=== PATIENT | female | born 1970 | race Caucasian/White ===

== ENCOUNTER 2019-12-24 11:30 | Emergency (ER) | payer OTHER ==
--- OUTSIDE RECORDS SUMMARY | 2019-12-24 12:05 | XMS REPORT ---
:1970 [facility] Address [address] [place] [address] [address] Care Team Providers Name Role Phone Unavailable Unavailable Unavailable Problems This patient has no known problems. Allergies, Adverse Reactions, Alerts This patient has no known allergies or adverse reactions. Medications This patient has no known medications. Encounters Start End Encounter Admission Attending Care Care Encounter Date/Time Date/Time Type Type Clinicians Facility Department ID 2017-11-18 2017-11-18 Outpatient [facility] [id number] 00:00:00 00:00:00 2017-07-22 2017-07-22 Outpatient [facility] [id number] 00:00:00 00:00:00 2017-06-24 2017-06-24 Outpatient [facility] [id number] 12:34:43 12:34:43 2017-06-24 2017-06-24 Outpatient [facility] [id number] 10:24:55 10:24:55
--- OUTSIDE RECORDS SUMMARY | 2019-12-24 12:05 | XMS REPORT | Summary of Care ---
:1970 Author Organization [facility] Address [address] [place] [address] Care Team Providers Name Role Phone Timothy Dawson Primary Care Provider Encounter Details Date Type Department Care Team Description 11/22/2019 [facility] [address] [place] [address] [place] [address] [place], [place] [phone] Allergies Active Allergy Reactions Severity Noted Date Comments Morphine Nausea and/or Vomiting 05/15/2015 documented as of this encounter (statuses as of 11/23/2019) Medications Medication Sig Dispensed Refills Start Date End Date Status oxyCODONE C.R. Take 20 mg by 0 Active (OXYCONTIN) 20 mg 12 hr mouth 2 (two) tablet times daily. tiZANidine (ZANAFLEX) 4 Take 4 mg by 0 Active mg capsule mouth 2 (two) times daily. gabapentin (NEURONTIN) Take 800 mg by 0 Active 800 mg tablet mouth 4 (four) times daily. gemfibrozil (LOPID) 600 Take 600 mg by 0 Active mg tablet mouth daily. furosemide (LASIX) 20 Take 20 mg by 0 Active mg tablet mouth 2 (two) times daily. propranolol (INDERAL) Take 80 mg by 0 Active 80 mg tablet mouth daily. warfarin (COUMADIN) 7.5 Take 7.5 mg by 0 Active mg tablet mouth every evening. cephALEXin (KEFLEX) 500 Take 1 capsule 28 capsule 0 09/23/2017 Active mg capsule by mouth 2 (two) times daily. triamcinolone acetonide Apply to 80 g 2 08/20/2018 Active 0.1 % cream area(s) 2 (two) times daily. traMADol 50 mg Take 1 tablet by 20 tablet 0 10/30/2019 Active tabletIndications: mouth every 6 Closed fracture of (six) hours as metatarsal bone of needed for Pain right foot, physeal (scale 7-10). involvement unspecified, unspecified metatarsal, initial encounter documented as of this encounter (statuses as of 11/23/2019) Active Problems No known active problemsdocumented as of this encounter (statuses as of 2019) Resolved Problems Problem Noted Date Resolved Date Pain 05/15/2015 05/15/2015 documented as of this encounter (statuses as of 11/23/2019) Social History Tobacco Use Types Packs/Day Years Used Date Never Smoker Smokeless Tobacco: Former User Alcohol Use Drinks/Week oz/Week Comments No Sex Assigned at Date Recorded Not on file Job Start Date Occupation Industry Not on file Not on file Not on file Travel History Travel Start Travel End No recent travel history available. 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 Name Type Priority Associated Diagnoses Order Schedule XR FOOT <3 VW RIGHT IMAGING Routine Right foot pain 1 Occurrences starting 11/22/2019 until 11/22/2019 Health Maintenance Due Date Last Done Comments DTaP,Tdap,and Td Vaccines (1 - 1979 Tdap) PAP SMEAR 1989 Breast Cancer Screening 2008 (MAMMOGRAM) COLONOSCOPY 2018 Zoster Recombinant Vaccine 2018 (SHINGRIX) (1 of 2) INFLUENZA VACCINE (#1) 2019 PNEUMOCOCCAL 0-64 YEARS COMBINED Aged Out No longer eligible based on SERIES patient's age to complete this topic documented as of this encounter Implants Implanted Type Area Deputy Court Clerk Device Shelf Model / Identifier Expiration Serial / Date Lot Intrathecal Catheter Lumbar N/A: Back Medtronic 12/21/2016 8780 / Implanted: Qty: 1 on 09/04/2015 by Crow Cowan MD at [facility] Catheter [id number] / [id number] Pump Pump N/A: Medtronic 09/23/2016 8637-20 / Implanted: Qty: 1 on 09/04/2015 by Crow Cowan MD at [facility] Abdomen [id number] / [id number] documented as of this encounter Results Not on filedocumented in this encounter Visit Diagnoses Diagnosis Right foot pain Pain in limb documented in this encounter Insurance Payer Benefit Plan / Subscriber ID Effective Dates Phone Address Type Group [facility] xxxxxxxxx 2016-Present Medicaid COMM PLAN - PLUS MANAGED MEDICAID ([place]) [place] [address] documented as of this encounter
--- OUTSIDE RECORDS SUMMARY | 2019-12-24 12:05 | XMS REPORT | Summary of Care ---
:1970 Author Organization [facility] Address [address] [place] [address] Care Team Providers Name Role Phone Timothy Dawson Primary Care Provider Reason for Visit Reason Comments Follow-up Ankle Pain right ankle injury DOI 10/30/19 2 days out Encounter Details Date Type Department Care Team Description 11/01/2019 Office Visit [facility] Rafael Cortés Closed nondisplaced Orthopaedic Surgery- MD Karen fracture of fifth [place] [address] metatarsal bone of [address], [address] right foot, initial [address] [place], [place] encounter (Primary Dx) [place] [phone] Allergies Active Allergy Reactions Severity Noted Date Comments Morphine Nausea and/or Vomiting 05/15/2015 documented as of this encounter (statuses as of 11/25/2019) Medications Medication Sig Dispensed Refills Start Date End Date Status oxyCODONE C.R. Take 20 mg by 0 Active (OXYCONTIN) 20 mg 12 mouth 2 (two) hr tablet times daily. tiZANidine (ZANAFLEX) Take 4 mg by 0 Active 4 mg capsule mouth 2 (two) times daily. gabapentin Take 800 mg by 0 Active (NEURONTIN) 800 mg mouth 4 (four) tablet times daily. gemfibrozil (LOPID) Take 600 mg by 0 Active 600 mg tablet mouth daily. furosemide (LASIX) 20 Take 20 mg by 0 Active mg tablet mouth 2 (two) times daily. propranolol (INDERAL) Take 80 mg by 0 Active 80 mg tablet mouth daily. warfarin (COUMADIN) Take 7.5 mg by 0 Active 7.5 mg tablet mouth every evening. cephALEXin (KEFLEX) Take 1 capsule 28 capsule 0 09/23/2017 Active 500 mg capsule by mouth 2 (two) times daily. triamcinolone Apply to 80 g 2 08/20/2018 Active acetonide 0.1 % cream area(s) 2 (two) times daily. traMADol 50 mg Take 1 tablet 20 tablet 0 10/30/2019 Active tabletIndications: by mouth every Closed fracture of 6 (six) hours metatarsal bone of as needed for right foot, physeal Pain (scale involvement 7-10). unspecified, unspecified metatarsal, initial encounter naproxen 500 mg Take 1 tablet 14 tablet 0 10/30/2019 11/06/2019 tabletIndications: by mouth 2 Closed fracture of (two) times metatarsal bone of daily with right foot, physeal meals for 7 involvement days. unspecified, unspecified metatarsal, initial encounter documented as of this encounter (statuses as of 11/25/2019) Active Problems No known active problemsdocumented as of this encounter (statuses as of 2019) Resolved Problems Problem Noted Date Resolved Date Pain 05/15/2015 05/15/2015 documented as of this encounter (statuses as of 11/25/2019) Social History Tobacco Use Types Packs/Day Years Used Date Never Smoker Smokeless Tobacco: Former User Alcohol Use Drinks/Week oz/Week Comments No Sex Assigned at Date Recorded Not on file Job Start Date Occupation Industry Not on file Not on file Not on file Travel History Travel Start Travel End No recent travel history available. 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 Patient states she fell while at home and injured her foot. Complains of pain in the 5th metatarsal.Arrived wearing splint from ER [facility]. Foot Pain This is a new problem. Episode onset: 10/30/2019. Allergies Savanna is allergic to morphine. Medications Outpatient Medications Prior to Visit Medication Sig Dispense Refill naproxen 500 mg tablet Take 1 tablet by mouth 2 (two) times daily with meals for 7 days. 14 tablet 0 traMADol 50 mg tablet Take 1 tablet by mouth every 6 (six) hours as needed for Pain (scale 7-10). 20 tablet 0 triamcinolone acetonide 0.1 % cream Apply to area(s) 2 (two) times daily. 80 g 2 cephALEXin (KEFLEX) 500 mg capsule Take 1 capsule by mouth 2 (two) times daily. 28 capsule 0 warfarin (COUMADIN) 7.5 mg tablet Take 7.5 mg by mouth every evening. furosemide (LASIX) 20 mg tablet Take 20 mg by mouth 2 (two) times daily. gabapentin (NEURONTIN) 800 mg tablet Take 800 mg by mouth 4 (four) times daily. gemfibrozil (LOPID) 600 mg tablet Take 600 mg by mouth daily. oxyCODONE C.R. (OXYCONTIN) 20 mg 12 hr tablet Take 20 mg by mouth 2 (two) times daily. propranolol (INDERAL) 80 mg tablet Take 80 mg by mouth daily. tiZANidine (ZANAFLEX) 4 mg capsule Take 4 mg by mouth 2 (two) times daily. No facility-administered medications prior to visit. Histories Past Medical History: Diagnosis Date Chronic neck and back pain History of DVT (deep vein thrombosis) History of skin cancer Hypertension Other and unspecified hyperlipidemia TIA (transient ischemic attack) Tremors of nervous system essential tremors Past Surgical History: Procedure Laterality Date CHOLECYSTECTOMY HB EXCISION TUMOR FACE Removal of skin cancer from nose HYSTERECTOMY INTRATHECAL INFUSION PUMP MEDICATION REFILL N/A 09/04/2015 Surgeon: Crow Cowan MD; Location: [facility] OR [facility] INTRATHECAL INFUSION PUMP TRIAL N/A 05/15/2015 Surgeon: Crow Cowan MD; Location: [facility] OR LOCATION LUMBAR EPIDURAL STEROID INJECTION N/A 01/19/2018 Surgeon: Crow Cowan MD; Location: [facility] OR Location LUMBAR EPIDURAL STEROID INJECTION N/A 01/26/2018 Surgeon: Crow Cowan MD; Location: [facility] OR Location LUMBAR EPIDURAL STEROID INJECTION N/A 02/02/2018 Surgeon: Crow Cowan MD; Location: [facility] OR [facility] SPINE SURGERY Cervical Fusion Social History Socioeconomic History Marital status: Spouse name: Not on file Number of children: Not on file Years of education: Not on file Highest education level: Not on file Occupational History Not on file Social Needs Financial resource strain: Not on file Food insecurity: Worry: Not on file Inability: Not on file Transportation needs: Medical: Not on file Non-medical: Not on file Tobacco Use Smoking status: Never Smoker Smokeless tobacco: Former User Substance and Sexual Activity Alcohol use: No Drug use: No Sexual activity: Not on file Lifestyle Physical activity: Days per week: Not on file Minutes per session: Not on file Stress: Not on file Relationships Social connections: Talks on phone: Not on file Gets together: Not on file Attends bahai service: Not on file Active member of club or organization: Not on file Attends meetings of clubs or organizations: Not on file Relationship status: Not on file Intimate partner violence: Fear of current or ex partner: Not on file Emotionally abused: Not on file Physically abused: Not on file Forced sexual activity: Not on file Other Topics Concern Not on file Social History Narrative Not on file No family history on file. Review of Systems Constitutional: Negative. HENT: Negative. Eyes: Negative. Respiratory: Negative. Breasts: Negative. Cardiovascular: Negative. Gastrointestinal: Negative. Genitourinary: Negative. Musculoskeletal: Negative. Skin: Negative. Neurological: Negative. Psychiatric/Behavioral: Negative. Endocrine: Endocrine negative Vital Signs BP (!) 154/85 | Ht 70" (177.8 cm) | Wt 77.1 kg (170 lb) | BMI 24.39 kg/m Physical Exam Musculoskeletal: General: Well-developed well-nourished oriented to person place and time HEENT normocephalic atraumatic atraumatic pupils equal round reactive to light extraocular muscles intact Cervical thoracic and lumbar spine without focal deficit normal kyphosis and lordosis Chest clear to auscultation and percussion Cardiovascular regular rate and rhythm without gallop rub or murmur soft without organomegaly Normal bowel sounds Neurologic: Focal myotome or dermatomal deficits Vascular: Intact symmetrical bilateral upper and lower extremities Skin without stasis varicosities or breakdown Extremities without cyanosis clubbing or edema Lymphatics no peripheral lymphedema Psych normal mood and affect. Neurovascular function is intact. To include brisk capillary refill warm pink skin active motor function and sensory function intact. Nursing note and vitals reviewed. Assessment/Plan Diagnosis right 5th metatarsal fracture Plan cast boot for 3 weeks. May WBAT with boot. Follow up 3 weeks. documented in this encounter Plan of Treatment Health Maintenance Due Date Last Done Comments DTaP,Tdap,and Td Vaccines (1 - 1979 Tdap) PAP SMEAR 1989 Breast Cancer Screening 2008 (MAMMOGRAM) COLONOSCOPY 2018 Zoster Recombinant Vaccine 2018 (SHINGRIX) (1 of 2) INFLUENZA VACCINE (#1) 2019 PNEUMOCOCCAL 0-64 YEARS COMBINED Aged Out No longer eligible based on SERIES patient's age to complete this topic documented as of this encounter Implants Implanted Type Area Interlocking Machine Operator Device Shelf Model / Identifier Expiration Serial / Date Lot Intrathecal Catheter Lumbar N/A: Back Medtronic 12/21/2016 8780 / Implanted: Qty: 1 on 09/04/2015 by Crow Cowan MD at [facility] Catheter [id number] / [id number] Pump Pump N/A: Medtronic 09/23/2016 8637-20 / Implanted: Qty: 1 on 09/04/2015 by Crow Cowan MD at [facility] Abdomen [id number] / [id number] documented as of this encounter Results Not on filedocumented in this encounter Visit Diagnoses Diagnosis Closed nondisplaced fracture of fifth metatarsal bone of right foot, initial encounter - Primary documented in this encounter Insurance Payer Benefit Plan / Subscriber ID Effective Dates Phone Address Type Group [facility] xxxxxxxxx 2016-Present Medicaid COMM PLAN - PLUS MANAGED MEDICAID ([place]) [place] [address] documented as of this encounter
--- OUTSIDE RECORDS SUMMARY | 2019-12-24 12:05 | XMS REPORT | Summary of Care ---
:1970 Author Organization [facility] Address [address] [place] [address] Care Team Providers Name Role Phone Timothy Dawson Primary Care Provider Encounter Details Date Type Department Care Team Description 11/22[facility]2019 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 Name Type Priority Associated Diagnoses Order Schedule XR HAND <3 VW RIGHT IMAGING Routine Right hand pain 1 Occurrences starting 11/22/2019 until 11/22/2019 [...] of this encounter Implants Implanted Type Area Cartography Teacher Device Shelf Model / Identifier Expiration Serial / Date Lot Intrathecal Catheter Lumbar N/A: Back Medtronic 12/21/2016 8780 / Implanted: Qty: 1 on 09/04/2015 by Crow Cowan MD at [facility] Catheter [id number] / [id number] Pump Pump N/A: Medtronic 09/23/2016 8637-20 / Implanted: Qty: 1 on 09/04/2015 by Crow Cowan MD at [facility] Abdomen [id number] / [id number] documented as of this encounter Results Not on filedocumented in this encounter Visit Diagnoses Diagnosis Right hand pain Pain in limb documented in this encounter Insurance Payer Benefit Plan / Subscriber ID Effective Dates Phone Address Type Group [facility] xxxxxxxxx 2016-Present Medicaid COMM PLAN - PLUS MANAGED MEDICAID ([place]) [place] [address] documented as of this encounter
--- OUTSIDE RECORDS SUMMARY | 2019-12-24 12:05 | XMS REPORT | Summary of Care ---
:1970 Author Organization [facility] Address [address] [place] [address] Care Team Providers Name Role Phone Timothy Dawson Primary Care Provider Reason for Visit Reason Comments Follow-up Ankle Pain right ankle injury DOI 10/30/19 2 days out Encounter Details Date Type Department Care Team Description 11/01/2019 Office Visit [facility] Rafael Cortés Closed nondisplaced Orthopaedic Surgery- MD Karen fracture of fifth [place] [address] metatarsal bone of [address], [address] right foot, initial [address] [place], [place] encounter (Primary Dx) [place] [phone] Allergies Active Allergy Reactions Severity Noted Date [...] Comments Blood Pressure 154/85 11/01/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 Pulse - - Temperature - - Respiratory Rate - - Oxygen Saturation - - Inhaled Oxygen Concentration - - Weight 77.1 kg (170 lb) 11/01/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 OR Location LUMBAR EPIDURAL STEROID INJECTION N/A 01/26/2018 Surgeon: Crow Cowan MD; Location: [facility] OR Location LUMBAR EPIDURAL STEROID INJECTION N/A 02/02/2018 Surgeon: Crow Cowan MD; Location: [facility] OR [facility] SPINE SURGERY Cervical Fusion Social History Socioeconomic [...] file Gets together: Not on file Attends hindu service: Not on file Active member of [...] of this encounter Implants Implanted Type Area Air Conditioning Supervisor Device Shelf Model / Identifier Expiration Serial / Date Lot Intrathecal Catheter Lumbar N/A: Back Medtronic 12/21/2016 8780 / Implanted: Qty: 1 on 09/04/2015 by Crow Cowan MD at [facility] Catheter [id number] / [id number] Pump Pump N/A: Medtronic 09/23/2016 8637-20 / Implanted: Qty: 1 on 09/04/2015 by Crow Cowan MD at [facility] Abdomen [id number] / [id number] documented as of this encounter Results Not on filedocumented in this encounter Visit Diagnoses Diagnosis Closed nondisplaced fracture of fifth metatarsal bone of right foot, initial encounter - Primary documented in this encounter Insurance Payer Benefit Plan / Subscriber ID Effective Dates Phone Address Type Group [facility] xxxxxxxxx 2016-Present Medicaid COMM PLAN - PLUS MANAGED MEDICAID ([place]) [place] [address] documented as of this encounter
--- NOTE | 2019-12-24 12:26 | RAD REPORT ---
EXAM DESCRIPTION: CT - Stone Protocol - 12/24/2019 12:00 pm CLINICAL HISTORY: Abdominal pain. COMPARISON: June 2019 TECHNIQUE: Computed axial tomography of the abdomen pelvis was obtained without oral or IV contrast. Lack of IV and oral contrast limits evaluation of solid organs, bowel, and vessels. Coronal reformat alethea images were obtained and reviewed. All CT scans are performed using dose optimization technique as appropriate and may include automated exposure control or mA/KV adjustment according to patient size. FINDINGS: A renal calculus is not seen. An ureteral calculus is not noted. A bladder calculus is not present. The liver, spleen, pancreas and adrenals appear grossly normal There is no evidence of diverticulitis. The appendix appears normal Cholecystectomy. Hysterectomy IMPRESSION: Negative for a genitourinary calculus
--- NOTE | 2019-12-24 12:49 | EDPHYS ---
Physician Documentation [facility] Name: Savanna San Age: 49 yrs Sex: Female : 1970 Arrival Date: 12/24/2019 Time: 11:33 Bed 5 Private MD: MARTA Physician Francisco Medina HPI: 12/24 12:43 This 49 yrs old Female presents to ER via Ambulatory with complaints of kb Possible Kidney Stone. 12:45 The patient complains of pain in the left flank. The pain does not radiate. Onset: The kb symptoms/episode began/occurred 3 week(s) ago. Modifying factors: The symptoms are alleviated by nothing. the symptoms are aggravated by palpation/percussion. Associated signs and symptoms: The patient has no apparent associated signs or symptoms. Severity of pain: At its worst the pain was moderate in the emergency department the pain is unchanged. The patient has not experienced similar symptoms in the past. The patient has not recently seen a physician. Pt reports left flank pain that started 3 weeks ago. Denies urinary symptoms, trauma, history of kidney stones. . 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 - Hysterectomy jl7 Historical: - Allergies: 11:50 Morphine; jl7 - Home Meds: 11:50 Xanax 2 mg oral tab [Active]; warfarin 7.5 mg Oral tab 1 tab once daily [Active]; jl7 Neurontin 800 mg Oral tab [Active]; propranolol 40 mg Oral tab 1 tab every 12 hours [Active]; tizanidine 4 mg oral tab [Active]; [id number]-[id number] [Active]; Cymbalta 60 mg oral cpDR 1 cap once daily [Active]; pain pump [Active]; losartan oral oral [Active]; - PMHx: 11:50 DVT; Headaches; Nerve Damage +DDD; Seizures; tremors; jl7 - PSHx: 11:50 pancreas surgery to remove stone (2017); Hysterectomy; Cholecystectomy; jl7 - Immunization history:: Adult Immunizations up to date. - Coronavirus screen:: The patient has NOT traveled to [place] in the past 14 days. Proceed with normal triage process as indicated. - Social history:: Smoking status: Patient denies any tobacco usage or history of. - Ebola Screening: : No symptoms or risks identified at this time. ROS: 12:41 Constitutional: Negative for fever, chills, and weight loss, ENT: Negative for injury, kb pain, and discharge, Neck: Negative for injury, pain, and swelling, Cardiovascular: Negative for chest pain, palpitations, and edema, Respiratory: Negative for shortness of breath, cough, wheezing, and pleuritic chest pain, Abdomen/GI: Negative for abdominal pain, nausea, vomiting, diarrhea, and constipation, : Negative for injury, bleeding, discharge, and swelling, MS/Extremity: Negative for injury and deformity, Skin: Negative for injury, rash, and discoloration, Neuro: Negative for headache, weakness, numbness, tingling, and seizure. 12:41 Back: Positive for flank pain, on the left. Exam: 12:41 Constitutional: This is a well developed, well nourished patient who is awake, alert, kb and in no acute distress. Head/Face: Normocephalic, atraumatic. Neck: Trachea midline, no thyromegaly or masses palpated, and no cervical lymphadenopathy. Supple, full range of motion without nuchal rigidity, or vertebral point tenderness. No Meningismus. Chest/axilla: Normal chest wall appearance and motion. Nontender with no deformity. No lesions are appreciated. Cardiovascular: Regular rate and rhythm with a normal S1 and S2. No gallops, murmurs, or rubs. Normal PMI, no JVD. No pulse deficits. Respiratory: Lungs have equal breath sounds bilaterally, clear to auscultation and percussion. No rales, rhonchi or wheezes noted. No increased work of breathing, no retractions or nasal flaring. Abdomen/GI: Soft, non-tender, with normal bowel sounds. No distension or tympany. No guarding or rebound. No evidence of tenderness throughout. Skin: Warm, dry with normal turgor. Normal color with no rashes, no lesions, and no evidence of cellulitis. MS/ Extremity: Pulses equal, no cyanosis. Neurovascular intact. Full, normal range of motion. Neuro: Awake and alert, GCS 15, oriented to person, place, time, and situation. Cranial nerves II-XII grossly intact. Motor strength 5/5 in all extremities. Sensory grossly intact. Cerebellar exam normal. Normal gait. 12:41 Back: pain, that is moderate, of the left low back, ROM is normal, normal spinal alignment noted. Vital Signs: 11:50 BP 143 / 84; Pulse 96; Resp 17 S; Temp 97.9(O); Pulse Ox 100% on R/A; Weight 81.65 kg jl7 (R); Height 5 ft. 10 in. (177.80 cm) (R); Pain 5/10; 11:50 Body Mass Index 25.83 (81.65 kg, 177.80 cm) jl7 MDM: 11:37 Patient medically screened. kb 12:40 Data reviewed: vital signs, nurses notes. Data reviewed: lab test result(s), radiologic kb studies. Data interpreted: Pulse oximetry: on room air is 100 %. Interpretation: normal. Counseling: I had a detailed discussion with the patient and/or guardian regarding: the historical points, exam findings, and any diagnostic results supporting the discharge/admit diagnosis, lab results, radiology results, the need for outpatient follow up, a family practitioner, to return to the emergency department if symptoms worsen or persist or if there are any questions or concerns that arise at home. 12/24 11:58 Order name: Urine Dipstick--Ancillary (enter results) eb 12/24 11:44 Order name: CT Stone Protocol kb 12/24 11:37 Order name: Urine Dipstick-Ancillary (obtain specimen); Complete Time: 11:58 kb 12/24 12:34 Order name: CT; Complete Time: 12:38 EDMS Administered Medications: 12:55 Drug: TORadol 30 mg Route: IM; Site: left deltoid; jl7 13:12 Follow up: Response: No adverse reaction jl7 12:58 Drug: Flexeril 10 mg Route: PO; jl7 13:12 Follow up: Response: No adverse reaction jl7 Disposition: 13:40 Co-signature as Attending Physician, Francisco Medina MD I agree with the assessment and georgi plan of care. Disposition: 12/24/19 12:49 Discharged to Home. Impression: Low back pain. - Condition is Stable. - Discharge Instructions: Musculoskeletal Pain, Back Pain, Adult, [id number]. - Prescriptions for Cyclobenzaprine 10 mg Oral Tablet - take 1 tablet by ORAL route every 8 hours As needed; 21 tablet. - Medication Reconciliation Form, Thank You Letter, Antibiotic Education, Prescription Opioid Use form. - Follow up: Emergency Department; When: As needed; Reason: Worsening of condition. Follow up: Private Physician; When: 2 - 3 days; Reason: Recheck today's complaints, Continuance of care, Re-evaluation by your physician. Signatures: Dispatcher [employer] Mala Vicente, MARKET GARDEN WORKER-Mell LUTHER-Francisco Hull MD MD cha Leal, Jahala, RN RN jl7 Corrections: (The following items were deleted from the chart) 13:13 12:49 12/24/2019 12:49 Discharged to Home. Impression: Low back pain. Condition is jl7 Stable. Forms are Medication Reconciliation Form, Thank You Letter, Antibiotic Education, Prescription Opioid Use. Follow up: Emergency Department; When: As needed; Reason: Worsening of condition. Follow up: Private Physician; When: 2 - 3 days; Reason: Recheck today's complaints, Continuance of care, Re-evaluation by your physician. kb
--- NOTE | 2019-12-24 12:49 | ER ---
Nurse's Notes [facility] Name: Savanna San Age: 49 yrs Sex: Female : 1970 Arrival Date: 12/24/2019 Time: 11:33 Bed 5 Private MD: Diagnosis: Low back pain Presentation: 12/24 11:44 Presenting complaint: Patient states: Left flank pain x 3 weeks, radiates to LLQ, with jl7 frequency and nausea. Denies burning and pain with urination. Transition of care: patient was not received from another setting of care. Onset of symptoms was December 03, 2019. Risk Assessment: Do you want to hurt yourself or someone else? Patient reports no desire to harm self or others. Initial Sepsis Screen: Does the patient meet any 2 criteria? No. Patient's initial sepsis screen is negative. Does the patient have a suspected source of infection? No. Patient's initial sepsis screen is negative. Care prior to arrival: None. 11:44 Method Of Arrival: Ambulatory 7 11:44 Acuity: MARIJA 3 jl7 Triage Assessment: 11:50 General: Appears in no apparent distress. uncomfortable, Behavior is calm, cooperative, jl7 appropriate for age. Pain: Complains of pain in left flank Pain radiates to left lower quadrant Pain currently is 5 out of 10 on a pain scale. Pain began 3 weeks ago Is continuous. Neuro: Level of Consciousness is awake, alert, obeys commands, Oriented to person, place, time, situation. Cardiovascular: Patient's skin is warm and dry. Respiratory: Airway is patent Respiratory effort is even, unlabored, Respiratory pattern is regular, symmetrical. GI: Abdomen is non-distended, Abd is soft and non tender X 4 quads. : Reports pain in left flank(s). Derm: Skin is pink, warm \T\ dry. 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 - Hysterectomy jl7 Historical: - Allergies: 11:50 Morphine; jl7 - Home Meds: 11:50 Xanax 2 mg oral tab [Active]; warfarin 7.5 mg Oral tab 1 tab once daily [Active]; jl7 Neurontin 800 mg Oral tab [Active]; propranolol 40 mg Oral tab 1 tab every 12 hours [Active]; tizanidine 4 mg oral tab [Active]; [id number] [Active]; Cymbalta 60 mg oral cpDR 1 cap once daily [Active]; pain pump [Active]; losartan oral oral [Active]; - PMHx: 11:50 DVT; Headaches; Nerve Damage +DDD; Seizures; tremors; jl7 - PSHx: 11:50 pancreas surgery to remove stone (2017); Hysterectomy; Cholecystectomy; jl7 - Immunization history:: Adult Immunizations up to date. - Coronavirus screen:: The patient has NOT traveled to [place] in the past 14 days. Proceed with normal triage process as indicated. - Social history:: Smoking status: Patient denies any tobacco usage or history of. - Ebola Screening: : No symptoms or risks identified at this time. Screenin:58 Abuse screen: Denies threats or abuse. Denies injuries from another. Nutritional jl7 screening: No deficits noted. Tuberculosis screening: No symptoms or risk factors identified. Fall Risk None identified. Assessment: 11:58 General: See triage assessment. jl7 Vital Signs: 11:50 BP 143 / 84; Pulse 96; Resp 17 S; Temp 97.9(O); Pulse Ox 100% on R/A; Weight 81.65 kg jl7 (R); Height 5 ft. 10 in. (177.80 cm) (R); Pain 5/10; 11:50 Body Mass Index 25.83 (81.65 kg, 177.80 cm) jl7 ED Course: 11:33 Patient arrived in ED. fj1 11:36 Chris Marques RN is Primary Nurse. jl7 11:37 [facility]endo[facility]-C [facility] kb 11:37 Francisco Medina MD is Attending Physician. kb 11:45 Triage completed. jl7 11:50 Arm band placed on right wrist. jl7 11:58 Patient has correct armband on for positive identification. Bed in low position. Call jl7 light in reach. Side rails up X 1. Pulse ox on. NIBP on. 11:58 Urine collected: clean catch specimen, clear, Amount Voided: 100mL. jl7 12:58 No provider procedures requiring assistance completed. Patient did not have IV access jl7 during this emergency room visit. Administered Medications: 12:55 Drug: TORadol 30 mg Route: IM; Site: left deltoid; jl7 13:12 Follow up: Response: No adverse reaction jl7 12:58 Drug: Flexeril 10 mg Route: PO; jl7 13:12 Follow up: Response: No adverse reaction jl7 Outcome: 12:49 Discharge ordered by MD. raymond 12:58 Discharged to home ambulatory. jl7 12:58 Condition: stable 12:58 Discharge instructions given to patient, family, Instructed on discharge instructions, follow up and referral plans. medication usage, Demonstrated understanding of instructions, follow-up care, medications, Prescriptions given X 1. 13:13 Patient left the ED. jl7 Signatures: Mala Mendoza, FORENSIC LOCKSMITH-C FORENSIC LOCKSMITH-hCris Leon, RN RN jl7 Aung Richardson fj1
[2019-12-24] MEDS ORDERED: CYCLOBENZAPRINE 10 MG TAB ONE (12:57)
[2019-12-24] MEDS ORDERED: KETOROLAC 30 MG/ML INJ ONE (12:57)
[2019-12-24 13:37] LABS: Urine Blood NEGATIVE (NEG); Urine Glucose NEGATIVE (NEG); Urine Protein NEGATIVE (NEG)
[2019-12-24 20:39] VITALS: BP 143/84; TEMP 97.9; O2SAT 100
== END 2019-12-24 13:13 | disposition home or self-care (01) ==
LOC: ER 11:30
DX: M54.5 Low back pain (principal); Z88.6 Allergy status to analgesic agent
CPT/HCPCS: 74176; 76377; 81003; 96372; 99284

== ENCOUNTER 2020-01-17 14:30 | Emergency (ER) | payer OTHER ==
--- OUTSIDE RECORDS SUMMARY | 2020-01-17 14:34 | XMS REPORT ---
:1970 [facility] Address [address] [place] [address] [address] Care Team Providers Name Role Phone Unavailable Unavailable Unavailable Problems This patient has no known problems. Allergies, Adverse Reactions, Alerts This patient has no known allergies or adverse reactions. Medications This patient has no known medications. Encounters Start End Encounter Admission Attending Care Care Encounter Date/Time Date/Time Type Type Clinicians Facility Department ID 2017-11-18 2017-11-18 Outpatient [facility] [id number] 00:00:00 00:00:00 2017-07-22 2017-07-22 Outpatient [facility] [id number] 00:00:00 00:00:00 2017-06-24 2017-06-24 Outpatient [facility] [id number] 12:34:43 12:34:43 2017-06-24 2017-06-24 Outpatient [facility] [id number] 10:24:55 10:24:55
--- NOTE | 2020-01-17 15:17 | RAD REPORT ---
EXAM DESCRIPTION: CT - Head Brain Wo Cont - 01/17/2020 3:10 pm CLINICAL HISTORY: Alteration of awareness/confusion COMPARISON: 2018 TECHNIQUE: Computed axial tomography of the head was obtained. IV contrast was not requested. All CT scans are performed using dose optimization technique as appropriate and may include automated exposure control or mA/KV adjustment according to patient size. FINDINGS: An intracranial bleed is not seen . The ventricles are normal in caliber. No extra-axial fluid collection is noted. Mild to moderate low-density areas within periventricular, deep and subcortical white matter likely r epresent ischemic changes secondary to small vessel disease. Fluid within the sinuses/ mastoids is not seen. IMPRESSION: No acute intracranial abnormality is seen. If patient's symptoms persist MRI of the bra in would be recommended.
[2020-01-17 15:44] LABS: Protime INR 1.03
[2020-01-17 15:46] LABS: Absolute Lymphocytes (CBC) 2.1 K/uL (0.7-4.9); Basophils % 0.6 % (0-1.3); Hematocrit 37.6 % (36.0-45.0); Lymphocytes % 38.7 % (15.3-44.8); MPV 8.3 fL (7.6-11.3); RBC Red Blood Cell Count 4.15 M/uL (3.86-4.86)
[2020-01-17 15:56] LABS: ALT/SGPT 21 U/L (12-78); AST/SGOT 14 U/L (15-37); Albumin 3.7 g/dL (3.4-5.0); Alkaline Phosphatase 104 U/L (45-117); BUN Blood Urea Nitrogen 9 mg/dL (7-18); Bicarbonate 24 mmol/L (21-32); Bilirubin Direct < 0.1 mg/dL (0-0.2); Bilirubin Total 0.2 mg/dL (0.2-1.0); Glucose Level 121 mg/dL (74-106); Magnesium 2.1 mg/dL (1.8-2.4); NT PRO-BNP 124 pg/mL (<125); Potassium 3.4 mmol/L (3.5-5.1); Protein, Total 8.2 g/dL (6.4-8.2); Sodium Level 143 mmol/L (136-145); Troponin (Emerg Dept Use Only) < 0.02 ng/mL (0.0-0.045)
--- NOTE | 2020-01-17 16:06 | RAD REPORT ---
EXAM DESCRIPTION: [facility]01/17/2020 3:39 pm CLINICAL HISTORY: Chest pain COMPARISON: 2017 FINDINGS: The lungs appear clear of acute infiltrate. The heart is normal size IMPRESSION: No acute abnormalities displayed
[2020-01-17 17:17] LABS: Barbiturates POSITIVE (NEGATIVE); Benzodiazepines POSITIVE (NEGATIVE); Cocaine NEGATIVE (NEGATIVE); METHAMPHETAM NEGATIVE (NEGATIVE); Methadone NEGATIVE (NEGATIVE); Opiates NEGATIVE (NEGATIVE); Phencyclidine NEGATIVE (NEGATIVE); THC Cannibis NEGATIVE (NEGATIVE)
[2020-01-17 17:44] LABS: Urine Bacteria NONE SEEN /HPF (<20); Urine Culture Reflex Order NOT NEEDED; Urine RBC <5 /HPF (NONE SEEN)
[2020-01-17 17:44] LABS: Urine Blood NEGATIVE (NEG); Urine Glucose NEGATIVE (NEG); Urine Protein NEGATIVE (NEG); Urine Specific Gravity 1.015 (1.005-1.030)
--- NOTE | 2020-01-17 17:57 | EDPHYS ---
Physician Documentation [facility] Name: Savanna San Age: 49 yrs Sex: Female : 1970 Arrival Date: 01/17/2020 Time: 14:36 Bed 17 Private MD: MARTA Physician Francisco Medina HPI: 01/16 14:51 This 49 yrs old Female presents to ER via EMS with complaints of Altered pm1 Mental Status. 14:51 The patient presents with Increased tremor. Onset: The symptoms/episode began/occurred pm1 today. Possible causes: recent diagnosis of Parkinson's disease. Not currently taking any medications for it. Associated signs and symptoms: Pertinent positives: headache, Pertinent negatives: abdominal pain, chest pain, numbness, shortness of breath, tingling. Current symptoms: In the emergency department the patient's symptoms have worsened. The patient has experienced similar episodes in the past, chronically. The patient has been recently seen by a physician: Dr. Quan with similar presenting complaints, and apparently given a diagnosis of Parkinson's. Historical: - Allergies: 14:43 Morphine; hb - Home Meds: 14:43 Cymbalta 60 mg Oral cpDR 1 cap once daily [Active]; losartan Oral [Active]; Neurontin hb 800 mg Oral tab [Active]; propranolol 40 mg Oral tab 1 tab every 12 hours [Active]; tizanidine 4 mg Oral tab [Active]; warfarin 7.5 mg Oral tab 1 tab once daily [Active]; Xanax 2 mg Oral tab [Active]; 14:45 pain pump [Active]; hb - PMHx: 14:43 Headaches; Nerve Damage +DDD; Seizures; DVT; tremors; hb - PSHx: 14:43 pancreas surgery to remove stone (2017); Hysterectomy; Cholecystectomy; hb - Immunization history:: Adult Immunizations up to date. - Social history:: Smoking status: Patient denies any tobacco usage or history of. ROS: 14:51 Constitutional: Negative for fever, chills, and weight loss, Neck: Negative for injury, pm1 pain, and swelling, Cardiovascular: Negative for chest pain, palpitations, and edema, Respiratory: Negative for shortness of breath, cough, wheezing, and pleuritic chest pain, Abdomen/GI: Negative for abdominal pain, nausea, vomiting, diarrhea, and constipation, Back: Negative for injury and pain, MS/Extremity: Negative for injury and deformity, Skin: Negative for injury, rash, and discoloration. 14:51 Neuro: Positive for headache, tremor, of the right arm, worse, and mild to left arm, Negative for numbness, tingling. Exam: 14:51 Constitutional: This is a well developed, well nourished patient who is awake, alert, pm1 and in no acute distress. Head/Face: Normocephalic, atraumatic. Neck: Trachea midline, no thyromegaly or masses palpated, and no cervical lymphadenopathy. Supple, full range of motion without nuchal rigidity, or vertebral point tenderness. No Meningismus. Chest/axilla: Normal chest wall appearance and motion. Nontender with no deformity. No lesions are appreciated. Cardiovascular: Regular rate and rhythm with a normal S1 and S2. No gallops, murmurs, or rubs. Normal PMI, no JVD. No pulse deficits. Respiratory: Lungs have equal breath sounds bilaterally, clear to auscultation and percussion. No rales, rhonchi or wheezes noted. No increased work of breathing, no retractions or nasal flaring. Abdomen/GI: Soft, non-tender, with normal bowel sounds. No distension or tympany. No guarding or rebound. No evidence of tenderness throughout. Back: No spinal tenderness. No costovertebral tenderness. Full range of motion. Skin: Warm, dry with normal turgor. Normal color with no rashes, no lesions, and no evidence of cellulitis. MS/ Extremity: Pulses equal, no cyanosis. Neurovascular intact. Full, normal range of motion. 14:51 Neuro: Orientation: is normal, Mentation: is normal, Motor: moves all fours, Abnormal movements: intention tremor, located in the left arm, pill rolling tremor, is noted, right arm. Vital Signs: 14:39 BP 133 / 99; Pulse 117; Resp 16; Temp 97.8; Pulse Ox 100% on R/A; Weight 77.11 kg; hb Height 5 ft. 6 in. (167.64 cm); Pain 0/10; 15:30 BP 132 / 86; Pulse 86; Resp 15; Pulse Ox 99% on R/A; hb 16:30 BP 136 / 88; Pulse 84; Resp 14; Pulse Ox 98% on R/A; hb 17:36 BP 115 / 84; Pulse 80; Resp 15; Pulse Ox 98% on R/A; hb 14:39 Body Mass Index 27.44 (77.11 kg, 167.64 cm) hb MDM: 14:43 Patient medically screened. georgi 17:55 Data reviewed: vital signs. Data interpreted: Pulse oximetry: on room air is 98 %. pm1 Interpretation: normal. Counseling: I had a detailed discussion with the patient and/or guardian regarding: the historical points, exam findings, and any diagnostic results supporting the discharge/admit diagnosis, lab results, radiology results, the need for outpatient follow up, a neurologist, to return to the emergency department if symptoms worsen or persist or if there are any questions or concerns that arise at home. 18:31 ED course: Dr. Quan was pending DATscan results to confirm diagnosis of Parkinson's pm1 prior to prescribing medications. Patient has not completed the test because her insurance is out of network for the location she found the test. Recommended that she contact her insurance company to find a in network location. 18:33 ED course: Patient reports improvement in her tremors with Xanax and gabapentin. pm1 Offered patient additional benzodiazepine due to increased tremor and agitation with education on chronic and progressive nature of Parkinson's disease. 01/16 14:51 Order name: Basic Metabolic Panel pm01/16 14:51 Order name: CBC with Diff pm01/16 14:51 Order name: LFT's pm01/16 14:51 Order name: Magnesium pm01/16 14:51 Order name: NT PRO-BNP pm01/16 14:51 Order name: PT-INR; Complete Time: 16:21 pm01/16 14:51 Order name: Troponin (emerg Dept Use Only) pm01/16 14:51 Order name: XRAY Chest (1 view); Complete Time: 16:54 pm01/16 14:51 Order name: EKG; Complete Time: 14:55 pm01/16 14:51 Order name: CT Head Brain wo Cont; Complete Time: 16:21 pm01/16 14:51 Order name: UDS; Complete Time: 17:27 pm01/16 14:51 Order name: Urine Microscopic Only; Complete Time: 17:54 pm1 01/16 16:27 Order name: Urine Dipstick--Ancillary (enter results); Complete Time: 17:54 bd 01/16 14:51 Order name: Cardiac monitoring; Complete Time: 16:22 pm1 01/16 14:51 Order name: EKG - Nurse/Tech; Complete Time: 16:22 pm1 01/16 14:51 Order name: IV Saline Lock; Complete Time: 16:23 pm1 01/16 14:51 Order name: Labs collected and sent; Complete Time: 16:23 pm1 01/16 14:51 Order name: O2 Per Protocol; Complete Time: 16:23 pm1 01/16 14:51 Order name: O2 Sat Monitoring; Complete Time: 16:23 pm1 01/16 14:51 Order name: Urine Dipstick-Ancillary (obtain specimen); Complete Time: 16:22 pm1 Administered Medications: 18:40 Drug: Ativan 1 mg Route: IVP; Site: right antecubital; hb 18:45 Follow up: Response: Medication administered at discharge. Disposition: 01/17 07:55 Co-signature as Attending Physician, Francisco Medina MD I agree with the assessment and georgi plan of care. Disposition: 01/17/20 17:56 Discharged to Home. Impression: Tremor, unspecified. - Condition is Stable. - Discharge Instructions: Parkinson Disease, Tremor. - Medication Reconciliation Form, Thank You Letter, Antibiotic Education, Prescription Opioid Use form. - Follow up: Emergency Department; When: As needed; Reason: Worsening of condition. Follow up: Rolf Quan MD; When: 2 - 3 days; Reason: Recheck today's complaints, Continuance of care, Re-evaluation by your physician. - Problem is new. - Symptoms are unchanged. Signatures: Dispatcher [employer] Francisco Robles MD MD cha Marinas, Patrick, CUSTOMER ENGINEER CUSTOMER ENGINEER pm1 Alma Lange, RN RN Corrections: (The following items were deleted from the chart) 01/16 18:33 17:56 01/17/2020 17:56 Discharged to Home. Impression: Parkinson's disease. Condition pm1 is Stable. Forms are Medication Reconciliation Form, Thank You Letter, Antibiotic Education, Prescription Opioid Use. Follow up: Emergency Department; When: As needed; Reason: Worsening of condition. Follow up: Rolf Quan; When: 2 - 3 days; Reason: Recheck today's complaints, Continuance of care, Re-evaluation by your physician. Problem is new. Symptoms are unchanged. pm1 18:46 18:33 01/17/2020 17:56 Discharged to Home. Impression: Tremor, unspecified. Condition hb is Stable. Discharge Instructions: Parkinson Disease. Forms are Medication Reconciliation Form, Thank You Letter, Antibiotic Education, Prescription Opioid Use. Follow up: Emergency Department; When: As needed; Reason: Worsening of condition. Follow up: Rolf Quan; When: 2 - 3 days; Reason: Recheck today's complaints, Continuance of care, Re-evaluation by your physician. Problem is new. Symptoms are unchanged. pm1
--- NOTE | 2020-01-17 17:57 | ER ---
Nurse's Notes [facility] Name: Savanna San Age: 49 yrs Sex: Female : 1970 Arrival Date: 01/17/2020 Time: 14:36 Bed 17 Private MD: Diagnosis: Tremor, unspecified Presentation: 01/16 14:37 Chief complaint: EMS states: Family called for intermittent confusion and diffuse hb tremors today. On scene, pt answering questions appropriately but slow to answer. VS WNL. Coronavirus screen: The patient has NOT traveled to a country currently being monitored by the [facility] within the last 14 days. The patient has NOT had contact with any known and/or suspected case of coronavirus. Proceed with normal triage procedures. Ebola Screen: No symptoms or risks identified at this time. 14:37 Method Of Arrival: EMS: [facility] 14:40 Initial Sepsis Screen: Does the patient meet any 2 criteria? HR > 90 bpm. No. Patient's hb initial sepsis screen is negative. Does the patient have a suspected source of infection? No. Patient's initial sepsis screen is negative. Risk Assessment: Do you want to hurt yourself or someone else? Patient reports no desire to harm self or others. 14:40 Acuity: MARIJA 3 hb Historical: - Allergies: 14:43 Morphine; hb - Home Meds: 14:43 Cymbalta 60 mg Oral cpDR 1 cap once daily [Active]; losartan Oral [Active]; Neurontin hb 800 mg Oral tab [Active]; propranolol 40 mg Oral tab 1 tab every 12 hours [Active]; tizanidine 4 mg Oral tab [Active]; warfarin 7.5 mg Oral tab 1 tab once daily [Active]; Xanax 2 mg Oral tab [Active]; 14:45 pain pump [Active]; hb - PMHx: 14:43 Headaches; Nerve Damage +DDD; Seizures; DVT; tremors; hb - PSHx: 14:43 pancreas surgery to remove stone (2017); Hysterectomy; Cholecystectomy; hb - Immunization history:: Adult Immunizations up to date. - Social history:: Smoking status: Patient denies any tobacco usage or history of. Screenin:45 Abuse screen: Denies threats or abuse. Denies injuries from another. Nutritional hb screening: No deficits noted. Tuberculosis screening: No symptoms or risk factors identified. Fall Risk Total Cruz Fall Scale indicates Low Risk Score (25-44 pts). Fall prevention measures have been instituted. Side Rails Up X 2 Frequent Obs/Assesments occuring Family Present and informed to notify staff if they need to leave bedside As available Patient and Family Educated on Fall Prevention Program and strategies. Assessment: 14:45 General: Appears in no apparent distress. Behavior is calm, cooperative. Pain: Denies hb pain. Neuro: Level of Consciousness is awake, alert, obeys commands, Oriented to person, place, time, situation. Cardiovascular: Heart tones S1 S2 present Capillary refill < 3 seconds Patient's skin is warm and dry. Respiratory: Airway is patent Respiratory effort is even, unlabored, Respiratory pattern is regular, symmetrical, Breath sounds are clear bilaterally. GI: No signs and/or symptoms were reported involving the gastrointestinal system. : No signs and/or symptoms were reported regarding the genitourinary system. EENT: No signs and/or symptoms were reported regarding the EENT system. Derm: Skin is pink, warm \T\ dry. Musculoskeletal: No signs and/or symptoms reported regarding the musculoskeletal system. 15:45 Reassessment: Patient appears in no apparent distress at this time. Patient and/or hb family updated on plan of care and expected duration. Pain level reassessed. Patient is alert, oriented x 3, equal unlabored respirations, skin warm/dry/pink. 16:45 Reassessment: Patient appears in no apparent distress at this time. Patient and/or hb family updated on plan of care and expected duration. Pain level reassessed. Patient is alert, oriented x 3, equal unlabored respirations, skin warm/dry/pink. 17:34 Reassessment: Patient appears in no apparent distress at this time. Patient and/or hb family updated on plan of care and expected duration. Pain level reassessed. Patient is alert, oriented x 3, equal unlabored respirations, skin warm/dry/pink. Vital Signs: 14:39 BP 133 / 99; Pulse 117; Resp 16; Temp 97.8; Pulse Ox 100% on R/A; Weight 77.11 kg; hb Height 5 ft. 6 in. (167.64 cm); Pain 0/10; 15:30 BP 132 / 86; Pulse 86; Resp 15; Pulse Ox 99% on R/A; hb 16:30 BP 136 / 88; Pulse 84; Resp 14; Pulse Ox 98% on R/A; hb 17:36 BP 115 / 84; Pulse 80; Resp 15; Pulse Ox 98% on R/A; hb 14:39 Body Mass Index 27.44 (77.11 kg, 167.64 cm) hb ED Course: 14:36 Patient arrived in ED. hb 14:37 Jack Aguayo NP is PHCP. hb 14:40 Triage completed. hb 14:40 Arm band placed on. hb 14:43 Francisco Medina MD is Attending Physician. georgi 14:45 Patient has correct armband on for positive identification. Bed in low position. Call hb light in reach. Side rails up X2. 15:14 EKG done, by tractor technician. reviewed by Jack Aguayo NP. at1 15:34 CT Head Brain wo Cont In Process Unspecified. EDMS 15:59 XRAY Chest (1 view) In Process Unspecified. EDMS 16:22 Alma Lange, RN is Primary Nurse. hb 17:55 Rolf Quan MD is Referral Physician. pm1 18:45 No provider procedures requiring assistance completed. IV discontinued, intact, hb bleeding controlled, No redness/swelling at site. Pressure dressing applied. Administered Medications: 18:40 Drug: Ativan 1 mg Route: IVP; Site: right antecubital; hb 18:45 Follow up: Response: Medication administered at discharge. hb Outcome: 17:56 Discharge ordered by . pm1 18:45 Discharged to home via wheelchair, with family. hb 18:45 Condition: stable 18:45 Discharge instructions given to patient, family, Instructed on discharge instructions, follow up and referral plans. medication usage, Demonstrated understanding of instructions, follow-up care, medications. 18:46 Patient left the ED. hb Signatures: Dispatcher [employer] EDMS Francisco Medina MD MD cha Gonzales, Amanda, noodle catalyst maker EKG Tat1 Jack Aguayo NP SKIP MINER BLASTING pm1 Alma Lange, RN RN hb
[2020-01-17] MEDS ORDERED: LORazepam 2 MG/ML VIAL ONE (18:37)
[2020-01-17 19:17] VITALS: TEMP 97.8
[2020-01-17 19:22] VITALS: O2SAT 98
[2020-01-17 19:24] VITALS: BP 115/84
--- NOTE | 2020-01-18 08:53 | EKG ---
Test Date: 2020-01-17 Test Time: 15:02:39 Shaft Headman: MAREK MEASUREMENT RESULTS: Intervals: Rate: 98 CA: 160 QRSD: 78 QT: 382 QTc: 487 [place]: P: 59 CA: 160 QRS: 12 T: 49 INTERPRETIVE STATEMENTS: Normal sinus rhythm Cannot rule out Anterior infarct, age undetermined Abnormal ECG Compared to ECG 01/01/2018 20:08:02 Myocardial infarct finding now present ST (T wave) deviation no longer present Electronically Signed On 01-18-20 08:52:46 CDT by Gianluca Morrison
== END 2020-01-17 18:46 | disposition home or self-care (01) ==
LOC: ER 14:30
DX: R25.1 Tremor, unspecified (principal); Z88.6 Allergy status to analgesic agent
CPT/HCPCS: 36415; 70450; 71045; 80048; 80076; 80307; 81003; 81015; 83735; 83880; 84484; 85025; 85610; 93005; 96374; 99284

== ENCOUNTER 2020-04-23 15:48 | Emergency (ER) | payer OTHER ==
--- OUTSIDE RECORDS SUMMARY | 2020-04-23 15:58 | XMS REPORT | Clinical Summary ---
:1970 Author Organization [facility] Address [address] [place] [address] Care Team Providers Name Role Phone Danisha Suarez ResidentMD Resident Care Provider [phone] Allergies No Known Allergies Medications Medication Sig Dispensed Refills Start Date End Date Status warfarin (COUMADIN) 10 Take 10 mg by 0 Active mg tablet mouth daily. dicyclomine (BENTYL) 20 Take 20 mg by 0 Active mg tablet mouth 4 times daily. gabapentin (NEURONTIN) Take 800 mg by 0 Active 800 mg tablet mouth 3 times daily. propranolol (INDERAL) Take 80 mg by 0 Active 80 mg tablet mouth 2 times daily. topiramate (TOPAMAX) 50 Take 50 mg by 0 Active mg tablet mouth daily. ESOMEPRAZOLE MAGNESIUM Take by mouth. 0 Active (NEXIUM OR) tiZANidine (ZANAFLEX) 4 Take 4 mg by 0 Active mg tablet mouth every 6 hours as needed for Muscle Spasms. DULoxetine (CYMBALTA) Take 60 mg by 0 Active 60 mg delayed release mouth daily. capsule oxyCODONE (OXYCONTIN) Take 20 mg by 0 Active 20 mg extended release mouth as needed tablet for Pain. Active Problems Problem Noted Date Unexplained weight loss 06/24/2017 Epigastric pain 06/24/2017 Skin lesion 06/24/2017 Chronic anticoagulation 06/24/2017 Essential tremor 06/24/2017 Irritable bowel syndrome with constipation 06/24/2017 Cerebrovascular accident (CVA) 06/24/2017 Migraines 06/24/2017 Skin cancer 06/24/2017 Social History Tobacco Use Types Packs/Day Years Used Date Never Assessed Sex Assigned at Date Recorded Not on file Job Start Date Occupation Industry Not on file Not on file Not on file Travel History Travel Start Travel End No recent travel history available. Last Filed Vital Signs Not on file Plan of Treatment Health Maintenance Due Date Last Done Comments Breast Cancer Scrn (Yearly) 2008 Colorectal Cancer Scrn Annual (FIT/FOBT) 2018 Age 50 to 75 Cervical Cancer Scrn (3 Yrs) 06/24/2020 06/24/2017, 017 IMM Influenza Seasonal Aug to January (>/= 08/10/2020 19 yrs) Results Not on fileafter 04/23/2019 Insurance Payer Benefit Plan / Subscriber ID Effective Phone Address T ype Group Dates [facility] xxxxxxxxx 2017-[facility] [phone] [address] [employer] [address] [facility] [id number] [place] [address]
--- OUTSIDE RECORDS SUMMARY | 2020-04-23 15:59 | XMS REPORT | Continuity of Care Document ---
:1970 Author Organization [facility] t Address [address] [place] [address] [address] [place] [address] Care Team Providers Name Role Phone Milana SIGALA, L Attending Clinician Problems Condition Condition Condition Status Onset Resolution Last Treating Co mments Source Name Details Category Date Date Treatment Clinician Date Unexplaine Unexplaine Disease Active H arris d weight d weight 06-24 Health loss loss 00:00: 00 Epigastric Epigastric Disease Active H arris pain pain 06-24 Health 00:00: 00 Skin Skin Disease Active [facility] lesion lesion 06-24 Health 00:00: 00 Chronic Chronic Disease Active [facility] anticoagul anticoagul 06-24 He alth ation ation 00:00: 00 Essential Essential Disease Active [facility] ris tremor tremor 06-24 Health 00:00: 00 Irritable Irritable Disease Active [facility] bowel bowel 06-24 Health syndrome syndrome 00:00: with with 00 constipati constipati on on Cerebrovas Cerebrovas Disease Active H arris cular cular 06-24 Health accident accident 00:00: (CVA) (CVA) 00 Migraines Migraines Disease Active Sae ris 06-24 Health 00:00: 00 Skin Skin Disease Active [facility] cancer cancer 06-24 Health 00:00: 00 Allergies, Adverse Reactions, Alerts This patient has no known allergies or adverse reactions. Social History Social Habit Start Date Stop Date Quantity Comments Source Sex Assigned At [facility] Medications Ordered Filled Start Stop Current Ordering Indication Dosage Frequency Signature Comments Components Source Medication Medication Date Date Medication? Clinician (SIG) Name Name warfarin 2017 Yes 10mg QD Take 10 mg Sae ris (COUMADIN) 8-15 by mouth Healt h 10 mg 11:59: daily. tablet 13 dicyclomine 2017 Yes 20mg Take 20 mg [facility] (BENTYL) 20 8-15 by mouth 4 He alth mg tablet 11:59: times 13 daily. gabapentin 2017-0 Yes 800mg Take 800 T[facility] rris (NEURONTIN) 8-15 mg by Health 800 mg 11:59: mouth 3 tablet 13 times daily. propranolol 2017- Yes 80mg Q.5D Take 80 mg [facility] (INDERAL) 8-15 by mouth 2 Heal th 80 mg 11:59: times tablet 13 daily. topiramate 2017 Yes 50mg QD Take 50 mg H arris (TOPAMAX) 8-15 by mouth Health 50 mg 11:59: daily. tablet 13 ESOMEPRAZOL Yes Take by [facility] E MAGNESIUM 8-15 mouth. Health (NEXIUM OR) 11:59: 13 tiZANidine 2017 Yes 4mg Take 4 mg T[facility]z rris (ZANAFLEX) 8-15 by mouth Healt h 4 mg tablet 11:59: every 6 13 hours as needed for Muscle Spasms. DULoxetine 2017 Yes 60mg QD Take 60 mg H arris (CYMBALTA) 8-15 by mouth Healt h 60 mg 11:59: daily. delayed 13 release capsule oxyCODONE 2017 Yes 20mg Take 20 mg Tellez rris (OXYCONTIN) 8-15 by mouth Heal th 20 mg 11:59: as needed extended 13 for Pain. release tablet Procedures This patient has no known procedures. Plan of Care Planned Activity Planned Date Details Comments Source Future Scheduled Test 2020-08-10 00:00:00 IMM Influenza Seasonal [facility] Aug to January (>/= 19 yrs) [code = IMM Influenza Seasonal Aug to January (>/= 19 yrs)] Future Scheduled Test 2020-06-24 00:00:00 [facility] (3 Yrs) [code = Cervical Cancer [facility] (3 Yrs)] Future Scheduled Test 2018 00:00:00 Colorectal Cancer Scrn [facility] Annual (FIT/FOBT) Age 50 to 75 [code = Colorectal Cancer [facility] Annual (FIT/FOBT) Age 50 to 75] Future Scheduled Test 2008 00:00:00 Breast Cancer [facility] (Yearly) [code = Breast Cancer Scrn (Yearly)] Encounters Start End Encounter Admission Attending Care Care Encounter Source Date/Time Date/Time Type Type Clinicians Facility Department ID 2019-11-01 2019-11-01 Office Milana NCFRACISCO [id number] 11:25:11 11:51:37 Visit [facility] [id number] Surgical [id number] Specialti [id number] es [address] [place] 2017-11-18 2017-11-18 Outpatient [facility] [id number] [place] 00:00:00 00:00:00 Health 2017-07-22 2017-07-22 Outpatient [facility] [id number] [place] 00:00:00 00:00:00 Health 2017-06-24 2017-06-24 Outpatient [facility] [id number] [place] 12:34:43 12:34:43 Health 2017-06-24 2017-06-24 Outpatient [facility] [id number] [place] 10:24:55 10:24:55 Health Results This patient has no known results.
[2020-04-23] MEDS ORDERED: AZITHROMYCIN 250 MG TAB ONE (18:50)
--- NOTE | 2020-04-23 18:54 | EDPHYS ---
Physician Documentation [facility] Name: Savanna San Age: 49 yrs Sex: Female : 1970 Arrival Date: 04/23/2020 Time: 15:50 Bed 8 Private MD: Timothy Dawson H ED Physician Francisco Medina HPI: 04/23 17:34 This 49 yrs old Female presents to ER via Ambulatory with complaints of Cough.georgi 17:34 The patient or guardian reports cough, flu symptoms, low-grade fever. Onset: The georgi symptoms/episode began/occurred 3 day(s) ago. Severity of symptoms: At their worst the symptoms were mild, in the emergency department the symptoms are unchanged. Associated signs and symptoms: Pertinent positives: fever, rhinorrhea. The patient has experienced similar episodes in the past, a few times. Historical: - Allergies: 16:38 Morphine; iw - Home Meds: 16:38 Cymbalta 60 mg Oral cpDR 1 cap once daily [Active]; losartan Oral [Active]; Xanax 2 mg iw Oral tab [Active]; tizanidine 4 mg Oral tab [Active]; warfarin 7.5 mg Oral tab 1 tab once daily [Active]; propranolol 40 mg Oral tab 1 tab every 12 hours [Active]; Neurontin 800 mg Oral tab [Active]; pain pump [Active]; 16:39 carbidopa-levodopa 25-100 mg Oral TbER 1 tab 2 times per day [Active]; iw - PMHx: 16:38 DVT; Headaches; Nerve Damage +DDD; Seizures; tremors; iw - PSHx: 16:38 pancreas surgery to remove stone (2017); Hysterectomy; Cholecystectomy; spinal fusion; iw - Immunization history:: Adult Immunizations up to date. - Social history:: Smoking status: Patient/guardian denies using tobacco, but has a distant history of tobacco abuse. ROS: 17:38 Constitutional: Negative for fever, chills, and weight loss, Eyes: Negative for injury, georgi pain, redness, and discharge, ENT: Negative for injury, pain, and discharge, Neck: Negative for injury, pain, and swelling, Cardiovascular: Negative for chest pain, palpitations, and edema, Abdomen/GI: Negative for abdominal pain, nausea, vomiting, diarrhea, and constipation, Back: Negative for injury and pain, : Negative for injury, bleeding, discharge, and swelling, MS/Extremity: Negative for injury and deformity, Skin: Negative for injury, rash, and discoloration, Neuro: Negative for headache, weakness, numbness, tingling, and seizure, Psych: Negative for depression, anxiety, suicide ideation, homicidal ideation, and hallucinations, Allergy/Immunology: Negative for hives, rash, and allergies, Endocrine: Negative for neck swelling, polydipsia, polyuria, polyphagia, and marked weight changes, Hematologic/Lymphatic: Negative for swollen nodes, abnormal bleeding, and unusual bruising. 17:38 Respiratory: Positive for cough, shortness of breath, at rest. Exam: 17:38 Constitutional: This is a well developed, well nourished patient who is awake, alert, georgi and in no acute distress. Head/Face: Normocephalic, atraumatic. Eyes: Pupils equal round and reactive to light, extra-ocular motions intact. Lids and lashes normal. Conjunctiva and sclera are non-icteric and not injected. Cornea within normal limits. Periorbital areas with no swelling, redness, or edema. ENT: Nares patent. No nasal discharge, no septal abnormalities noted. Tympanic membranes are normal and external auditory canals are clear. Oropharynx with no redness, swelling, or masses, exudates, or evidence of obstruction, uvula midline. Mucous membranes moist. Neck: Trachea midline, no thyromegaly or masses palpated, and no cervical lymphadenopathy. Supple, full range of motion without nuchal rigidity, or vertebral point tenderness. No Meningismus. Chest/axilla: Normal chest wall appearance and motion. Nontender with no deformity. No lesions are appreciated. Cardiovascular: Regular rate and rhythm with a normal S1 and S2. No gallops, murmurs, or rubs. Normal PMI, no JVD. No pulse deficits. Respiratory: Lungs have equal breath sounds bilaterally, clear to auscultation and percussion. No rales, rhonchi or wheezes noted. No increased work of breathing, no retractions or nasal flaring. Abdomen/GI: Soft, non-tender, with normal bowel sounds. No distension or tympany. No guarding or rebound. No evidence of tenderness throughout. Back: No spinal tenderness. No costovertebral tenderness. Full range of motion. Female : Normal external genitalia. Skin: Warm, dry with normal turgor. Normal color with no rashes, no lesions, and no evidence of cellulitis. MS/ Extremity: Pulses equal, no cyanosis. Neurovascular intact. Full, normal range of motion. Neuro: Awake and alert, GCS 15, oriented to person, place, time, and situation. Cranial nerves II-XII grossly intact. Motor strength 5/5 in all extremities. Sensory grossly intact. Cerebellar exam normal. Normal gait. Psych: Awake, alert, with orientation to person, place and time. Behavior, mood, and affect are within normal limits. 18:51 Musculoskeletal/extremity: DVT Exam: No signs of deep vein thrombosis. no pain, no georgi swelling, no tenderness, negative Homans' sign noted on exam, no appreciated bluish discoloration, no erythema, no increased warmth. Vital Signs: 16:35 BP 130 / 85; Pulse 97; Resp 18 S; Temp 97.9; Pulse Ox 99% on R/A; Weight 77.11 kg; iw Height 5 ft. 10 in. (177.80 cm); Pain 4/10; 18:44 BP 129 / 78; Pulse 76; Resp 15; Pulse Ox 98% ; jl7 16:35 Body Mass Index 24.39 (77.11 kg, 177.80 cm) iw MDM: 17:19 Patient medically screened. georgi 17:40 Data reviewed: vital signs, nurses notes, radiologic studies, plain films. Data georgi interpreted: desk monitor: rate is 97 beats/min, rhythm is normal sinus rhythm, Pulse oximetry: on room air is 99 %. Test interpretation: by ED physician or midlevel provider: plain radiologic studies. Counseling: I had a detailed discussion with the patient and/or guardian regarding: the historical points, exam findings, and any diagnostic results supporting the discharge/admit diagnosis, lab results, radiology results, the need for outpatient follow up, for definitive care, a family practitioner. ED course: non toxic , fever and cough, non productive, will cover with z pack and cough meds. 18:51 Differential Diagnosis: Bronchitis Influenza Upper Respiratory Infection Sinusitis georgi Pharyngitis Viral Syndrome Pneumonia. ED course: strep, influenza all negative. discussed with the patient, will follow up.. 04/23 17:34 Order name: Strep; Complete Time: 18:51 [facility] 04/23 17:34 Order name: COVID-19 [facility] 04/23 17:34 Order name: Chest Pa And Lat (2 Views) XRAY [facility] 04/23 17:34 Order name: Influenza Screen (a \T\ B); Complete Time: 18:51 [facility] 04/23 18:49 Order name: Throat Culture EDDE Administered Medications: 18:44 Drug: Zithromax 500 mg Route: PO; jl7 18:56 Follow up: Response: No adverse reaction bp Disposition: 04/23/20 18:53 Discharged to Home. Impression: Cough, Fever, unspecified, Bronchitis, not specified as acute or chronic. - Condition is Stable. - Discharge Instructions: Acute Bronchitis, Adult, Fever, Adult, Upper Respiratory Infection, Adult, Cool Mist Vaporizer, Cough, Adult, [id number], Cough, Adult. - Prescriptions for Bromfed DM 2- 30-10 mg/5 mL Oral syrup - take 10 milliliter by ORAL route every 6 hours; 160 milliliter. Zithromax 500 mg Oral Tablet - take 1 tablet by ORAL route once daily for 4 days; 4 tablet. - Medication Reconciliation Form, Thank You Letter, Antibiotic Education, Prescription Opioid Use form. - Follow up: Timothy Dawson; When: 2 - 3 days; Reason: Recheck today's complaints, Continuance of care, Re-evaluation by your physician. - Problem is new. - Symptoms have improved. Signatures: Dispatcher [employer] EDMS Francisco Medina MD MD cha Williams, Irene, RN RN iw Leal, Jahala, RN RN jl7 Peltier, Brian RN bp Corrections: (The following items were deleted from the chart) 19:00 18:53 04/23/2020 18:53 Discharged to Home. Impression: Cough; Fever, unspecified; jl7 Bronchitis, not specified as acute or chronic. Condition is Stable. Discharge Instructions: Acute Bronchitis, Adult, Fever, Adult, Upper Respiratory Infection, Adult, Cool Mist Vaporizer, Cough, Adult, [id number], Cough, Adult. Prescriptions for Bromfed DM 2-30-10 mg/5 mL Oral syrup - take 10 milliliter by ORAL route every 6 hours; 160 milliliter, Zithromax 500 mg Oral Tablet - take 1 tablet by ORAL route once daily for 4 days; 4 tablet. and Forms are Medication Reconciliation Form, Thank You Letter, Antibiotic Education, Prescription Opioid Use. Follow up: Timothy Dawson; When: 2 - 3 days; Reason: Recheck today's complaints, Continuance of care, Re-evaluation by your physician. Problem is new. Symptoms have improved. georgi
--- NOTE | 2020-04-23 18:54 | ER ---
Nurse's Notes [facility] Name: Savanna San Age: 49 yrs Sex: Female : 1970 Arrival Date: 04/23/2020 Time: 15:50 Bed 8 Private MD: Timothy Dawson H Diagnosis: Cough;Fever, unspecified;Bronchitis, not specified as acute or chronic Presentation: 04/23 16:35 Chief complaint: Patient states: cough X 2 days, headache, and pain in chest with iw cough, highest temp was 100.0. Coronavirus screen: Surgical mask placed on patient. Patient moved to private room, placed in contact and droplet isolation with eye protection until further assessment. Patient reports a cough. Patient reports shortness of breath or difficulty breathing. Patient denies measured and/or subjective temperature greater than 100.4F prior to today's visit. Patient denies travel on a cruise ship or to a country the [facility] currently lists as an affected area. Patient denies contact with known and/or suspected case of COVID-19. Ebola Screen: Patient negative for fever greater than or equal to 101.5 degrees Fahrenheit, and additional compatible Ebola Virus Disease symptoms Patient denies exposure to infectious person. Patient denies travel to an Ebola-affected area in the 21 days before illness onset. No symptoms or risks identified at this time. Initial Sepsis Screen: Does the patient meet any 2 criteria? No. Patient's initial sepsis screen is negative. Does the patient have a suspected source of infection? No. Patient's initial sepsis screen is negative. Risk Assessment: Do you want to hurt yourself or someone else? Patient reports no desire to harm self or others. Onset of symptoms was April 21, 2020. 16:35 Method Of Arrival: Ambulatory iw 16:35 Acuity: MARIJA 3 iw Historical: - Allergies: 16:38 Morphine; iw - Home Meds: 16:38 Cymbalta 60 mg Oral cpDR 1 cap once daily [Active]; losartan Oral [Active]; Xanax 2 mg iw Oral tab [Active]; tizanidine 4 mg Oral tab [Active]; warfarin 7.5 mg Oral tab 1 tab once daily [Active]; propranolol 40 mg Oral tab 1 tab every 12 hours [Active]; Neurontin 800 mg Oral tab [Active]; pain pump [Active]; 16:39 carbidopa-levodopa 25-100 mg Oral TbER 1 tab 2 times per day [Active]; iw - PMHx: 16:38 DVT; Headaches; Nerve Damage +DDD; Seizures; tremors; iw - PSHx: 16:38 pancreas surgery to remove stone (2017); Hysterectomy; Cholecystectomy; spinal fusion; iw - Immunization history:: Adult Immunizations up to date. - Social history:: Smoking status: Patient/guardian denies using tobacco, but has a distant history of tobacco abuse. Screenin:30 Abuse screen: Denies threats or abuse. Denies injuries from another. Nutritional jl7 screening: No deficits noted. Tuberculosis screening: No symptoms or risk factors identified. Fall Risk None identified. Assessment: 17:30 General: Appears in no apparent distress. uncomfortable, Behavior is calm, cooperative, jl7 appropriate for age. Pain: Denies pain. Neuro: Level of Consciousness is awake, alert, obeys commands, Oriented to person, place, time, situation. Cardiovascular: Patient's skin is warm and dry. Respiratory: Airway is patent Respiratory effort is even, unlabored, Respiratory pattern is regular, symmetrical. Derm: Skin is pink, warm \T\ dry. 18:44 Reassessment: Patient appears in no apparent distress at this time. No changes from jl7 previously documented assessment. Patient and/or family updated on plan of care and expected duration. Pain level reassessed. Patient is alert, oriented x 3, equal unlabored respirations, skin warm/dry/pink. Vital Signs: 16:35 BP 130 / 85; Pulse 97; Resp 18 S; Temp 97.9; Pulse Ox 99% on R/A; Weight 77.11 kg; iw Height 5 ft. 10 in. (177.80 cm); Pain 4/10; 18:44 BP 129 / 78; Pulse 76; Resp 15; Pulse Ox 98% ; jl7 16:35 Body Mass Index 24.39 (77.11 kg, 177.80 cm) ED Course: 15:50 Patient arrived in ED. ag5 15:50 Timothy Dawson DO is Private Physician. ag5 16:37 Triage completed. iw 16:39 Arm band placed on. iw 17:19 Francisco Medina MD is Attending Physician. georgi 17:30 Patient has correct armband on for positive identification. Bed in low position. Call jl7 light in reach. Side rails up X2. Pulse ox on. NIBP on. 17:35 Chris Marques, RN is Primary Nurse. jl7 17:58 Chest Pa And Lat (2 Views) XRAY In Process Unspecified. EDMN 17:58 Flu and/or RSV swab sent to lab. Strep swab sent to lab. COVID-19 swab sent to lab. jl7 18:53 Timothy Dawson DO is Referral Physician. [facility] 18:58 No provider procedures requiring assistance completed. Patient did not have IV access jl7 during this emergency room visit. 04/24 13:11 Health Dept notified. PUI # [id number]/ Vinod from lab notified. eb Administered Medications: 04/23 18:44 Drug: Zithromax 500 mg Route: PO; jl7 18:56 Follow up: Response: No adverse reaction bp Outcome: 18:53 Discharge ordered by . [facility] 18:59 Discharged to home ambulatory. jl7 18:59 Condition: stable 18:59 Discharge instructions given to patient, Instructed on discharge instructions, follow up and referral plans. medication usage, Demonstrated understanding of instructions, follow-up care, medications, Prescriptions given X 2. 19:00 Patient left the ED. jl7 Addendum: 04/25/2020 17:46 Addendum: Other attempted to contact pt with negative COVID-19 swab results. Left voice d m5 mail. 04/26/2020 08:15 Addendum: Other pt notified of negative COVID-19 swab results. Pt advised to remain in d m5 isolation until fever free for 72 hours or at least 10 days from symptom onset. Signatures: Dispatcher [employer] EDMN Omayra Jeffers RN RN Francisco Lama MD MD cha Williams, Irene, Chris Friedman RN, RN Mike Paredes RN RN bp Botello, Elizabeth eb Gaskin, Ajare ag5
--- NOTE | 2020-04-23 19:01 | RAD REPORT ---
EXAM DESCRIPTION: RAD - Chest Pa And Lat (2 Views) - 04/23/2020 5:58 pm CLINICAL HISTORY: Cough;Congestion COMPARISON: Portable January 17, 2020 TECHNIQUE: Frontal and lateral views of the chest were obtained. FINDINGS: The lungs are clear of focal abnormality. Interstitial pattern matches comparison. No fail ure or volume overload. Heart size is normal and central vasculature is within normal limits. No p leural effusion or pneumothorax seen. No acute bony finding noted. No aortic abnormality. IMPRESSION: No acute cardiopulmonary process.
[2020-04-23 19:16] VITALS: TEMP 97.9
[2020-04-23 19:17] VITALS: BP 129/78; O2SAT 98
== END 2020-04-23 19:00 | disposition home or self-care (01) ==
LOC: ER 15:48
DX: J40 Bronchitis, not specified as acute or chronic (principal); Z20.828 Contact with and (suspected) exposure to other viral communicable diseases; R05 Cough; G40.909 Epilepsy, unspecified, not intractable, without status epilepticus; Z79.01 Long term (current) use of anticoagulants; Z88.5 Allergy status to narcotic agent; Z86.718 Personal history of other venous thrombosis and embolism
CPT/HCPCS: 87070; 87081; 87804 ×2; 71046; 99284; U0001

== ENCOUNTER 2020-09-18 09:39 | Observation (INO) | payer OTHER ==
--- OUTSIDE RECORDS SUMMARY | 2020-09-18 10:03 | XMS REPORT | Clinical Summary ---
:1970 Author Organization [facility][1] Distr ict Address [address] [place] [id number] Care Team Providers Name Role Phone Daniela Danisha K ResidentMD Unavailable [phone] Allergies No Known Allergies Medications Medication Sig [...] Health Maintenance Due Date Last Done Comments HPV Cervical Cancer Scrn 1998 Pap Cervical Cancer Scrn 1998 Breast Cancer Scrn (Yearly) 2008 Colorectal Cancer Scrn Annual (FIT/FOBT) Age 50 to 75 2018 IMM Influenza Seasonal Aug to January (>/= 19 yrs) 08/10/2020 Results Not on fileafter 09/18/2019 Insurance Payer Benefit Plan / Subscriber ID Effective Phone Address T ype Group Dates [facility] xxxxxxxxx 2017-[facility] [phone] [id number] [place] [address]
--- OUTSIDE RECORDS SUMMARY | 2020-09-18 10:04 | XMS REPORT | Continuity of Care Document ---
:1970 Author Organization [facility] t Address [address] [place] [address] Dr. Hoffman. [address] [place] [address] Care Team Providers Name Role Phone Milana [...] Date Quantity Comments Source Sex Assigned At [facility] [employer] Medications Ordered Filled Start Stop Current Ordering [...] mg tablet 11:59: times 13 daily. gabapentin 2017- Yes 800mg Take 800 Tellez rris (NEURONTIN) [...] daily. tablet 13 ESOMEPRAZOL Yes Take by [facility] E MAGNESIUM 8-15 mouth. Health (NEXIUM [...] Future Scheduled Test 2020-08-10 00:00:00 IMM Influenza [facility] Seasonal Aug to January (>/= 19 yrs) [code = IMM Influenza Seasonal Aug to January (>/= 19 yrs)] Future Scheduled Test 2018 00:00:00 Screening for [facility] malignant neoplasm of colon (procedure) [code = 104527905] Future Scheduled Test 2008 00:00:00 Breast Cancer Scrn [facility] (Yearly) [code = Breast Cancer Scrn (Yearly)] Future Scheduled Test 1998 00:00:00 Screening for [facility] malignant neoplasm of cervix (procedure) [code = 562123997] Future Scheduled Test 1998 00:00:00 Screening for [facility] malignant neoplasm of cervix (procedure) [code = 316358573] Encounters Start End Encounter Admission Attending Care Care Encounter Source Date/Time Date/Time Type Type Clinicians Facility Department ID 2019-11-01 2019-11-01 Office RO Cortés [id number] 11:25:11 11:51:37 Visit [facility] [id number] Surgical [id number] Specialti [id number] [place] 2017-11-18 2017-11-18 Outpatient [facility] [id number] [place] 00:00:00 00:00:00 [facility] 2017-07-22 2017-07-22 Outpatient [facility] [id number] [place] 00:00:00 00:00:00 Health 2017-06-24 2017-06-24 Outpatient [facility] [id number] [place] 12:34:43 12:34:43 Health 2017-06-24 2017-06-24 Outpatient [facility] [id number] [address] [place] 10:24:55 10:24:55 Health Results This patient has no known results.
[2020-09-18] MEDS ORDERED: LORazepam 2 MG/ML VIAL ONE (10:26)
[2020-09-18] MEDS ORDERED: FENTANYL CITR 100 MCG/2 ML ONE (10:27)
[2020-09-18] MEDS ORDERED: METOPROLOL TARTRATE 5 MG/5 ML INJ IV ONE (10:27)
[2020-09-18 10:31] LABS: Absolute Lymphocytes (CBC) 3.1 K/uL (0.7-4.9); Basophils % 0.7 % (0-1.3); Hematocrit 39.8 % (36.0-45.0); Lymphocytes % 41.4 % (15.3-44.8); MPV 8.8 fL (7.6-11.3); RBC Red Blood Cell Count 4.41 M/uL (3.86-4.86)
[2020-09-18 10:35] LABS: Protime INR 0.97
[2020-09-18 10:56] LABS: ALT/SGPT 7 U/L (12-78); AST/SGOT 18 U/L (15-37); Albumin 3.9 g/dL (3.4-5.0); Alkaline Phosphatase 98 U/L (45-117); BUN Blood Urea Nitrogen 11 mg/dL (7-18); Bicarbonate 23 mmol/L (21-32); Bilirubin Direct < 0.1 mg/dL (0-0.2); Bilirubin Total 0.4 mg/dL (0.2-1.0); Glucose Level 115 mg/dL (74-106); Magnesium 2.2 mg/dL (1.8-2.4); NT PRO-BNP 14 pg/mL (<125); Potassium 3.6 mmol/L (3.5-5.1); Protein, Total 8.1 g/dL (6.4-8.2); Sodium Level 142 mmol/L (136-145); Troponin (Emerg Dept Use Only) < 0.02 ng/mL (0.0-0.045)
--- NOTE | 2020-09-18 12:03 | RAD REPORT ---
EXAM DESCRIPTION: CT - Head Brain Wo Cont - 09/18/2020 11:41 am CLINICAL HISTORY: Headache COMPARISON: 2018 TECHNIQUE: Computed axial tomography of the head was obtained. IV contrast was not requested. All CT scans are performed using dose optimization technique as appropriate and may include automated exposure control or mA/KV adjustment according to patient size. FINDINGS: An intracranial bleed is not seen . The ventricles are normal in caliber. No extra-axial fluid collection is noted. Fluid within the sinuses/ mastoids is not seen. IMPRESSION: No acute intracranial abnormality is seen. If patient's symptoms persist MRI of the bra in would be recommended.
--- NOTE | 2020-09-18 12:07 | RAD REPORT ---
EXAM DESCRIPTION: CT - Abdomen Pelvis W Contrast - 09/18/2020 11:44 am CLINICAL HISTORY: Abdominal pain COMPARISON: 2018 TECHNIQUE: Computed axial tomography of the abdomen pelvis was obtained. 100 cc Isovue-300 was admin istered intravenously. Oral contrast was not requested which limits evaluation of bowel. All CT scans are performed using dose optimization technique as appropriate and may include automated exposure control or mA/KV adjustment according to patient size. FINDINGS: The liver, spleen, pancreas, adrenal and kidneys appear unremarkable. There is no evidence of diverticulitis. Normal appendix. Pain pump in place. Cholecystectomy. Hysterectomy IMPRESSION: No acute abnormality is displayed.
--- NOTE | 2020-09-18 12:11 | RAD REPORT ---
EXAM DESCRIPTION: [facility] View09/18/2020 11:10 am CLINICAL HISTORY: Chest pain COMPARISON: April 2020 FINDINGS: The lungs appear clear of acute infiltrate. The heart is normal size IMPRESSION: No acute abnormalities displayed
[2020-09-18 12:25] LABS: Urine Blood NEGATIVE (NEG); Urine Glucose NEGATIVE (NEG); Urine Protein NEGATIVE (NEG); Urine pH 6.5 (5.0-7.0)
[2020-09-18] MEDS ORDERED: NA CHLORIDE 0.9% 1,000 ML ONE (13:51)
--- NOTE | 2020-09-18 14:24 | ER ---
Nurse's Notes [facility] Name: Savanna San Age: 49 yrs Sex: Female : 1970 Arrival Date: 09/18/2020 Time: 09:48 Bed 8 Private MD: Diagnosis: Weakness;Tachycardia, unspecified;Hypotension;Headache;Abdominal and pelvic pain Presentation: 09/18 09:48 Chief complaint: Patient states: WHITAKER to back of head, left arm pain moving to right arm aa5 and then to center of chest. 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 Pt reports she took antihypertensive and Tylenol this morning. 09:48 Coronavirus screen: Client denies travel out of the [place] in the last 14 days. At this aa5 time, the client does not indicate any symptoms associated with coronavirus-19. Ebola Screen: Patient negative for fever greater than or equal to 101.5 degrees Fahrenheit, and additional compatible Ebola Virus Disease symptoms. Initial Sepsis Screen: Does the patient meet any 2 criteria? No. Patient's initial sepsis screen is negative. Does the patient have a suspected source of infection? No. Patient's initial sepsis screen is negative. Risk Assessment: Do you want to hurt yourself or someone else? Patient reports no desire to harm self or others. Onset of symptoms was September 18, 2020. 09:48 Acuity: MARIJA 3 aa5 09:48 Method Of Arrival: EMS: [facility] aa5 Triage Assessment: 09:49 Headache History: The patient has had previous headaches and this one is similar to bp previous episodes. General: Appears distressed, uncomfortable, Behavior is cooperative, appropriate for age, anxious. Pain: Complains of pain in head Pain currently is 7 out of 10 on a pain scale. Pain began 1 hour ago. Also complains of no other associated symptoms. EENT: No deficits noted. Neuro: Level of Consciousness is awake, alert, obeys commands, Oriented to person, place, time, situation, Appropriate for age Weakness in bilateral leg(s) Reports headache. Cardiovascular: Reports chest pain, Rhythm is sinus tachycardia. Respiratory: No deficits noted. GI: No signs and/or symptoms were reported involving the gastrointestinal system. : No signs and/or symptoms were reported regarding the genitourinary system. Derm: No deficits noted. Musculoskeletal: No deficits noted. Historical: - Allergies: :54 Morphine; aa5 - Home Meds: :54 carbidopa-levodopa 25-100 mg Oral TbER 1 tab 2 times per day [Active]; Cymbalta 60 mg aa5 Oral cpDR 1 cap once daily [Active]; losartan Oral [Active]; Neurontin 800 mg Oral tab [Active]; pain pump [Active]; propranolol 40 mg Oral tab 1 tab every 12 hours [Active]; tizanidine 4 mg Oral tab [Active]; warfarin 7.5 mg Oral tab 1 tab once daily [Active]; Xanax 2 mg Oral tab [Active]; - PMHx: :54 DVT; Headaches; Nerve Damage +DDD; Seizures; tremors; CVA- Left sided weakness; aa5 - PSHx: :54 pancreas surgery to remove stone (2017); Hysterectomy; Cholecystectomy; spinal fusion; aa5 - Immunization history:: Adult Immunizations up to date. - Social history:: Smoking status: unknown. Screenin:50 Abuse screen: Denies threats or abuse. Denies injuries from another. Nutritional bp screening: No deficits noted. Tuberculosis screening: No symptoms or risk factors identified. Fall Risk None identified. Assessment: 09:50 General: SEE TRIAGE NOTE. bp 10:07 Reassessment: Pt noted to bed anxious, hyperventilating, HR up to 180bpm. EKG being aa5 completed by RN. Paty Mckeon, VACUUM SYSTEM TESTER at bedside. . 10:13 Reassessment: Pt now calm, respirations even and unlabored, HR now 110 bpm. . aa5 10:15 Reassessment: PT ANIMATED AND TEARFUL, STATING SHE "SHE CAN'T GET HER MIND RIGHT". bp INFORMED. 10:50 Reassessment: Patient is alert, oriented x 3, equal unlabored respirations, skin aa5 warm/dry/pink. Reassessment: Patient states feeling better. Patient states symptoms have improved. General: Appears comfortable, Behavior is calm. Pain: Pain currently is 4 out of 10 on a pain scale. 12:22 Reassessment: Patient appears in no apparent distress at this time. PT RESTING QUIETLY bp Patient states feeling better. Patient states symptoms have improved. 12:40 Reassessment: Patient is alert, oriented x 3, equal unlabored respirations, skin aa5 warm/dry/pink. Patient states feeling better. Awaiting disposition. . 14:00 Reassessment: Patient appears in no apparent distress at this time. Patient and/or bp family updated on plan of care and expected duration. Pain level reassessed. Patient is alert, oriented x 3, equal unlabored respirations, skin warm/dry/pink. 14:48 Reassessment: Patient appears in no apparent distress at this time. Patient is alert, bp oriented x 3, equal unlabored respirations, skin warm/dry/pink. 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 16:11 Reassessment: ADMIT COMPLETE. PT DONNY WITH PCT. bp Vital Signs: 09:48 BP 122 / 70; Pulse 89; Resp 14 S; Temp 98.3(O); Pulse Ox 98% on R/A; aa5 10:15 BP 124 / 99; Pulse 112; Resp 17; Pulse Ox 100% ; bp 10:50 BP 127 / 67; Pulse 81; Resp 14; Pulse Ox 98% on R/A; Pain 4/10; aa5 11:30 BP 107 / 96; Pulse 92; Resp 17; Pulse Ox 100% ; bp 12:23 BP 95 / 48; Pulse 84; Resp 12; Pulse Ox 100% ; bp 12:40 BP 85 / 72; Pulse 90; Resp 14 S; Pulse Ox 100% on R/A; Pain 4/10; aa5 12:50 aa5 13:00 BP 93 / 65; Pulse 89; Resp 16 S; Pulse Ox 99% on R/A; aa5 13:30 BP 93 / 67; Pulse 94; Resp 14 S; Pulse Ox 98% on R/A; aa5 13:45 BP 94 / 61; Pulse 90; Resp 16 S; Pulse Ox 100% on R/A; aa5 14:00 BP 110 / 89; Pulse 90; Resp 14 S; Pulse Ox 100% on R/A; aa5 14:15 BP 110 / 59; Pulse 71; Resp 18 S; Pulse Ox 100% on R/A; aa5 14:45 BP 118 / 90; Pulse 82; Resp 15; Pulse Ox 100% ; bp 15:00 BP 112 / 70; Pulse 86; Resp 19; Pulse Ox 100% ; bp 16:00 BP 123 / 98; Pulse 118; Resp 15; Temp 98.5; Pulse Ox 100% ; bp 12:50 MD notified of decreased BP aa5 ED Course: 09:48 Patient arrived in ED. aa5 09:48 Mike Sams, RN is Primary Nurse. bp 09:48 Arm band placed on Patient placed in an exam room, on a stretcher. aa5 09:50 Triage completed. aa5 09:50 Patient has correct armband on for positive identification. Bed in low position. Call bp light in reach. Side rails up X2. Adult w/ patient. 09:53 Meet Hancock MD is Attending Physician. kdr 10:00 Inserted saline lock: 20 gauge in right antecubital area, using aseptic technique. bp Blood collected. 11:10 XRAY Chest (1 view) In Process Unspecified. EDMS 11:41 CT Head Brain wo Cont In Process Unspecified. EDMS 11:44 CT Abd/Pelvis - IV Contrast Only In Process Unspecified. EDMS 11:46 Patient moved back from [address]. sj 14:22 Aries Wu is Hospitalizing Provider. kdr 16:13 No provider procedures requiring assistance completed. Patient admitted, IV remains in bp place. Administered Medications: 10:15 Drug: Metoprolol 5 mg Route: IVP; Site: right antecubital; bp 16:14 Follow up: Response: No adverse reaction bp 10:15 Drug: fentaNYL (PF) 25 mcg Route: IVP; Site: right antecubital; bp 16:14 Follow up: Response: Pain is decreased bp 10:15 Drug: Ativan 0.5 mg Route: IVP; Site: right antecubital; bp 16:14 Follow up: Response: Anxiety decreased bp 10:15 Drug: Ativan 0.5 mg Route: IVP; Site: right antecubital; bp 16:14 Follow up: Response: Anxiety decreased bp 13:40 Drug: NS 0.9% 1000 ml Route: IV; Rate: 1000 ml; Site: right antecubital; aa5 16:14 Follow up: IV Status: Completed infusion; IV Intake: 1000ml bp Intake: 16:14 IV: 1000ml; Total: 1000ml. bp Outcome: 14:24 Decision to Hospitalize by Provider. kdr 16:13 Admitted to Med/surg accompanied by tech, via stretcher, room 223, with chart, Report bp called to BETINA AYALA 16:13 Condition: stable 16:13 Instructed on the need for admit. 16:15 Patient left the ED. bp Signatures: Dispatcher [employer] EDMS Meet Hancock MD MD kdr Jones, Susan sj Calderon, Audri RN RN aa5 Mike Sams RN RN bp
--- NOTE | 2020-09-18 14:25 | EDPHYS ---
Physician Documentation [facility] Name: Savanna San Age: 49 yrs Sex: Female : 1970 Arrival Date: 09/18/2020 Time: 09:48 Bed 8 Private MD: ED Physician Meet Hancock HPI: 09/18 18:45 This 49 yrs old Female presents to ER via EMS with complaints of Headache, kdr Chest Pain. 18:45 The patient has multiple c/o in the ED including WHITAKER na pain to right and left arms. She kdr was noted by EMS to have a rate of 170 and hypotensive. The HR was variable. She has been feeling poorly for the last few days. Historical: - Allergies: 09:54 Morphine; aa5 - Home Meds: 09:54 carbidopa-levodopa 25-100 mg Oral TbER 1 tab 2 times per day [Active]; Cymbalta 60 mg aa5 Oral cpDR 1 cap once daily [Active]; losartan Oral [Active]; Neurontin 800 mg Oral tab [Active]; pain pump [Active]; propranolol 40 mg Oral tab 1 tab every 12 hours [Active]; tizanidine 4 mg Oral tab [Active]; warfarin 7.5 mg Oral tab 1 tab once daily [Active]; Xanax 2 mg Oral tab [Active]; - PMHx: 09:54 DVT; Headaches; Nerve Damage +DDD; Seizures; tremors; CVA- Left sided weakness; aa5 - PSHx: 09:54 pancreas surgery to remove stone (2017); Hysterectomy; Cholecystectomy; spinal fusion; aa5 - Immunization history:: Adult Immunizations up to date. - Social history:: Smoking status: unknown. ROS: 18:49 Constitutional: Negative for fever, chills, and weight loss, Eyes: Negative for injury, kdr pain, redness, and discharge, ENT: Negative for injury, pain, and discharge, Neck: Negative for injury, pain, and swelling, Back: Negative for injury and pain, : Negative for injury, bleeding, discharge, and swelling, MS/Extremity: Negative for injury and deformity, Skin: Negative for injury, rash, and discoloration, Allergy/Immunology: Negative for hives, rash, and allergies, Endocrine: Negative for neck swelling, polydipsia, polyuria, polyphagia, and marked weight changes, Hematologic/Lymphatic: Negative for swollen nodes, abnormal bleeding, and unusual bruising. 18:49 Cardiovascular: Positive for chest pain, palpitations, Negative for edema, orthopnea, paroxysmal nocturnal dyspnea. 18:49 Respiratory: Positive for dyspnea on exertion, shortness of breath, Negative for hemoptysis, orthopnea, pleurisy. 18:49 Neuro: Positive for headache, Negative for altered mental status, dizziness, gait disturbance. Exam: 18:49 Constitutional: This is a well developed, well nourished patient who is awake, alert, kdr and in mild distress. She looks generally ill and uncomfortable but stark not localize her pain or problems beyond very mild WHITAKER with is not worst of her life Head/Face: Normocephalic, atraumatic. Eyes: Pupils equal round and reactive to light, extra-ocular motions intact. Lids and lashes normal. Conjunctiva and sclera are non-icteric and not injected. Cornea within normal limits. Periorbital areas with no swelling, redness, or edema. Neck: Trachea midline, no thyromegaly or masses palpated, and no cervical lymphadenopathy. Supple, full range of motion without nuchal rigidity, or vertebral point tenderness. No Meningismus. Chest/axilla: Normal chest wall appearance and motion. Nontender with no deformity. No lesions are appreciated. Cardiovascular: Regular rate and rhythm with a normal S1 and S2. No gallops, murmurs, or rubs. Normal PMI, no JVD. No pulse deficits. Respiratory: Lungs have equal breath sounds bilaterally, clear to auscultation and percussion. No rales, rhonchi or wheezes noted. No increased work of breathing, no retractions or nasal flaring. Abdomen/GI: Soft, non-tender, with normal bowel sounds. No distension or tympany. No guarding or rebound. No evidence of tenderness throughout. Back: No spinal tenderness. No costovertebral tenderness. Full range of motion. Skin: Warm, dry with normal turgor. Normal color with no rashes, no lesions, and no evidence of cellulitis. MS/ Extremity: Pulses equal, no cyanosis. Neurovascular intact. Full, normal range of motion. Neuro: Awake and alert, GCS 15, oriented to person, place, time, and situation. Cranial nerves II-XII grossly intact. Motor strength 5/5 in all extremities. Sensory grossly intact. Cerebellar exam normal. Normal gait. Psych: Awake, alert, with orientation to person, place and time. Behavior, mood, and affect are within normal limits. Vital Signs: 09:48 BP 122 / 70; Pulse 89; Resp 14 S; Temp 98.3(O); Pulse Ox 98% on R/A; aa5 10:15 BP 124 / 99; Pulse 112; Resp 17; Pulse Ox 100% ; bp 10:50 BP 127 / 67; Pulse 81; Resp 14; Pulse Ox 98% on R/A; Pain 4/10; aa5 11:30 BP 107 / 96; Pulse 92; Resp 17; Pulse Ox 100% ; bp 12:23 BP 95 / 48; Pulse 84; Resp 12; Pulse Ox 100% ; bp 12:40 BP 85 / 72; Pulse 90; Resp 14 S; Pulse Ox 100% on R/A; Pain 4/10; aa5 12:50 aa5 13:00 BP 93 / 65; Pulse 89; Resp 16 S; Pulse Ox 99% on R/A; aa5 13:30 BP 93 / 67; Pulse 94; Resp 14 S; Pulse Ox 98% on R/A; aa5 13:45 BP 94 / 61; Pulse 90; Resp 16 S; Pulse Ox 100% on R/A; aa5 14:00 BP 110 / 89; Pulse 90; Resp 14 S; Pulse Ox 100% on R/A; aa5 14:15 BP 110 / 59; Pulse 71; Resp 18 S; Pulse Ox 100% on R/A; aa5 14:45 BP 118 / 90; Pulse 82; Resp 15; Pulse Ox 100% ; bp 15:00 BP 112 / 70; Pulse 86; Resp 19; Pulse Ox 100% ; bp 16:00 BP 123 / 98; Pulse 118; Resp 15; Temp 98.5; Pulse Ox 100% ; bp 12:50 MD notified of decreased BP aa5 MDM: 14:24 Patient medically screened. kdr 18:49 Data reviewed: vital signs, nurses notes, lab test result(s), EKG, radiologic studies. kdr Counseling: I had a detailed discussion with the patient and/or guardian regarding: the historical points, exam findings, and any diagnostic results supporting the discharge/admit diagnosis, lab results, radiology results, the need for further work-up and treatment in the hospital. 09/18 10:09 Order name: Basic Metabolic Panel; Complete Time: 12:01 snw 09/18 10:09 Order name: CBC with Diff; Complete Time: 12: snw 09/18 10:09 Order name: LFT's; Complete Time: 12:01 snw 09/18 10:09 Order name: Magnesium; Complete Time: 12:01 snw 09/18 10:09 Order name: NT PRO-BNP; Complete Time: 12:01 snw 09/18 10:09 Order name: PT-INR; Complete Time: 12:01 snw 09/18 10:09 Order name: CT Head Brain wo Cont; Complete Time: 13:23 snw 09/18 10:09 Order name: Troponin (emerg Dept Use Only); Complete Time: 12: snw 09/18 10:09 Order name: XRAY Chest (1 view); Complete Time: 13:23 snw 09/18 10:42 Order name: CT Abd/Pelvis - IV Contrast Only; Complete Time: 13:23 kdr 09/18 10:49 Order name: Urine Dipstick--Ancillary (enter results); Complete Time: 13:23 bd 09/18 10:09 Order name: EKG; Complete Time: 10: snw 09/18 10:09 Order name: Cardiac monitoring; Complete Time: 10: snw 09/18 10:09 Order name: EKG - Nurse/Tech; Complete Time: 10: snw 09/18 10:09 Order name: IV Saline Lock; Complete Time: 10: snw 09/18 10:09 Order name: Labs collected and sent; Complete Time: 10: snw 09/18 10:09 Order name: O2 Per Protocol; Complete Time: 10:19 snw 09/18 10:09 Order name: O2 Sat Monitoring; Complete Time: 10: snw 09/18 14:31 Order name: Diet Regular; Complete Time: 14:32 aa5 Administered Medications: 10:15 Drug: Metoprolol 5 mg Route: IVP; Site: right antecubital; bp 16:14 Follow up: Response: No adverse reaction bp 10:15 Drug: fentaNYL (PF) 25 mcg Route: IVP; Site: right antecubital; bp 16:14 Follow up: Response: Pain is decreased bp 10:15 Drug: Ativan 0.5 mg Route: IVP; Site: right antecubital; bp 16:14 Follow up: Response: Anxiety decreased bp 10:15 Drug: Ativan 0.5 mg Route: IVP; Site: right antecubital; bp 16:14 Follow up: Response: Anxiety decreased bp 13:40 Drug: NS 0.9% 1000 ml Route: IV; Rate: 1000 ml; Site: right antecubital; aa5 16:14 Follow up: IV Status: Completed infusion; IV Intake: 1000ml bp Disposition: 09/18/20 14:24 Hospitalization ordered by Aries Wu for Observation. Preliminary diagnosis are Weakness, Tachycardia, unspecified, Hypotension, Headache, Abdominal and pelvic pain. - Bed requested for Telemetry/MedSurg (observation). - Status is Observation. bp - Condition is Stable. - Problem is an acute exacerbation. - Symptoms are unchanged. Signatures: Dispatcher [employer] EDKay Whitney RN RN dw Meet Hancock MD MD kdr Waters, Shelly, FITTING ROOM SUPERVISOR-C FITTING ROOM SUPERVISOR-Breaw Priyanka Vaca RN RN aa5 Mike Sams RN RN bp Corrections: (The following items were deleted from the chart) 15:21 14:24 Hospitalization Ordered by Aries Wu for Observation. Preliminary diagnosis dw is Weakness; Tachycardia, unspecified; Hypotension; Headache; Abdominal and pelvic pain. Bed requested for Telemetry/MedSurg (observation). Status is Observation. Condition is Stable. Problem is an acute exacerbation. Symptoms are unchanged. kdr 16:15 15:21 09/18/2020 14:24 Hospitalization Ordered by Aries Wu for Observation. bp Preliminary diagnosis is Weakness; Tachycardia, unspecified; Hypotension; Headache; Abdominal and pelvic pain. Bed requested for Telemetry/MedSurg (observation). Status is Observation. Condition is Stable. Problem is an acute exacerbation. Symptoms are unchanged. dw
--- NOTE | 2020-09-18 14:51 | P.HP ---
Certification for Inpatient Patient admitted to: Observation With expected LOS: <2 Midnights Practitioner: I am a practitioner with admitting privileges, knowledge of patient current condition, hospital course, and medical plan of care. Services: Services provided to patient in accordance with Admission requirements found in Title 42 Section 412.3 of the Code of Federal Regulations Patient History Date of Service: 09/18/20 Reason for admission: Tachycardia History of Present Illness: 49-year-old woman with a history of multiple medical problems including history of CVA with left-sided weakness, chronic pain presented emergency department multiple complaints including increased left-sided weakness, and generalize weakness. Patient was noted to be tachycardic in the ED. She stated her heart rate was as high as 180. Heart rate of 130 was recorded in the ED. Her blood pressure was also briefly low with systolic as low as 74. Her blood pressure responded to IV hydration in the ED. Systolic blood pressure is currently in the 110s. Initial troponin negative. Head CT is negative for acute disease. EKG no ischemic changes. CT abdomen and pelvis reported no acute changes. Patient also complains of weight loss and chronic constipation. Given patient's tachycardia and hypotension, she is placed under observation for further evaluation. Allergies morphine Allergy (Verified 05/02/17 04:34) Unknown Home Medications: ALPRAZolam [Xanax*] 2 mg PO DAILY PRN 09/16/13 Butalb/Acetaminophen/Caffeine [Fioricet 50-325-40 mg Tablet] 1 each PO Q6HP PRN 09/16/13 Duloxetine HCl [Cymbalta] 60 mg PO BEDTIME 09/16/13 Gabapentin [Neurontin*] 800 mg PO QID 09/16/13 Topiramate [Topamax*] 50 mg PO BID #60 tab 09/16/13 Warfarin Sodium [Coumadin*] 7.5 mg PO BEDTIME 09/16/13 gemfibroziL [Lopid*] 600 mg PO BID 09/16/13 Esomeprazole Mag Trihydrate [Nexium] 1 cap PO DAILY 05/02/17 Oxycodone HCl [Oxycontin] 1 tab PO BID PRN 05/02/17 Dicyclomine HCl 20 mg PO Q8HP 01/02/18 Lubiprostone [Amitiza*] 1 cap PO BID 01/02/18 Propranolol [Inderal*] 20 mg PO BID #30 tab 01/02/18 Tizanidine HCl 1 tab PO BIDP PRN 01/02/18 - Past Medical/Surgical History Diabetic: No -: seizure -: nerve damage -: DVT left arm -: essential tremors -: skin cancer -: 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 She reports diarrhea yesterday. She denied chronic diarrhea. She denied fever. Except as documented, all other systems reviewed and negative. Physical Examination - Physical Exam General: Alert, In no apparent distress HEENT: Atraumatic, Mucous membr. moist/pink, Sclerae nonicteric Neck: Supple, JVD not distended Respiratory: Clear to auscultation bilaterally, Normal air movement Cardiovascular: No edema, Regular rate/rhythm, Normal S1 S2 Capillary refill: <2 Seconds Gastrointestinal: Normal bowel sounds, Soft and benign, Non-distended, No tenderness Musculoskeletal: No swelling, No erythema Integumentary: No rashes, No tenderness/swelling Neurological: Normal speech, Normal strength at 5/5 x4 extr, Cranial nerves 3-12 intact - Studies Laboratory Data (last 24 hrs) 09/18/20 10:15: PT 11.5, INR 0.97 09/18/20 10:15: WBC 7.5, Hgb 13.5, Hct 39.8, Plt Count 238 09/18/20 10:15: Sodium 142, Potassium 3.6, BUN 11, Creatinine 1.08, Glucose 115 H, Magnesium 2.2, Total Bilirubin 0.4, AST 18, ALT 7 L, Alkaline Phosphatase 98 Assessment and Plan - Problems (Diagnosis) (1) Tachycardia Current Visit: Yes Status: Acute (2) Chronic anticoagulation Current Visit: No Status: Chronic (3) Chronic back pain Onset Date: 01/02/18 Current Visit: No Status: Chronic Qualifiers: Back pain location: back pain in unspecified location Back pain laterality: unspecified Qualified Code(s): M54.9 - Dorsalgia, unspecified; G89.29 - Other chronic pain (4) History of DVT (deep vein thrombosis) Current Visit: No Status: Chronic - Plan Placed under observation. Hydrate with IV normal saline. Obtain echocardiogram Check TSH, cortisol level. Monitor and optimize electrolytes Prescribe senna for chronic constipation. Continue Coumadin for DVT. Patient has a functioning pain pump. Continue Neurontin and Tizanidine for pain. - Advance Directives Does patient have a Living Will: No Does patient have a Durable POA for Healthcare: No
[2020-09-18 16:28] VITALS: BMI 24.3
[2020-09-18] MEDS ORDERED: ENOXAPARIN 40 MG/0.4 ML SQ SCH (17:00)
[2020-09-18] MEDS ORDERED: INFLUENZA VACCINE (for 3y+) 0.5 ML DOSE IMVAC ONE (17:00)
[2020-09-18] MEDS: NA CHLORIDE 0.9% 1,000 ML IV SCH (17:38)
[2020-09-18] MEDS ORDERED: HYDROCODONE/APAP 7.5/325 MG TAB PO PRN ×2 (18:03→23:27)
[2020-09-18 18:58] VITALS: O2SAT 100
[2020-09-18] MEDS ORDERED: HYDROCODONE/APAP 7.5/325 MG TAB PO SCH (21:00)
[2020-09-18] MEDS ORDERED: TIZANIDINE 4 MG TABLET PO PRN (23:27)
[2020-09-18] MEDS ORDERED: ALPRAZOLAM 1 MG TABLET PO PRN (23:27)
[2020-09-18] MEDS ORDERED: DICYCLOMINE HCL 10 MG CAP PO SCH (23:30)
[2020-09-18] MEDS: GABAPENTIN 400 MG CAP PO SCH (23:59)
[2020-09-19 02:58] LABS: Urine Appearance CLEAR; Urine Bilirubin NEGATIVE (NEG); Urine Blood NEGATIVE (NEG); Urine Color YELLOW; Urine Glucose NEGATIVE (NEG); Urine Protein NEGATIVE (NEG); Urine Specific Gravity >=1.030 (1.005-1.030); Urine pH 6.5 (5.0-7.0)
[2020-09-19 02:59] LABS: Urine Microscopic Reflex NO UMIC
[2020-09-19] MEDS: NA CHLORIDE 0.9% 1,000 ML IV SCH ×2 (03:51→03:52)
[2020-09-19 04:26] LABS: Absolute Lymphocytes (CBC) 2.3 K/uL (0.7-4.9); Basophils % 0.8 % (0-1.3); Hematocrit 32.4 % (36.0-45.0); Lymphocytes % 47.8 % (15.3-44.8); MPV 8.9 fL (7.6-11.3); RBC Red Blood Cell Count 3.58 M/uL (3.86-4.86)
[2020-09-19 04:55] LABS: Bilirubin Total 0.2 mg/dL (0.2-1.0); Magnesium 2.2 mg/dL (1.8-2.4); Phosphorus 3.9 mg/dL (2.5-4.9); Potassium 3.8 mmol/L (3.5-5.1); Protein, Total 6.3 g/dL (6.4-8.2); Thyroid Stimulating Hormone 3.4 uIU/mL (0.360-3.740)
[2020-09-19] MEDS ORDERED: CARBIDOPA/LEVODOPA 25/100 TAB PO SCH (09:00)
[2020-09-19] MEDS ORDERED: POTASSIUM CL SA 10 MEQ TAB PO ONE (09:00)
[2020-09-19] MEDS: TOPIRAMATE 25 MG TAB PO SCH ×2 (10:05)
[2020-09-19] MEDS: GABAPENTIN 400 MG CAP PO SCH ×2 (10:06→12:51)
--- NOTE | 2020-09-19 12:07 | EKG ---
Test Date: 2020-09-18 Test Time: 10:13:11 Blasting Worker: BP MEASUREMENT RESULTS: Intervals: Rate: 125 MD: 148 QRSD: 74 QT: 312 QTc: 450 [place]: P: 67 MD: 148 QRS: 61 T: 74 INTERPRETIVE STATEMENTS: Sinus tachycardia Cannot rule out Inferior infarct, age undetermined Abnormal ECG Compared to ECG 09/18/2020 10:11:36 Myocardial infarct finding now present ST (T wave) deviation no longer present Possible ischemia no longer present Electronically Signed On 09-19-20 12:03:29 DIRECTOR OF ALUMNI RELATIONS by Gianluca Morrison
--- NOTE | 2020-09-19 13:22 | ECHO ---
HEIGHT: 5 ft 10 in WEIGHT: 170 lb 0 oz DATE OF STUDY: 09/19/[address]: subhash trejo 2-DIMENSIONAL: YES M.MODE: YES DOPPLER: YES COLOR FLOW: YES TDS: PORTABLE: DEFINITY: BUBBLE STUDY: DIAGNOSIS: HYPOTENSION CARDIAC HISTORY: CATHERIZATION: NO SURGERY: NO PROSTHETIC VALVE: NO PACEMAKER: NO MEASUREMENTS (cm) DIASTOLIC (NORMALS) SYSTOLIC (NORMALS) IVSd 0.9 (0.6-1.2) LA Diam 2.8 (1.9-4.0) LVEF 60% LVIDd 4.7 (3.5-5.7) LVIDs 3.2 (2.0-3.5) %FS 32% LVPWd 1.0 (0.6-1.2) Ao Diam 2.4 (2.0-3.7) 2 DIMENSIONAL ASSESSMENT: RIGHT ATRIUM: LEFT ATRIUM: RIGHT VENTRICLE: LEFT VENTRICLE: TRICUSPID VALVE: MITRAL VALVE: PULMONIC VALVE: AORTIC VALVE: PERICARDIAL EFFUSION: AORTIC ROOT: LEFT VENTRICULAR WALL MOTION: DOPPLER/COLOR FLOW: COMMENTS: NORMAL 2-DIMENSIONAL ECHOCARDIOGRAM WITH DOPPLER. NO WALL MOTION ABNORMALITY. NO EFFUSION. TECHNOLOGIST: DMITRIY WONG
--- NOTE | 2020-09-19 14:54 | P.DS ---
Admission Date: 09/18/20 Discharge Date: 09/19/20 Primary Care Provider: Dr. Dawson Disposition: ROUTINE DISCHARGE Discharge Condition: GOOD Reason for Admission: Tachycardia Procedures: CXR (09/18): lungs appear clear of acute infiltrate. The heart is normal size CT Head (09/18): No acute intracranial abnormality is seen. If patient's symptoms persist MRI of the brain would be recommended. CT Abd/Pelvis (09/18): The liver, spleen, pancreas, adrenal and kidneys appear unremarkable. There is no evidence of diverticulitis. Normal appendix. Pain pump in place. Cholecystectomy. Hysterectomy TTE (09/19): normal 2D echo, no wall motion abnormality, no effusion. LVEF: 60% TSH (09/19): 3.4 Cortisol (09/19 @4am): 0.99 Problem List Hypotension, possible adrenal insufficiency Migraine headache Spinal fusion chronic back pain (now s/p pain pump) h/o Left arm DVT on chronic anticoagulation Essential Tremors Anxiety Hypertension Brief History of Present Illness: 49yo PMH: DVT on anticoagulation, chronic pain, essential tremors, and migraines who presented to ED due to multiple complaints of posterior headache, generalized weakness, tachycardia, and elevated blood pressure. She reported her heart rate at home as high as 180 and BP 180/100. In the ED she initially received IV metoprolol 5mg, fentanyl, and ativan. She was noted to have sinus tachycardia to 130s with BP as low as 74 systolic. Hospital Course: Patient's HR and BP responded to IV hydration in the ED and she was continued on IVF overnight. The following morning, her HR remained mostly in the 80-90s, and BP improved, but still labile ranging from 89-123/50s-90. She had no evidence of infectious process, afebrile, and was feeling significantly better. On day of discharge, she was ambulating around her room without dizziness/lightheadedness, she had return of her appetite, and felt well enough to be discharged home. She was discharged home to resume her medications except for losartan and propranolol until she follows up with her PCP. She was advised to check her BP at home. After discharge, her cortisol level resulted, and was noted to be 0.99 (drawn at 4am). I called the patient, who reported still feeling well and explained the low cortisol, my concern for adrenal insufficiency, and recommended that she call her PCP's office first thing tomorrow morning. I recommended she discuss this finding with her PCP, would likely benefit from ACTH stimulation testing, and subsequent treatment with steroids. I advised if her blood pressure gets low or if she has any fainting spells to go to ED. Patient expressed understanding and agreement with the plan. Patient also then reported a several month history of labile blood pressure readings at home and fainting spells as well. Vital Signs/Physical Exam: Temp Pulse Resp BP Pulse Ox 98.3 F 85 18 99/69 99 09/19/20 12:00 09/19/20 12:00 09/19/20 13:53 09/19/20 12:00 09/19/20 13:53 General: Alert, In no apparent distress, Oriented x3 HEENT: PERRLA, Mucous membr. moist/pink, EOMI, Sclerae nonicteric Neck: Supple, No LAD Respiratory: Clear to auscultation bilaterally, Normal air movement Cardiovascular: No edema, Regular rate/rhythm, Normal S1 S2 Gastrointestinal: Soft and benign, Non-distended, No tenderness Musculoskeletal: No tenderness Integumentary: No rashes Neurological: Normal speech, Normal affect Laboratory Data at Discharge: WBC 4.8 K/uL (4.3-10.9) D 09/19/20 04:02 Hgb 11.1 g/dL (12.0-15.0) L 09/19/20 04:02 Hct 32.4 % (36.0-45.0) L D 09/19/20 04:02 Plt Count 168 K/uL (152-406) D 09/19/20 04:02 PT 11.5 SECONDS (9.5-12.5) 09/18/20 10:15 INR 0.97 09/18/20 10:15 Sodium 146 mmol/L (136-145) H 09/19/20 04:02 Potassium 3.8 mmol/L (3.5-5.1) 09/19/20 04:02 BUN 13 mg/dL (7-18) 09/19/20 04:02 Creatinine 1.07 mg/dL (0.55-1.3) 09/19/20 04:02 Glucose 104 mg/dL (74-106) 09/19/20 04:02 Phosphorus 3.9 mg/dL (2.5-4.9) 09/19/20 04:02 Magnesium 2.2 mg/dL (1.8-2.4) 09/19/20 04:02 Total Bilirubin 0.2 mg/dL (0.2-1.0) 09/19/20 04:02 AST 14 U/L (15-37) L 09/19/20 04:02 ALT 8 U/L (12-78) L 09/19/20 04:02 Alkaline Phosphatase 75 U/L (45-117) 09/19/20 04:02 Home Medications: ALPRAZolam [Xanax*] 2 mg PO DAILY PRN 09/16/13 Duloxetine HCl [Cymbalta] 60 mg PO BEDTIME 09/16/13 Topiramate [Topamax*] 50 mg PO BID #60 tab 09/16/13 Warfarin Sodium [Coumadin*] 7.5 mg PO BEDTIME 09/16/13 Dicyclomine HCl 20 mg PO Q8HP 01/02/18 Tizanidine HCl 1 tab PO BIDP PRN 01/02/18 Carbidopa/Levodopa [Carbidopa-Levo 25-100 mg Odt] 1 each PO BID 09/18/20 Gabapentin [Neurontin] 800 mg PO QID 09/18/20 Hydrocodone/Acetaminophen [Sultana 7.5-325 Tablet] 1 tab PO BID PRN 09/18/20 Patient Discharge Instructions: Follow up with PCP within 3-5 days. Medication changes: Stop taking losartan (was 50mg daily) and propranolol (20mg twice a day) until you follow up with your PCP and have your blood pressure and heart rate re-checked. Diet: AHA Activity: Ad acosta Followup: Gianluca Morrison MD [ACTIVE - CAN ADMIT] - Samir KHOURY,Timothy Duarte DO [Primary Care Provider] - Time spent managing pt's care (in minutes): 35
[2020-09-19] MEDS ORDERED: INFLUENZA VACCINE (for 3y+) 0.5 ML DOSE IMVAC ONE (16:00)
[2020-09-19 17:58] VITALS: BP 89/57; TEMP 98.7
[2020-09-19] MEDS ORDERED: WARFARIN SODIUM 7.5 MG TAB PO SCH (21:00)
[2020-09-19] MEDS ORDERED: DULOXETINE 30 MG CAP PO SCH (21:00)
== END 2020-09-19 14:15 | disposition home or self-care (01) ==
LOC: ER 09:39 → ERHOLD 15:03 → 2ND 16:06
PROVIDERS: ADMIT Internal Medicine; ATTEND Hospitalist
DX: R00.0 Tachycardia, unspecified (principal); I95.9 Hypotension, unspecified; G43.909 Migraine, unspecified, not intractable, without status migrainosus; M54.9 Dorsalgia, unspecified; G89.29 Other chronic pain; Z20.828 Contact with and (suspected) exposure to other viral communicable diseases; Z86.718 Personal history of other venous thrombosis and embolism; F41.9 Anxiety disorder, unspecified; I10 Essential (primary) hypertension; G25.0 Essential tremor; Z98.1 Arthrodesis status; Z79.01 Long term (current) use of anticoagulants; I69.354 Hemiplegia and hemiparesis following cerebral infarction affecting left non-dominant side; K59.09 Other constipation; R63.4 Abnormal weight loss; Z85.828 Personal history of other malignant neoplasm of skin; R94.31 Abnormal electrocardiogram [ECG] [EKG]
CPT/HCPCS: 36415; 70450; 71045; 74177; 80048; 80053; 80076; 81003; 82533; 83735; 83880; 84100; 84443; 84484; 85025; 85610; 93005; 93306; 96361; 96374; 96375; 99285; G0378; J1650; J3010; J7030; Q2035; Q9967; U0002

== ENCOUNTER 2020-09-20 11:15 | Observation (INO) | payer OTHER ==
--- OUTSIDE RECORDS SUMMARY | 2020-09-20 11:18 | XMS REPORT | Continuity of Care Document ---
:1970 Author Organization [facility] t Address [address] [place] [address] Dr. Hoffman. [address] [place] [address] Care Team Providers Name Role Phone Milana [...] Source Sex Assigned At [facility] PhatNoise Medications Ordered Filled Start Stop Current Ordering [...] ESOMEPRAZOL Yes Take by [facility] E MAGNESIUM 8-15 mouth. Health (NEXIUM [...] Future Scheduled Test 2020-08-10 00:00:00 IMM Influenza [facility] Seasonal Aug to January (>/= 19 yrs) [code = IMM Influenza Seasonal Aug to January (>/= 19 yrs)] Future Scheduled Test 2018 00:00:00 Screening for [facility] malignant neoplasm of colon (procedure) [code = 878401003] Future Scheduled Test 2008 00:00:00 Breast Cancer Scrn [facility] (Yearly) [code = Breast Cancer Scrn (Yearly)] Future Scheduled Test 1998 00:00:00 Screening for [facility] malignant neoplasm of cervix (procedure) [code = 671112245] Future Scheduled Test 1998 00:00:00 Screening for [facility] malignant neoplasm of cervix (procedure) [code = 608085985] Encounters Start End Encounter Admission Attending Care Care Encounter Source Date/Time Date/Time Type Type Clinicians Facility Department ID 2019-11-01 2019-11-01 Office RO Cortés [id number] 11:25:11 11:51:37 Visit [facility] [id number] Surgical [id number] Specialti [id number] [place] 2017-11-18 2017-11-18 Outpatient [facility] [id number] [place] 00:00:00 00:00:00 [facility] 2017-07-22 2017-07-22 Outpatient [facility] [id number] [place] 00:00:00 00:00:00 Health 2017-06-24 2017-06-24 Outpatient [facility] [id number] [place] 12:34:43 12:34:43 Health 2017-06-24 2017-06-24 Outpatient [facility] [id number] [place] 10:24:55 10:24:55 Health Results This patient has no known results.
--- OUTSIDE RECORDS SUMMARY | 2020-09-20 11:18 | XMS REPORT | Clinical Summary ---
:[address] [facility] Address [address] [place] [id number] Care Team Providers Name Role Phone Daniela Danisha K ResidentMD Unavailable Allergies No Known Allergies Medications Medication Sig [...] 17 yrs) 08/10/2020 Results Not on fileafter 09/20/2019 Insurance Payer Benefit Plan / Subscriber ID Effective Phone Address T ype Group Dates [facility] xxxxxxxxx 2017-[facility] [id number] [place] [address]
--- NOTE | 2020-09-20 13:35 | ER ---
Nurse's Notes [facility] Name: Savanna San Age: 49 yrs Sex: Female : 1970 Arrival Date: 09/20/2020 Time: 11:19 Bed Waiting Private MD: Timothy Dawson H Diagnosis: Disorder of adrenal gland, unspecified Presentation: 09/20 11:24 Chief complaint: Patient states: "I was discharged yesterday and Dr. Diane called me hb last night and said my labs were low and I should come back to the hospital." Pt c/o generalized weakness and pain all over. Coronavirus screen: At this time, the client does not indicate any symptoms associated with coronavirus-19. Ebola Screen: No symptoms or risks identified at this time. Initial Sepsis Screen: Does the patient meet any 2 criteria? No. Patient's initial sepsis screen is negative. Does the patient have a suspected source of infection? No. Patient's initial sepsis screen is negative. Risk Assessment: Do you want to hurt yourself or someone else? Patient reports no desire to harm self or others. Onset of symptoms was September 20, 2020. 11:24 Method Of Arrival: Wheelchair hb 11:24 Acuity: MARIJA 3 hb Historical: - Allergies: 11:26 Morphine; hb - PMHx: 11:26 Headaches; tremors; Nerve Damage +DDD; Seizures; CVA- Left sided weakness; DVT; hb - PSHx: 11:26 pancreas surgery to remove stone (2017); Hysterectomy; Cholecystectomy; spinal fusion; hb - Immunization history:: Adult Immunizations up to date. - Social history:: Smoking status: Patient denies any tobacco usage or history of. Vital Signs: 11:24 BP 168 / 88; Pulse 86; Resp 16; Temp 98.3; Pulse Ox 100% on R/A; Pain 6/10; hb ED Course: 11:19 Patient arrived in ED. mr 11:20 Timothy Dawson DO is Private Physician. mr 11:25 Triage completed. hb 11:26 Arm band placed on. hb 16:15 Meek Diane MD is Hospitalizing Provider. aa5 16:20 Meek Diane MD is Attending Physician. aa5 Administered Medications: No medications were administered Outcome: 13:30 Decision to Hospitalize by Provider. aa5 13:30 Patient left the ED. Signatures: Quynh Meehan mr MoPriyanka stroud RN RN aa5 Alma Lange RN RN Corrections: (The following items were deleted from the chart) 16:21 13:34 Patient left the ED. hb aa5 16: 16:20 Decision to Hospitalize by Provider. aa5 aa5 16:21 16:20 Patient left the ED. aa5 aa5
[2020-09-20 14:11] VITALS: BMI 25.2
[2020-09-20 14:52] LABS: Absolute Lymphocytes (CBC) 1.7 K/uL (0.7-4.9); Basophils % 0.8 % (0-1.3); Hematocrit 34.3 % (36.0-45.0); Lymphocytes % 33.3 % (15.3-44.8); MPV 8.8 fL (7.6-11.3); Protime INR 0.89; RBC Red Blood Cell Count 3.79 M/uL (3.86-4.86)
[2020-09-20 15:04] LABS: Albumin 3.6 g/dL (3.4-5.0); Bilirubin Total 0.2 mg/dL (0.2-1.0); Magnesium 2.2 mg/dL (1.8-2.4); Phosphorus 4.1 mg/dL (2.5-4.9); Potassium 4.2 mmol/L (3.5-5.1); Protein, Total 7.5 g/dL (6.4-8.2)
[2020-09-20] MEDS ORDERED: TIZANIDINE 4 MG TABLET PO PRN (15:18)
[2020-09-20] MEDS ORDERED: HOME MED 1 EA UNK (Dicyclomine Hcl [Dicyclomine Hcl] 20 MG) PO SCH (15:30)
[2020-09-20 15:31] LABS: Urine Appearance CLEAR; Urine Bilirubin NEGATIVE (NEG); Urine Blood NEGATIVE (NEG); Urine Color YELLOW; Urine Glucose NEGATIVE (NEG); Urine Protein NEGATIVE (NEG); Urine Specific Gravity 1.015 (1.005-1.030)
[2020-09-20 15:32] LABS: Urine Microscopic Reflex NO UMIC
[2020-09-20] MEDS ORDERED: DICYCLOMINE HCL 10 MG CAP PO PRN (16:20)
[2020-09-20] MEDS: HYDROCODONE/APAP 7.5/325 MG TAB PO PRN (16:21)
[2020-09-20] MEDS: GABAPENTIN 400 MG CAP PO SCH ×2 (16:22→21:57)
--- NOTE | 2020-09-20 16:31 | P.HP ---
Certification for Inpatient Patient admitted to: Observation With expected LOS: <2 Midnights Practitioner: I am a practitioner with admitting privileges, knowledge of patient current condition, hospital course, and medical plan of care. Services: Services provided to patient in accordance with Admission requirements found in Title 42 Section 412.3 of the Code of Federal Regulations Patient History Date of Service: 09/20/20 Reason for admission: hypotension, body aches, concern for adrenal insufficiency History of Present Illness: 49yo female, presents to ED from PCP's office due to concern for adrenal insufficiency. Patient was discharged from the hospital yesterday where she was treated for hypotension and tachycardia and overall not feeling well. She had improvement of her symptoms and was discharged home. After discharge, her cortisol level resulted in was low (0.99). The patient was contacted last night to discuss with PCP this morning and consider undergoing ACTH stimulation test for further evaluation. Patient was briefly seen at PCPs office today, PCP felt patient did not look well and recommended presentation to the ED. In the triage area, patient's BP was noted to be 160/80s, HR: 80s. Patient reports intermittent lower back pain, mostly in the left side. Also now reporting some new dysuria that began today. She is also having a muscle/body aches, worse in lower extremities. She endorses a history of randomly thinking and dizzy spells over the past few months. She has a recent history of labile blood pressures bouncing back and forth from high and low. She is also having some generalized weakness. Allergies morphine Allergy (Verified 05/02/17 04:34) Unknown Home Medications: ALPRAZolam [Xanax*] 2 mg PO DAILY PRN 09/16/13 Duloxetine HCl [Cymbalta] 60 mg PO BEDTIME 09/16/13 Topiramate [Topamax*] 50 mg PO BID #60 tab 09/16/13 Warfarin Sodium [Coumadin*] 7.5 mg PO BEDTIME 09/16/13 Dicyclomine HCl 20 mg PO Q8HP 01/02/18 Tizanidine HCl 1 tab PO BIDP PRN 01/02/18 Carbidopa/Levodopa [Carbidopa-Levo 25-100 mg Odt] 1 each PO BID 09/18/20 Gabapentin [Neurontin] 800 mg PO QID 09/18/20 Hydrocodone/Acetaminophen [[place] 7.5-325 Tablet] 1 tab PO BID PRN 09/18/20 Acetam/Caff/Butal [Fioricet*] 1 tab PO TID PRN 09/20/20 - Past Medical/Surgical History Has patient received pneumonia vaccine in the past: No Diabetic: No -: seizure -: nerve damage -: DVT left arm -: essential tremors -: skin cancer -: 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) -: spinal fusion -: cholecystectomy -: total hysterectomy -: pain pump - Family History Mother -: Hypertension, Cancer, Other (see notes) Notes: Thyroid problem Father -: Heart disease, Hypertension, Cancer - Social History Smoking Status: Former smoker Alcohol use: No CD- Drugs: No Caffeine use: Yes Place of Residence: Home Review of Systems General: Weakness Eyes: Unremarkable ENT: Unremarkable Respiratory: Unremarkable Cardiovascular: Light Headedness Gastrointestinal: Unremarkable Genitourinary: Dysuria Musculoskeletal: Back Pain, Leg Pain Integumentary: Unremarkable Neurological: Weakness (generalized) Physical Examination - Vital Signs Temperature: 97.3 F Blood Pressure: 109/55 Pulse: 80 Respirations: 16 Pulse Ox (%): 100 - Physical Exam General: Alert, In no apparent distress (but appears ill, fatigued), Oriented x3 HEENT: PERRLA, Mucous membr. moist/pink, EOMI, Sclerae nonicteric Neck: Supple Respiratory: Clear to auscultation bilaterally, Normal air movement Cardiovascular: No edema, Regular rate/rhythm Gastrointestinal: Soft and benign, Non-distended, No tenderness Musculoskeletal: Tenderness (left lower back) Integumentary: No rashes Neurological: Normal speech, Normal affect Assessment and Plan - Advance Directives Does patient have a Living Will: No Does patient have a Durable POA for Healthcare: No Physician Review Additional Text: Hypotension, low cortisol, possible adrenal insufficiency dysuria Migraine headache Spinal fusion chronic back pain (now s/p pain pump) h/o Left arm DVT on chronic anticoagulation Essential Tremors Anxiety -will bring patient in for obs, will obtain ACTH stimulation test tomorrow AM, and check renin / aldosterone as well -concern for adrenal insufficiency, unclear primary vs secondary, will likely need steroids after results; denies recent steroid usage -BP initially hypertensive, now low-normal, will monitor closely -may need fur evaluation dependent on ACTH stim testing results tomorrow -continue home medications -check UA given dysuria - was normal 2 days ago VTE: coumadin Code: full Dispo: pending ACTH stim testing results, anticipate dc home in 24-48hrs Time Spent Managing Pts Care (In Minutes): 55
[2020-09-20] MEDS ORDERED: HOME MED 1 EA UNK (Gabapentin [Neurontin] 800 MG) PO SCH (17:00)
--- NOTE | 2020-09-20 18:05 | EKG ---
Test Date: 2020-09-20 Test Time: 00:07:15 Mechanical Engineering Teacher: RT-O MEASUREMENT RESULTS: Intervals: Rate: 65 NV: 128 QRSD: 90 QT: 424 QTc: 440 Holiday: P: 19 NV: 128 QRS: -18 T: 9 INTERPRETIVE STATEMENTS: Normal sinus rhythm Normal ECG Compared to ECG 09/18/2020 10:13:11 Sinus tachycardia no longer present Myocardial infarct finding no longer present Electronically Signed On 09-20-20 18:02:41 ENGRAVER LETTER by Gianluca Morrison
[2020-09-20] MEDS ORDERED: WARFARIN SODIUM 2.5 MG TAB ONE (19:32)
[2020-09-20] MEDS ORDERED: HOME MED 1 EA UNK (Duloxetine Hcl [Cymbalta] 60 MG) PO SCH (21:00)
[2020-09-20] MEDS: dexAMETHasone 4 MG/ML VIAL IV SCH (21:00)
[2020-09-20] MEDS ORDERED: LEVODOPA PO SCH (21:00)
[2020-09-20] MEDS ORDERED: CARBIDOPA PO SCH (21:00)
[2020-09-20] MEDS: TOPIRAMATE 25 MG TAB PO SCH (21:30)
[2020-09-20] MEDS: DULOXETINE 30 MG CAP PO SCH (21:30)
[2020-09-20] MEDS: ACETAMIN/CAFFEINE/BUTALB TAB PO PRN (21:30)
[2020-09-20] MEDS: CARBIDOPA/LEVODOPA 25/100 TAB PO SCH (21:31)
[2020-09-20] MEDS: WARFARIN SODIUM 7.5 MG TAB PO SCH (21:32)
[2020-09-21 05:05] LABS: Protime INR 1.12
[2020-09-21] MEDS ORDERED: COSYNTROPIN 0.25 MG VIAL IV ONE (08:00)
[2020-09-21] MEDS ORDERED: SODIUM CHLORIDE 0.9% 10ML INJ IV ONE (08:00)
[2020-09-21] MEDS ORDERED: ENOXAPARIN 40 MG/0.4 ML SQ SCH (09:00)
[2020-09-21] MEDS: ACETAMIN/CAFFEINE/BUTALB TAB PO PRN (10:19)
[2020-09-21] MEDS: CARBIDOPA/LEVODOPA 25/100 TAB PO SCH ×2 (10:19→21:05)
[2020-09-21] MEDS: TOPIRAMATE 25 MG TAB PO SCH ×2 (10:19→21:05)
[2020-09-21] MEDS: GABAPENTIN 400 MG CAP PO SCH ×4 (10:19→21:00)
[2020-09-21] MEDS: dexAMETHasone 4 MG/ML VIAL IV SCH (10:35)
[2020-09-21] MEDS: HYDROCODONE/APAP 7.5/325 MG TAB PO PRN (14:00)
[2020-09-21] MEDS ORDERED: LORazepam 2 MG/ML VIAL ONE (15:44)
[2020-09-21 16:28] LABS: Absolute Lymphocytes (CBC) 1.1 K/uL (0.7-4.9); Basophils % 0.4 % (0-1.3); Hematocrit 36.9 % (36.0-45.0); Lymphocytes % 21.4 % (15.3-44.8); RBC Red Blood Cell Count 4.07 M/uL (3.86-4.86)
[2020-09-21 16:43] LABS: Albumin 3.8 g/dL (3.4-5.0); Bilirubin Total 0.2 mg/dL (0.2-1.0); Magnesium 2.2 mg/dL (1.8-2.4); Phosphorus 2.6 mg/dL (2.5-4.9); Protein, Total 8.1 g/dL (6.4-8.2)
--- NOTE | 2020-09-21 18:41 | P.PN ---
Subjective Date of Service: 09/21/20 Chief Complaint: hypotension, body aches, concern for adrenal insufficiency Subjective: Other (Patient reported no significant improvement overnight, started on hydrocortisone last night For ACTH stimulation test this morning. still with headache and body aches, not feeling well --This afternoon, TECHNICAL DOCUMENT WRITER was called, patient with seizure-like activity for a few min Patient noted to be tachycardic to 150s at this time, blood pressure 160/80, SpO2 > 94% on room air. Resolved of 2 mg IV Ativan Pt reports h/o seizures in her 20s, and daughter reports occasional similar episodes that they call "parkinson attacks" but not this severe.) Physical Examination - Vital Signs Temperature: 98.0 F Blood Pressure: 168/80 Pulse: 156 Respirations: 18 Pulse Ox (%): 98 - Physical Exam General: Alert, In no apparent distress, Oriented x3, Other (appears ill/tired) HEENT: Sclerae nonicteric Neck: Supple Respiratory: Clear to auscultation bilaterally Cardiovascular: No edema, Regular rate/rhythm Gastrointestinal: Soft and benign, Non-distended, No tenderness Musculoskeletal: No tenderness Integumentary: No rashes Neurological: Normal speech, Normal affect Assessment & Plan Physician Review Additional Text: Hypotension, low cortisol dysuria, resolved Seizure activity Migraine headache Spinal fusion chronic back pain (now s/p pain pump) h/o Left arm DVT on chronic anticoagulation Essential Tremors h/o Parkinson's Anxiety -ACTH stimulation test appears normal, still pending ACTH, cortisol baseline at 8am was 16 and responded to stimulation, ruling out adrenal insufficiency -will dc hydrocortisone -BP remained low until TECHNICAL DOCUMENT WRITER, very labile BP and HR, possible autonomic instability/dysfunction - will add low dose fludrocortisone -UA was negative, no longer having dysuria -after TECHNICAL DOCUMENT WRITER - pt was back to baseline, had some confusion of events leading to seizure activity -labs obtained - fairly unremarkable, negative troponin, EKG: sinus tachycardia to 140s, improved -consulted neurology, recommended initiation Keppra 250 mg b.i.d., obtain MRI, EEG ordered -continue home medications VTE: coumadin Code: full Dispo: Needs further evaluation for this new seizure, pending further workup, anticipate Dc home in 24-48 hr Time Spent Managing Pts Care (In Minutes): 35
[2020-09-21] MEDS: NA CHLORIDE 0.9% 1,000 ML IV SCH (18:53)
[2020-09-21] MEDS: WARFARIN SODIUM 7.5 MG TAB PO SCH (21:00)
[2020-09-21] MEDS: ENOXAPARIN 40 MG/0.4 ML SQ SCH (21:00)
[2020-09-21] MEDS: levETIRAcetam 500 MG TAB PO SCH (21:06)
[2020-09-21] MEDS: ALPRAZOLAM 1 MG TABLET PO PRN (21:07)
[2020-09-21] MEDS: DULOXETINE 30 MG CAP PO SCH (21:08)
[2020-09-21] MEDS: FLUDROCORTISONE 0.1 MG TAB PO SCH (22:28)
[2020-09-21] MEDS ORDERED: WARFARIN SODIUM 2.5 MG TAB ONE (22:39)
[2020-09-22] MEDS ORDERED: LORazepam 2 MG/ML VIAL IV ONE ×2 (05:44→09:15)
[2020-09-22] MEDS ORDERED: LORazepam 2 MG/ML VIAL ONE (05:59)
[2020-09-22] MEDS: ACETAMIN/CAFFEINE/BUTALB TAB PO PRN ×2 (06:01→15:42)
[2020-09-22 06:27] LABS: Absolute Lymphocytes (CBC) 2.5 K/uL (0.7-4.9); Basophils % 0.4 % (0-1.3); Hematocrit 32.8 % (36.0-45.0); Lymphocytes % 28.9 % (15.3-44.8); MPV 8.6 fL (7.6-11.3); RBC Red Blood Cell Count 3.62 M/uL (3.86-4.86)
[2020-09-22 06:38] LABS: Albumin 3.4 g/dL (3.4-5.0); Bilirubin Total 0.2 mg/dL (0.2-1.0); Magnesium 2.2 mg/dL (1.8-2.4); Phosphorus 2.8 mg/dL (2.5-4.9); Potassium 3.6 mmol/L (3.5-5.1)
--- NOTE | 2020-09-22 08:07 | RAD REPORT ---
EXAM DESCRIPTION: MRI - Brain W/Wo Cont - 09/21/2020 9:08 pm CLINICAL HISTORY: new seizure, prior stroke COMPARISON: Brain W/Wo Cont dated 09/20/2016 TECHNIQUE: Sagittal and axial T1-weighted images were obtained. Axial PD/heavily T2-weighted and T2- FLAIR images were obtained along with axial DWI/ADC mapping sequences. Coronal heavily T2 weighted a nd T1 weighted sequences were obtained. Axial and coronal post-contrast T1-weighted images were also obtained. A 17 ml Multihance contrast following utilized. FINDINGS: Examination has some limitation due to motion. Several sequences had to be repeated. No intracranial hemorrhage, mass or acute infarction. There is no edema or shift of midline structur es. No extra-axial fluid collections. Nicolas-matter/white matter junction is preserved. Signal voids a re seen as a normal finding in the major intracranial vessels. Two punctate foci of T2 hyperintensity noted in the subcortical white matter left frontal lobe and a small subcortical focus in the superio r anterior right frontal lobe. Focal T2 signal abnormalities are present in the periventricular white matter of the right frontal lobe adjacent to the frontal horn lateral ventricle. . None of these abril w enhancement on postcontrast imaging. These are nonspecific. Punctate chronic ischemic changes possi ble. Vasculitis, migraine headache and demyelinating etiologies are in the differential consideration but would need associated clinical findings. Neoplastic etiology not suspected. Post-contrast images show normal enhancement. No dural thickening. Mastoid air cells and paranasal sinuses are clear. IMPRESSION: No mass, hemorrhage or acute intracranial finding identifiable. A few small nonenhancing foci of T2 signal abnormality noted in the frontal lobes. These are nonspeci fic. Malignancy is not suspected and these are probably not etiologies for seizure. Vasculitis, migraine headache and demyelinating etiologies are in the differential diagnosis but woul d need supporting clinical presentation.
[2020-09-22] MEDS: NA CHLORIDE 0.9% 1,000 ML IV SCH ×2 (08:20→12:50)
[2020-09-22] MEDS: GABAPENTIN 400 MG CAP PO SCH ×4 (09:00→20:54)
[2020-09-22] MEDS ORDERED: POTASSIUM CL SA 10 MEQ TAB PO ONE (09:00)
[2020-09-22] MEDS: CARBIDOPA/LEVODOPA 25/100 TAB PO SCH ×2 (09:05→20:56)
[2020-09-22] MEDS: levETIRAcetam 500 MG TAB PO SCH ×2 (09:06→20:55)
[2020-09-22] MEDS: TOPIRAMATE 25 MG TAB PO SCH ×2 (09:07→20:56)
[2020-09-22] MEDS: FLUDROCORTISONE 0.1 MG TAB PO SCH (09:07)
--- NOTE | 2020-09-22 17:02 | P.PN ---
Subjective Date of Service: 09/22/20 Chief Complaint: hypotension, body aches, concern for adrenal insufficiency Subjective: No new changes (continues with generalized weakness / fatigue, had another episode of shaking but was alert during this, what she refers to "parkinson's attack".) Review of Systems 10-point ROS is otherwise unremarkable Physical Examination - Vital Signs Temperature: 97.2 F Blood Pressure: 92/46 Pulse: 79 Respirations: 17 Pulse Ox (%): 96 - Physical Exam General: Alert, Other (appears tired) HEENT: Mucous membr. moist/pink, Sclerae nonicteric Neck: Supple Respiratory: Clear to auscultation bilaterally, Normal air movement Cardiovascular: No edema, Regular rate/rhythm Gastrointestinal: Soft and benign, Non-distended, No tenderness Musculoskeletal: No tenderness Integumentary: No rashes Neurological: Normal speech, Normal affect Assessment & Plan Physician Review Additional Text: Hypotension, low cortisol dysuria, resolved Seizure activity Migraine headache Spinal fusion chronic back pain (now s/p pain pump) h/o Left arm DVT on chronic anticoagulation Essential Tremors h/o Parkinson's Anxiety -ACTH stimulation test appears normal, ruling out adrenal insufficiency -BP remained low until 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 BP remains on low end -consulted neurology, continue Keppra 250 mg b.i.d. -EEG ordered, MRI was unremarkable -continue home medications VTE: coumadin Code: full Dispo: anticipate dc home tomorrow Time Spent Managing Pts Care (In Minutes): 35
--- NOTE | 2020-09-22 18:52 | CON ---
History Of Present Illness: Ms. San is a 49-year-old patient, whom I see in clinic for migraine with aura and tremors with the differential diagnosis of possible Parkinson disease versus less likel y essential tremor. She has had episodes of hypotension, body aches, and was admitted to the [facility] with concerns of adrenal insufficiency on September 20, 2020. She did have episodes of marked hypot ension and tachycardia as well as some episodes of hypertension. She did have a cortisol evaluation and the test revealed a low cortisol level. She was contacted to undergo ACTH stimulation test and t he serology test was done by the hospitalist. After it, the patient was contacted [facility]. The test did not reveal significant abnormalities or adrenal insufficiency of any signif icant nature and adrenal insufficiency was ruled out. However, the possibility of autonomic dysfunct ion possibly with Parkinson disease was considered a likely reason for changes in blood pressure, whi ch is may be associated with tremors. She did have an EEG, which needs to be interpreted. Brain MRI was unremarkable for any acute ischemic or hemorrhagic change. Small vessel disease identified. Past Medical History: Chronic hypotension, migraine, and intubated with tremors. Past Surgical History: Spinal fusion. Family History: Noncontributory. Medications: Carbidopa-levodopa 25/100 twice daily, [place] 7.5/325 twice daily, Fioricet as needed tw ice daily, Cymbalta 60 mg at night, Bentyl 20 mg every 8 hours, Lovenox 40 mg subcutaneously daily, F lorinef 0.1 mg daily, Neurontin 800 mg 4 times daily, Keppra 250 mg twice daily, tizanidine 4 mg at b edtime, Coumadin 7.5 mg daily. Review of Systems: She does admit to intermittent diffuse weakness and fatigue with lightheadedness, back pain, however, no psychiatric issues. No gastrointestinal or genitourinary issues. No dermatological issues. No shortness of breath. Physical Examination: Vital Signs: Blood pressure ranged from 92 to 110/46 to 60, pulse 63 to 79, respiratory rate 16 to 2 0, temperature 97.2. General: Ms. San is resting comfortably. She is in no acute distress. HEENT: She is normocephalic, atraumatic. Sclerae anicteric. Oropharynx is moist and pink. Neck: Supple. Chest: Clear. Heart: Regular. Extremities: No edema, cyanosis, or clubbing. Neurological: She is alert and oriented to situation, place, and person. She has no focal cranial n erves, motor, coordination, sensory, or gait deficits. Laboratory Studies: Complete blood count with differential is remarkable for slightly low hemoglobin 11.3. Otherwise, coagulation panel shows INR 1.12. Chemistries show slightly elevated chloride of 113, glucose range 126 to 171. Procalcitonin is less than 0.05. Urinalysis is normal. Assessment: Ms. San is a 49-year-old patient with migraine aura, possible Parkinson disease. Th ere was a DaTscan scheduled, but the patient did not have the test done. She is on Sinemet, which ma y be continued. She is to be on Topamax for headache prophylaxis and then continued. At this point, she has been ruled out for stroke and may be discharged home and will follow up in Dr. Quan's cl in within 1 month. Her EEG will be evaluated next week. KERRY/INDY Voice ID: [id number] Report ID: [id number]
[2020-09-22] MEDS: ALPRAZOLAM 1 MG TABLET PO PRN (20:54)
[2020-09-22] MEDS: DULOXETINE 30 MG CAP PO SCH (20:54)
[2020-09-22] MEDS: ENOXAPARIN 40 MG/0.4 ML SQ SCH (20:57)
[2020-09-22] MEDS: WARFARIN SODIUM 7.5 MG TAB PO SCH (21:00)
[2020-09-23] MEDS: NA CHLORIDE 0.9% 1,000 ML IV SCH (02:30)
[2020-09-23 06:28] LABS: Hematocrit 31.9 % (36.0-45.0); MPV 8.8 fL (7.6-11.3); RBC Red Blood Cell Count 3.51 M/uL (3.86-4.86)
[2020-09-23 06:37] LABS: Protime INR 2.41
[2020-09-23] MEDS ORDERED: BISACODYL 10 MG RECTAL SUPP PR ONE (06:42)
[2020-09-23 06:55] LABS: Bilirubin Total 0.1 mg/dL (0.2-1.0); Magnesium 2.4 mg/dL (1.8-2.4); Potassium 3.9 mmol/L (3.5-5.1); Protein, Total 6.4 g/dL (6.4-8.2)
[2020-09-23] MEDS: HYDROCODONE/APAP 7.5/325 MG TAB PO PRN (08:22)
[2020-09-23] MEDS: levETIRAcetam 500 MG TAB PO SCH (08:23)
[2020-09-23] MEDS: TOPIRAMATE 25 MG TAB PO SCH (08:23)
[2020-09-23] MEDS: FLUDROCORTISONE 0.1 MG TAB PO SCH (08:23)
[2020-09-23] MEDS: GABAPENTIN 400 MG CAP PO SCH (08:23)
[2020-09-23 08:32] VITALS: BP 139/61; TEMP 97
--- NOTE | 2020-09-23 09:30 | P.DS ---
Admission Date: 09/20/20 Discharge Date: 09/23/20 Disposition: ROUTINE DISCHARGE Discharge Condition: GOOD Reason for Admission: hypotension, body aches, concern for adrenal insufficiency Consultations: Neurology - Dr. Quan Procedures: ACTH Stimulation Test (09/20 8am): ACTH still pending; Cortisol baseline -> 30min -> 60min -> 90min (16.6 -> 24.9 -> 26.5 -> 30.4) MRI Brain (09/21): Examination has some limitation due to motion. Several sequences had to be repeated. No mass, hemorrhage or acute intracranial finding identifiable. A few small nonenhancing foci of T2 signal abnormality noted in the frontal lobes. These are nonspecific. Malignancy is not suspected and these are probably not etiologies for seizure. Vasculitis, migraine headache and demyelinating etiologies are in the differential diagnosis but would need supporting clinical presentation Problem List Hypotension, dizzy spells. possible autonomic dysfunction from Parkinson disease Seizure activity Migraine headache Spinal fusion chronic back pain (now s/p pain pump) h/o Left arm DVT on chronic anticoagulation Essential Tremors h/o Parkinson disease Anxiety Brief History of Present Illness: 49yo female, presents to ED from PCP's office due to concern for adrenal insufficiency. Patient was discharged from the hospital yesterday where she was treated for hypotension and tachycardia and overall not feeling well. She had improvement of her symptoms and was discharged home. After discharge, her cortisol level resulted in was low (0.99). The patient was contacted last night to discuss with PCP this morning and consider undergoing ACTH stimulation test for further evaluation. Patient was briefly seen at PCPs office today, PCP felt patient did not look well and recommended presentation to the ED. In the triage area, patient's BP was noted to be 160/80s, HR: 80s. Patient reports intermittent lower back pain, mostly in the left side. Also now reporting some new dysuria that began today. She is also having a muscle/body aches, worse in lower extremities. She endorses a history of randomly thinking and dizzy spells over the past few months. She has a recent history of labile blood pressures bouncing back and forth from high and low along with her heart rate randomly going up to 150-160s at times.. She is also having some generalized weakness. Hospital Course: Patient was admitted for further evaluation of her continued symptoms, labile blood pressure/heart rate, and recent random AM cortisol of 0.99. She underwent ACTH stimulation test which was normal and adrenal insufficiency was ruled out. However, the possibility of auotnomic dysfunction possibly with Parkinson disease was considered as a likely reason for her changes in blood pressure. She was started on fludrocortisone and was going to be discharged home when she had a brief, self-resolving witnessed episode of seizure-like activity by her nurse. Neurology was consulted, MRI brain was negative for acute ischemia or hemorrhagic change, an EEG was performed (which will be interpreted next week) and she was started on Keppra 250mg BID. Patient's blood pressure improved slightly, was feeling much better, and did not have any repeat seizures. She did have 2 episodes of what the family call "parkinson attacks" where she has brief episodes of acute worsening / uncontrollable tremors, but able to talk / respond, etc. She was discharged home with new prescriptions for fludrocortisone and keppra. She is to follow up with PCP within 1 week and neurology in ~1 month. Vital Signs/Physical Exam: Temp Pulse Resp BP Pulse Ox 97 F 90 18 139/61 98 09/23/20 08:00 09/23/20 08:00 09/23/20 08:22 09/23/20 08:00 09/23/20 08:22 General: Alert, In no apparent distress, Oriented x3 HEENT: Mucous membr. moist/pink, Sclerae nonicteric Respiratory: Clear to auscultation bilaterally, Normal air movement Cardiovascular: No edema, Regular rate/rhythm Gastrointestinal: Soft and benign, Non-distended, No tenderness Musculoskeletal: No tenderness Integumentary: No rashes Neurological: Normal speech, Normal affect Laboratory Data at Discharge: WBC 5.6 K/uL (4.3-10.9) D 09/23/20 05:16 Hgb 11.0 g/dL (12.0-15.0) L 09/23/20 05:16 Hct 31.9 % (36.0-45.0) L 09/23/20 05:16 Plt Count 175 K/uL (152-406) 09/23/20 05:16 PT 28.0 SECONDS (9.5-12.5) H 09/23/20 05:16 INR 2.41 09/23/20 05:16 Sodium 147 mmol/L (136-145) H 09/23/20 05:16 Potassium 3.9 mmol/L (3.5-5.1) 09/23/20 05:16 BUN 12 mg/dL (7-18) 09/23/20 05:16 Creatinine 0.96 mg/dL (0.55-1.3) 09/23/20 05:16 Glucose 96 mg/dL (74-106) 09/23/20 05:16 Phosphorus 2.8 mg/dL (2.5-4.9) 09/22/20 06:07 Magnesium 2.4 mg/dL (1.8-2.4) 09/23/20 05:16 Total Bilirubin 0.1 mg/dL (0.2-1.0) L 09/23/20 05:16 AST 13 U/L (15-37) L 09/23/20 05:16 ALT 11 U/L (12-78) L 09/23/20 05:16 Alkaline Phosphatase 68 U/L (45-117) 09/23/20 05:16 Troponin I < 0.02 ng/mL (0.0-0.045) 09/21/20 16:07 Home Medications: ALPRAZolam [Xanax*] 2 mg PO DAILY PRN 09/16/13 Duloxetine HCl [Cymbalta] 60 mg PO BEDTIME 09/16/13 Topiramate [Topamax*] 50 mg PO BID #60 tab 09/16/13 Warfarin Sodium [Coumadin*] 7.5 mg PO BEDTIME 09/16/13 Dicyclomine HCl 20 mg PO Q8HP 01/02/18 Tizanidine HCl 1 tab PO BIDP PRN 01/02/18 Carbidopa/Levodopa [Carbidopa-Levo 25-100 mg Odt] 1 each PO BID 09/18/20 Gabapentin [Neurontin] 800 mg PO QID 09/18/20 Hydrocodone/Acetaminophen [[place] 7.5-325 Tablet] 1 tab PO BID PRN 09/18/20 Acetam/Caff/Butal [Fioricet*] 1 tab PO TID PRN 09/20/20 Fludrocortisone [Florinef *] 0.1 mg PO DAILY 30 Days #30 tab 09/23/20 Levetiracetam [Keppra] 250 mg PO BID 30 Days #60 tablet 09/23/20 New Medications: Fludrocortisone [Florinef *] 0.1 mg PO DAILY 30 Days #30 tab Levetiracetam [Keppra] 250 mg PO BID 30 Days #60 tablet Patient Discharge Instructions: follow up with PCP within 3-5 days. follow up with Dr. Quan within 1 month - he will review your EEG results at this time with you Diet: Regular Activity: Ad acosta Followup: Rolf Quan MD [ASSOCIATE-ACTIVE - CAN ADMIT] - Timothy Dawson DO, DO [Primary Care Provider] - Time spent managing pt's care (in minutes): 35
[2020-09-23] MEDS: CARBIDOPA/LEVODOPA 25/100 TAB PO SCH (09:31)
[2020-09-23 10:12] VITALS: O2SAT 96
--- NOTE | 2020-09-24 07:49 | EKG ---
Test Date: 2020-09-21 Test Time: 16:01:48 Ceo Ziff Davis: ZANDRA MEASUREMENT RESULTS: Intervals: Rate: 147 [place]: QRSD: 70 QT: 328 QTc: 513 [place]: P: CA: QRS: 75 T: 81 INTERPRETIVE STATEMENTS: Supraventricular tachycardia ST & T wave abnormality, consider lateral ischemia Abnormal ECG Compared to ECG 09/20/2020 00:07:15 ST (T wave) deviation now present Possible ischemia now present Sinus rhythm no longer present Electronically Signed On 09-24-20 07:41:52 HIDE SELECTOR by Gianluca Morrison
--- NOTE | 2020-09-26 07:41 | EEG ---
CHART: [id number] TEST ID#: [id number] DATE OF STUDY: 09/22/2020 THE EEG WAS RECORDED PORTABLE IN THE PATIENT'S ROOM ON A 17 CHANNEL MACHINE. ELECTRODES WERE APPLIED IN THE USUAL MANNER USING THE INTERNATIONAL 10-20 SYSTEM. THE WAKING BACKGROUND RHYTHM IN THIS RECORD CONSISTS OF WELL DEVELOPED AND WELL ORGANIZED WAVES OF 8.5 HZ., MAXIMAL IN THE POSTERIOR HEAD REGIONS WHICH ATTENUATE NORMALLY WITH EYE OPENING. LOW-VOLTAGE 18-22 HZ ACTIVITY IS EXPRESSED IN THE FRONTAL REGIONS. THERE ARE NO FOCAL OR LATERALIZING FEATURES. NO EPILEPTIFORM ACTIVITY APPEARS. SLEEP DID NOT OCCUR. HYPERVENTILATION WAS NOT PERFORMED. PHOTIC STIMULATION PRODUCED FAIR DRIVING BILATERALLY. IMPRESSION: NORMAL EEG FOR THE AGE OF THE PATIENT IN [place].
== END 2020-09-23 10:43 | disposition home or self-care (01) ==
LOC: ER 11:15 → ERHOLD 12:57 → 2ND 13:38
PROVIDERS: ADMIT Hospitalist; ATTEND Hospitalist
DX: I95.9 Hypotension, unspecified (principal); R42 Dizziness and giddiness; G20 Parkinson's disease; M54.9 Dorsalgia, unspecified; G89.29 Other chronic pain; Z86.718 Personal history of other venous thrombosis and embolism; F41.9 Anxiety disorder, unspecified; G25.0 Essential tremor; R56.9 Unspecified convulsions; Z79.01 Long term (current) use of anticoagulants; G43.109 Migraine with aura, not intractable, without status migrainosus; Z98.1 Arthrodesis status; Z85.828 Personal history of other malignant neoplasm of skin; Z87.891 Personal history of nicotine dependence; R94.31 Abnormal electrocardiogram [ECG] [EKG]; Z20.828 Contact with and (suspected) exposure to other viral communicable diseases
CPT/HCPCS: 95816; 93005 ×2; 85025 ×3; 36415 ×3; 83735 ×4; 84100 ×3; 85610 ×3; 81003; 85027; 84484; 80053 ×4; 82533 ×4; 84145; 82024; 82088; 84146; 84244; 70553; 94760 ×7; 99281; A9577; J1100; J0834; J1650 ×3; J7030 ×4

== ENCOUNTER 2021-05-05 18:46 | Inpatient (IN) | payer OTHER ==
--- OUTSIDE RECORDS SUMMARY | 2021-05-05 18:50 | XMS REPORT | Continuity of Care Document ---
:1970 Author Organization [facility] t Address [address] [place] [address] Care Team Providers Name Role Phone Jose R Trinidad DO Attending Clinician Karen Cortés MD Attending Clinician Problems Condition Condition Condition Status Onset Resolution Last Treating Co mments Source Name Details Category Date Date Treatment Clinician Date Migraines Migraines Disease Active Sae ris 06-24 Health 00:00: 00 Skin Skin Disease Active [facility] cancer cancer 06-24 Health 00:00: 00 Unexplaine Unexplaine Disease Active H arris d weight d weight 06-24 Health loss loss 00:00: 00 Epigastric Epigastric Disease Active H parvizis pain pain 06-24 Health 00:00: 00 Skin [...] Health accident accident 00:00: (CVA) (CVA) 00 Allergies, Adverse Reactions, Alerts This patient has no known allergies or adverse reactions. Social History Social Habit Start Date Stop Date Quantity Comments Source Sex Assigned At [facility] Medications Ordered Filled Start Stop Current Ordering [...] mg tablet 11:59: times 13 daily. gabapentin 2017 Yes 800mg Take 800 Tellez rris (NEURONTIN) 8-15 mg by Health 800 mg 11:59: mouth 3 tablet 13 times daily. propranolol 2017 Yes 80mg Q.5D Take 80 mg [facility] (INDERAL) 8-15 by mouth 2 Heal th 80 mg 11:59: times tablet 13 daily. topiramate Yes 50mg QD Take 50 mg H arris (TOPAMAX) 8-15 by mouth Health 50 mg 11:59: daily. tablet 13 ESOMEPRAZOL Yes Take by Sae ris E MAGNESIUM 8-15 mouth. Health (NEXIUM OR) 11:59: 13 tiZANidine 2017 Yes 4mg Take 4 mg Tellez rris (ZANAFLEX) 8-15 by mouth Healt h 4 mg tablet 11:59: every 6 13 hours as needed for Muscle Spasms. DULoxetine Yes 60mg QD Take 60 mg H [...] Date Details Comments Source Future Scheduled Test 2021-08-10 00:00:00 IMM Influenza [facility] Seasonal Aug to January (>/= 19 yrs) [code = IMM Influenza Seasonal Aug to January (>/= 19 yrs)] Future Scheduled Test 2018 00:00:00 Screening for [facility] malignant neoplasm of colon (procedure) [code = 179334634] Future Scheduled Test 2008 00:00:00 Breast Cancer Scrn [facility] (Yearly) [code = Breast Cancer Scrn (Yearly)] Future Scheduled Test 1998 00:00:00 Screening for [facility] malignant neoplasm of cervix (procedure) [code = 318673161] Future Scheduled Test 1998 00:00:00 Screening for [facility] malignant neoplasm of cervix (procedure) [code = 641725101] Future Scheduled Test 1980 00:00:00 COVID-19 Vaccine (1) [facility] [code = COVID-19 Vaccine (1)] Encounters Start End Encounter Admission Attending Care Care Encounter Source Date/Time Date/Time Type Type Clinicians Facility Department ID 2021-01-30 2021-01-30 Patient Amos [facility] [id number] 00:00:00 00:00:00 Outreach [facility] [id number] [facility] [id number] PAV[facility]ION [id number] [facility] 2019-11-01 2019-11-01 Office Milana [facility] [id number] 11:25:11 11:51:37 Visit [facility] [id number] Surgical [id number] Specialti [id number] [place] 2017-11-18 2017-11-18 Outpatient [facility] [id number] [place] 00:00:00 00:00:00 Health 2017-07-22 2017-07-22 Outpatient [facility] [id number] [place] 00:00:00 00:00:00 Health 2017-06-24 2017-06-24 Outpatient [facility] [id number] [place] 12:34:43 12:34:43 Health 2017-06-24 2017-06-24 Outpatient [facility] [id number] [place] 10:24:55 10:24:55 Health Results This patient has no known results.
[2021-05-05] MEDS ORDERED: PANTOPRAZOLE 40 MG INJ ONE (19:35)
[2021-05-05] MEDS ORDERED: ONDANSETRON 4 MG/2 ML VIAL ONE (19:35)
[2021-05-05] MEDS ORDERED: MORPHINE 4 MG/ML SYR ONE (19:35)
[2021-05-05] MEDS ORDERED: NA CHLORIDE 0.9% 1,000 ML ONE ×2 (19:35→21:35)
[2021-05-05 19:42] LABS: Absolute Lymphocytes (CBC) 0.9 K/uL (0.7-4.9); Basophils % 0.1 % (0-1.3); Hematocrit 40.2 % (36.0-45.0); MPV 8.9 fL (7.6-11.3)
[2021-05-05] MEDS ORDERED: MEPERIDINE HCL 25 MG/ML SYR ONE (19:54)
[2021-05-05 19:57] LABS: Protime INR 1.06
[2021-05-05 20:04] LABS: Albumin 4.2 g/dL (3.4-5.0); Bilirubin Direct 0.1 mg/dL (0-0.2); Bilirubin Total 0.5 mg/dL (0.2-1.0); Magnesium 3.2 mg/dL (1.8-2.4); Potassium 4.9 mmol/L (3.5-5.1); Protein, Total 8.1 g/dL (6.4-8.2)
[2021-05-05 21:07] LABS: Blood Morphology Comment NOT SEEN (NOT SEEN); Platelet Estimate ADEQ; White Blood Cell Scan OK (OK)
--- NOTE | 2021-05-06 00:41 | ER ---
Nurse's Notes [facility] Name: Savanna San Age: 50 yrs Sex: Female : 1970 Arrival Date: 05/05/2021 Time: 19:02 Bed 30 Private MD: Diagnosis: Colitis; Nausea and vomiting;Diarrhea, unspecified Presentation: 05/05 19:04 Chief complaint: EMS states: diffuse abdominal pain x1 month. had EGD yesterday with MD delroy Bose, biopsies taken. pt states results from EGD showed "blood in stomach and a lot of inflammation." since then pt c/o yellow liquid diarrhea. +n/v. Coronavirus screen: At this time, unable to obtain information related to travel outside the [place] Ebola Screen: No symptoms or risks identified at this time. Initial Sepsis Screen: Does the patient meet any 2 criteria? No. Patient's initial sepsis screen is negative. Does the patient have a suspected source of infection? No. Patient's initial sepsis screen is negative. Risk Assessment: Do you want to hurt yourself or someone else? Patient reports no desire to harm self or others. Onset of symptoms is unknown. 19:04 Method Of Arrival: EMS: [facility] tr6 19:04 Acuity: MARIJA 3 tr6 Triage Assessment: 19:08 General: Appears distressed, uncomfortable, Behavior is cooperative, appropriate for tr6 age. Pain: Complains of pain in diffuse abdominal pain. EENT: No deficits noted. Neuro: No deficits noted. Cardiovascular: No deficits noted. Respiratory: No deficits noted. GI: Abdomen is distended, Reports lower abdominal pain, upper abdominal pain, bloating, diarrhea, vomiting. : No deficits noted. Derm: No deficits noted. Musculoskeletal: No deficits noted. 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 - Social history:: Smoking status: unknown. Screenin/26 19:13 Abuse screen: Denies threats or abuse. Denies injuries from another. Nutritional tr6 screening: No deficits noted. Tuberculosis screening: No symptoms or risk factors identified. Fall Risk None identified. Assessment: 19:36 General: Appears in no apparent distress. Behavior is cooperative, restless. Pain: ea Complains of pain in abdomen. Neuro: Level of Consciousness is awake, alert, obeys commands, Oriented to person, place, time. Cardiovascular: Patient's skin is warm and dry. GI: Reports diarrhea, nausea. Derm: Skin is dry, Skin is pale, Skin temperature is warm. 22:36 Reassessment: Patient and/or family updated on plan of care and expected duration. Pain ea level reassessed. Pt resting with eyes closed, respirations even and unlabored, chest expansions even and symmetrical. 05/06 00:00 Reassessment: Patient and/or family updated on plan of care and expected duration. Pain ea level reassessed. Patient is alert, oriented x 3, equal unlabored respirations, skin warm/dry/pink. 01:59 Reassessment: Patient and/or family updated on plan of care and expected duration. Pain ea level reassessed. Patient is alert, oriented x 3, equal unlabored respirations, skin warm/dry/pink. 06:55 Reassessment: dr. diane seen and examined the patient with verbal order to do brambila rr5 catheter temporarily until you get stool and urine sample. once specimen obtain, remove the brambila catheter. Vital Signs: 05/05 19:04 BP 147 / 81; Pulse 78; Resp 18; Temp 97.9; Pulse Ox 100% on R/A; tr6 19:42 BP 142 / 67; Pulse 79; Resp 16; Pulse Ox 100% ; ea 20:30 BP 141 / 87; Pulse 104; Resp 15; Pulse Ox 100% ; rr5 21:30 BP 145 / 67; Pulse 93; Resp 16; Pulse Ox 99% ; rr5 22:37 BP 159 / 87; Pulse 93; Resp 18; Pulse Ox 99% ; ea 23:00 BP 132 / 71; Pulse 90; Resp 15; Pulse Ox 98% ; rr5 05/06 00:00 BP 141 / 77; Pulse 85; Resp 19; Pulse Ox 98% ; rr5 01:59 BP 130 / 60; Pulse 80; Resp 18; Pulse Ox 99% ; ea ED Course: 05/05 19:02 Patient arrived in ED. tr6 19:05 Kike Minor MD is Attending Physician. mh7 19:05 Francisco Pepe PA is PHCP. cp 19:07 Attending Physician role handed off by Kike Minor MD georgi 19:07 Francisco Medina MD is Attending Physician. georgi 19:07 Triage completed. tr6 19:08 Arm band placed on right wrist. tr6 19:13 Patient has correct armband on for positive identification. Bed in low position. Side tr6 rails up X2. Pulse ox on. NIBP on. Door closed. Noise minimized. Visitors limited. Lights dimmed. Moved to private room. Diet: Patient is NPO. 19:13 No provider procedures requiring assistance completed. tr6 19:28 Loraine Weir RN is Primary Nurse. ea 19:31 Inserted saline lock: 20 gauge in right antecubital area, using aseptic technique. ea Blood collected. 20:42 Cleaned of incontinence. Linen changed. mt 21:13 PHCP role handed off by Francisco Pepe PA pm1 21:13 Jack Aguayo NP is PHCP. pm1 21:57 CT Abd/Pelvis - PO and IV Contrast In Process Unspecified. EDMS 05/06 00:40 Meek Diane MD is Hospitalizing Provider. pm1 00:57 Patient admitted, IV remains in place. ea 13:15 Primary Nurse role handed off by Loraine Weir RN eb Administered Medications: 05/05 19:29 Not Given (Other Intervention Used): morphine 4 mg IVP once; RASS on ADMIN: Combtv4, ea Very Agttd3, Agttd2, Rstlss1, AlertClm0, Drwsy-1, Lt Sdtn-2, Mod Sdtn-3, Dp Sdtn-4, UnArsble-5 19:29 Drug: ProTONIX (pantoprazole) 40 mg Route: IVP; Site: right antecubital; ea 21:10 Follow up: Response: No adverse reaction ea 19:30 Drug: Zofran (Ondansetron) 4 mg Route: IVP; Site: right antecubital; ea 21:10 Follow up: Response: No adverse reaction ea 19:31 Drug: NS 0.9% 1000 ml Route: IV; Rate: 1 bolus; Site: right antecubital; ea 21:10 Follow up: Response: No adverse reaction; IV Status: Completed infusion; IV Intake: ea 1000ml 19:36 Drug: Demerol (meperidine) 25 mg Route: IVP; Site: right antecubital; ea 21:23 Follow up: Response: No adverse reaction ea 21:16 Drug: NS 0.9% 1000 ml Route: IV; Rate: 1 bolus; Site: right antecubital; ea 22:30 Follow up: Response: No adverse reaction; IV Status: Completed infusion; IV Intake: ea 1000ml 05/06 00:45 Drug: Cipro (ciprofloxacin) 400 mg Volume: 200 ml; Route: IVPB; Infused Over: 60 mins; ea Site: right antecubital; 01:49 Follow up: IV Status: Completed infusion; IV Intake: 200ml ea 00:46 Drug: Demerol (meperidine) 25 mg Route: IVP; Site: right antecubital; ea 00:56 Follow up: Response: No adverse reaction ea 00:46 Drug: Flagyl (metroNIDAZOLE) 500 mg Volume: 100 ml; Route: IVPB; Rate: 200 ml/hr; ea Infused Over: 30 mins; Site: right antecubital; 01:48 Follow up: Response: No adverse reaction; IV Status: Completed infusion; IV Intake: ea 100ml 00:54 Drug: Zofran (Ondansetron) 4 mg Route: IVP; Site: right antecubital; ea 01:48 Follow up: Response: No adverse reaction ea 01:09 Drug: Solu-CORTEF (hyrdoCORTISONE) 100 mg Route: IVP; Site: right antecubital; rr5 01:48 Follow up: Response: No adverse reaction ea Intake: 05/05 21:10 IV: 1000ml; Total: 1000ml. ea 22:30 IV: 1000ml; Total: 2000ml. ea 05/06 01:48 IV: 100ml; Total: 2100ml. ea 01:49 IV: 200ml; Total: 2300ml. ea Outcome: 00:41 Decision to Hospitalize by Provider. pm1 00:57 Instructed on the need for admit, Demonstrated understanding of instructions. ea 01:48 Admitted to ER Hold. Please see [facility] for further documentation. ea 01:48 Condition: stable 13:47 Patient left the ED. amy Signatures: Dispatcher [employer] EDFrancisco Yoo MD MD cha Page, Corey, Jack Mauricio cp, CRESTER CRESTER pm1 Kathrine Hartman mt, Elena RN RN Yaneth Martinez Raymond RN RN rr5 Kike Minor MD MD 7 Niharika Avila RN RN Ilene Cui RN RN tr6 Corrections: (The following items were deleted from the chart) 01:49 01:48 IV Status: Completed infusion maris pollock
--- NOTE | 2021-05-06 00:41 | EDPHYS ---
Physician Documentation [facility] Name: Savanna San Age: 50 yrs Sex: Female : 1970 Arrival Date: 05/05/2021 Time: 19:02 Bed 30 Private MD: MARTA Physician rFancisco Medina HPI: 05/05 19:10 This 50 yrs old Female presents to ER via EMS with complaints of Abdominal cp Pain. 19:10 The patient presents with abdominal pain that is diffuse. Onset: The symptoms/episode cp began/occurred 1 month(s) ago. The symptoms do not radiate. Associated signs and symptoms: Pertinent positives: nausea and vomiting, anorexia, diarrhea, Pertinent negatives: blood in stools, dysuria, fever, vomiting blood. The symptoms are described as waxing/waning. 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 - Social history:: Smoking status: unknown. ROS: 05/05 19:15 Constitutional: Positive for poor PO intake, Negative for body aches, chills, fever. cp 19:15 Eyes: Negative for injury, pain, redness, and discharge. cp 19:15 ENT: Negative for ear pain, sore throat, difficulty swallowing, difficulty handling secretions. 19:15 Cardiovascular: Negative for chest pain, palpitations. 19:15 Respiratory: Negative for cough, shortness of breath, wheezing. 19:15 Abdomen/GI: Positive for abdominal pain, nausea, vomiting, and diarrhea, Negative for constipation, hematemesis, black/tarry stool, rectal bleeding. 19:15 : Negative for urinary symptoms. 19:15 Skin: Negative for rash. 19:15 Neuro: Negative for altered mental status, headache, weakness. 19:15 All other systems are negative. Exam: 19:20 Head/Face: Normocephalic, atraumatic. cp 19:20 Constitutional: The patient appears in no acute distress, alert, awake, non-toxic, well developed, well nourished, uncomfortable. 19:20 Eyes: Periorbital structures: appear normal, Conjunctiva: normal, no exudate, no injection, Sclera: no appreciated abnormality, Lids and lashes: appear normal, bilaterally. 19:20 ENT: External ear(s): are unremarkable, Nose: is normal, Mouth: Lips: moist, Oral mucosa: moist, Posterior pharynx: Airway: no evidence of obstruction, patent. 19:20 Chest/axilla: Inspection: normal, Palpation: is normal, no crepitus, no tenderness. 19:20 Cardiovascular: Rate: normal, Rhythm: regular, Edema: is not appreciated, JVD: is not appreciated. 19:20 Respiratory: the patient does not display signs of respiratory distress, Respirations: normal, no use of accessory muscles, no retractions, labored breathing, is not present, Breath sounds: are clear throughout, no decreased breath sounds, no stridor, no wheezing. 19:20 Abdomen/GI: Inspection: distension, that is mild, Bowel sounds: active, all quadrants, Palpation: soft, in all quadrants, moderate abdominal tenderness, rebound tenderness, is not appreciated, voluntary guarding, is elicited in all quadrants. Vital Signs: 19:04 BP 147 / 81; Pulse 78; Resp 18; Temp 97.9; Pulse Ox 100% on R/A; tr6 19:42 BP 142 / 67; Pulse 79; Resp 16; Pulse Ox 100% ; ea 20:30 BP 141 / 87; Pulse 104; Resp 15; Pulse Ox 100% ; rr5 21:30 BP 145 / 67; Pulse 93; Resp 16; Pulse Ox 99% ; rr5 22:37 BP 159 / 87; Pulse 93; Resp 18; Pulse Ox 99% ; ea 23:00 BP 132 / 71; Pulse 90; Resp 15; Pulse Ox 98% ; rr5 05/06 00:00 BP 141 / 77; Pulse 85; Resp 19; Pulse Ox 98% ; rr5 01:59 BP 130 / 60; Pulse 80; Resp 18; Pulse Ox 99% ; ea MDM: 05/05 19:07 Patient medically screened. cp 19:07 Patient medically screened. [facility] 05/06 00:29 Data reviewed: vital signs. Data interpreted: Pulse oximetry: on room air is 98 %. pm1 Interpretation: normal. Counseling: I had a detailed discussion with the patient and/or guardian regarding: the historical points, exam findings, and any diagnostic results supporting the discharge/admit diagnosis, lab results, radiology results, the need for further work-up and treatment in the hospital. 05/05 19:07 Order name: Basic Metabolic Panel; Complete Time: 20:36 05/05 20:36 Interpretation: Normal except: GLUC 177; GFR 68. 05/05 19:07 Order name: CBC with Diff; Complete Time: 21:07 05/05 20:36 Interpretation: Normal except: WBC 15.10; CEDRIC% 89.1; LYM% 6.0; NEUT A 13.5. 05/05 19:07 Order name: Hepatic Function; Complete Time: 20:36 05/05 20:36 Interpretation: AST 13; ALT 11; GLOB 3.9. 05/05 19:07 Order name: Lipase; Complete Time: 20:36 05/05 19:07 Order name: Magnesium; Complete Time: 20:36 05/05 21:08 Interpretation: Abnormal: MG 3.2. 05/05 19:07 Order name: PT-INR; Complete Time: 20:36 05/05 19:07 Order name: Urine Microscopic Only 05/05 21:07 Order name: CBC Smear Scan; Complete Time: 21:07 [facility] 05/06 00:48 Order name: COVID-19 : Document "Date of Symptom Onset" if Symptomatic. 05/06 00:48 Order name: CORONAVIRUS [facility] 05/06 04:13 Order name: SARS-COV-2 RT PCR; Complete Time: 13:34 [facility] 05/06 05:21 Order name: CBC with Automated Diff; Complete Time: 13:34 [facility] 05/06 06:08 Order name: Comprehensive Metabolic Panel; Complete Time: 13:34 [facility] 05/06 06:08 Order name: T4 Free; Complete Time: 13:34 [facility] 05/05 19:28 Order name: CT Abd/Pelvis - PO and IV Contrast 05/06 06:08 Order name: Magnesium; Complete Time: 13:34 [facility] 05/06 06:08 Order name: Thyroid Stimulating Hormone; Complete Time: 13:34 [facility] 05/06 08:13 Order name: Urine Dipstick-Ancillary; Complete Time: 13:34 [facility] 05/06 13:13 Order name: Fecal Leukocyte Stain; Complete Time: 13:34 [facility] 05/05 19:07 Order name: IV Saline Lock; Complete Time: 19:32 cp 05/05 19:07 Order name: Labs collected and sent; Complete Time: 19:32 cp Administered Medications: 05/05 19:29 Not Given (Other Intervention Used): morphine 4 mg IVP once; RASS on ADMIN: Combtv4, ea Very Agttd3, Agttd2, Rstlss1, AlertClm0, Drwsy-1, Lt Sdtn-2, Mod Sdtn-3, Dp Sdtn-4, UnArsble-5 19:29 Drug: ProTONIX (pantoprazole) 40 mg Route: IVP; Site: right antecubital; ea 21:10 Follow up: Response: No adverse reaction ea 19:30 Drug: Zofran (Ondansetron) 4 mg Route: IVP; Site: right antecubital; ea 21:10 Follow up: Response: No adverse reaction ea 19:31 Drug: NS 0.9% 1000 ml Route: IV; Rate: 1 bolus; Site: right antecubital; ea 21:10 Follow up: Response: No adverse reaction; IV Status: Completed infusion; IV Intake: ea 1000ml 19:36 Drug: Demerol (meperidine) 25 mg Route: IVP; Site: right antecubital; ea 21:23 Follow up: Response: No adverse reaction ea 21:16 Drug: NS 0.9% 1000 ml Route: IV; Rate: 1 bolus; Site: right antecubital; ea 22:30 Follow up: Response: No adverse reaction; IV Status: Completed infusion; IV Intake: ea 1000ml 05/06 00:45 Drug: Cipro (ciprofloxacin) 400 mg Volume: 200 ml; Route: IVPB; Infused Over: 60 mins; ea Site: right antecubital; 01:49 Follow up: IV Status: Completed infusion; IV Intake: 200ml ea 00:46 Drug: Demerol (meperidine) 25 mg Route: IVP; Site: right antecubital; ea 00:56 Follow up: Response: No adverse reaction ea 00:46 Drug: Flagyl (metroNIDAZOLE) 500 mg Volume: 100 ml; Route: IVPB; Rate: 200 ml/hr; ea Infused Over: 30 mins; Site: right antecubital; 01:48 Follow up: Response: No adverse reaction; IV Status: Completed infusion; IV Intake: ea 100ml 00:54 Drug: Zofran (Ondansetron) 4 mg Route: IVP; Site: right antecubital; ea 01:48 Follow up: Response: No adverse reaction ea 01:09 Drug: Solu-CORTEF (hyrdoCORTISONE) 100 mg Route: IVP; Site: right antecubital; rr5 01:48 Follow up: Response: No adverse reaction ea Disposition: 05/06/21 00:41 Hospitalization ordered by Meek Diane for Inpatient Admission. Diagnosis are Colitis, Nausea and vomiting, Diarrhea, unspecified. - Bed requested for Telemetry/MedSurg (Inpatient). - Status is Inpatient Admission. zb - Condition is Stable. - Problem is new. - Symptoms have improved. Addendum: 05/09/2021 07:49 Co-signature as Attending Physician, Francisco Medina MD I agree with the assessment and c billings plan of care. Signatures: Dispatcher [employer] Kay Enriquez RN RN dw Anderson, Corey, MD MD cha Page, Corey, PA PA cp Jack Aguayo, [employer]AND[employer]LL [employer] COLLECTION OPERATOR LANDFILL GAS COLLECTION OPERATOR pm1 Loraine Weir RN RN ea [place], MyKena mw2 Meek Kerns RN RN rr5 Niharika Avila RN RN zb Ramnanan, Tiffany RN RN tr6 Corrections: (The following items were deleted from the chart) 05/05 20:05/04 19:20 Constitutional: The patient appears in no acute distress, alert, awake, cp non-toxic, well developed, well nourished, uncomfortable, cp 05/05 20:15 05/04 19:20 Head/Face: Normocephalic, atraumatic. cp cp 05/05 20:15 05/04 19:20 Eyes: Periorbital structures: appear normal, Conjunctiva: normal, no cp exudate, no injection, Sclera: no appreciated abnormality, Lids and lashes: appear normal, bilaterally, cp 05/05 20:05/04 19:20 ENT: External ear(s): are unremarkable, Nose: is normal, Mouth: Lips: cp moist, Oral mucosa: moist, Posterior pharynx: Airway: no evidence of obstruction, patent, cp 05/05 20:05/04 19:20 Chest/axilla: Inspection: normal, Palpation: is normal, no crepitus, no cp tenderness, cp 05/05 20:05/04 19:20 Cardiovascular: Rate: normal, Rhythm: regular, Edema: is not appreciated, cp JVD: is not appreciated, cp 05/05 20:05/04 19:20 Respiratory: the patient does not display signs of respiratory distress, cp Respirations: normal, no use of accessory muscles, no retractions, labored breathing, is not present, Breath sounds: are clear throughout, no decreased breath sounds, no stridor, no wheezing, cp 05/05 20:05/04 19:20 Abdomen/GI: Inspection: distension, that is mild, Bowel sounds: active, all cp quadrants, Palpation: soft, in all quadrants, moderate abdominal tenderness, rebound tenderness, is not appreciated, voluntary guarding, is elicited in all quadrants, cp 05/06 01:11 00:41 Hospitalization Ordered by Meek Diane MD for Inpatient Admission. Preliminary mw2 diagnosis is Colitis; Nausea and vomiting; Diarrhea, unspecified. Bed requested for Telemetry/MedSurg (Inpatient). Status is Inpatient Admission. Condition is Stable. Problem is new. Symptoms have improved. pm1 12:44 01:11 05/06/2021 00:41 Hospitalization Ordered by Meek Diane MD for Inpatient dw Admission. Preliminary diagnosis is Colitis; Nausea and vomiting; Diarrhea, unspecified. Bed requested for [facility] ER HOLD. Status is Inpatient Admission. Condition is Stable. Problem is new. Symptoms have improved. mw2 13:47 12:44 05/06/2021 00:41 Hospitalization Ordered by Meek Diane MD for Inpatient zb Admission. Preliminary diagnosis is Colitis; Nausea and vomiting; Diarrhea, unspecified. Bed requested for Telemetry/MedSurg (Inpatient). Status is Inpatient Admission. Condition is Stable. Problem is new. Symptoms have improved. dw
[2021-05-06] MEDS ORDERED: MEPERIDINE HCL 25 MG/ML SYR ONE (00:59)
[2021-05-06] MEDS ORDERED: METRONIDAZOLE 500mg IVPB 500 MG/100 ML BAG IV ONE ×2 (00:59→08:49)
[2021-05-06] MEDS ORDERED: Ciprofloxacin 200mg IV 200 MG/100 ML IV.SOLN. IV ONE (00:59)
[2021-05-06] MEDS ORDERED: ONDANSETRON 4 MG/2 ML VIAL ONE ×2 (01:12→08:49)
[2021-05-06] MEDS ORDERED: HYDROCORTISONE SUC 100 MG INJ ONE ×2 (01:27→08:49)
--- NOTE | 2021-05-06 01:51 | P.HP ---
Certification for Inpatient Patient admitted to: Inpatient With expected LOS: >2 Midnights Patient will require the following post-hospital care: None Practitioner: I am a practitioner with admitting privileges, knowledge of patient current condition, hospital course, and medical plan of care. Services: Services provided to patient in accordance with Admission requirements found in Title 42 Section 412.3 of the Code of Federal Regulations Patient History Date of Service: 05/06/21 Reason for admission: Colitis History of Present Illness: 50-year-old female with history of Parkinson's, [place]'s, hypertension presents emergency department for abdominal pain, nausea, vomiting, diarrhea. Patient reports that she had a EGD with on Friday and yesterday morning began having severe abdominal pain, vomiting, diarrhea. Patient reports greater than 20 bowel movements throughout the course the day all yellow in appearance no blood mucus or pus noted. Patient evaluated in the emergency department, labs significant for white blood cell count 15.1 with left shift GFR 68 glucose [address] abdomen pelvis with contrast demonstrates colitis infectious versus inflammatory. Patient still uncomfortable having nausea and diarrhea. ED provider wishes to admit for further evaluation and management. Allergies morphine Allergy (Verified 05/02/17 04:34) Unknown Home Medications: ALPRAZolam [Xanax*] 2 mg PO DAILY PRN 09/16/13 Duloxetine HCl [Cymbalta] 60 mg PO BEDTIME 09/16/13 Topiramate [Topamax*] 50 mg PO BID #60 tab 09/16/13 Warfarin Sodium [Coumadin*] 7.5 mg PO BEDTIME 09/16/13 Dicyclomine HCl 20 mg PO Q8HP 01/02/18 Tizanidine HCl 1 tab PO BIDP PRN 01/02/18 Carbidopa/Levodopa [Carbidopa-Levo 25-100 mg Odt] 1 each PO BID 09/18/20 Gabapentin [Neurontin] 800 mg PO QID 09/18/20 Hydrocodone/Acetaminophen [[place] 7.5-325 Tablet] 1 tab PO BID PRN 09/18/20 Acetam/Caff/Butal [Fioricet*] 1 tab PO TID PRN 09/20/20 Fludrocortisone [Florinef *] 0.1 mg PO DAILY 30 Days #30 tab 09/23/20 Levetiracetam [Keppra] 250 mg PO BID 30 Days #60 tablet 09/23/20 - Past Medical/Surgical History Diabetic: No -: seizure -: DVT left arm -: 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) -: Parkinson's -: Montague's -: spinal fusion -: cholecystectomy -: total hysterectomy -: pain pump Psychosocial/ Personal History: Disabled, lives with fiance - Family History Mother -: Hypertension, Cancer, Other (see notes) Notes: Thyroid problem Father -: Heart disease, Hypertension, Cancer - Social History Smoking Status: Never smoker Alcohol use: No CD- Drugs: No Caffeine use: Yes Place of Residence: Home Review of Systems 10-point ROS is otherwise unremarkable Gastrointestinal: Nausea, Vomiting, Abdominal Pain, Diarrhea Physical Examination - Physical Exam General: Alert, In no apparent distress, Oriented x3 HEENT: Atraumatic, PERRLA, Mucous membr. moist/pink Neck: Supple, 2+ carotid pulse no bruit, No LAD Respiratory: Clear to auscultation bilaterally, Normal air movement Cardiovascular: Regular rate/rhythm, Normal S1 S2 Gastrointestinal: No rebound, No guarding, Hyperactive, Tenderness (Suprapubic and left lower quadrant abdominal tenderness mild) Musculoskeletal: No tenderness Integumentary: No rashes Neurological: Normal speech, Normal strength at 5/5 x4 extr, Normal tone, Normal affect - Studies Laboratory Data (last 24 hrs) 05/05/21 19:27: PT 12.2, INR 1.06 05/05/21 19:27: WBC 15.10 H, Hgb 13.7, Hct 40.2, Plt Count 200 05/05/21 19:27: Sodium 139, Potassium 4.9, BUN 9, Creatinine 0.87, Glucose 177 H, Magnesium 3.2 H D, Total Bilirubin 0.5, AST 13 L, ALT 11 L, Alkaline Phosphatase 105, Lipase 65 L Assessment and Plan - Plan Assessment Intractable nausea/vomiting, diarrhea secondary to colitis History of [place]'s Parkinson's Hypertension Chronic pain a pain pump in place Plan Intractable nausea/vomiting, diarrhea secondary to colitis: Patient with recent EGD demonstrating gastritis, patient reports greater than 20 bowel movements yesterday, lose any yellow in color. Will continue with Cipro, Flagyl, Protonix b.i.d., NPO, will obtain C. diff, stool studies. DVT prophylaxis Lovenox 40 mg subcutaneous once daily. Continue with IV fluids, advance diet as tolerated. History of Jones's: Will provide patient with stress dose steroids, given dose of Solu-Cortef in the emergency department. Parkinson's: Continue medications. Hypertension: Stable, continue home medications when appropriate. Chronic pain a pain pump in place: Patient reports pain pump in place and functional for chronic pain related to cervical surgery. Discharge Plan: Home Plan to discharge in: 48 Hours - Advance Directives Does patient have a Living Will: No Does patient have a Durable POA for Healthcare: No - Code Status/Comfort Care Code Status Assessed: Yes (Full code) Critical Care: No Time Spent Managing Pts Care (In Minutes): 55
[2021-05-06] MEDS ORDERED: SODIUM CHLORIDE 0.9% 10ML INJ IV PRN (04:05)
[2021-05-06] MEDS: D5 0.45 NS 1,000 ML IV SCH ×2 (04:05→13:41)
[2021-05-06 04:28] VITALS: BMI 23.6
[2021-05-06] MEDS: HYDROMORPHONE HCL 1 MG/ML INJ IV PRN ×4 (05:13→23:35)
[2021-05-06 05:14] LABS: Absolute Lymphocytes (CBC) 0.9 K/uL (0.7-4.9); Basophils % 0.5 % (0-1.3); Hematocrit 36.5 % (36.0-45.0); Lymphocytes % 7.7 % (15.3-44.8); MPV 8.7 fL (7.6-11.3); RBC Red Blood Cell Count 4.09 M/uL (3.86-4.86)
[2021-05-06] MEDS ORDERED: D5 0.45 NS 1,000 ML IV ONE (05:19)
[2021-05-06] MEDS ORDERED: HYDROMORPHONE HCL 1 MG/ML INJ ONE ×2 (05:33→12:34)
[2021-05-06 06:08] LABS: Albumin 3.4 g/dL (3.4-5.0); Bilirubin Total 0.3 mg/dL (0.2-1.0); Magnesium 2.6 mg/dL (1.8-2.4); Potassium 4.2 mmol/L (3.5-5.1); Protein, Total 6.9 g/dL (6.4-8.2); Thyroid Stimulating Hormone 0.345 uIU/mL (0.360-3.740)
[2021-05-06 08:13] LABS: Urine Blood Trace-lysed (Negative); Urine Glucose Negative (Negative); Urine Protein Negative (Negative); Urine Specific Gravity >=1.030 (1.005-1.030); Urine pH 5.5 (5.0-7.0)
[2021-05-06] MEDS ORDERED: ACETAMINOPHEN 325 MG TABLET ONE (08:49)
[2021-05-06] MEDS ORDERED: PANTOPRAZOLE 40 MG INJ ONE (08:49)
[2021-05-06] MEDS ORDERED: ENOXAPARIN 40 MG/0.4 ML SQ ONE (08:49)
[2021-05-06] MEDS ORDERED: ENOXAPARIN 40 MG/0.4 ML SQ SCH (09:00)
[2021-05-06] MEDS: METRONIDAZOLE 500mg IVPB 500 MG/100 ML BAG IV SCH ×2 (09:00→16:20)
[2021-05-06] MEDS: PANTOPRAZOLE 40 MG INJ IVP SCH ×2 (09:00→20:43)
[2021-05-06] MEDS ORDERED: HYDROCORTISONE SUC 100 MG INJ IV SCH (09:00)
[2021-05-06] MEDS: ACETAMINOPHEN 325 MG TABLET PO PRN (09:14)
[2021-05-06] MEDS: ONDANSETRON 4 MG/2 ML VIAL IV PRN ×2 (09:14→20:47)
[2021-05-06] MEDS: CIPROFLOXACIN 400mg IV 400 MG/200 ML BAG IV SCH ×3 (12:00→23:40)
[2021-05-06] MEDS ORDERED: CIPROFLOXACIN 400mg IV 400 MG/200 ML BAG IV ONE (12:34)
--- NOTE | 2021-05-06 12:46 | P.PN ---
Date of Service: 05/06/21 slight improvement since admission. still with discomfort unable to obtain accurate stool and urine sample. will insert temporary brambila and remove after BM NPO, IVF, fever curve seems to be improving, hypertensive, resume home fludrocortisone serial abd exams anticipate dc home in ~48hrs
[2021-05-07] MEDS: METRONIDAZOLE 500mg IVPB 500 MG/100 ML BAG IV SCH ×3 (01:00→16:37)
[2021-05-07] MEDS: ONDANSETRON 4 MG/2 ML VIAL IV PRN ×2 (03:24→15:48)
[2021-05-07] MEDS: HYDROMORPHONE HCL 1 MG/ML INJ IV PRN ×4 (03:25→20:11)
[2021-05-07] MEDS: D5 0.45 NS 1,000 ML IV SCH ×3 (03:26→20:04)
[2021-05-07] MEDS: ACETAMINOPHEN 325 MG TABLET PO PRN (03:32)
[2021-05-07 04:22] LABS: Absolute Lymphocytes (CBC) 1.2 K/uL (0.7-4.9); Basophils % 0.2 % (0-1.3); Hematocrit 34.9 % (36.0-45.0); Lymphocytes % 14.9 % (15.3-44.8); MPV 8.4 fL (7.6-11.3)
[2021-05-07 04:50] LABS: Albumin 3.5 g/dL (3.4-5.0); Bilirubin Total 0.3 mg/dL (0.2-1.0); Magnesium 2.2 mg/dL (1.8-2.4); Potassium 3.4 mmol/L (3.5-5.1); Protein, Total 6.9 g/dL (6.4-8.2)
[2021-05-07] MEDS: KCL 20 MEQ/100 mL IVPB 20 MEQ/100 ML BAG IV SCH ×2 (06:02→09:16)
[2021-05-07] MEDS: FLUDROCORTISONE 0.1 MG TAB PO SCH ×2 (09:00→16:16)
--- NOTE | 2021-05-07 09:11 | P.PN ---
Subjective Date of Service: 05/07/21 Chief Complaint: Colitis Subjective: Worsening (nausea/vomiting last night, abd pain worse, pain medication takes edge off. new onset of bloody BM overnight. reports minimal stool, just some bright blood) Review of Systems 10-point ROS is otherwise unremarkable Physical Examination - Vital Signs Temperature: 99.2 F Blood Pressure: 130/68 Pulse: 76 Respirations: 16 Pulse Ox (%): 99 Assessment & Plan Physician Review Additional Text: Physical Exam Gen: in discomfort, AAOx3 HEENT: normal conjunctiva, sclera anicteric CV: RRR, no murmur Pulm: CTAB, no wheeze/rales Abd: TTP most in LLQ but diffuse tenderness, +guarding, no rebound Integumentary: no rash/lesions Neuro: normal speech/affect Problem List Intractable nausea/vomiting, diarrhea secondary to colitis History of [place]'s Parkinson's Hypertension Chronic pain a pain pump in place -recent EGD with gastritis, had 20BMs on day prior to admission - stool studies sent -cipro & flagyl, protonix -bowel rest -transitioned to home florinef -pt with worse abd exam this morning, nausea/vomitint last night, and bloody stool -bloody stool - likely from infectious colitis, concern for ischmemia -CTA abd/pelvis r/o ischemic colitis -general surgery consulted VTE: escobar fields, SCDs, given bleed Code: full Dispo: anticipate dc home in ~48hrs Time Spent Managing Pts Care (In Minutes): 45
[2021-05-07] MEDS: PANTOPRAZOLE 40 MG INJ IVP SCH ×2 (09:17→20:05)
--- NOTE | 2021-05-07 11:17 | RAD REPORT ---
EXAM DESCRIPTION: CT - Abdomen Angio - 05/07/2021 10:02 am CLINICAL HISTORY: Chest pain and abdomen pain radiating to the back. ISCHEMIA COMPARISON: Abdomen Pelvis W Contrast dated 05/05/2021; Pelvis Angio dated 05/07/2021 TECHNIQUE: CT angiography of the abdomen and pelvis was performed with MIPs. All CT scans are performed using dose optimization technique as appropriate and may include automated exposure control or mA/KV adjustment according to patient size. FINDINGS: CT angiography of the abdominal aorta demonstrates no aneurysm or dissection. Minimal athe romatous plaquing of the distal abdominal aorta and iliac vessels seen. The celiac axis, SMA, MARCELO and renal arteries are widely patent. There is no visceral artery occlusion or high-grade stenosis. Small amount of free fluid is seen in the pelvis. Inflammatory changes of the descending and proximal sigmoid colon are again seen without pneumatosis coli.No new or acute solid organ finding. Cholecyst ectomy clips. No bowel obstruction, free air or intra-abdominal or intrapelvic abscess. IMPRESSION: No findings suspicious for bowel ischemia.No arterial flow abnormality detected.
--- NOTE | 2021-05-07 12:32 | RAD REPORT ---
EXAM DESCRIPTION: CT - Abdomen Pelvis W Contrast - 05/06/2021 6:13 am CLINICAL HISTORY: The patient is 50 years old and is Female; ABD PAIN TECHNIQUE: Axial computed tomography images of the abdomen and pelvis with intravenous contrast. S agittal and coronal reformatted images were created and reviewed. This CT exam was performed using one or more of the following dose reduction techniques: automated exposure control, adjustment of t he mA and/or kV according to patient size, and/or use of iterative reconstruction technique. DLP: 1258 mGy*cm COMPARISON: CT abdomen and pelvis dated September 18, 2020. FINDINGS: LUNG BASES: Lung bases are clear. HEART: Visualized heart is normal. MEDIASTINUM: Small hiatal hernia. ABDOMEN: LIVER: Unremarkable. No mass. GALLBLADDER AND BILE DUCTS: Prior cholecystectomy. No ductal dilation. PANCREAS: Unremarkable. No mass. No ductal dilation. SPLEEN: Unremarkable. No splenomegaly. ADRENALS: Unremarkable. No mass. KIDNEYS AND URETERS: Unremarkable. No solid mass. No hydronephrosis. STOMACH AND BOWEL: Circumferential wall thickening involving the descending and sigmoid colon with mucosal enhancement as well as surrounding fat stranding. Enteric contrast in the stomach and small bowel. No obstruction. PELVIS: APPENDIX: The appendix is seen and is within normal limits . BLADDER: Bladder is decompressed. REPRODUCTIVE: Prior hysterectomy. ABDOMEN and PELVIS: INTRAPERITONEAL SPACE: Unremarkable. No free air. No significant fluid collection. BONES/JOINTS: No acute fracture. No dislocation. SOFT TISSUES: Unremarkable. VASCULATURE: Atherosclerotic vascular calcifications. No abdominal aortic aneurysm. LYMPH NODES: Unremarkable. No enlarged lymph nodes. TUBES, LINES AND DEVICES: Neurostimulator lead partially evaluated in the spinal canal. IMPRESSION: Circumferential wall thickening involving the descending and sigmoid colon with mucosal enhancement as well as surrounding fat stranding. Findings highly suggestive of infectious or infla mmatory colitis. Inflammatory bowel disease could have similar imaging characteristics. Electronically signed by: Rodolfo Valencia DO 05/05/2021 10:23 PM CDT Due to temporary technical issues with the PACS/Fluency reporting system, reports are being signed by the in house radiologist without review as a courtesy to ensure prompt reporting. The interpreting r adiologist is fully responsible for the content of the report.
--- NOTE | 2021-05-07 13:08 | RAD REPORT ---
EXAM DESCRIPTION: CT - Pelvis Angio - 05/07/2021 10:02 am CLINICAL HISTORY: Chest pain and abdomen pain radiating to the back. ISCHEMIA COMPARISON: Abdomen Pelvis W Contrast dated 05/05/2021; Pelvis Angio dated 05/07/2021 TECHNIQUE: CT angiography of the abdomen and pelvis was performed with MIPs. All CT scans are performed using dose optimization technique as appropriate and may include automated exposure control or mA/KV adjustment according to patient size. FINDINGS: CT angiography of the abdominal aorta demonstrates no aneurysm or dissection. Minimal athe romatous plaquing of the distal abdominal aorta and iliac vessels seen. The celiac axis, SMA, MARCELO and renal arteries are widely patent. There is no visceral artery occlusion or high-grade stenosis. Small amount of free fluid is seen in the pelvis. Inflammatory changes of the descending and proximal sigmoid colon are again seen without pneumatosis coli. No new or acute solid organ finding. Cholecys tectomy clips. No bowel obstruction, free air or intra-abdominal or intrapelvic abscess. IMPRESSION: No findings suspicious for bowel ischemia. No arterial flow abnormality detected.
--- NOTE | 2021-05-07 15:58 | P.CNS ---
Date of Consult: 05/07/21 PC: I was asked to see this 50-year-old female regards to her abdominal pain HPC: Patient states she has had abdominal pain for over a month. Has intensified. Now located in the lower portion of her abdomen. Has noticed that the pain is increased, as well as she has been having change in her bowel habit. PMH: Chronic pain PSHx: Stated she had a colonoscopy about a week ago SOC: States she is allergic to morphine SYS REVIEW: No cough, wheeze, shortness of breath. No chest pain or palpitations. As mentioned she has had this pain for about the last month, pain is becoming more constant. Starts come in waves right after she eats O/E awake alert uncomfortable at the moment HEENT: Nonicteric Chest: Chest movement equal bilateral ABD: Abdomen is soft, mild tenderness in the lower portion of the abdomen, no true peritoneal signs LOCO: Intact DATA: White cell count appears to be improving, CT scan done today does not show any evidence of ischemic bowel IMPRESSION: Colitis PLAN: Continue current therapy, with IV fluids pain medicine and antibiotics.
[2021-05-07] MEDS: CARBIDOPA/LEVODOPA 25/100 TAB PO SCH (16:15)
[2021-05-07] MEDS ORDERED: ALPRAZOLAM 1 MG TABLET PO PRN (16:28)
[2021-05-07] MEDS: GABAPENTIN 400 MG CAP PO SCH (20:04)
[2021-05-07] MEDS: DULOXETINE 30 MG CAP PO SCH (20:04)
[2021-05-07] MEDS: CIPROFLOXACIN 400mg IV 400 MG/200 ML BAG IV SCH (23:59)
[2021-05-08] MEDS: METRONIDAZOLE 500mg IVPB 500 MG/100 ML BAG IV SCH ×3 (01:31→17:25)
[2021-05-08] MEDS: HYDROMORPHONE HCL 1 MG/ML INJ IV PRN ×5 (02:25→22:22)
[2021-05-08] MEDS: ONDANSETRON 4 MG/2 ML VIAL IV PRN ×3 (02:30→17:24)
[2021-05-08 04:42] LABS: Absolute Lymphocytes (CBC) 2.2 K/uL (0.7-4.9); Basophils % 0.6 % (0-1.3); Hematocrit 34.1 % (36.0-45.0); Lymphocytes % 38.5 % (15.3-44.8); MPV 8.3 fL (7.6-11.3); RBC Red Blood Cell Count 3.82 M/uL (3.86-4.86)
[2021-05-08] MEDS: CARBIDOPA/LEVODOPA 25/100 TAB PO SCH ×2 (04:58→17:24)
[2021-05-08 05:01] LABS: Albumin 3.2 g/dL (3.4-5.0); Bilirubin Total 0.7 mg/dL (0.2-1.0); Magnesium 2.1 mg/dL (1.8-2.4); Potassium 3.9 mmol/L (3.5-5.1); Protein, Total 6.5 g/dL (6.4-8.2)
[2021-05-08] MEDS: D5 0.45 NS 1,000 ML IV SCH ×2 (05:18→14:40)
[2021-05-08] MEDS ORDERED: POTASSIUM CL SA 10 MEQ TAB PO ONE ×2 (09:00)
[2021-05-08] MEDS: ACETAMINOPHEN 325 MG TABLET PO PRN ×2 (09:13→14:42)
[2021-05-08] MEDS: FLUDROCORTISONE 0.1 MG TAB PO SCH (09:15)
[2021-05-08] MEDS: GABAPENTIN 400 MG CAP PO SCH ×2 (09:16→22:19)
[2021-05-08] MEDS: PANTOPRAZOLE 40 MG INJ IVP SCH ×2 (09:17→22:19)
[2021-05-08] MEDS: CIPROFLOXACIN 400mg IV 400 MG/200 ML BAG IV SCH (11:30)
--- NOTE | 2021-05-08 16:16 | P.PN ---
Subjective Date of Service: 05/08/21 Chief Complaint: Colitis Patient reports 2 diarrheal movement this morning. Stool contained mucus and blood stained. Physical Examination - Vital Signs Temperature: 97.4 F Blood Pressure: 132/61 Pulse: 62 Respirations: 18 Pulse Ox (%): 97 - Physical Exam General: Alert, In no apparent distress, Oriented x3 HEENT: Mucous membr. moist/pink Respiratory: Clear to auscultation bilaterally, Normal air movement Cardiovascular: No edema, Regular rate/rhythm, Normal S1 S2 Gastrointestinal: Normal bowel sounds, Soft and benign, Non-distended, Tenderness (Right lower quadrant) Musculoskeletal: No swelling Integumentary: No rashes Neurological: Normal strength at 5/5 x4 extr Assessment And Plan Physician Review Additional Text: Physical Exam Gen: in discomfort, AAOx3 HEENT: normal conjunctiva, sclera anicteric CV: RRR, no murmur Pulm: CTAB, no wheeze/rales Abd: TTP most in LLQ but diffuse tenderness, +guarding, no rebound Integumentary: no rash/lesions Neuro: normal speech/affect Problem List Intractable nausea/vomiting, diarrhea secondary to colitis History of [place]'s Parkinson's Hypertension Chronic pain a pain pump in place -recent EGD with gastritis, had 20BMs on day prior to admission - stool studies sent -continue cipro & flagyl, protonix -start clear liquid diet -bloody stool - likely from infectious colitis. CTA abdomen/pelvis shows no ischemic bowel. -general surgery input appreciated. -medical management. -GI evaluation as an outpatient once her symptoms improve. -C. diff is pending. VTE: hold lovenox, SCDs, given bleed Code: full
[2021-05-08] MEDS: DULOXETINE 30 MG CAP PO SCH (22:18)
[2021-05-09] MEDS: CIPROFLOXACIN 400mg IV 400 MG/200 ML BAG IV SCH ×2 (00:42→12:35)
[2021-05-09] MEDS: METRONIDAZOLE 500mg IVPB 500 MG/100 ML BAG IV SCH ×3 (00:43→17:14)
[2021-05-09] MEDS: ONDANSETRON 4 MG/2 ML VIAL IV PRN ×4 (00:49→21:16)
[2021-05-09] MEDS: D5 0.45 NS 1,000 ML IV SCH ×2 (02:05→12:05)
[2021-05-09] MEDS: HYDROMORPHONE HCL 1 MG/ML INJ IV PRN ×4 (04:13→21:17)
[2021-05-09] MEDS: CARBIDOPA/LEVODOPA 25/100 TAB PO SCH ×2 (04:23→17:14)
[2021-05-09 04:26] LABS: Basophils % 0.9 % (0-1.3); Hematocrit 32.9 % (36.0-45.0); Lymphocytes % 43.3 % (15.3-44.8); MPV 8.4 fL (7.6-11.3); RBC Red Blood Cell Count 3.72 M/uL (3.86-4.86)
[2021-05-09 04:48] LABS: Albumin 3.3 g/dL (3.4-5.0); Bilirubin Total 0.3 mg/dL (0.2-1.0); Potassium 3.5 mmol/L (3.5-5.1); Protein, Total 6.3 g/dL (6.4-8.2)
[2021-05-09] MEDS ORDERED: POTASSIUM 25 MEQ EFFERV TAB PO ONE (09:00)
[2021-05-09] MEDS: GABAPENTIN 400 MG CAP PO SCH ×2 (09:10→21:16)
[2021-05-09] MEDS: FLUDROCORTISONE 0.1 MG TAB PO SCH (09:10)
[2021-05-09] MEDS: PANTOPRAZOLE 40 MG INJ IVP SCH ×2 (09:11→21:16)
--- NOTE | 2021-05-09 12:11 | RAD REPORT ---
EXAM DESCRIPTION: RAD - Abdomen 1 View (KUB) - 05/09/2021 11:05 am CLINICAL HISTORY: Abdomen pain. Check for air in bowel FINDINGS: Contrast is present within portions of the colon. Previous CAT scan demonstrated a left-si ded colitis. Pneumatosis intestinalis is not visualized on this exam. If this is a clinical concern then CT would recommended.
[2021-05-09] MEDS: D5 0.45 NS 500 ML IV SCH ×2 (13:00→18:00)
--- NOTE | 2021-05-09 14:41 | P.PN ---
Subjective Date of Service: 05/09/21 Chief Complaint: Colitis Patient reports the diarrhea has improved but continued to have abdominal pain and now reports bloating. No blood-stained stools today. She has not been tolerating the liquid diet. Physical Examination - Vital Signs Temperature: 98.5 F Blood Pressure: 149/70 Pulse: 82 Respirations: 17 Pulse Ox (%): 96 - Physical Exam General: Alert, In no apparent distress, Oriented x3 HEENT: Mucous membr. moist/pink Neck: JVD not distended Respiratory: Clear to auscultation bilaterally, Normal air movement Cardiovascular: No edema Gastrointestinal: Normal bowel sounds, Soft and benign, Non-distended, Tenderness (Moderate lower abdominal tenderness.) Musculoskeletal: No swelling, No tenderness Integumentary: No rashes Neurological: Normal strength at 5/5 x4 extr Assessment And Plan Physician Review Additional Text: Problem List Intractable nausea/vomiting, diarrhea secondary to colitis History of [place]'s Parkinson's Hypertension Chronic pain a pain pump in place -recent EGD with gastritis. -continue cipro & flagyl, protonix -continue clear liquid diet. -bloody stool - likely from infectious colitis. CTA abdomen/pelvis shows no ischemic bowel. -general surgery input appreciated. -medical management. -GI evaluation as an outpatient once her symptoms improve. -C. diff is pending. -trial of steroid. VTE: hold lovenox, SCDs, given bleed Code: full
[2021-05-09] MEDS: METHYLPREDNISOLONE 40 MG INJ IV SCH (17:13)
[2021-05-09] MEDS: DULOXETINE 30 MG CAP PO SCH (21:16)
[2021-05-10] MEDS: CIPROFLOXACIN 400mg IV 400 MG/200 ML BAG IV SCH ×3 (00:42→23:09)
[2021-05-10] MEDS: METHYLPREDNISOLONE 40 MG INJ IV SCH ×3 (00:42→17:02)
[2021-05-10] MEDS: METRONIDAZOLE 500mg IVPB 500 MG/100 ML BAG IV SCH ×3 (00:46→17:00)
[2021-05-10] MEDS: D5 0.45 NS 500 ML IV SCH ×5 (02:09→20:41)
[2021-05-10] MEDS: ONDANSETRON 4 MG/2 ML VIAL IV PRN ×4 (03:47→23:08)
[2021-05-10] MEDS: HYDROMORPHONE HCL 1 MG/ML INJ IV PRN ×3 (03:47→14:48)
[2021-05-10] MEDS: CARBIDOPA/LEVODOPA 25/100 TAB PO SCH ×2 (04:10→17:02)
[2021-05-10 04:41] LABS: Absolute Lymphocytes (CBC) 0.8 K/uL (0.7-4.9); Basophils % 0.2 % (0-1.3); Hematocrit 35.4 % (36.0-45.0); Lymphocytes % 18.6 % (15.3-44.8); MPV 8.1 fL (7.6-11.3); RBC Red Blood Cell Count 3.97 M/uL (3.86-4.86)
[2021-05-10] MEDS: PANTOPRAZOLE 40 MG INJ IVP SCH ×2 (09:14→20:40)
[2021-05-10] MEDS: FLUDROCORTISONE 0.1 MG TAB PO SCH (09:15)
[2021-05-10] MEDS: GABAPENTIN 400 MG CAP PO SCH ×2 (09:15→20:40)
[2021-05-10] MEDS ORDERED: HYDROCODONE/APAP 5/325 MG TAB PO PRN (15:15)
--- NOTE | 2021-05-10 15:23 | P.PN ---
Subjective Date of Service: 05/10/21 Chief Complaint: Colitis Patient reports the diarrhea has improved but continued to have abdominal pain. No blood-stained stools today. She is now tolerating liquid diet. Physical Examination - Vital Signs Temperature: 98.1 F Blood Pressure: 153/94 Pulse: 100 Respirations: 18 Pulse Ox (%): 98 - Physical Exam General: Alert, In no apparent distress, Oriented x3 HEENT: Mucous membr. moist/pink Neck: JVD not distended Respiratory: Clear to auscultation bilaterally, Normal air movement Cardiovascular: No edema, Regular rate/rhythm, Normal S1 S2 Gastrointestinal: Normal bowel sounds, Soft and benign, Non-distended, Tenderness Musculoskeletal: No swelling Integumentary: No rashes Neurological: Normal strength at 5/5 x4 extr Assessment And Plan Physician Review Additional Text: Problem List Intractable nausea/vomiting, diarrhea secondary to colitis History of [place]'s Parkinson's Hypertension Chronic pain a pain pump in place -recent EGD with gastritis. -continue cipro & flagyl, protonix -continue clear liquid diet. -bloody stool - likely from infectious colitis. CTA abdomen/pelvis shows no ischemic bowel. -general surgery input appreciated. -medical management. -GI evaluation as an outpatient once her symptoms improve. -patient has not provided her stool sample for C. diff. -continue steroid. -limit narcotics to avoid ileus. VTE: hold lovenox, SCDs. Code: full
[2021-05-10] MEDS: Oxycodone HCl/Acetaminophen 1 TAB TAB PO PRN (19:19)
[2021-05-10] MEDS: DULOXETINE 30 MG CAP PO SCH (20:40)
[2021-05-11] MEDS: METRONIDAZOLE 500mg IVPB 500 MG/100 ML BAG IV SCH ×3 (01:00→17:00)
[2021-05-11] MEDS: METHYLPREDNISOLONE 40 MG INJ IV SCH ×3 (01:00→18:20)
[2021-05-11] MEDS: Oxycodone HCl/Acetaminophen 1 TAB TAB PO PRN ×3 (03:59→18:19)
[2021-05-11] MEDS: CARBIDOPA/LEVODOPA 25/100 TAB PO SCH ×2 (05:43→18:19)
[2021-05-11] MEDS: D5 0.45 NS 500 ML IV SCH ×5 (05:44→21:27)
[2021-05-11] MEDS: ONDANSETRON 4 MG/2 ML VIAL IV PRN ×2 (05:48→15:30)
[2021-05-11 06:21] LABS: Magnesium 2.1 mg/dL (1.8-2.4); Potassium 3.7 mmol/L (3.5-5.1)
[2021-05-11] MEDS: GABAPENTIN 400 MG CAP PO SCH ×2 (08:12→21:27)
[2021-05-11] MEDS: FLUDROCORTISONE 0.1 MG TAB PO SCH (08:12)
[2021-05-11] MEDS: PANTOPRAZOLE 40 MG INJ IVP SCH ×2 (08:27→21:27)
[2021-05-11] MEDS: CIPROFLOXACIN 400mg IV 400 MG/200 ML BAG IV SCH (11:23)
[2021-05-11 11:53] LABS: C.diff Antigen/Toxin Ag neg : Tox neg (NEG : NEG)
[2021-05-11 12:27] LABS: Protime INR 1.18
[2021-05-11] MEDS ORDERED: HYDRALAZINE HCL 20 MG/ML VIAL IV PRN (16:45)
--- NOTE | 2021-05-11 16:50 | P.PN ---
Subjective Date of Service: 05/11/21 Chief Complaint: Colitis Patient patient states she is feeling much better today. The diarrhea has stopped. Stool is more formed. No bloody stools. She is now tolerating full liquid diet. Physical Examination - Vital Signs Temperature: 97.0 F Blood Pressure: 181/81 Pulse: 71 Respirations: 16 Pulse Ox (%): 97 - Physical Exam General: In no apparent distress, Oriented x3 HEENT: Mucous membr. moist/pink Neck: JVD not distended Respiratory: Clear to auscultation bilaterally, Normal air movement Cardiovascular: No edema, Regular rate/rhythm, Normal S1 S2 Gastrointestinal: Normal bowel sounds, Soft and benign, Non-distended, No tenderness Musculoskeletal: No swelling Integumentary: No rashes Neurological: Normal strength at 5/5 x4 extr, Cranial nerves 3-12 intact Assessment And Plan Physician Review Additional Text: Problem List Intractable nausea/vomiting, diarrhea secondary to colitis History of Jones's Parkinson's Hypertension Chronic pain a pain pump in place -recent EGD with gastritis. -continue cipro & flagyl, continue protonix -advanced diet as tolerated. -bloody stool - likely from infectious colitis. CTA abdomen/pelvis shows no ischemic bowel. -general surgery input appreciated. -medical management. -GI evaluation as an outpatient once her symptoms improve. -stool for C. diff is negative. -continue steroid. -limit narcotics to avoid ileus. -possible discharge in a.m. VTE: hold Bernadine fields. Code: full
[2021-05-11] MEDS ORDERED: WARFARIN SODIUM 5 MG TAB PO SCH (17:00)
[2021-05-11] MEDS: DULOXETINE 30 MG CAP PO SCH (21:27)
[2021-05-11 22:24] VITALS: O2SAT 99
[2021-05-12] MEDS: CIPROFLOXACIN 400mg IV 400 MG/200 ML BAG IV SCH ×2 (00:47→13:00)
[2021-05-12] MEDS: METHYLPREDNISOLONE 40 MG INJ IV SCH ×2 (00:47→09:00)
[2021-05-12] MEDS: Oxycodone HCl/Acetaminophen 1 TAB TAB PO PRN ×2 (00:56→09:48)
[2021-05-12] MEDS: METRONIDAZOLE 500mg IVPB 500 MG/100 ML BAG IV SCH ×2 (02:03→09:50)
[2021-05-12] MEDS: D5 0.45 NS 500 ML IV SCH ×3 (04:56→13:48)
[2021-05-12] MEDS: CARBIDOPA/LEVODOPA 25/100 TAB PO SCH (04:56)
[2021-05-12 05:43] LABS: Protime INR 1.15
[2021-05-12 05:55] LABS: Potassium 4.4 mmol/L (3.5-5.1)
[2021-05-12 07:58] LABS: Absolute Lymphocytes (CBC) 2.9 K/uL (0.7-4.9); Basophils % 0.2 % (0-1.3); Hematocrit 35.6 % (36.0-45.0); Lymphocytes % 26.8 % (15.3-44.8); MPV 8.3 fL (7.6-11.3); RBC Red Blood Cell Count 3.98 M/uL (3.86-4.86)
[2021-05-12] MEDS: GABAPENTIN 400 MG CAP PO SCH (09:48)
[2021-05-12] MEDS: PANTOPRAZOLE 40 MG INJ IVP SCH (09:50)
[2021-05-12 10:12] LABS: Blood Morphology Comment NOT SEEN (NOT SEEN); Platelet Estimate ADEQ
[2021-05-12] MEDS: FLUDROCORTISONE 0.1 MG TAB PO SCH (13:47)
[2021-05-12 14:55] VITALS: BP 119/60; TEMP 97.7
--- NOTE | 2021-05-12 16:06 | P.DS ---
Admission Date: 05/06/21 Discharge Date: 05/12/21 Disposition: ROUTINE DISCHARGE Discharge Condition: FAIR Reason for Admission: Colitis Consultations: General surgery-Dr. Bennett. - Problems (1) Colitis Status: Acute (2) Gastritis Status: Acute Brief History of Present Illness: 50-year-old woman with history of Parkinson's, Jones's, hypertension presented to the emergency department with a complaint of abdominal pain, nausea, vomiting, diarrhea. Patient had a EGD with on Friday and yesterday morning began having severe abdominal pain, vomiting, diarrhea. Patient reported multiple loose bowel movements throughout the course the day. Her white blood cell count in the ED was 15.1. CT abdomen pelvis with contrast demonstrates colitis infectious versus inflammatory. Patient admitted for further management. Hospital Course: Diagnosis: Intractable nausea/vomiting, diarrhea secondary to colitis History of [place]'s Parkinson's Hypertension Chronic pain pump in place History of upper extremity DVT. Patient treated with IV ciprofloxacin and Flagyl. Stool fecal stain showed many WBCs suggesting infectious versus inflammatory colitis. -recent EGD with gastritis. -also treated with protonix -she developed bloody stools. -there was a concern for ischemic bowel but CTA abdomen/pelvis showed no ischemic bowel. -she improved rapidly with addition of steroid. --stool for C. diff is negative. -advanced diet as tolerated. -seen by general surgery who recommended medical management. -GI evaluation as an outpatient once her symptoms improve. -patient clinically improved and tolerated diet advancement. -patient prescribed oral Cipro and Flagyl as well as oral prednisone to continue treatment. -she will follow with Dr. Frost for evaluation for colonoscopy. Vital Signs/Physical Exam: Temp Pulse Resp BP Pulse Ox 97.7 F 67 16 119/60 98 05/12/21 12:00 05/12/21 12:00 05/12/21 12:00 05/12/21 12:00 05/12/21 12:00 General: Alert, In no apparent distress, Oriented x3 HEENT: Mucous membr. moist/pink, Sclerae nonicteric Neck: JVD not distended Respiratory: Other (Nonlabored breathing.) Cardiovascular: No edema, Regular rate/rhythm Gastrointestinal: Non-distended Musculoskeletal: No swelling Integumentary: No rashes Neurological: Normal strength at 5/5 x4 extr Laboratory Data at Discharge: WBC 10.70 K/uL (4.3-10.9) D 05/12/21 07:33 Hgb 12.5 g/dL (12.0-15.0) 05/12/21 07:33 Hct 35.6 % (36.0-45.0) L 05/12/21 07:33 Plt Count 212 K/uL (152-406) 05/12/21 07:33 PT 13.2 SECONDS (9.5-12.5) H 05/12/21 05:16 INR 1.15 05/12/21 05:16 Sodium 143 mmol/L (136-145) 05/12/21 05:16 Potassium 4.4 mmol/L (3.5-5.1) 05/12/21 05:16 BUN 4 mg/dL (7-18) L 05/12/21 05:16 Creatinine 0.72 mg/dL (0.55-1.3) 05/12/21 05:16 Glucose 121 mg/dL (74-106) H 05/12/21 05:16 Magnesium 2.1 mg/dL (1.8-2.4) 05/11/21 05:37 Total Bilirubin 0.3 mg/dL (0.2-1.0) 05/09/21 03:34 AST 14 U/L (15-37) L 05/09/21 03:34 ALT 15 U/L (12-78) 05/09/21 03:34 Alkaline Phosphatase 65 U/L (45-117) 05/09/21 03:34 Lipase 65 U/L (73-393) L 05/05/21 19:27 Home Medications: ALPRAZolam [Alprazolam] 1 mg PO Q8H PRN 05/06/21 Butalb/Acetaminophen/Caffeine [Gsrsin-Npsupviz-Kmmf 50-300-40] 1 cap PO PRN 05/06/21 Carbidopa/Levodopa 25-100 [Sinemet 25-100*] 1 tab PO BID 05/06/21 Dicyclomine [Bentyl*] 10 mg PO BIDP PRN 05/06/21 Duloxetine HCl [Cymbalta] 60 mg PO BEDTIME 05/06/21 Fludrocortisone [Florinef *] 0.1 mg PO DAILY 05/06/21 Gabapentin [Neurontin*] 800 mg PO BID 05/06/21 Omeprazole [Prilosec] 40 mg PO BID 05/06/21 Ondansetron [Zofran (Odt)*] 4 mg PO Q8HP 05/06/21 Tizanidine [Zanaflex*] 4 mg PO DAILYPRN PRN 05/06/21 Topiramate 50 mg PO BEDTIME 05/06/21 Ciprofloxacin HCl [Cipro 500 MG Tablet] 500 mg PO BID #4 tab 05/12/21 Warfarin Sodium 7.5 mg PO DAILY #30 tablet 05/12/21 metroNIDAZOLE [Flagyl] 500 mg PO Q8H #6 tablet 05/12/21 predniSONE [Deltasone] 20 mg PO DAILY #3 tab 05/12/21 New Medications: Ciprofloxacin HCl [Cipro 500 MG Tablet] 500 mg PO BID #4 tab metroNIDAZOLE [Flagyl] 500 mg PO Q8H #6 tablet predniSONE [Deltasone] 20 mg PO DAILY #3 tab Warfarin Sodium 7.5 mg PO DAILY #30 tablet Physician Discharge Instructions: PROBLEM: Colitis GOAL: Clear understanding of disease process INSTRUCTIONS: Diet: heart healthy Activity: As tolerated If you have any questions regarding your stay call [phone] If your symptoms worsen call 911 or go to the ED. Progress from soft diet to solid diet as tolerated. Diet: AHA Activity: Ad acosta Followup: Unknown,U [Primary Care Provider] - 1-2 Weeks Edith Frost MD [ACTIVE - CAN ADMIT] - (within 1 month.) Time spent managing pt's care (in minutes): 36
== END 2021-05-12 17:31 | disposition home or self-care (01) | DRG 392 ==
LOC: ER 18:46 → ERHOLD 05-06 01:32 → 2ND 05-06 13:03
PROVIDERS: ADMIT Hospitalist; ATTEND Internal Medicine
DX: K52.9 Noninfective gastroenteritis and colitis, unspecified (principal); E27.1 Primary adrenocortical insufficiency; K29.00 Acute gastritis without bleeding; G20 Parkinson's disease; I10 Essential (primary) hypertension; G89.29 Other chronic pain
CPT/HCPCS: 36415; 72191; 74018; 74175; 74177; 80048; 80053; 80076; 81003; 82533; 82947; 83690; 83735; 84132; 84439; 84443; 85025; 85610; 85652; 86140; 87045; 87046; 87324; 87449; 89055; 96361; 96365; 96375; 99285; C9113; J0744; J1170; J1650; J1720; J2175; J2405; J2920; J3480; J7030; J7799; Q9967; U0003

== ENCOUNTER 2021-06-21 03:13 | Emergency (ER) | payer OTHER ==
--- OUTSIDE RECORDS SUMMARY | 2021-06-21 03:16 | XMS REPORT | Continuity of Care Document ---
:1970 Author Organization [facility] t Address [address] [place] [address] Care Team Providers Name Role Phone Jose [...] Date Quantity Comments Source Sex Assigned At [facility] [employer] Medications Ordered Filled Start Stop Current Ordering [...] 50 mg 11:59: daily. tablet 13 ESOMEPRAZOL 2017 Yes Take by [facility] E MAGNESIUM 8-15 mouth. Health (NEXIUM OR) [...] Future Scheduled Test 2021-08-10 00:00:00 IMM Influenza [facility] Seasonal Aug to January (>/= 19 yrs) [code = IMM Influenza Seasonal Aug to January (>/= 19 yrs)] Future Scheduled Test 2018 00:00:00 Screening for [facility] malignant neoplasm of colon (procedure) [code = 833183793] Future Scheduled Test 2008 00:00:00 Breast Cancer Scrn [facility] (Yearly) [code = Breast Cancer Scrn (Yearly)] Future Scheduled Test 1998 00:00:00 Screening for [facility] malignant neoplasm of cervix (procedure) [code = 391807066] Future Scheduled Test 1998 00:00:00 Screening for [facility] malignant neoplasm of cervix (procedure) [code = 420608313] Future Scheduled Test 1980 00:00:00 COVID-19 Vaccine (1) [facility] [code = COVID-19 Vaccine (1)] Encounters Start End Encounter Admission Attending Care Care Encounter Source Date/Time Date/Time Type Type Clinicians Facility Department ID 2021-01-30 2021-01-30 Patient Amos [facility] [id number] 00:00:00 00:00:00 Outreach [facility] [id number] [facility] [id number] PAVILLION [id number] [facility] 2019-11-01 2019-11-01 Office Milana [facility] [id number] 11:25:11 11:51:37 Visit [facility] [id number] Surgical [id number] Specialti [id number] [place] 2017-11-18 2017-11-18 Outpatient [facility] [id number] [place] 00:00:00 00:00:00 Health 2017-07-22 2017-07-22 Outpatient [facility] [id number] [place] 00:00:00 00:00:00 Health 2017-06-24 2017-06-24 Outpatient [facility] [id number] [place] 12:34:43 12:34:43 Health 2017-06-24 2017-06-24 Outpatient [facility] [id number] [place] 10:24:55 10:24:55 Health Results This patient has no known results.
[2021-06-21 04:27] LABS: Absolute Lymphocytes (CBC) 1.1 K/uL (0.7-4.9); Basophils % 0.2 % (0-1.3); Hematocrit 38.1 % (36.0-45.0); Lymphocytes % 12.4 % (15.3-44.8); MPV 8.2 fL (7.6-11.3); RBC Red Blood Cell Count 4.22 M/uL (3.86-4.86)
[2021-06-21] MEDS ORDERED: METHYLPREDNISOLONE 125 MG INJ ONE (04:39)
[2021-06-21 04:40] LABS: ALT/SGPT 30 U/L (12-78); AST/SGOT 14 U/L (15-37); Albumin 4.2 g/dL (3.4-5.0); Alkaline Phosphatase 93 U/L (45-117); BUN Blood Urea Nitrogen 4 mg/dL (7-18); Bicarbonate 23 mmol/L (21-32); Bilirubin Direct < 0.1 mg/dL (0-0.2); Bilirubin Total 0.4 mg/dL (0.2-1.0); Glucose Level 155 mg/dL (74-106); Lipase 77 U/L (73-393); Potassium 3.6 mmol/L (3.5-5.1); Protein, Total 8.1 g/dL (6.4-8.2); Sodium Level 134 mmol/L (136-145)
[2021-06-21] MEDS ORDERED: ONDANSETRON 4 MG/2 ML VIAL ONE (04:40)
[2021-06-21] MEDS ORDERED: MEPERIDINE HCL 25 MG/ML SYR ONE (04:40)
[2021-06-21] MEDS ORDERED: NA CHLORIDE 0.9% 1,000 ML ONE (04:40)
[2021-06-21 05:02] LABS: Urine Blood 2+ (Negative); Urine Glucose Negative (Negative); Urine Protein Negative (Negative); Urine Specific Gravity 1.015 (1.005-1.030); Urine pH 6.5 (5.0-7.0)
--- NOTE | 2021-06-21 05:29 | ER ---
Nurse's Notes [facility] Name: Savanna San Age: 50 yrs Sex: Female : 1970 Arrival Date: 06/21/2021 Time: 03:17 Bed 13 Private MD: Diagnosis: Crohn's disease, unspecified, without complications;Vomiting;Diarrhea, unspecified Presentation: 06/21 04:00 Chief complaint: Patient states: she has Crohn's disease and thinks she is having a bb flare-up with abdominal pain, diarrhea and vomiting since yesterday. Coronavirus screen: At this time, the client does not indicate any symptoms associated with coronavirus-19. Ebola Screen: No symptoms or risks identified at this time. Initial Sepsis Screen: Does the patient meet any 2 criteria? No. Patient's initial sepsis screen is negative. Does the patient have a suspected source of infection? Yes: Acute abdominal pain. Risk Assessment: Do you want to hurt yourself or someone else? Patient reports no desire to harm self or others. Onset of symptoms was June 20, 2021. 04:00 Method Of Arrival: Ambulatory bb 04:00 Acuity: MARIJA 3 bb 04:28 Chief complaint:. Coronavirus screen:. Coronavirus screen:. Ebola Screen:. 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: 04:00 LMP N/A - Hysterectomy bb Historical: - Allergies: 04:29 Morphine; bb - Home Meds: 04:29 carbidopa-levodopa 25-100 mg Oral TbER 1 tab 2 times per day [Active]; Cymbalta 60 mg bb Oral cpDR 1 cap once daily [Active]; losartan Oral [Active]; Neurontin 800 mg Oral tab [Active]; pain pump [Active]; propranolol 40 mg Oral tab 1 tab every 12 hours [Active]; tizanidine 4 mg Oral tab [Active]; levetiracetam (bulk) miscellaneous [Active]; fludrocortisone oral [Active]; Omeprazole Oral [Active]; Dicyclomine Oral [Active]; Hydrocodone-Acetaminophen Oral [Active]; topiramate oral [Active]; jantoven [Active]; Amitiza 24 mcg oral cap 1 cap 2 times per day [Active]; delzicol [Active]; - PMHx: 04:29 apryl disease; CVA- Left sided weakness; DVT; Headaches; Irritable bowel syndrome; bb Nerve Damage +DDD; Parkinsons; Seizures; tremors; - Immunization history:: Adult Immunizations up to date, Client reports having NOT received the Covid vaccine. - Social history:: Smoking status: Patient denies any tobacco usage or history of. - Family history:: not pertinent. - Hospitalizations: : No recent hospitalization is reported. Screenin:35 Abuse screen: Denies threats or abuse. Denies injuries from another. Nutritional ms4 screening: No deficits noted. Tuberculosis screening: No symptoms or risk factors identified. Fall Risk None identified. Assessment: 04:34 Reassessment: Patient appears in no apparent distress at this time. No changes from ms4 previously documented assessment. Patient and/or family updated on plan of care and expected duration. Pain level reassessed. General: Appears in no apparent distress. Behavior is calm, cooperative. Pain: Complains of pain in abdomen. Neuro: No deficits noted. Neuro: No deficits noted. Cardiovascular: No deficits noted. Respiratory: No deficits noted. GI: Abdomen is flat, Bowel sounds present X 4 quads. Reports lower abdominal pain, nausea, vomiting. : No deficits noted. Vital Signs: 04:00 BP 156 / 82; Pulse 86; Resp 18 S; Temp 98.3(O); Pulse Ox 100% on R/A; Weight 65.77 kg bb (R); Height 5 ft. 10 in. (177.80 cm) (R); Pain 10/10; 06:09 BP 146 / 74; Pulse 94; Resp 18; Pulse Ox 96% ; Pain 8/10; ms4 04:00 Body Mass Index 20.81 (65.77 kg, 177.80 cm) bb ED Course: 03:17 Patient arrived in ED. bp1 03:52 Ken Diane MD is Attending Physician. rn 04:00 Arm band placed on Patient placed in an exam room. bb 04:10 Inserted saline lock: 20 gauge in right antecubital area, using aseptic technique. ds4 Blood collected. 04:29 Triage completed. bb 04:36 Kae Bowie, LUCY is Primary Nurse. ms4 04:36 Patient has correct armband on for positive identification. Side rails up X2. ms4 04:45 CT Abd/Pelvis - IV Contrast Only In Process Unspecified. EDMS 05:28 Edith Frost MD is Referral Physician. rn 06:10 No provider procedures requiring assistance completed. IV discontinued, intact, ms4 bleeding controlled. Administered Medications: 04:27 Drug: NS 0.9% 1000 ml Route: IV; Rate: 1000 ml; Site: right antecubital; ms4 04:28 Follow up: Response: No adverse reaction ms4 06:12 Follow up: IV Status: Completed infusion; IV Intake: 1000ml ms4 04:27 Drug: Zofran (Ondansetron) 4 mg Route: IVP; Site: right antecubital; ms4 04:28 Follow up: Response: No adverse reaction ms4 04:27 Drug: Demerol (meperidine) 25 mg Route: IVP; Site: right antecubital; ms4 04:28 Follow up: Response: No adverse reaction ms4 04:27 Drug: SOLU-Medrol (methylPrednisoLONE) 125 mg Route: IVP; Site: right antecubital; ms4 04:27 Follow up: Response: No adverse reaction ms4 06:09 Drug: Demerol (meperidine) 50 mg Route: IVP; Site: right forearm; ms4 06:09 Follow up: Response: No adverse reaction ms4 Intake: 06:12 IV: 1000ml; Total: 1000ml. ms4 Outcome: 05:29 Discharge ordered by . rn 06:11 Discharged to home ambulatory. ms4 06:11 Condition: stable 06:11 Discharge instructions given to patient, Instructed on discharge instructions, follow up and referral plans. Demonstrated understanding of instructions, follow-up care, medications. 06:25 Patient left the ED. ms4 Signatures: Dispatcher [employer] EDMS Samantha Lilly RN RN bb Nieto, Roman, MD MD rn Swanson, Donovan ds4 Trisha Ferrer Mikaela, RN RN ms4 Corrections: (The following items were deleted from the chart) 04:38 04:29 Home Meds: Coumadin Oral; bb bb 04:38 04:29 Home Meds: warfarin 7.5 mg Oral tab 1 tab once daily; gerri talley
--- NOTE | 2021-06-21 05:30 | EDPHYS ---
Physician Documentation [facility] Name: Savanna San Age: 50 yrs Sex: Female : 1970 Arrival Date: 06/21/2021 Time: 03:17 Bed 13 Private MD: ED Physician Ken Diane HPI: 06/21 04:02 This 50 yrs old Female presents to ER via Unassigned with complaints of rn Vomiting, Diarrhea. 04:02 The patient presents to the emergency department with nausea, vomiting. rn 04:03 The patient presents with abdominal pain in the left lower quadrant. Onset: The rn symptoms/episode began/occurred yesterday. The symptoms do not radiate. Associated signs and symptoms: Pertinent positives: nausea and vomiting, diarrhea, Pertinent negatives: fever, hematuria, shortness of breath, vomiting blood. The symptoms are described as burning. Modifying factors: The symptoms are alleviated by nothing, the symptoms are aggravated by movement, touching the area. Severity of pain: At its worst the pain was moderate in the emergency department the pain is unchanged. The patient has experienced similar episodes in the past. The patient has not recently seen a physician. And reports recent diagnosis of Crohn's disease. Comes in today for worsening abdominal pain, left lower quadrant, associated with nausea vomiting and diarrhea. No blood in stool or vomit. Just started taking mesalamine. Sees Dr. Frost. [employer]NER: 04:00 LMP N/A - Hysterectomy bb Historical: - Allergies: 04:29 Morphine; bb - Home Meds: 04:29 carbidopa-levodopa 25-100 mg Oral TbER 1 tab 2 times per day [Active]; Cymbalta 60 mg bb Oral cpDR 1 cap once daily [Active]; losartan Oral [Active]; Neurontin 800 mg Oral tab [Active]; pain pump [Active]; propranolol 40 mg Oral tab 1 tab every 12 hours [Active]; tizanidine 4 mg Oral tab [Active]; levetiracetam (bulk) miscellaneous [Active]; fludrocortisone oral [Active]; Omeprazole Oral [Active]; Dicyclomine Oral [Active]; Hydrocodone-Acetaminophen Oral [Active]; topiramate oral [Active]; jantoven [Active]; Amitiza 24 mcg oral cap 1 cap 2 times per day [Active]; delzicol [Active]; - PMHx: 04:29 apryl disease; CVA- Left sided weakness; DVT; Headaches; Irritable bowel syndrome; bb Nerve Damage +DDD; Parkinsons; Seizures; tremors; - Immunization history:: Adult Immunizations up to date, Client reports having NOT received the Covid vaccine. - Social history:: Smoking status: Patient denies any tobacco usage or history of. - Family history:: not pertinent. - Hospitalizations: : No recent hospitalization is reported. ROS: 04:03 Constitutional: Negative for fever, chills, and weight loss, Eyes: Negative for injury, rn pain, redness, and discharge, Neck: Negative for injury, pain, and swelling, Cardiovascular: Negative for chest pain, palpitations, and edema, Respiratory: Negative for shortness of breath, cough, wheezing, and pleuritic chest pain, Abdomen/GI: Positive for nausea/vomiting/diarrhea and abdominal pain Back: Negative for injury and pain, : Negative for injury, bleeding, discharge, and swelling, MS/Extremity: Negative for injury and deformity, Skin: Negative for injury, rash, and discoloration, Neuro: Negative for headache, weakness, numbness, tingling, and seizure. 04:03 All other systems are negative. Exam: 04:03 Constitutional: This is a well developed, well nourished patient who is awake, alert, rn appears uncomfortable. Head/Face: Normocephalic, atraumatic. ENT: Dry mucous membranes Cardiovascular: Tachycardic, regular Respiratory: Mild tachypnea Abdomen/GI: Soft, mild suprapubic and left lower quadrant tenderness. Skin: Warm, dry MS/ Extremity: Pulses equal, no cyanosis. Neuro: Awake and alert, GCS 15 Vital Signs: 04:00 BP 156 / 82; Pulse 86; Resp 18 S; Temp 98.3(O); Pulse Ox 100% on R/A; Weight 65.77 kg bb (R); Height 5 ft. 10 in. (177.80 cm) (R); Pain 10/10; 06:09 BP 146 / 74; Pulse 94; Resp 18; Pulse Ox 96% ; Pain 8/10; ms4 04:00 Body Mass Index 20.81 (65.77 kg, 177.80 cm) bb MDM: 03:53 Patient medically screened. rn 05:26 Differential diagnosis: appendicitis, bowel obstruction, diverticulitis, gastritis, rn gastroesophageal reflux disease, non-specific abd pain, pancreatitis, Ureterolithiasis, Crohn's disease flare, colitis, enteritis. Data reviewed: vital signs, nurses notes, old medical records, lab test result(s), radiologic studies, CT scan, and as a result, I will discharge patient. Counseling: I had a detailed discussion with the patient and/or guardian regarding: the historical points, exam findings, and any diagnostic results supporting the discharge/admit diagnosis, lab results, radiology results, the need for outpatient follow up, to return to the emergency department if symptoms worsen or persist or if there are any questions or concerns that arise at home. Response to treatment: the patient's symptoms have mildly improved after treatment, and as a result, I will discharge patient. Special discussion: Based on the patient's Hx, exam, and Dx evaluation, there is no indication for emergent surgery or inpatient Tx. It is understood by the patient/guardian that if the Sx's persist or worsen they need to return immediately for re-evaluation. I discussed with the patient/guardian in detail that at this point there is no indication for admission to the hospital. It is understood, however, that if the symptoms persist or worsen the patient needs to return immediately for re-evaluation. Based on the history and exam findings, there is no indication for further emergent testing or inpatient evaluation. 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 ED course: No acute findings on CT abdomen and pelvis. Blood work without acute findings. Stable vital signs. Improvement of pain and nausea. Will DC home with GI follow-up and continuation of her Crohn's treatment.. 06/21 04:02 Order name: Basic Metabolic Panel; Complete Time: 05:20 rn 06/21 04:02 Order name: CBC with Diff; Complete Time: 05:20 rn 06/21 04:02 Order name: Hepatic Function; Complete Time: 05:20 rn 06/21 04:02 Order name: Lipase; Complete Time: 05:20 rn 06/21 04:29 Order name: CREATININE WHOLE BLOOD; Complete Time: 05:20 EDMS 06/21 05:02 Order name: Urine Dipstick-Ancillary EDMS 06/21 04:02 Order name: IV Saline Lock; Complete Time: 04:13 rn 06/21 04:02 Order name: Labs collected and sent; Complete Time: 04:13 rn 06/21 04:02 Order name: CT Abd/Pelvis - IV Contrast Only rn 06/21 04:02 Order name: Urine Dipstick-Ancillary (obtain specimen); Complete Time: 05:09 rn Administered Medications: 04:27 Drug: NS 0.9% 1000 ml Route: IV; Rate: 1000 ml; Site: right antecubital; ms4 04:28 Follow up: Response: No adverse reaction ms4 06:12 Follow up: IV Status: Completed infusion; IV Intake: 1000ml ms4 04:27 Drug: Zofran (Ondansetron) 4 mg Route: IVP; Site: right antecubital; ms4 04:28 Follow up: Response: No adverse reaction ms4 04:27 Drug: Demerol (meperidine) 25 mg Route: IVP; Site: right antecubital; ms4 04:28 Follow up: Response: No adverse reaction ms4 04:27 Drug: SOLU-Medrol (methylPrednisoLONE) 125 mg Route: IVP; Site: right antecubital; ms4 04:27 Follow up: Response: No adverse reaction ms4 06:09 Drug: Demerol (meperidine) 50 mg Route: IVP; Site: right forearm; ms4 06:09 Follow up: Response: No adverse reaction ms4 Disposition Summary: 06/21/21 05:29 Discharge Ordered Location: Home rn Problem: an acute exacerbation rn Symptoms: have improved rn Condition: Stable rn Diagnosis - Crohn's disease, unspecified, without complications rn - Vomiting rn - Diarrhea, unspecified rn Followup: rn - With: Edith Frost MD - When: As needed - Reason: Recheck today's complaints, Re-evaluation by your physician Discharge Instructions: - Discharge Summary Sheet rn - Crohn's Disease rn - Diarrhea, Adult rn - Vomiting, Adult rn Forms: - Medication Reconciliation Form rn - Thank You Letter rn - Antibiotic finance attorney - Prescription Opioid Use rn Prescriptions: - ondansetron 4 mg Oral tablet,disintegrating - place 1 tablet by TRANSLINGUAL route every 8 hours As needed; 20 tablet; rn Refills: 0, Product Selection Permitted - Medrol (Will) 4 mg Oral Tablets, Dose Pack - take 1 tablet by ORAL route as directed - follow package instructions; 1 rn packet; Refills: 0, Product Selection Permitted Signatures: Dispatcher [employer] Samantha Jaramillo RN RN Ken Earl MD MD rn Stroud, Mikaela, RN RN ms4 Corrections: (The following items were deleted from the chart) 04:38 04:29 Home Meds: Coumadin Oral; gerri talley 04:38 04:29 Home Meds: warfarin 7.5 mg Oral tab 1 tab once daily; gerri talley
[2021-06-21] MEDS ORDERED: MEPERIDINE HCL 50 MG/ML ONE (06:29)
[2021-06-21 06:36] VITALS: TEMP 98.3
[2021-06-21 06:41] VITALS: BP 146/74; O2SAT 96
--- NOTE | 2021-06-21 09:48 | RAD REPORT ---
EXAM DESCRIPTION: CT - Abdomen Pelvis W Contrast - 06/21/2021 6:31 am CLINICAL HISTORY: The patient is 50 years old and is Female; hx of crohn's;Abd pain TECHNIQUE: Axial computed tomography images of the abdomen and pelvis with intravenous contrast. S agittal and coronal reformatted images were created and reviewed. This CT exam was performed using one or more of the following dose reduction techniques: automated exposure control, adjustment of t he mA and/or kV according to patient size, and/or use of iterative reconstruction technique. COMPARISON: CT abdomen and pelvis May 05, 2021. FINDINGS: Lung bases: Unremarkable. No mass. No consolidation. ABDOMEN: Liver: Unremarkable. No mass. Gallbladder and bile ducts: Gallbladder is surgically absent. No ductal dilation. Pancreas: Unremarkable. No mass. No ductal dilation. Spleen: Unremarkable. No splenomegaly. Adrenals: Unremarkable. No mass. Kidneys and ureters: Unremarkable. No solid mass. No hydronephrosis. Stomach and bowel: There is been interval resolution of the bowel wall thickening involving the distal colon seen on the prior exam. No obstruction. PELVIS: Appendix: No findings to suggest acute appendicitis. Bladder: Unremarkable. No mass. Reproductive: Uterus is not seen. ABDOMEN and PELVIS: Intraperitoneal space: Unremarkable. No free air. No significant fluid collection. Bones/joints: No acute fracture. No dislocation. Soft tissues: Unremarkable. Vasculature: Scattered atherosclerotic vascular calcifications. No abdominal aortic aneurysm. Lymph nodes: Unremarkable. No enlarged lymph nodes. Tubes, lines and devices: Neurostimulator lead in the spinal canal. IMPRESSION: No acute findings in the abdomen or pelvis. Electronically signed by: Mario Waters MD 06/21/2021 5:08 AM CDT Due to temporary technical issues with the PACS/Fluency reporting system, reports are being signed by the in house radiologist without review as a courtesy to ensure prompt reporting. The interpreting r adiologist is fully responsible for the content of the report.
== END 2021-06-21 06:25 | disposition home or self-care (01) ==
LOC: ER 03:13
DX: K50.90 Crohn's disease, unspecified, without complications (principal); R19.7 Diarrhea, unspecified; G20 Parkinson's disease; Z88.5 Allergy status to narcotic agent
CPT/HCPCS: 85025; 80048; 36415; 82565; 80076; 81003; 83690; 74177; 99284; Q9967; J2175 ×2; J7030; J2930; J2405

== ENCOUNTER 2022-01-04 22:14 | Emergency (ER) | payer OTHER ==
--- OUTSIDE RECORDS SUMMARY | 2022-01-04 22:18 | XMS REPORT | Continuity of Care Document ---
:1970 Author Organization [facility] t Address [address] [place] [address] Dr. [address]. [address] [place] [address] Care Team Providers Name Role Phone ANNE Primary Care Physician Unavailable Jose R Trinidad DO Attending Clinician Milana SIGALA L Attending Clinician Nissa SCHUSTER Attending Clinician Unavailable Nissa SCHUSTER Admitting Clinician Unavailable Payers Payer Name Policy Type Policy Number Effective Date Expiration Date S ource Problems Condition Condition Condition Status Onset Resolution Last Treating Co mments Source Name Details Category Date Date Treatment Clinician Date Skin Skin Disease Active [facility] cancer cancer 06-24 Health 00:00: 00 Unexplaine Unexplaine Disease Active H [facility]is d weight d weight 15 Health loss loss 00:00: 00 Epigastric Epigastric Disease Active H arris pain pain 06-24 Health 00:00: 00 Skin Skin Disease Active [facility] lesion lesion 15 Health 00:00: 00 Chronic Chronic Disease Active [facility] anticoagul anticoagul 815 He alth ation ation 00:00: 00 Essential Essential Disease Active [facility] tremor tremor 15 Health 00:00: 00 Irritable Irritable Disease Active [facility] bowel bowel 15 Health syndrome syndrome 00:00: with with 00 constipati constipati on on Cerebrovas Cerebrovas Disease Active H arris cular cular 06-24 Health accident accident 00:00: (CVA) (CVA) 00 Migraines Migraines Disease Active [facility] 15 Health 00:00: 00 No known No known Disease Unive rs active active ity of problems problems [facility] Allergies, Adverse Reactions, Alerts Allergy Allergy Status Severity Reaction(s) Onset Inactive Treating Comm ents Source Name Type Date Date Clinician Morphine Propensi Active Nausea Univer s ty to and/or 05-15 ity of adverse Vomiting 00:00: [place] reaction 00 Medical s Branch MORPHINE DRUG Active N/V [facility] INGREDI 05-15 ity of 00:00: [place] 00 Medical Branch Social History Social Habit Start Date Stop Date Quantity Comments Source Alcohol intake 2019-11-22 2019-11-22 Current University of 00:00:00 00:00:00 non-drinker of [facility] alcohol [place] (finding) Tobacco use and 2019-11-22 2019-11-22 Former user Universi ty of exposure 00:00:00 00:00:[address] [facility] Sex Ass[birth year] At [birth year] Universit y of 00:00:00 00:00:[address] [facility] Smoking Status Start Date Stop Date Source Never smoker [facility] Medications Ordered Filled Start Stop Current Ordering Indication Dosage Frequency Signature Comments Components Source Medication Medication Date Date Medication? Clinician (SIG) Name Name traMADol 50 2018-11 Yes [id number] 50mg Take 1 [facility] mg tablet 2-21 [id number] tablet by ity of 00:00: mouth [place] 00 every 6 Medical (six) Branch hours as needed for Pain (scale 7-10). traMADol 50 2018-11 Yes [id number] 50mg Take 1 [facility] mg tablet 2-21 [id number] tablet by ity of 00:00: mouth [place] 00 every 6 Medical (six) Branch hours as needed for Pain (scale 7-10). traMADol 50 2018-11 Yes [id number] 50mg Take 1 Univers mg tablet 2-21 [id number] tablet by ity of 00:00: mouth [place] 00 every 6 Medical (six) Branch hours as needed for Pain (scale 7-10). traMADol 50 2018-11 Yes [id number] 50mg Take 1 Univers mg tablet 2-21 [id number] tablet by ity of 00:00: mouth [place] 00 every 6 Medical (six) Branch hours as needed for Pain (scale 7-10). traMADol 50 2018-11 Yes [id number] 50mg Take 1 Univers mg tablet 12-31 [id number] tablet by ity of 00:00: mouth [place] 00 every 6 Medical (six) Branch hours as needed for Pain (scale 7-10). naproxen 2018-11 2019- No [id number] 500mg Take 1 [facility] 500 mg 12-31 [id number] tablet by ity o f tablet 00:00: 05:59 mouth 2 [place] 00 :00 (two) Medical times Branch daily with meals for 7 days. naproxen 2018-11- No [id number] 500mg Take 1 [facility] 500 mg 12-31 [id number] tablet by ity o f tablet 00:00: 05:59 mouth 2 [place] 00 :00 (two) Medical times [place] daily with meals for 7 days. triamcinolo 2017-11 Yes Apply to U nivers ne 0-11 area(s) 2 ity of acetonide 00:00: (two) [place] 0.1 % cream 00 times Medical daily. Branch triamcinolo 2017-11 Yes Apply to U nivers ne 0-11 area(s) 2 ity of acetonide 00:00: (two) [place] 0.1 % cream 00 times Medical daily. Branch triamcinolo 2017-11 Yes Apply to U nivers ne 0-11 area(s) 2 ity of acetonide 00:00: (two) [place] 0.1 % cream 00 times Medical daily. Branch triamcinolo 2017-11 Yes Apply to U nivers ne 0-11 area(s) 2 ity of acetonide 00:00: (two) [place] 0.1 % cream 00 times Medical daily. Branch triamcinolo 2017-11 Yes Apply to U nivers ne 0-11 area(s) 2 ity of acetonide 00:00: (two) [place] 0.1 % cream 00 times Medical daily. Branch gemfibrozil Yes 600mg Take 600 U nivers (LOPID) 600 3-26 mg by ity of mg tablet 14:38: mouth [place] 17 daily. Medical Branch furosemide Yes 20mg Take 20 mg U nivers (LASIX) 20 3-26 by mouth 2 ity of mg tablet 14:38: (two) [place] 17 times Medical daily. Branch propranolol 2018-0 Yes 80mg Take 80 mg Univers (INDERAL) 3-26 by mouth ity of 80 mg 14:38: daily. [place] tablet 17 Medical Branch warfarin 2018-0 Yes 7.5mg Take 7.5 Univ ers (COUMADIN) 3-26 mg by ity of 7.5 mg 14:38: mouth [place] tablet 17 every Medical evening. Branch oxyCODONE 2018-0 Yes 20mg Take 20 mg Un ra C.R. 3-26 by mouth 2 ity of (OXYCONTIN) 14:38: (two) [place] 20 mg 12 hr 17 times Medical tablet daily. Branch tiZANidine 2018-0 Yes 4mg Take 4 mg Un ra (ZANAFLEX) 3-26 by mouth 2 ity of 4 mg 14:38: (two) [place] capsule 17 times Medical daily. Branch gabapentin 2018-0 Yes 800mg Take 800 Un ra (NEURONTIN) 3-26 mg by ity of 800 mg 14:38: mouth 4 [place] tablet 17 (four) Medical times Branch daily. gemfibrozil 2018-0 Yes 600mg Take 600 U nivers (LOPID) 600 3-26 mg by ity of mg tablet 14:38: mouth [place] 17 daily. Medical Branch furosemide 2018-0 Yes 20mg Take 20 mg U nivers (LASIX) 20 3-26 by mouth 2 ity of mg tablet 14:38: (two) [place] 17 times Medical daily. Branch propranolol 2018-0 Yes 80mg Take 80 mg Univers (INDERAL) 3-26 by mouth ity of 80 mg 14:38: daily. [place] tablet 17 Medical Branch warfarin 2018-0 Yes 7.5mg Take 7.5 Univ ers (COUMADIN) 3-26 mg by ity of 7.5 mg 14:38: mouth [place] tablet 17 every Medical evening. Branch oxyCODONE 2018-0 Yes 20mg Take 20 mg Un ra C.R. 3-26 by mouth 2 ity of (OXYCONTIN) 14:38: (two) [place] 20 mg 12 hr 17 times Medical tablet daily. Branch tiZANidine 2018-0 Yes 4mg Take 4 mg Un ra (ZANAFLEX) 3-26 by mouth 2 ity of 4 mg 14:38: (two) [place] capsule 17 times Medical daily. Branch gabapentin 2018-0 Yes 800mg Take 800 Un ra (NEURONTIN) 3-26 mg by ity of 800 mg 14:38: mouth 4 [place] tablet 17 (four) Medical times [place] daily. gemfibrozil 2018-0 Yes 600mg Take 600 U nivers (LOPID) 600 3-26 mg by ity of mg tablet 14:38: mouth [place] 17 daily. Medical Branch furosemide 2018-0 Yes 20mg Take 20 mg U nivers (LASIX) 20 3-26 by mouth 2 ity of mg tablet 14:38: (two) [place] 17 times Medical daily. Branch propranolol 2018-0 Yes 80mg Take 80 mg Univers (INDERAL) 3-26 by mouth ity of 80 mg 14:38: daily. [place] tablet 17 Medical Branch warfarin 2018-0 Yes 7.5mg Take 7.5 Univ ers (COUMADIN) 3-26 mg by ity of 7.5 mg 14:38: mouth [place] tablet 17 every Medical evening. Branch oxyCODONE 2018-0 Yes 20mg Take 20 mg Un ra C.R. 3-26 by mouth 2 ity of (OXYCONTIN) 14:38: (two) [place] 20 mg 12 hr 17 times Medical tablet daily. Branch tiZANidine 2018-0 Yes 4mg Take 4 mg Un ra (ZANAFLEX) 3-26 by mouth 2 ity of 4 mg 14:38: (two) [place] capsule 17 times Medical daily. Branch gabapentin 2018-0 Yes 800mg Take 800 Un ra (NEURONTIN) 3-26 mg by ity of 800 mg 14:38: mouth 4 [place] tablet 17 (four) Medical times [place] daily. gemfibrozil 2018-0 Yes 600mg Take 600 U nivers (LOPID) 600 3-26 mg by ity of mg tablet 14:38: mouth [place] 17 daily. Medical Branch furosemide 2018-0 Yes 20mg Take 20 mg U nivers (LASIX) 20 3-26 by mouth 2 ity of mg tablet 14:38: (two) [place] 17 times Medical daily. Branch propranolol 2018-0 Yes 80mg Take 80 mg Univers (INDERAL) 3-26 by mouth ity of 80 mg 14:38: daily. [place] tablet 17 Medical Branch warfarin 2018-0 Yes 7.5mg Take 7.5 Univ ers (COUMADIN) 3-26 mg by ity of 7.5 mg 14:38: mouth [place] tablet 17 every Medical evening. Branch oxyCODONE 2018-0 Yes 20mg Take 20 mg Un ra C.R. 3-26 by mouth 2 ity of (OXYCONTIN) 14:38: (two) [place] 20 mg 12 hr 17 times Medical tablet daily. Branch tiZANidine 2018-0 Yes 4mg Take 4 mg Un ra (ZANAFLEX) 3-26 by mouth 2 ity of 4 mg 14:38: (two) [place] capsule 17 times Medical daily. Branch gabapentin 2018-0 Yes 800mg Take 800 Un ra (NEURONTIN) 3-26 mg by ity of 800 mg 14:38: mouth 4 [place] tablet 17 (four) Medical times Branch daily. gemfibrozil 2018-0 Yes 600mg Take 600 U nivers (LOPID) 600 3-26 mg by ity of mg tablet 14:38: mouth [place] 17 daily. Medical Branch furosemide 2018-0 Yes 20mg Take 20 mg U nivers (LASIX) 20 3-26 by mouth 2 ity of mg tablet 14:38: (two) [place] 17 times Medical daily. Branch propranolol 2018-0 Yes 80mg Take 80 mg Univers (INDERAL) 3-26 by mouth ity of 80 mg 14:38: daily. [place] tablet 17 Medical Branch warfarin 2017-0 Yes 7.5mg Take 7.5 Univ ers (COUMADIN) 3-26 mg by ity of 7.5 mg 14:38: mouth [place] tablet 17 every Medical evening. Branch oxyCODONE 2018-0 Yes 20mg Take 20 mg Un ra C.R. 3-26 by mouth 2 ity of (OXYCONTIN) 14:38: (two) [place] 20 mg 12 hr 17 times Medical tablet daily. Branch tiZANidine 2018-0 Yes 4mg Take 4 mg Un ra (ZANAFLEX) 3-26 by mouth 2 ity of 4 mg 14:38: (two) [place] capsule 17 times Medical daily. Branch gabapentin 2018-0 Yes 800mg Take 800 Un ra (NEURONTIN) 3-26 mg by ity of 800 mg 14:38: mouth 4 [place] tablet 17 (four) Medical times Branch daily. cephALEXin 2017- Yes 500mg Take 1 Univ ers (KEFLEX) 1-14 capsule by ity o f 500 mg 00:00: mouth 2 [place] capsule 00 (two) Medical times Branch daily. cephALEXin 2017- Yes 500mg Take 1 Univ ers (KEFLEX) 1-14 capsule by ity o f 500 mg 00:00: mouth 2 [place] capsule 00 (two) Medical times Branch daily. cephALEXin 2016-11 Yes 500mg Take 1 Univ ers (KEFLEX) 1-14 capsule by ity o f 500 mg 00:00: mouth 2 [place] capsule 00 (two) Medical times Branch daily. cephALEXin 2016-11 Yes 500mg Take 1 Univ ers (KEFLEX) 1-14 capsule by ity o f 500 mg 00:00: mouth 2 [place] capsule 00 (two) Medical times Branch daily. cephALEXin 2016-11 Yes 500mg Take 1 Univ ers (KEFLEX) 1-14 capsule by ity o f 500 mg 00:00: mouth 2 [place] capsule 00 (two) Medical times Branch daily. propranolol 2017 Yes 80mg Q.5D Take [...] 11:59: daily. delayed 13 release capsule oxyCODONE 2017-0 Yes 20mg Take 20 mg [facility] (OXYCONTIN) 8-15 by mouth Heal th 20 mg 11:59: as needed extended 13 for Pain. release tablet warfarin 2017-0 Yes 10mg QD Take 10 mg [facility] (COUMADIN) 8-15 by mouth Healt h 10 mg 11:59: daily. tablet 13 dicyclomine [id number] Yes 20mg Take 20 mg [facility] (BENTYL) 20 8-15 by mouth 4 He alth mg tablet 11:59: times 13 daily. gabapentin 2017-0 Yes 800mg Take 800 [facility] (NEURONTIN) 8-15 mg by Health 800 mg 11:59: mouth 3 tablet 13 times daily. Vital Signs Vital Name Observation Time Observation Value Comments Source Systolic blood 2019-11-01 17:40:00 154 mm[Hg] [facility] Diastolic blood 2019-11-01 17:40:00 85 mm[Hg] [facility] Body height 2019-11-01 17:40:00 177.8 cm [facility] Body weight 2019-11-01 17:40:[address] [facility] BMI 2019-11-01 17:40:00 24.39 kg/m2 [facility] Systolic blood 2019-11-01 17:40:00 154 mm[Hg] [facility] Diastolic blood 2019-11-01 17:40:00 85 mm[Hg] [facility] Body height 2019-11-01 17:40:[address] [facility] Body weight 2019-11-01 17:40:[address] [facility] BMI 2019-11-01 17:40:00 24.39 kg/m2 [facility] Procedures This patient has no known procedures. Plan of Care Planned Activity Planned Date Details Comments Source Future Scheduled Test 2021-08-10 00:00:00 IMM Influenza Located Within [facility] Seasonal Aug to January (>/= 19 yrs) [code = IMM Influenza Seasonal Aug to January (>/= 19 yrs)] Future Scheduled Test 2018 00:00:00 Screening for Located Within [facility] malignant neoplasm of colon (procedure) [code = 606915946] Future Scheduled Test 2008 00:00:00 Breast Cancer Scrn Located Within [facility] (Yearly) [code = Breast Cancer Scrn (Yearly)] Future Scheduled Test 1998 00:00:00 Screening for Located [facility] malignant neoplasm of cervix (procedure) [code = 031625588] Future Scheduled Test 1998 00:00:00 Screening for Located [facility] malignant neoplasm of cervix (procedure) [code = 410122305] Future Scheduled Test 1980 00:00:00 COVID-19 Vaccine (1) Located Within [facility] [code = COVID-19 Vaccine (1)] Encounters Start End Encounter Admission Attending Care Care Encounter Source Date/Time Date/Time Type Type Clinicians Facility Department ID 2021-01-30 2021-01-30 Patient Amos MIFRACISCO [id number] 00:00:00 00:00:00 Outreach Christopher PRIMARY [id number] Jose R CARE [id number] PAVILLION [id number] 2021-01-30 2021-01-30 Patient Amos MIFRACISCO [id number] Univers 00:00:00 00:00:00 Outreach Christopher PRIMARY [id number] i ty of [place] R CARE [id number] [place] [id number] In dical 388 [place] 2019-11-22 2019-11-22 [facility] [id number] [facility] 13:55:00 23:59:00 Encounter Rafael Soto [id number] ity of Surgical [id number] Bill as Specialti [id number] In dical es 809 [facility] 2019-11-22 2019-11-22 [facility] [id number] [facility] 13:53:00 13:54:00 Encounter Rafael Soto [id number] ity of Surgical [id number] Bill as Specialti [id number] In dical es 809 [facility] 2019-11-01 2019-11-01 [facility] [id number] 11:25:11 11:51:37 Visit Rafael Soto [id number] Surgical [id number] Specialti [id number] [address] 2019-11-01 2019-11-01 Office [facility] [id number] [facility] 11:25:11 11:51:37 Visit Rafael Soto [id number] it y of Surgical [id number] Bill as Specialti [phone] In dical 198 Branch [place] 2019-10-30 2019-10-30 Emergency X [facility] ERT [id number] [facility] 16:49:36 19:53:00 JODY tapia [facility] 2017-11-18 2017-11-18 Outpatient [facility] [id number] [place] 00:00:00 00:00:00 Health 2017-07-22 2017-07-22 Outpatient [facility] [id number] [place] 00:00:00 00:00:00 Health 2017-06-24 2017-06-24 Outpatient [facility] [id number] [place] 12:34:43 12:34:43 Health 2017-06-24 2017-06-24 Outpatient [facility] [id number] [place] 10:24:55 10:24:55 Health Results This patient has no known results.
[2022-01-04] MEDS ORDERED: HYDROMORPHONE HCL 0.5 MG/0.5 ML INJ ONE (22:40)
[2022-01-04] MEDS ORDERED: NA CHLORIDE 0.9% 50 ML ONE (22:41)
[2022-01-04] MEDS ORDERED: ONDANSETRON 4 MG/2 ML VIAL ONE (22:41)
[2022-01-04] MEDS ORDERED: NA CHLORIDE 0.9% 2,000 ML ONE (22:41)
[2022-01-04 23:18] LABS: Absolute Lymphocytes (CBC) 1.3 K/uL (0.7-4.9); Hematocrit 38.5 % (36.0-45.0); Lymphocytes % 17.2 % (15.3-44.8); MPV 8.6 fL (7.6-11.3); RBC Red Blood Cell Count 4.17 M/uL (3.86-4.86)
[2022-01-04 23:54] LABS: Bilirubin Direct 0.1 mg/dL (0-0.2); Bilirubin Total 0.3 mg/dL (0.2-1.0); Protein, Total 7.8 g/dL (6.4-8.2)
[2022-01-05] MEDS ORDERED: NA CHLORIDE 0.9% 50 ML ONE (00:52)
[2022-01-05] MEDS ORDERED: HYDROMORPHONE HCL 1 MG/ML INJ ONE (00:52)
[2022-01-05] MEDS ORDERED: ONDANSETRON 4 MG/2 ML VIAL ONE (01:01)
--- NOTE | 2022-01-05 02:58 | EDPHYS ---
Physician Documentation [facility] Name: Savanna San Age: 51 yrs Sex: Female : 1970 Arrival Date: 01/04/2022 Time: 22:16 Bed 5 Private MD: ED Physician Kike Minor HPI: 01/04 22:44 This 51 yrs old Female presents to ER via Wheelchair with complaints of Abdominal Pain, kb Back Pain. 22:44 The patient presents with abdominal pain in the left upper quadrant. Onset: The kb symptoms/episode began/occurred 1 month(s) ago. The symptoms radiate to left back. Associated signs and symptoms: Pertinent positives: nausea and vomiting, Pertinent negatives: diarrhea, fever. The symptoms are described as constant. Modifying factors: The symptoms are alleviated by nothing, the symptoms are aggravated by nothing. Severity of pain: At its worst the pain was moderate in the emergency department the pain is unchanged. The patient has experienced similar episodes in the past. The patient has not recently seen a physician. 23:24 Pt reports abd pain with nausea for a month. States she was diagnosed with pancreatitis kb by Dr Frost and hasn't been able to eat any solid food due to pain. Pain was worse today . MEDICAL PATHOLOGIST: 22:24 LMP N/A - Hysterectomy tw5 Historical: - Allergies: 22:24 Morphine; tw5 - Home Meds: 22:24 carbidopa-levodopa 25-100 mg Oral TbER 1 tab 2 times per day [Active]; Cymbalta 60 mg tw5 Oral cpDR 1 cap once daily [Active]; - PMHx: 22:24 apryl disease; CVA- Left sided weakness; DVT; Headaches; Irritable bowel syndrome; tw5 Nerve Damage +DDD; Parkinsons; tremors; Seizures; - Immunization history:: Flu vaccine is not up to date. - Social history:: Smoking status: Patient denies any tobacco usage or history of. ROS: 22:43 Constitutional: Negative for fever, chills, and weight loss. kb 22:43 Abdomen/GI: Positive for abdominal pain, nausea and vomiting, Negative for diarrhea, constipation. 22:43 All other systems are negative. Exam: 22:43 Constitutional: This is a well developed, well nourished patient who is awake, alert, kb and in no acute distress. Head/Face: Normocephalic, atraumatic. ENT: Moist Mucous membranes Cardiovascular: Regular rate and rhythm with a normal S1 and S2. No gallops, murmurs, or rubs. No pulse deficits. Respiratory: Respirations even and unlabored. No increased work of breathing. Talking in full sentences Skin: Warm, dry with normal turgor. Normal color. MS/ Extremity: Pulses equal, no cyanosis. Neurovascular intact. Full, normal range of motion. Neuro: Awake and alert, GCS 15, oriented to person, place, time, and situation. Moves all extremities. Normal gait. Psych: Awake, alert, with orientation to person, place and time. Behavior, mood, and affect are within normal limits. 22:43 Abdomen/GI: Inspection: abdomen appears normal, Bowel sounds: normal, Palpation: soft, in all quadrants, moderate abdominal tenderness, in the left upper quadrant. Vital Signs: 22:21 BP 150 / 75; Pulse 108; Resp 22; Temp 98.6; Pulse Ox 100% on R/A; Weight 62.6 kg; tw5 Height 5 ft. 10 in. (177.80 cm); Pain 10/10; 22:56 BP 158 / 106; Pulse 80; Resp 28 S; Pulse Ox 100% on R/A; lg3 23:30 BP 143 / 77; Pulse 92; Resp 22; Pulse Ox 100% on R/A; lg3 01/05 00:14 BP 142 / 80; Pulse 88; Resp 22; Pulse Ox 99% on R/A; lg3 02:13 BP 146 / 80; Pulse 101; Resp 16 S; Pain 4/10; lg3 03:00 BP 124 / 78; Pulse 98; Resp 17; Temp 98; Pulse Ox 100% on R/A; vc1 01/04 22:21 Body Mass Index 19.80 (62.60 kg, 177.80 cm) tw5 MDM: 01/04 22:29 Patient medically screened. kb 22:43 Data reviewed: vital signs, nurses notes. Data interpreted: Pulse oximetry: on room air kb is 100 %. Interpretation: normal. 01/05 02:49 Counseling: I had a detailed discussion with the patient and/or guardian regarding: the kb historical points, exam findings, and any diagnostic results supporting the discharge/admit diagnosis, lab results, radiology results, the need for outpatient follow up, a family practitioner, a funeral home attendant, to return to the emergency department if symptoms worsen or persist or if there are any questions or concerns that arise at home. 03:00 ED course: Pt will follow up with Dr Frost for abdominal pain. kb 01/04 22:30 Order name: Basic Metabolic Panel; Complete Time: 23:54 kb 01/04 22:30 Order name: CBC with Diff; Complete Time: 23:24 kb 01/04 22:30 Order name: Hepatic Function; Complete Time: 23:54 kb 01/04 22:30 Order name: Lipase; Complete Time: 23:54 kb 01/04 22:33 Order name: Lactate; Complete Time: 23:33 kb 01/04 22:33 Order name: Procalcitonin; Complete Time: 23:50 kb 01/04 22:30 Order name: CT Abd/Pelvis - IV Contrast Only kb 01/04 22:33 Order name: Blood Culture Adult (2) kb 01/05 01:07 Order name: Lactate; Complete Time: 02:49 kb 01/04 22:30 Order name: IV Saline Lock; Complete Time: 22:45 kb 01/04 22:30 Order name: Labs collected and sent; Complete Time: 22:45 kb Administered Medications: 01/04 22:51 Drug: NS 0.9% (30 ml/kg) 30 ml/kg Route: IV; Rate: bolus; Site: right antecubital; 3 01/05 01:45 Follow up: IV Status: Completed infusion; IV Intake: 2000ml vc1 01/04 22:52 Drug: Dilaudid (HYDROmorphone) 1 mg Route: IVP; Site: right antecubital; lg3 22:53 Follow up: Response: No adverse reaction; RASS: Alert and Calm (0) lg3 22:52 Drug: Zofran (Ondansetron) 4 mg Route: IVP; Site: right antecubital; lg3 22:52 Follow up: Response: No adverse reaction 3 01/05 01:04 Drug: Dilaudid (HYDROmorphone) 1 mg Route: IVP; Site: right antecubital; lg3 01:05 Follow up: Response: No adverse reaction 3 01:05 Drug: Zofran (Ondansetron) 4 mg Route: IVP; Site: right antecubital; lg3 01:05 Follow up: Response: No adverse reaction lg3 Disposition: 04:14 Co-signature as Attending Physician, Kike Minor MD. [email or web address] Disposition Summary: 01/05/22 02:58 Discharge Ordered Location: Home kb Condition: Stable kb Diagnosis - Abdominal pain, Generalized kb - Nausea with vomiting, unspecified kb Followup: kb - With: Emergency Department - When: As needed - Reason: Worsening of condition Followup: kb - With: Private Physician - When: 2 - 3 days - Reason: Recheck today's complaints, Continuance of care, Re-evaluation by your physician Discharge Instructions: - Discharge Summary Sheet kb - Nausea and Vomiting, Adult, Bzpg-[id number] kb - Abdominal Pain, Adult, Vjug-yy-Dcup kb Forms: - Medication Reconciliation Form kb - Thank You Letter kb - Antibiotic Education kb - Prescription Opioid Use kb Prescriptions: - Zofran 4 mg Oral Tablet - take 1 tablet by ORAL route every 6 hours As needed; 20 tablet; Refills: 0, kb Product Selection Permitted - dicyclomine 20 mg Oral Tablet - take 1 tablet by ORAL route 4 times per day As needed; 20 tablet; Refills: 0, kb Product Selection Permitted Signatures: Dispatcher [employer] EDMS Mala Mendoza, CLASSROOM TEACHER-C CLASSROOM TEACHER-Laura Hu, RN RN 3 Kike Minor MD MD 7 Ilene Montelongo tw5 Rosanna Wright RN vc1 Corrections: (The following items were deleted from the chart) 03:01 01/04 23:24 Pt reports abd pain with nausea for a month. States she was diagnosed with kb pancreatitis and hasn't been able to eat any solid food due to pain. Pain was worse today . kb
--- NOTE | 2022-01-05 02:58 | ER ---
Nurse's Notes [facility] Name: Savanna San Age: 51 yrs Sex: Female : 1970 Arrival Date: 01/04/2022 Time: 22:16 Bed 5 Private MD: Diagnosis: Abdominal pain, Generalized;Nausea with vomiting, unspecified Presentation: 01/04 22:21 Chief complaint: Patient states: "I have pancreatitis, the pain is getting really bad tw5 and is radiating to my back.". Coronavirus screen: Vaccine status: Patient reports being unvaccinated. Ebola Screen: Patient negative for fever greater than or equal to 101.5 degrees Fahrenheit, and additional compatible Ebola Virus Disease symptoms Patient denies exposure to infectious person. Patient denies travel to an Ebola-affected area in the 21 days before illness onset. Initial Sepsis Screen: Does the patient meet any 2 criteria? RR > 20 per min. HR > 90 bpm. Does the patient have a suspected source of infection? Yes: Acute abdominal pain. Initial Sepsis Screen: Does the patient have a suspected source of infection? If YES to both, name of provider notified: Kike Minor MD Risk Assessment: Do you want to hurt yourself or someone else? Patient reports no desire to harm self or others. Onset of symptoms was January 04, 2022. 22:21 Method Of Arrival: Wheelchair tw5 22:21 Acuity: MARIJA 3 tw5 Triage Assessment: 22:24 General: Appears uncomfortable, Behavior is appropriate for age, agitated, anxious. tw5 Pain: Complains of pain in abdomen Pain radiates to low back area Pain currently is 10 out of 10 on a pain scale. GI: Reports nausea. [employer] PROCESSING: 22:24 LMP N/A - Hysterectomy tw5 Historical: - Allergies: 22:24 Morphine; tw5 - Home Meds: 22:24 carbidopa-levodopa 25-100 mg Oral TbER 1 tab 2 times per day [Active]; Cymbalta 60 mg tw5 Oral cpDR 1 cap once daily [Active]; - PMHx: 22:24 apryl disease; CVA- Left sided weakness; DVT; Headaches; Irritable bowel syndrome; tw5 Nerve Damage +DDD; Parkinsons; tremors; Seizures; - Immunization history:: Flu vaccine is not up to date. - Social history:: Smoking status: Patient denies any tobacco usage or history of. Screenin:25 Abuse screen: Denies threats or abuse. Denies injuries from another. Nutritional tw5 screening: Had unintentional weight loss of 10 pounds or more. Tuberculosis screening:. Fall Risk Secondary diagnosis (15 points). Assessment: 22:54 General: Appears in no apparent distress. uncomfortable. Pain: Complains of pain in lg3 abdomen Pain radiates to back Pain currently is 10 out of 10 on a pain scale. Neuro: No deficits noted. Level of Consciousness is awake, alert, obeys commands, Oriented to person, place, time, situation. Cardiovascular: No deficits noted. Denies chest pain, Capillary refill < 3 seconds JVD is absent Patient's skin is warm and dry. Respiratory: No deficits noted. Airway is patent Trachea midline Respiratory effort is even, unlabored, Respiratory pattern is regular, tachypnea. GI: Abdomen is round Bowel sounds present X 4 quads. Abd is soft X 4 quads Abdomen is tender to palpation X 4 quads. Reports lower abdominal pain, upper abdominal pain. : No deficits noted. No signs and/or symptoms were reported regarding the genitourinary system. EENT: No deficits noted. No signs and/or symptoms were reported regarding the EENT system. Derm: No deficits noted. No signs and/or symptoms reported regarding the dermatologic system. Skin is intact, is healthy with good turgor, Skin is dry. Musculoskeletal: No deficits noted. No signs and/or symptoms reported regarding the musculoskeletal system. Circulation, motion, and sensation intact. Capillary refill < 3 seconds, Range of motion: intact in all extremities. 01/05 00:13 Reassessment: Patient appears in no apparent distress at this time. No changes from lg3 previously documented assessment. Patient and/or family updated on plan of care and expected duration. Pain level reassessed. Patient is alert, oriented x 3, equal unlabored respirations, skin warm/dry/pink. 02:13 Reassessment: Patient appears in no apparent distress at this time. No changes from lg3 previously documented assessment. Patient and/or family updated on plan of care and expected duration. Pain level reassessed. Patient is alert, oriented x 3, equal unlabored respirations, skin warm/dry/pink. Patient states feeling better. Patient states symptoms have improved. Vital Signs: 01/04 22:21 BP 150 / 75; Pulse 108; Resp 22; Temp 98.6; Pulse Ox 100% on R/A; Weight 62.6 kg; tw5 Height 5 ft. 10 in. (177.80 cm); Pain 10/10; 22:56 BP 158 / 106; Pulse 80; Resp 28 S; Pulse Ox 100% on R/A; lg3 23:30 BP 143 / 77; Pulse 92; Resp 22; Pulse Ox 100% on R/A; lg3 01/05 00:14 BP 142 / 80; Pulse 88; Resp 22; Pulse Ox 99% on R/A; lg3 02:13 BP 146 / 80; Pulse 101; Resp 16 S; Pain 4/10; lg3 03:00 BP 124 / 78; Pulse 98; Resp 17; Temp 98; Pulse Ox 100% on R/A; vc1 01/04 22:21 Body Mass Index 19.80 (62.60 kg, 177.80 cm) tw5 ED Course: 01/04 22:16 Patient arrived in ED. ja2 22:24 Triage completed. tw5 22:24 Arm band placed on left wrist. tw5 22:25 Patient has correct armband on for positive identification. tw5 22:29 Mala Mendoza FNP-C [facility]. kb 22:29 Kike Minor MD is Attending Physician. kb 22:45 Rosanna Wright, LUCY is Primary Nurse. vc1 22:54 phototypesetting equipment monitor on. Pulse ox on. NIBP on. Door closed. Noise minimized. Warm blanket lg3 given. 22:54 Inserted saline lock: 20 gauge in right antecubital area, using aseptic technique. lg3 Blood collected. 23:11 Blood Culture Adult (2) Sent. lg3 23:11 Procalcitonin Sent. lg3 23:11 Lactate Sent. lg3 23:11 Basic Metabolic Panel Sent. lg3 23:11 CBC with Diff Sent. lg3 23:11 Hepatic Function Sent. lg3 23:12 Lipase Sent. lg3 01/05 00:25 CT Abd/Pelvis - IV Contrast Only In Process Unspecified. EDMS 02:12 Lactate Sent. lg3 03:23 No provider procedures requiring assistance completed. IV discontinued, intact, lg3 bleeding controlled, No redness/swelling at site. Pressure dressing applied. Administered Medications: 01/04 22:51 Drug: NS 0.9% (30 ml/kg) 30 ml/kg Route: IV; Rate: bolus; Site: right antecubital; lg3 01/05 01:45 Follow up: IV Status: Completed infusion; IV Intake: 2000ml vc1 01/04 22:52 Drug: Dilaudid (HYDROmorphone) 1 mg Route: IVP; Site: right antecubital; lg3 22:53 Follow up: Response: No adverse reaction; RASS: Alert and Calm (0) lg3 22:52 Drug: Zofran (Ondansetron) 4 mg Route: IVP; Site: right antecubital; lg3 22:52 Follow up: Response: No adverse reaction 3 01/05 01:04 Drug: Dilaudid (HYDROmorphone) 1 mg Route: IVP; Site: right antecubital; lg3 01:05 Follow up: Response: No adverse reaction 3 01:05 Drug: Zofran (Ondansetron) 4 mg Route: IVP; Site: right antecubital; lg3 01:05 Follow up: Response: No adverse reaction 3 Intake: 01:45 IV: 2000ml; Total: 2000ml. vc1 Outcome: 02:58 Discharge ordered by . kb 03:17 Condition: good vc1 03:17 Discharged to home ambulatory. vc1 03:17 Discharge instructions given to patient, significant other, Instructed on discharge instructions, follow up and referral plans. medication usage, Demonstrated understanding of instructions, follow-up care, medications, Prescriptions given X 2. 03:18 Patient left the ED. vc1 03:23 Discharged to home ambulatory. lg3 03:23 Condition: stable Signatures: Dispatcher [employer] EDMS Mala Mendoza, AUTOMOTIVE GENERAL MANAGER-C ASHKAN-Laura Hu RN RN lg3 Alysia Arreguin Tiffany 5 Rosanna Wright RN RN vc1 Corrections: (The following items were deleted from the chart) 03:32 03:31 Condition: good vc1 vc1 03:33 03:32 Patient left the ED. vc1 vc1
[2022-01-05 03:59] VITALS: BP 124/78; TEMP 98; O2SAT 100
--- NOTE | 2022-01-05 21:32 | RAD REPORT ---
EXAM DESCRIPTION: Abdomen Pelvis W Contrast RadLex: CT ABDOMEN PELVIS WITH IV CONTRAST CLINICAL HISTORY: ABD PAIN. COMPARISON: CT of the abdomen and pelvis from December 12, 2021. TECHNIQUE: CT of the abdomen and pelvis was performed following intravenous administration of iodina alethea contrast. Arterial phase images through the abdomen, and portal venous phase images through the a bdomen and pelvis were obtained. Oral contrast was not administered. Axial, coronal, and sagittal sof t tissue window reconstructions were created and sent to PACS. This exam was performed according to our departmental dose-optimization program, which includes autom ated exposure control, adjustment of the mA and/or kV according to patient size and/or use of iterati ve reconstruction technique. FINDINGS: Thoracic: No significant abnormality. Hepatobiliary: No concerning hepatic lesion identified. The portal veins are patent. The gallbladder is surgically absent. No pathologic biliary ductal dilatation. Unchanged prominence of the common michelle e duct, measuring up to 1 cm in diameter, similar to prior, with smooth tapering towards the ampulla. Unchanged trace central intrahepatic biliary duct prominence. Findings are likely related to prior c holecystectomy. Pancreas: Unremarkable. Spleen: Unremarkable. Gastrointestinal: No evidence of bowel obstruction or perienteric inflammation. The appendix is julianne l. Small to moderate amount of fecal material throughout the colon. Adrenals: No abnormality identified in either adrenal gland. Renal: No concerning parenchymal abnormality in either kidney. No hydronephrosis or urolithiasis. Bladder/Reproductive: Unremarkable appearance of the urinary bladder by CT technique. Hysterectomy. Vascular/Lymphatics: No lymphadenopathy identified by CT size criteria. Abdominal aorta is normal in caliber. Moderate mixed atherosclerosis. Musculoskeletal: No concerning osseous lesion identified. Fluid / peritoneum: No significant free fluid. No free intraperitoneal air identified. IMPRESSION 1. No acute abnormality identified in the abdomen or pelvis by CT. 2. Unchanged mild biliary prominence, likely related to prior cholecystectomy. Consider correlation with LFTs. Electronically signed by: Tiffanie Leigh MD 01/05/2022 12:51 AM REGIONAL SALES DIRECTOR Due to temporary technical issues with the PACS/Fluency reporting system, reports are being signed by the in house radiologists without review as a courtesy to insure prompt reporting. The interpreting radiologist is fully responsible for the content of the report.
== END 2022-01-05 03:32 | disposition home or self-care (01) ==
LOC: ER 22:14
DX: R10.84 Generalized abdominal pain (principal); R11.2 Nausea with vomiting, unspecified; G20 Parkinson's disease; Z88.5 Allergy status to narcotic agent; Z86.718 Personal history of other venous thrombosis and embolism
CPT/HCPCS: 96365; 87040 ×2; 85025; 80048; 36415; 80076; 83605 ×2; 83690; 84145; 74177; 96375; 99284; 96366; Q9967; J1170 ×2; J7030; J2405 ×2

== ENCOUNTER 2022-04-12 16:29 | Emergency (ER) | payer OTHER ==
--- OUTSIDE RECORDS SUMMARY | 2022-04-12 16:32 | XMS REPORT | Continuity of Care Document ---
:1970 Author Organization [facility] t Address [address] [place] [address] Dr. [address]. [address] [place] [address] Care Team Providers Name Role Phone Dawson Primary Care Physician Jorje TODD Attending Clinician Unavailable Camryn SIGALA, S Attending Clinician Only, Test Attending Clinician Unavailable Sindhu SIGALA Attending Clinician Jose R Trinidad DO Attending Clinician Milana SIGALA, L Attending Clinician Jorje TODD Admitting Clinician Unavailable Camryn SIGALA, S Admitting Clinician Payers Payer Name Policy Type Policy Number Effective Date Expiration Date Jorje murphy [facility] [id number] 2016 00:00:00 PLUS Problems Condition Condition Condition Status Onset Resolution Last Treating Co mments Source Name Details Category Date Date Treatment Clinician Date Cerebrovas Cerebrovas Disease Active U nivers cular cular 8-15 ity of accident accident 00:00: [place] (CVA) (CVA) 00 Medical Branch Chronic Chronic Disease Active 2016- Univers anticoagul anticoagul 8-15 it y of ation ation 00:00: [place] 00 Medical Branch Epigastric Epigastric Disease Active 2016- U nivers pain pain 8-15 ity of 00:00: [place] 00 Medical Branch Essential Essential Disease Active Uni vers tremor tremor 8-15 ity of 00:00: [place] 00 Medical Branch Irritable Irritable Disease Active Uni vers bowel bowel 8-15 ity of syndrome syndrome 00:00: [place] with with 00 Medical constipati constipati Br anch on on Migraines Migraines Disease Active Uni vers 8-15 ity of 00:00: [place] [facility] Skin Skin Disease Active Univers lesion lesion 8-15 ity of 00:00: [place] 00 Medical Branch Unexplaine Unexplaine Disease Active U nivers d weight d weight 8-15 ity of loss loss 00:00: [place] 00 Medical Branch Skin Skin Disease Active [facility] cancer cancer 8-15 Health 00:00: 00 Hemangioma Hemangioma Disease Active 2011-11 U nivers 0-09 ity of 00:00: [place] 00 Medical Branch Other Other Disease Active 2011-11 Univers seborrheic seborrheic 0-09 it y of keratosis keratosis [place] No known No known Disease Unive rs active active ity of problems problems [facility] Allergies, Adverse Reactions, Alerts Allergy Allergy Status Severity Reaction(s) Onset Inactive Treating Comm ents Source Name Type Date Date Clinician MORPHINE DRUG Active N/V Univers INGREDI 7-06 ity of 00:00: [place] [facility] Morphine Propensi Active Nausea Univer s ty to and/or 06 ity of adverse Vomiting 00:00: [place] reaction 00 Medical s Branch Social History Social Habit Start Date Stop Date Quantity Comments Source Alcohol intake 2022-03-18 2022-03-18 Current University of 00:00:00 00:00:00 non-drinker of [facility] alcohol Branch (finding) Exposure to 2022-03-02 2022-03-12 Not sure [facility] SARS-CoV-2 00:00:00 16:40:00 [place] Medical (event) Branch Sex Ass[birth year] At [birth year] Universit y of 00:00:00 00:00:00 [facility] Smoking Status Start Date Stop Date Source Never smoker [facility] Branch Medications Ordered Filled Start Stop Current Ordering Indication Dosage Frequency Signature Comments Components Source Medication Medication Date Date Medication? Clinician (SIG) Name Name FENTanyl PF Yes 25ug 25 mcg, Uni vers (SUBLIMAZE 03-18 Slow IV ity of (PF)) 13:07: Push, [place] injection 57 Q5MIN PRN, Medi sea 25 mcg 4 doses, Branch Starting on Fri03/18/22 at 0807, Until Discontinu ed, Routine, Pain (scale 4-6), PACU ondansetron Yes 4mg 4 mg, Slow Univers (ZOFRAN 03-18 IV Push, ity of (PF)) 13:07: PRN, 1 [place] injection 4 57 dose, Medical mg Starting Branch on Fri03/18/22 at 0807, Until Discontinu ed, Routine, Nausea and Vomiting (N/V), PACU FENTanyl PF 2021- No 25ug 25 mcg, Un ra (SUBLIMAZE 03-18 Slow IV ity o f (PF)) 13:07: 16:00 Push, [place] injection 57 :24 Q5MIN PRN, Medi sea 25 mcg 4 doses, Branch Starting on Fri03/18/22 at 0807, Until Fri03/18/22 at 1100, Routine, Pain (scale 4-6), PACU ondansetron 2021- No 4mg 4 mg, Slow Univers (ZOFRAN 03-18 IV Push, ity of (PF)) 13:07: 16:00 PRN, 1 [place] injection 4 57 :24 dose, Medical mg Starting Branch on Fri03/18/22 at 0807, Until Fri03/18/22 at 1100, Routine, Nausea and Vomiting (N/V), PACU sodium 2021- No PRN, Univers chloride 03-18 Starting ity of 0.9 % 12:45: 13:59 on Fri [place] irrigation 00 :40 03/18/22 at Medi sea solution 0745, Branch Until Fri03/18/22 at 0859, Intra-op bupivacaine 2021-2021- No PRN, Unive rs -epinephrin 03-18 Starting ity of e-pf 12:45: 13:59 on Fri [place] (SENSORCAIN 00 :40 03/18/22 at Med ical E 0745, Branch W/EPINEPHRI Until Mon NE) 0.25 03/18/22 at %-1:200,000 0859, injection Routine, Intra-op lactated 2021-0 202- No 1000[facility] 5-09 05-09 mL/hr, ity of infusion 11:30: 12:04 1,000 mL, Bill as 1,000 mL 00 :00 IV Medical Infusion, Branch ONCE, 1 dose, On Fri03/18/22 at 0630, Routine, DSU Pre-op lactated 2021-0 2021- No 1000mL at 42 [facility] 5-09 05-09 mL/hr, ity of infusion 11:30: 12:04 1,000 mL, Bill as 1,000 mL 00 :00 IV Medical Infusion, Branch ONCE, 1 dose, On Fri03/18/22 at 0630, Routine, DSU Pre-op oxyCODONE 2021-0 Yes 20mg Take 20 mg Un ra C.R. 5-09 by mouth 2 ity of (OXYCONTIN) 09:00: (two) [place] 20 mg 12 hr 18 times Medical tablet daily. Branch tiZANidine 2021-0 Yes 4mg Take 4 mg Un ra (ZANAFLEX) 5-09 by mouth 2 ity of 4 mg 09:00: (two) [place] capsule 18 times Medical daily. As Branch needed gabapentin 2021-0 Yes 800mg Take 800 Un ra (NEURONTIN) 5-09 mg by ity of 800 mg 09:00: mouth 4 [place] tablet 18 (four) Medical times Branch daily. gemfibrozil 2021-0 Yes 600mg Take 600 U nivers (LOPID) 600 5-09 mg by ity of mg tablet 09:00: mouth [place] 18 daily. Medical Branch furosemide 2021-0 Yes 20mg Take 20 mg U nivers (LASIX) 20 5-09 by mouth 2 ity of mg tablet 09:00: (two) [place] 18 times Medical daily. As Branch needed propranolol 2-0 Yes 80mg Take 80 mg Univers (INDERAL) 5-09 by mouth ity of 80 mg 09:00: daily. [place] tablet 18 Medical Branch warfarin 2021-0 Yes 7.5mg Take 7.5 Univ ers (COUMADIN) 5-09 mg by ity of 7.5 mg 09:00: mouth [place] tablet 18 every Medical evening. Branch butalbital- 2021-0 Yes Take by Un ra acetaminoph 5-09 mouth. ity of en-caffeine 09:00: [place] 50-325-40-3 18 Medical 0 mg per Branch capsule dicyclomine 2021-0 Yes 20mg Take 20 mg Univers 20 mg -09 by mouth. ity of tablet 09:00: [place] 18 Medical Branch oxyCODONE 2021-0 Yes 20mg Take 20 mg Un ra C.R. 5-09 by mouth 2 ity of (OXYCONTIN) 09:00: (two) [place] 20 mg 12 hr 18 times Medical tablet daily. Branch tiZANidine 2021-0 Yes 4mg Take 4 mg Un ra (ZANAFLEX) 03-18 by mouth 2 ity of 4 mg 09:00: (two) [place] capsule 18 times Medical daily. As Branch needed gabapentin 2021-0 Yes 800mg Take 800 Un ra (NEURONTIN) 5-09 mg by ity of 800 mg 09:00: mouth 4 [place] tablet 18 (four) Medical times Branch daily. gemfibrozil 2021-0 Yes 600mg Take 600 U nivers (LOPID) 600 5-09 mg by ity of mg tablet 09:00: mouth [place] 18 daily. Medical Branch furosemide 2021-0 Yes 20mg Take 20 mg U nivers (LASIX) 20 09 by mouth 2 ity of mg tablet 09:00: (two) [place] 18 times Medical daily. As Branch needed propranolol 2021-0 Yes 80mg Take 80 mg Univers (INDERAL) 03-18 by mouth ity of 80 mg 09:00: daily. [place] tablet 18 Medical Branch warfarin 2021-0 Yes 7.5mg Take 7.5 Univ ers (COUMADIN) 5-09 mg by ity of 7.5 mg 09:00: mouth [place] tablet 18 every Medical evening. Branch butalbital- 2021-0 Yes Take by Un ra acetaminoph -09 mouth. ity of en-caffeine 09:00: [place] 50-325-40-3 18 Medical 0 mg per Branch capsule dicyclomine 2021-0 Yes 20mg Take 20 mg Univers 20 mg -09 by mouth. ity of tablet 09:00: [place] 18 Medical Branch oxyCODONE 2021-0 Yes 20mg Take 20 mg Un ra C.R. 5-03 by mouth 2 ity of (OXYCONTIN) 16:37: (two) [place] 20 mg 12 hr 18 times Medical tablet daily. Branch propranolol 2021-0 Yes 80mg Take 80 mg Univers (INDERAL) 5-03 by mouth ity of 80 mg 16:37: daily. [place] tablet 18 Medical Branch warfarin 2021-0 Yes 7.5mg Take 7.5 Univ ers (COUMADIN) 5-03 mg by ity of 7.5 mg 16:37: mouth [place] tablet 18 every Medical evening. Branch tiZANidine 2021-0 Yes 4mg Take 4 mg Un ra (ZANAFLEX) 5-03 by mouth 2 ity of 4 mg 16:37: (two) [place] capsule 17 times Medical daily. As Branch needed gabapentin 2021-0 Yes 800mg Take 800 Un ra (NEURONTIN) 5-03 mg by ity of 800 mg 16:37: mouth 4 [place] tablet 17 (four) Medical times Branch daily. gemfibrozil 2021-0 Yes 600mg Take 600 U nivers (LOPID) 600 5-03 mg by ity of mg tablet 16:37: mouth [place] 17 daily. Medical Branch furosemide 2021-0 Yes 20mg Take 20 mg U nivers (LASIX) 20 5-03 by mouth 2 ity of mg tablet 16:37: (two) [place] 17 times Medical daily. As Branch needed DULoxetine 2021-0 Yes 60mg Take 60 mg U nivers 60 mg 4-26 by mouth ity of capsule 00:00: daily. [place] Medical Branch topiramate 2021-0 Yes 100mg Take 100 Un ra 100 mg 4-26 mg by ity of tablet 00:00: mouth 2 [place] 00 (two) Medical times Branch daily. DULoxetine 2-0 Yes 60mg Take 60 mg U nivers 60 mg 4-26 by mouth ity of capsule 00:00: daily. Medical Branch topiramate 2021-0 Yes 100mg Take 100 Un ra 100 mg 4-26 mg by ity of tablet 00:00: mouth 2 [place] 00 (two) Medical times Branch daily. fludrocorti 2021-0 Yes .1mg Take 0.1 Un ra sone 0.1 mg 4-19 mg by ity of tablet 00:00: mouth [place] 00 daily. Medical Branch fludrocorti 0 Yes .1mg Take 0.1 Un ra sone 0.1 mg 4-19 mg by ity of tablet 00:00: mouth [place] 00 daily. Medical Branch Hydrocodone 0 Yes TAKE 1 Univ ers -Acetaminop 4-15 TABLET ity of hen 7.5-300 00:00: TWICE A [place] mg tablet 00 DAY Medical NEEDED FOR Branch 28 DAY(S) Hydrocodone 0 Yes TAKE 1 Univ ers -Acetaminop 4-15 TABLET ity of hen 7.5-300 00:00: TWICE A [place] mg tablet 00 DAY Medical NEEDED FOR Branch 28 DAY(S) mesalamine Yes TAKE 2 Unive rs 400 mg cdti 4-09 CAPSULES ity of 00:00: BY MOUTH [place] 00 TWICE Medical DAILY Branch mesalamine 2021-0 Yes TAKE 2 Unive rs 400 mg cdti 4-09 CAPSULES ity of 00:00: BY MOUTH [place] 00 TWICE Medical DAILY Branch carbidopa-l 2021-0 Yes TAKE 1 Univ ers evodopa 4-08 TABLET BY ity of 25-100 mg 00:00: MOUTH [place] tablet 00 TWICE Medical DAILY Branch ALPRAZolam 2021-0 Yes TAKE 1 Unive rs 2 mg tablet 4-08 TABLET BY ity of 00:00: MOUTH [place] 00 EVERY DAY Medical NEEDED Branch FOR ANXIETY carbidopa-l 2021-0 Yes TAKE 1 Univ ers evodopa 4-08 TABLET BY ity of 25-100 mg 00:00: MOUTH [place] tablet 00 TWICE Medical DAILY Branch ALPRAZolam 2021-0 Yes TAKE 1 Unive rs 2 mg tablet 4-08 TABLET BY ity of 00:00: MOUTH [place] 00 EVERY DAY Medical NEEDED Branch FOR ANXIETY ondansetron 2021-0 Yes TAKE 1 Univ ers 4 mg 2-28 TABLET BY ity of disintegrat 00:00: MOUTH [place] ing tablet 00 EVERY 8 Medica l HOURS Branch NEEDED ondansetron 2021-0 Yes TAKE 1 Univ ers 4 mg 2-28 TABLET BY ity of disintegrat 00:00: MOUTH [place] ing tablet 00 EVERY 8 Medica l HOURS Branch NEEDED levETIRAcet 2021-0 Yes 250mg Take 250 U nivers am 250 mg 2-24 mg by ity of tablet 00:00: mouth 2 [place] 00 (two) Medical times Branch daily. levETIRAcet 0 Yes 250mg Take 250 U nivers am 250 mg 2-24 mg by ity of tablet 00:00: mouth 2 [place] 00 (two) Medical times Branch daily. traMADol 50 2018-11 Yes [id number] 50mg Take 1 Univers mg tablet 12-31 [id number] tablet by ity of 00:00: mouth [place] 00 every 6 Medical (six) Branch hours as needed for Pain (scale 7-10). traMADol 50 2018-11 Yes [id number] 50mg Take 1 Univers mg tablet - [id number] tablet by ity of 00:00: mouth [place] 00 every 6 Medical (six) Branch hours as needed for Pain (scale 7-10). traMADol 50 2018-11 Yes [id number] 50mg Take 1 Univers mg tablet 12-31 000413 tablet by ity of 00:00: mouth [place] 00 every 6 Medical (six) Branch hours as needed for Pain (scale 7-10). triamcinolo 2017-11 Yes Apply to U nivers [...] % cream 00 times Medical daily. Branch cephALEXin 2016-11 Yes 500mg Take 1 Univ [...] 00 (two) Medical times Branch daily. propranolol 2017-0 Yes 80mg Q.5D Take 80 mg [place] (INDERAL) 8-15 by mouth 2 Heal th 80 mg 11:59: times tablet 13 daily. topiramate 2017-0 Yes 50mg QD Take 50 mg H arris (TOPAMAX) 8-15 by mouth Health 50 mg 11:59: daily. tablet 13 ESOMEPRAZOL 20170 Yes Take by Sae ris E MAGNESIUM 8-15 mouth. Health (NEXIUM OR) 11:59: 13 tiZANidine 2017-0 Yes 4mg Take 4 mg Tellez rris (ZANAFLEX) 8-15 by mouth Healt h 4 mg tablet 11:59: every 6 13 hours as needed for Muscle Spasms. DULoxetine 2017-0 Yes 60mg QD Take 60 mg H arris (CYMBALTA) 8-15 by mouth Healt h 60 mg 11:59: daily. delayed 13 release capsule oxyCODONE 20170 Yes 20mg Take 20 mg [facility] r[facility] (OXYCONTIN) 8-15 by mouth Heal th 20 mg 11:59: as needed extended 13 for Pain. release tablet warfarin 0 Yes 10mg QD Take 10 mg Sae [...] Time Observation Value Comments Source Systolic blood 2022-03-18 13:35:00 132 mm[Hg] [facility]iver [facility] Diastolic blood 2022-03-18 13:35:00 65 mm[Hg] [facility] Heart rate 2022-03-18 13:35:00 95 /min [facility] Respiratory rate 2022-03-18 13:35:00 16 /min [facility] O[facility] saturation in 2022-03-18 13:35:00 100 /min [facility] Arterial blood by [facility] Pulse oximetry Branch Body temperature 2022-03-18 13:10:00 36.11 Jerilyn [facility] ers[facility] [place] [facility] [place] Body height 2022-03-04 13:44:00 177.8 cm Universi ty of [place] [facility] Body weight 2022-03-04 13:44:00 77.1 kg Universi ty of [place] [facility] BMI 2022-03-04 13:44:00 24.39 kg/m2 Universi ty of [facility] Branch Systolic blood 2022-03-18 13:25:00 111 mm[Hg] Univer sity of pressure [facility] Diastolic blood 2022-03-18 13:25:00 68 mm[Hg] Unive rsity of pressure [facility] Heart rate 2022-03-18 13:25:00 83 /min Universi ty of [facility] Respiratory rate 2022-03-18 13:25:00 10 /min [facility] Oxygen saturation in 2022-03-18 13:25:00 100 /min [facility] Arterial blood by [facility] Pulse oximetry Branch Body temperature 2022-03-18 13:10:00 36.11 [facility] ersity of [facility] Body height 2022-03-04 13:44:00 177.8 cm Universi ty of [place] [facility] [place] Body weight 2022-03-04 13:44:00 77.1 kg Universi ty of [facility] Branch BMI 2022-03-04 13:44:00 24.39 kg/m2 [facility] ty [facility] Procedures Procedure Date / Time Performing Clinician Source Performed INTRATHECAL INFUSION 2022-03-18 12:13:00 [facility] PUMP REVISION Medical Branch COVID-19 (ID NOW RAPID 2022-03-15 15:23:00 [facility] EXTERNAL PROVIDER 2022-02-26 05:01:00 Doctor Unassigned, No [facility] Medical Branch EXTERNAL PROVIDER 2022-02-26 05:01:00 Doctor Unassigned, No [facility] Branch Plan of Care Planned Activity Planned Date Details Comments Source Future Scheduled Test 2021-08-10 00:00:00 IMM Influenza [facility] Seasonal Aug to January (>/= 19 yrs) [code = IMM Influenza Seasonal Aug to January (>/= 19 yrs)] Future Scheduled Test 2018 00:00:00 Screening for [facility] malignant neoplasm of colon (procedure) [code = 026971493] Future Scheduled Test 2008 00:00:00 Breast Cancer Scrn [facility] (Yearly) [code = Breast Cancer Scrn (Yearly)] Future Scheduled Test 1998 00:00:00 Screening for [facility] malignant neoplasm of cervix (procedure) [code = 555858387] Future Scheduled Test 1998 00:00:00 Screening for [facility] malignant neoplasm of cervix (procedure) [code = 542774355] Future Scheduled Test 1980 00:00:00 COVID-19 Vaccine (1) [facility] [code = COVID-19 Vaccine (1)] Encounters Start End Encounter Admission Attending Care Care Encounter Source Date/Time Date/Time Type Type Clinicians Facility Department ID 2022-03-18 2022-03-18 Outpatient R [facility] ANS [id number] Univers 06:27:00 08:45:00 CROW ity [facility] 2022-03-18 2022-03-18 [facility] [id number] Univers 06:27:00 08:45:00 Encounter Crow RAYA [id number] ity [id number] [id number] [facility] 071 Branch 2022-03-18 2022-03-18 Surgery [facility] [id number] Univers 07:15:00 08:25:00 Crow RAAY [id number] [id number] [id number] [facility] 020 Branch 2022-03-15 2022-03-15 Laboratory Only, Adc Test [facility] [id number] Univers 11:00:00 11:15:00 Only Ludwigadolfo Mario ELVER [id number] [id number] [id number] [facility] 353 Branch 2021-01-30 2021-01-30 [facility] [id number] 00:00:00 00:00:00 Outreach [facility] [id number] [facility] [id number] JUDI [id number] 2019-11-01 2019-11-01 Office Milana [facility] [id number] 11:25:11 11:51:37 Visit [facility] [id number] Surgical [id number] Special [id number] [employer] 2017-11-18 2017-11-18 Outpatient [facility] [id number] [place] 00:00:00 00:00:00 Health 2017-07-22 2017-07-22 Outpatient [facility] [id number] [place] 00:00:00 00:00:00 Health 2017-06-24 2017-06-24 Outpatient [facility] [id number] [place] 12:34:43 12:34:43 Health 2017-06-24 2017-06-24 Outpatient [facility] [id number] [place] 10:24:55 10:24:55 Health Results This patient has no known results.
[2022-04-12] MEDS ORDERED: LORazepam 2 MG/ML VIAL ONE (16:51)
[2022-04-12] MEDS ORDERED: NA CHLORIDE 0.9% 1,000 ML ONE (16:52)
--- NOTE | 2022-04-12 17:01 | RAD REPORT ---
EXAM DESCRIPTION: RAD - Chest Single View - 04/12/2022 4:52 pm CLINICAL HISTORY: fall Chest pain. COMPARISON: Abdomen 1 View (KUB) dated 05/09/2021; Chest Single View dated 09/18/2020; Chest Pa And La t (2 Views) dated 04/23/2020; Chest Single View dated 01/17/2020 FINDINGS: Portable technique limits examination quality. The lungs are grossly clear. The heart is normal in size. No displaced fractures.Cervical hardware pl ate. IMPRESSION: No acute intrathoracic process suspected.
[2022-04-12 17:03] LABS: Absolute Lymphocytes (CBC) 1.9 K/uL (0.7-4.9); Lymphocytes % 42.6 % (15.3-44.8); MPV 8.1 fL (7.6-11.3); RBC Red Blood Cell Count 4.13 M/uL (3.86-4.86)
[2022-04-12 17:05] LABS: Protime INR 1.03
--- NOTE | 2022-04-12 17:09 | RAD REPORT ---
EXAM DESCRIPTION: CT - CTHCSPWOC - 04/12/2022 4:59 pm CLINICAL HISTORY: Trauma, head and neck injury. fall COMPARISON: CT MYELOGRAM CERVICAL dated 02/24/2013; SOFT TISSUE NECK W CONTRAST dated 09/16/2011 TECHNIQUE: Axial 5 mm thick images of the head were obtained. Axial 2 mm thick images of the cervical spine were obtained with sagittal and coronal reconstruction images generated and reviewed. All CT scans are performed using dose optimization technique as appropriate and may include automated exposure control or mA/KV adjustment according to patient size. FINDINGS: CT HEAD WITHOUT CONTRAST: No acute hemorrhage, hydrocephalus or extra-axial collection is identified.No areas of brain edema or midline shift. The paranasal sinuses and mastoids are clear.The calvarium is intact. CT CERVICAL SPINE WITHOUT CONTRAST: No fracture or subluxation.Bony fusion with hardware in place lower cervical levels.No prevertebral s oft tissues swelling is identified. IMPRESSION: No acute intracranial or cervical spine findings.
[2022-04-12 17:26] LABS: ALT/SGPT 11 U/L (12-78); AST/SGOT 12 U/L (15-37); Albumin 3.8 g/dL (3.4-5.0); Alkaline Phosphatase 83 U/L (45-117); BUN Blood Urea Nitrogen 13 mg/dL (7-18); Bicarbonate 22 mmol/L (21-32); Bilirubin Total 0.3 mg/dL (0.2-1.0); Glomerular Filtration Rate 64 ml/min (=/>90); Glucose Level 97 mg/dL (74-106); Magnesium 2.3 mg/dL (1.8-2.4); Potassium 4.4 mmol/L (3.5-5.1); Protein, Total 7.3 g/dL (6.4-8.2); Sodium Level 146 mmol/L (136-145)
[2022-04-12 17:41] LABS: Bilirubin Direct < 0.1 mg/dL (0-0.2); Troponin High Sensitivity < 3.0 pg/mL (<58.9)
--- NOTE | 2022-04-12 19:22 | ER ---
Nurse's Notes [facility] Name: Savanna San Age: 51 yrs Sex: Female : 1970 Arrival Date: 04/12/2022 Time: 16:31 Bed 13 Private MD: Diagnosis: Fall on same level from slipping, tripping and stumbling without subsequent striking against object;Contusion of unspecified part of head, initial encounter Presentation: 04/12 16:31 Chief complaint: Patient states: pt presented to ED with syncope, fall, head injury billings unknown LOC time. pt reported pain in back on head. Coronavirus screen: Vaccine status: Patient reports being unvaccinated. Ebola Screen: Patient denies travel to an Ebola-affected area in the 21 days before illness onset. Initial Sepsis Screen: Does the patient meet any 2 criteria? No. Patient's initial sepsis screen is negative. Does the patient have a suspected source of infection? No. Patient's initial sepsis screen is negative. Risk Assessment: Do you want to hurt yourself or someone else? Patient reports no desire to harm self or others. Onset of symptoms was April 12, 2022. 16:31 Method Of Arrival: EMS: [facility] billings 16:31 Acuity: MARIJA 3 billings Triage Assessment: 17:10 General: Appears in no apparent distress. comfortable, Behavior is calm, cooperative. ap3 Pain: Denies pain. Neuro: Level of Consciousness is awake, alert, obeys commands, Oriented to person, place, time, situation, Appropriate for age Gait is shuffling. Cardiovascular: Patient's skin is warm and dry. Respiratory: Airway is patent Respiratory effort is even, unlabored, Respiratory pattern is regular, symmetrical. GI: Reports nausea. FABRIC SOURCER: 19:45 LMP N/A - Irregular menses vc1 Historical: - Allergies: 17:11 Morphine; ap3 - PMHx: 17:11 apryl disease; CVA- Left sided weakness; Headaches; DVT; Irritable bowel syndrome; ap3 Nerve Damage +DDD; Parkinsons; Seizures; tremors; - Immunization history:: Client reports receiving the 2nd dose of the Covid vaccine. - Social history:: Smoking status: Patient reports the use of cigarette tobacco products, Patient denies any tobacco usage or history of. Screenin:09 Abuse screen: Denies threats or abuse. Nutritional screening: No deficits noted. ap3 Tuberculosis screening: No symptoms or risk factors identified. Fall Risk Fall in past 12 months (25 points). Secondary diagnosis (15 points) impaired mobility, IV access (20 points). Ambulatory Aid- None/Bed Rest/Nurse Assist (0 pts). Gait- Impaired (20 pts.). Mental Status- Oriented to own ability (0 pts). Total Cruz Fall Scale indicates High Risk Score (45 or more points). Fall prevention measures have been instituted. Side Rails Up X 2 Placed Close to Nursing Station Frequent Obs/Assessments Occuring Family Present and informed to notify staff if the need to leave the bedside As available patient and family educated on Fall Prevention Program and Strategies. Assessment: 17:46 Reassessment: Patient and/or family updated on plan of care and expected duration. Pain ap3 level reassessed. Patient is alert, oriented x 3, equal unlabored respirations, skin warm/dry/pink. General: Appears in no apparent distress. comfortable, Behavior is calm, cooperative. Neuro: Level of Consciousness is awake, alert, obeys commands, Oriented to person, place, time, situation. 18:24 Reassessment: Patient and/or family updated on plan of care and expected duration. Pain ap3 level reassessed. Patient is alert, oriented x 3, equal unlabored respirations, skin warm/dry/pink. patient resting, eyes closed. respirations are even and unlabored. no signs of distress at this time. is at the patients bedside. 19:27 Reassessment: No changes from previously documented assessment. Patient and/or family vc1 updated on plan of care and expected duration. Pain level reassessed. Patient is alert, oriented x 3, equal unlabored respirations, skin warm/dry/pink. Patient states feeling better. Vital Signs: 16:31 BP 110 / 72; Pulse 84; Resp 17; Temp 98.9; Pulse Ox 100% ; Weight 63.5 kg; Height 5 ft. billings 4 in. (162.56 cm); 18:24 BP 110 / 72; Pulse 81; Pulse Ox 100% ; ap3 19:27 BP 92 / 63; Pulse 63; Resp 16; Pulse Ox 100% ; vc1 16:31 Body Mass Index 24.03 (63.50 kg, 162.56 cm) billings ED Course: 16:31 Patient arrived in ED. billings 16:31 Francisco Pepe PA is PHCP. cp 16:31 Francisco Medina MD is Attending Physician. cp 16:33 Triage completed. billings 16:54 XRAY Chest (1 view) In Process Unspecified. EDMS 16:55 Oneida Gonzalez, RN is Primary Nurse. ap3 17:01 CT Head C Spine In Process Unspecified. EDMS 17:11 Arm band placed on right wrist. ap3 17:12 Patient has correct armband on for positive identification. Bed in low position. Call ap3 light in reach. Side rails up X2. Adult w/ patient. threat monitoring analyst on. Pulse ox on. NIBP on. Door closed. Noise minimized. Warm blanket given. 17:46 EKG done, by ED staff, reviewed by Francisco NUNEZ. ap3 19:27 No provider procedures requiring assistance completed. vc1 19:45 IV discontinued, intact, bleeding controlled, No redness/swelling at site. Pressure vc1 dressing applied. Administered Medications: 16:41 CANCELLED (Physician Discretion): Ativan (LORazepam) 1 mg IVP once cp 16:55 Drug: Ativan (LORazepam) 0.5 mg Route: IVP; Site: right antecubital; ap3 17:15 Follow up: Response: No adverse reaction ap3 16:56 Drug: NS 0.9% 500 ml Route: IV; Rate: bolus; Site: right antecubital; ap3 Outcome: 19:22 Discharge ordered by . cp 19:45 Discharged to home via wheelchair, with significant other. vc1 19:45 Condition: good 19:45 Instructed on discharge instructions, follow up and referral plans. 19:45 Patient left the ED. vc1 Signatures: Dispatcher [employer] EDMS Francisco Pepe PA PA cp Prokisch, Amanda, RN RN ap3 Au-StagerAlma RN Rosanna Bhatt RN RN vc1
--- NOTE | 2022-04-12 19:23 | EDPHYS ---
Physician Documentation [facility] Name: Savanna San Age: 51 yrs Sex: Female : 1970 Arrival Date: 04/12/2022 Time: 16:31 Bed 13 Private MD: ED Physician Francisco Medina HPI: 04/12 16:45 This 51 yrs old Female presents to ER via EMS with complaints of Fall. cp 16:45 Details of fall: The patient fell from an upright position, while standing, and struck cp a tile surface. Onset: The symptoms/episode began/occurred just prior to arrival. 16:45 Associated injuries: The patient sustained injury to the head, pain. cp 16:45 Patient reportedly fell backward while standing in kitchen and hit head. EMS reports cp brief LOC. 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 - Social history:: Smoking status: Patient reports the use of cigarette tobacco products, Patient denies any tobacco usage or history of. ROS: 16:50 Constitutional: Negative for body aches, chills, fever, poor PO intake. cp 16:50 Eyes: Negative for injury, pain, redness, and discharge. cp 16:50 ENT: Negative for drainage from ear(s), ear pain, sore throat, difficulty swallowing, difficulty handling secretions. 16:50 Neck: Negative for pain with movement, pain at rest, stiffness. 16:50 Cardiovascular: Negative for chest pain. 16:50 Respiratory: Negative for cough, shortness of breath, wheezing. 16:50 Abdomen/GI: Negative for abdominal pain, vomiting, diarrhea, constipation. 16:50 Neuro: Positive for headache, Negative for altered mental status, seizure activity, weakness. 16:50 All other systems are negative. Exam: 16:55 Constitutional: The patient appears in no acute distress, alert, awake, cp non-diaphoretic, non-toxic, well developed, well nourished, anxious. 16:55 Head/Face: Normocephalic, atraumatic. cp 16:55 Eyes: Periorbital structures: appear normal, Pupils: equal, round, and reactive to cp light and accomodation, Conjunctiva: normal, no exudate, no injection, Sclera: no appreciated abnormality, Lids and lashes: appear normal, bilaterally. 16:55 ENT: External ear(s): are unremarkable, Nose: is normal, Mouth: Lips: moist, Oral mucosa: pink and intact, moist, Posterior pharynx: Airway: no evidence of obstruction, patent. 16:55 Neck: C-spine: vertebral tenderness, is not appreciated, crepitus, is not appreciated. 16:55 Chest/axilla: Inspection: normal. 16:55 Cardiovascular: Rate: tachycardic, Rhythm: regular, JVD: is not appreciated. 16:55 Respiratory: the patient does not display signs of respiratory distress, Respirations: normal, no use of accessory muscles, no retractions, labored breathing, is not present, Breath sounds: are clear throughout, no decreased breath sounds, no stridor, no wheezing. 16:55 Abdomen/GI: Inspection: abdomen appears normal, Palpation: abdomen is soft and non-tender, in all quadrants. 16:55 Back: vertebral tenderness, is not appreciated. 16:55 Neuro: Orientation: to person, situation, Mentation: able to follow commands, Motor: no acute changes, moves all fours. 17:46 ECG was reviewed by the Attending Physician. Vital Signs: 16:31 BP 110 / 72; Pulse 84; Resp 17; Temp 98.9; Pulse Ox 100% ; Weight 63.5 kg; Height 5 ft. billings 4 in. (162.56 cm); 18:24 BP 110 / 72; Pulse 81; Pulse Ox 100% ; ap3 19:27 BP 92 / 63; Pulse 63; Resp 16; Pulse Ox 100% ; vc1 16:31 Body Mass Index 24.03 (63.50 kg, 162.56 cm) billings MDM: 16:32 Patient medically screened. [facility] 19:20 Data reviewed: vital signs, nurses notes, lab test result(s), EKG, radiologic studies, cp CT scan, plain films. 19:20 Test interpretation: by ED physician or midlevel provider: ECG, plain radiologic cp studies. Response to treatment: the patient's symptoms have markedly improved after treatment, and as a result, I will discharge patient. 19:21 Special discussion: Based on the patient's history, exam and DX evaluation, there is no cp indication for emergent intervention or inpatient TX. It is understood by the patient/guardian that if the SXs persist or worsen they need to return immediately for re-evaluation. 06/ 16:39 Order name: Basic Metabolic Panel; Complete Time: 18:10 cp 06/03 18:10 Interpretation: Normal except: NA 146; CL 114; GFR 64. cp 06/03 16:39 Order name: CBC with Diff; Complete Time: 17:17 cp 06/03 16:39 Order name: LFT's; Complete Time: 18:10 cp 06/03 18:10 Interpretation: Normal except: AST 12; ALT 11. cp 06/ 16:39 Order name: Magnesium; Complete Time: 18:10 cp / 16:39 Order name: PT-INR; Complete Time: 17:17 cp / 16:39 Order name: Troponin HS; Complete Time: 18:10 cp /03 16:39 Order name: XRAY Chest (1 view); Complete Time: 17:17 cp 06/03 18:10 Interpretation: Report review. cp 06 16:39 Order name: EKG; Complete Time: 16:40 cp /03 16:39 Order name: CT Head C Spine; Complete Time: 17:17 cp 06/03 17:17 Interpretation: Reviewed report. cp 06/03 16:39 Order name: Cardiac monitoring; Complete Time: 17:46 cp /03 16:39 Order name: EKG - Nurse/Tech; Complete Time: 17:46 cp /03 16:39 Order name: IV Saline Lock; Complete Time: 16:56 cp 06/03 16:39 Order name: Labs collected and sent; Complete Time: 16:56 cp 06/03 16:39 Order name: O2 Per Protocol; Complete Time: 16:56 cp 06/03 16:39 Order name: O2 Sat Monitoring; Complete Time: 16:56 cp EC:46 Rate is 77 beats/min. Rhythm is regular. MT interval is normal. QRS interval is normal. cp QT interval is normal. T waves are Inverted in lead aVR. Interpreted by me. Reviewed by me. Administered Medications: 16:41 CANCELLED (Physician Discretion): Ativan (LORazepam) 1 mg IVP once cp 16:55 Drug: Ativan (LORazepam) 0.5 mg Route: IVP; Site: right antecubital; ap3 17:15 Follow up: Response: No adverse reaction ap3 16:56 Drug: NS 0.9% 500 ml Route: IV; Rate: bolus; Site: right antecubital; ap3 Disposition Summary: 04/12/22 19:22 Discharge Ordered Location: Home cp Problem: new cp Symptoms: have improved cp Condition: Stable cp Diagnosis - Fall on same level from slipping, tripping and stumbling without subsequent cp striking against object - Contusion of unspecified part of head, initial encounter cp Followup: cp - With: Private Physician - When: 1 - 2 days - Reason: Recheck today's complaints Discharge Instructions: - Facial or Scalp Contusion cp - Head Injury, Adult cp - Discharge Summary Sheet ap3 - Fall Prevention in the Home, Adult cp Forms: - Medication Reconciliation Form cp - Thank You Letter cp - SBAR form ap3 - Antibiotic Education cp - Prescription Opioid Use cp Signatures: Dispatcher [employer] EDMS Francisco Medina MD MD cha Page, Corey, PA PA cp Oneida Gonzalez RN RN ap3 Corrections: (The following items were deleted from the chart) 16:41 16:39 Ativan (LORazepam) 1 mg IVP once ordered. cp cp
[2022-04-12 19:55] VITALS: TEMP 98.9; O2SAT 100
[2022-04-12 20:15] VITALS: BP 92/63
--- NOTE | 2022-04-14 12:53 | EKG ---
Test Date: 2022-04-12 Test Time: 17:41:19 [employer]ian Blind Tape Cutter: ALP MEASUREMENT RESULTS: Intervals: Rate: 77 AR: 162 QRSD: 72 QT: 410 QTc: 463 [place]: P: 49 AR: 162 QRS: 73 T: 78 INTERPRETIVE STATEMENTS: Normal sinus rhythm Normal ECG Compared to ECG 09/21/2020 16:01:48 Supraventricular tachycardia no longer present ST (T wave) deviation no longer present Possible ischemia no longer present Electronically Signed On 04-14-22 12:52:01 CDT by Leo Skaggs
== END 2022-04-12 19:45 | disposition home or self-care (01) ==
LOC: ER 16:29
DX: S00.83XA Contusion of other part of head, initial encounter (principal); W01.0XXA Fall on same level from slipping, tripping and stumbling without subsequent striking against object, initial encounter; Z72.0 Tobacco use; Z88.5 Allergy status to narcotic agent; G20 Parkinson's disease
CPT/HCPCS: 93005; 85025; 80048; 36415; 83735; 85610; 80076; 84484; 70450; 72125; 71045; 96374; 99284; J7040

== ENCOUNTER 2023-09-22 17:40 | Observation (INO) | payer OTHER ==
--- OUTSIDE RECORDS SUMMARY | 2023-09-22 17:54 | XMS REPORT | Continuity of Care Document ---
:1970 Author Organization [facility] t Address [address] [place] [place] [address] Care Team Providers Name Role Phone Timothy Dawson Primary Care Physician CROW TODD Attending Clinician Unavailable Crow Todd MD Attending Clinician Only, Adc Test Attending Clinician Unavailable Néstor Waite MD Attending Clinician NÉSTOR WAITE Attending Clinician Unavailable Doctor Unassigned, [place] Attending Clinician Unavailable Christopher Trinidad DO Attending Clinician Rafael Cortés MD Attending Clinician JODY SCHUSTER Attending Clinician Unavailable CROW TODD Admitting Clinician Unavailable Crow Todd MD Admitting Clinician JODY SCHUSTER Admitting Clinician Unavailable Payers Payer Name Policy Type Policy Number Effective Date Expiration Date Jorje murphy [facility] ACACIA GLORIA [id number] 2016 00:00:00 PLUS Problems Condition Condition Condition Status Onset Resolution Last Treating Co mments Source Name Details Category Date Date Treatment Clinician Date Irritable Irritable Disease Active [facility] bowel bowel 8-15 Health syndrome syndrome 00:00: with with 00 constipati constipati on on Cerebrovas Cerebrovas Disease Active H [facility] cular cular 15 Health accident accident 00:00: (CVA) (CVA) 00 Migraines Migraines Disease Active Sae ris 8-15 Health 00:00: 00 Skin Skin Disease Active [facility] cancer cancer 8-15 Health 00:00: 00 Unexplaine Unexplaine Disease Active H [facility] d weight d weight 15 Health loss loss 00:00: 00 Epigastric Epigastric Disease Active [facility] pain pain 815 Health 00:00: 00 Skin Skin Disease Active [facility] lesion lesion 15 Health 00:00: 00 Chronic Chronic Disease Active [facility] anticoagul anticoagul 815 He alth ation ation 00:00: 00 Essential Essential Disease Active [facility] ris tremor tremor 15 Health 00:00: 00 Hemangioma Hemangioma Disease Active 2011-11 U nivers 0 ity of 00:00: [place] [address] Medical Branch Other Other Disease Active 2011-11 Univers seborrheic seborrheic 0 it [place] keratosis ker[place] No known No known Disease Unive rs active active ity of problems problems [facility] Allergies, Adverse Reactions, Alerts Allergy Allergy Status Severity Reaction(s) Onset Inactive Treating Comm ents Source Name Type Date Date Clinician MORPHINE DRUG Active N/V Univers INGREDI 05-15 ity of 00:00: [place] [address] Medical [place] Morphine Propensi Active Nausea Univer s ty to and/or 05-15 ity of adverse Vomiting 00:00: [place] reaction Medical s Branch Social History Social Habit Start Date Stop Date Quantity Comments Source Sexual orientation [facility] Gender identity Tao Collier alth Alcohol intake 2022-03-18 2022-03-18 Current University of 00:00:00 00:00:00 non-drinker of [facility] alcohol Branch (finding) Exposure to 2022-03-02 2022-03-12 Not sure University SARS-CoV-2 (event) 00:00:00 16:40:00 [facility] History of Social 2017-07-15 2017-07-15 [facility] function 00:00:00 00:00:00 Sex [birth year] At [birth year] EYAD Vick 00:00:00 00:00:00 [facility] Smoking Status Start Date Stop Date Source Never smoker [facility] Medications Ordered Filled Start Stop Current Ordering Indication Dosage Frequency Signature Comments Components Source Medication Medication Date Date Medication? Clinician (SIG) Name Name warfarin 0 Yes 10mg QD Take 10 mg Sae ris (COUMADIN) -03 by mouth Healt h 10 mg 06:18: daily. tablet 10 dicyclomine 2022-0 Yes 20mg Take 20 mg [facility] (BENTYL) 20 -03 by mouth 4 He alth mg tablet 06:18: times 10 daily. gabapentin 2022-0 Yes 800mg Take 800 T[facility]z r[facility] (NEURONTIN) 4-03 mg by Health 800 mg 06:18: mouth 3 tablet 10 times daily. propranolol 2022-0 Yes 80mg Q.5D Take 80 mg [facility] (INDERAL) -03 by mouth 2 Heal th 80 mg 06:18: times tablet 10 daily. topiramate 2022-0 Yes 50mg QD Take 50 mg H arris (TOPAMAX) -03 by mouth Health 50 mg 06:18: daily. tablet 10 ESOMEPRAZOL 2022-0 Yes Take by Sae ris E MAGNESIUM 03 mouth. Health (NEXIUM OR) 06:18: 10 tiZANidine 2022-0 Yes 4mg Take 4 mg [facility] (ZANAFLEX) -03 by mouth Healt h 4 mg tablet 06:18: every 6 10 hours as needed for Muscle Spasms. DULoxetine 2022-0 Yes 60mg QD Take 60 mg H arris (CYMBALTA) -03 by mouth Healt h 60 mg 06:18: daily. delayed 10 release capsule oxyCODONE 2022-0 Yes 20mg Take 20 mg [facility] (OXYCONTIN) -03 by mouth Heal th 20 mg 06:18: as needed extended 10 for Pain. release tablet warfarin 2022-0 Yes 10mg QD Take 10 mg Sae ris (COUMADIN) -03 by mouth Healt h 10 mg 06:18: daily. tablet 10 dicyclomine 3-0 Yes 20mg Take 20 mg [facility] (BENTYL) 20 -03 by mouth 4 He alth mg tablet 06:18: times 10 daily. warfarin 2023-0 Yes 10mg QD Take 10 mg Sae ris (COUMADIN) 4-03 by mouth Healt h 10 mg 06:18: daily. tablet 10 gabapentin 2023-0 Yes 800mg Take 800 T[facility] (NEURONTIN) 4-03 mg by Health 800 mg 06:18: mouth 3 tablet 10 times daily. dicyclomine 2023-0 Yes 20mg Take 20 mg [facility] (BENTYL) 20 4-03 by mouth 4 He alth mg tablet 06:18: times 10 daily. gabapentin 2023-0 Yes 800mg Take 800 [facility] (NEURONTIN) 4-03 mg by Health 800 mg 06:18: mouth 3 tablet 10 times daily. propranolol 2023-0 Yes 80mg Q.5D Take 80 mg [facility] (INDERAL) 4-03 by mouth 2 Heal th 80 mg 06:18: times tablet 10 daily. topiramate 2023-0 Yes 50mg QD Take 50 mg H arris (TOPAMAX) 4-03 by mouth Health 50 mg 06:18: daily. tablet 10 ESOMEPRAZOL 3-0 Yes Take by Sae ris E MAGNESIUM 4-03 mouth. Health (NEXIUM OR) 06:18: 10 tiZANidine 3-0 Yes 4mg Take 4 mg [facility] (ZANAFLEX) 4-03 by mouth Healt h 4 mg tablet 06:18: every 6 10 hours as needed for Muscle Spasms. DULoxetine 3-0 Yes 60mg QD Take 60 mg H arris (CYMBALTA) 4-03 by mouth Healt h 60 mg 06:18: daily. delayed 10 release capsule oxyCODONE 3-0 Yes 20mg Take 20 mg [facility] (OXYCONTIN) 4-03 by mouth Heal th 20 mg 06:18: as needed extended 10 for Pain. release tablet propranolol 3-0 Yes 80mg Q.5D Take 80 mg [facility] (INDERAL) 4-03 by mouth 2 Heal th 80 mg 06:18: times tablet 10 daily. topiramate 2023-0 Yes 50mg QD Take 50 mg H arris (TOPAMAX) 4-03 by mouth Health 50 mg 06:18: daily. tablet 10 ESOMEPRAZOL 2023-0 Yes Take by Sae ris E MAGNESIUM 4-03 mouth. Health (NEXIUM OR) 06:18: 10 tiZANidine 2022-0 Yes 4mg Take 4 mg [facility] (ZANAFLEX) 4-03 by mouth Healt h 4 mg tablet 06:18: every 6 10 hours as needed for Muscle Spasms. DULoxetine 2022-0 Yes 60mg QD Take 60 mg H arris (CYMBALTA) 4-03 by mouth Healt h 60 mg 06:18: daily. delayed 10 release capsule oxyCODONE 2022-0 Yes 20mg Take 20 mg [facility] (OXYCONTIN) -03 by mouth Heal th 20 mg 06:18: as needed extended 10 for Pain. release tablet FENTanyl PF 0 Yes 25ug 25 mcg, Uni vers (SUBLIMAZE 5 Slow IV ity of (PF)) 13:07: Push, [place] injection 57 Q5MIN PRN, Medi sea 25 mcg 4 doses, Branch Starting on Fri03/18/22 at 0807, Until Discontinu ed, Routine, Pain (scale 4-6), PACU ondansetron 2021-0 Yes 4mg 4 mg, Slow Univers (ZOFRAN 03-18 IV Push, ity of (PF)) 13:07: PRN, 1 [place] injection 4 57 dose, Medical mg Starting Branch on Fri03/18/22 at 0807, Until Discontinu ed, Routine, Nausea and Vomiting (N/V), PACU FENTanyl PF 2021-0 2021- No 25ug 25 mcg, Un ra (SUBLIMAZE 03-18- Slow IV ity o f (PF)) 13:07: 16:00 Push, [place] injection 57 :24 Q5MIN PRN, Medi sea 25 mcg 4 doses, Branch Starting on Fri03/18/22 at 0807, Until Fri03/18/22 at 1100, Routine, Pain (scale 4-6), PACU ondansetron 2021-0 2021- No 4mg 4 mg, Slow Univers (ZOFRAN 03-18 05-09 IV Push, ity of (PF)) 13:07: 16:00 PRN, 1 [place] injection 4 57 :24 dose, Medical mg Starting Branch on Fri03/18/22 at 0807, Until Fri03/18/22 at 1100, Routine, Nausea and Vomiting (N/V), PACU sodium 2021- No PRN, Univers chloride 03-18- Starting ity of 0.9 % 12:45: 13:59 on Fri irrigation 00 :40 03/18/22 at Medi sea solution 0745, Branch Until Fri03/18/22 at 0859, Intra-op bupivacaine 2021- No PRN, Unive rs -epinephrin 03-18 Starting ity of e-pf 12:45: 13:59 on Fri (SENSORCAIN 00 :40 03/18/22 at Med ical E 0745, Branch W/EPINEPHRI Until Fri NE) 0.25 03/18/22 at %-1:200,000 0859, injection Routine, Intra-op lactated 2021- No 1000mL at [facility] ringers IV 03-18-09 mL/hr, ity of infusion 11:30: 12:04 1,000 mL, Bill as 1,000 mL 00 :00 IV Medical Infusion, Branch ONCE, 1 dose, On Fri03/18/22 at 0630, Routine, DSU Pre-op lactated 0 2021- No 1000mL at 42 [facility] ringers IV 03-18 05-09 mL/hr, ity of infusion 11:30: 12:04 [...] Take 20 mg U nivers (LASIX) 20 -09 by mouth 2 ity of mg tablet 09:00: (two) [place] 18 times Medical daily. As Branch needed propranolol 2021-0 Yes 80mg Take 80 mg Univers (INDERAL) -09 by mouth ity of 80 mg 09:00: daily. [place] tablet 18 Medical Branch warfarin 2021-0 Yes 7.5mg Take 7.5 Univ ers (COUMADIN) 5-09 mg by ity of 7.5 mg 09:00: mouth [place] tablet 18 every Medical evening. Branch butalbital- 2021-0 Yes Take by Uni vers acetaminoph - mouth. ity of en-caffeine 09:00: [place] 50-325-40-3 18 Medical 0 mg per Branch capsule dicyclomine 2021-0 Yes 20mg Take 20 mg Univers 20 mg 09 by mouth. ity of tablet 09:00: [place] 18 Medical Branch oxyCODONE 2021-0 Yes 20mg Take 20 mg Un ra C.R. 03-18 by mouth 2 ity of (OXYCONTIN) 09:00: [...] 18 (four) Medical times Branch daily. gemfibrozil 2022-0 Yes 600mg Take 600 U nivers (LOPID) 600 5-09 mg by ity of mg tablet 09:00: mouth [place] 18 daily. Medical Branch furosemide 2021-0 Yes 20mg Take 20 mg U nivers (LASIX) 20 -09 by mouth 2 ity of mg tablet 09:00: (two) [place] 18 times Medical daily. As Branch needed propranolol 2021-0 Yes 80mg Take 80 mg Univers (INDERAL) -09 by mouth ity of 80 mg 09:00: daily. [place] tablet 18 Medical Branch warfarin 2021-0 Yes 7.5mg Take 7.5 Univ ers (COUMADIN) 5-09 mg by ity of 7.5 mg 09:00: mouth [place] tablet 18 every Medical evening. Branch butalbital- 0 Yes Take by Uni vers acetaminoph -09 mouth. ity of en-caffeine 09:00: [place] 50-325-40-3 18 Medical 0 mg per Branch capsule dicyclomine 2021-0 Yes 20mg Take 20 mg Univers 20 mg 5-09 by mouth. ity of tablet 09:00: [place] 18 Medical Branch oxyCODONE 2021-0 Yes 20mg Take 20 mg Un ra C.R. 5-03 by mouth 2 ity of (OXYCONTIN) 16:37: (two) [place] 20 mg 12 hr 18 times Medical tablet daily. Branch propranolol 0 Yes 80mg Take 80 mg Univers (INDERAL) 5-03 by mouth ity of 80 mg 16:37: daily. [place] tablet 18 Medical Branch warfarin 0 Yes 7.5mg Take 7.5 Univ ers (COUMADIN) 5-03 mg by ity of 7.5 mg 16:37: mouth [place] tablet 18 every Medical evening. Branch tiZANidine 0 Yes 4mg Take 4 mg Un ra (ZANAFLEX) 5-03 by mouth 2 ity of 4 mg 16:37: (two) [place] capsule 17 times Medical daily. As Branch needed gabapentin 2021-0 Yes 800mg Take 800 Un ra (NEURONTIN) 5-03 mg by ity of 800 mg 16:37: mouth 4 [place] tablet 17 (four) Medical times Branch daily. gemfibrozil 2021-0 Yes 600mg Take 600 U nivers (LOPID) 600 5-03 mg by ity of mg tablet 16:37: mouth [place] 17 daily. Medical Branch furosemide 2021-0 Yes 20mg Take 20 mg U nivers (LASIX) 20 5-03 by mouth 2 ity of mg tablet 16:37: (two) [place] 17 times Medical daily. As Branch needed DULoxetine 2021-0 Yes 60mg Take 60 mg U nivers 60 mg 4-26 by mouth ity of capsule 00:00: daily. [place] 00 Medical Branch topiramate 2021-0 Yes 100mg Take 100 Un ra 100 mg 4-26 mg by ity of tablet 00:00: mouth 2 (two) Medical times Branch daily. DULoxetine 2021-0 Yes 60mg Take 60 mg U nivers 60 mg 4-26 by mouth ity of capsule 00:00: daily. Medical Branch topiramate 2021-0 Yes 100mg Take 100 Un ra 100 mg 4-26 mg by ity of tablet 00:00: mouth 2 (two) Medical times Branch daily. fludrocorti 2021-0 Yes .1mg Take 0.1 Un ra sone 0.1 mg 4-19 mg by ity of tablet 00:00: mouth 00 daily. Medical Branch fludrocorti 2021-0 Yes .1mg Take 0.1 Un ra sone 0.1 mg 4-19 mg by ity of tablet 00:00: mouth 00 daily. Medical Branch Hydrocodone 2021-0 Yes TAKE 1 Univ ers -Acetaminop 4-15 TABLET ity of hen 7.5-300 00:00: TWICE A Bill as mg tablet 00 DAY Medical NEEDED FOR Branch 28 DAY(S) Hydrocodone 2021-0 Yes TAKE 1 Univ ers -Acetaminop 4-15 TABLET ity of hen 7.5-300 00:00: TWICE A Bill as mg tablet 00 DAY Medical NEEDED FOR Branch 28 DAY(S) mesalamine 2021-0 Yes TAKE 2 Unive rs [...] tablet 00 TWICE Medical DAILY Branch ALPRAZolam 2022-0 Yes TAKE 1 Unive rs 2 mg tablet 4-08 TABLET BY ity of 00:00: MOUTH [place] 00 EVERY DAY Medical NEEDED Branch FOR ANXIETY ondansetron Yes TAKE 1 Univ ers 4 mg 2-28 TABLET BY ity of disintegrat 00:00: MOUTH [place] ing tablet 00 EVERY 8 Medica l HOURS Branch NEEDED ondansetron Yes TAKE 1 Univ ers 4 mg 2-28 TABLET BY ity of disintegrat 00:00: MOUTH [place] ing tablet 00 EVERY 8 Medica l HOURS Branch NEEDED levETIRAcet Yes 250mg Take 250 U nivers am 250 mg 2-24 mg by ity of tablet 00:00: mouth 2 [place] 00 (two) Medical times Branch daily. levETIRAcet Yes 250mg Take 250 U nivers am 250 mg 2-24 mg by ity of tablet 00:00: mouth 2 [place] 00 (two) Medical times Branch daily. traMADol 50 2018-11 Yes [id number] 50mg Take 1 Univers mg tablet 2-21 [id number] tablet by ity of 00:00: mouth [place] 00 every 6 Medical (six) Branch hours as needed for Pain (scale 7-10). traMADol 50 2018-11 Yes [id number] 50mg Take 1 Univers mg tablet 2-21 [id number] tablet by ity of 00:00: mouth [place] 00 every 6 Medical (six) Branch hours as needed for Pain (scale 7-10). traMADol 50 2018-11 Yes [id number] 50mg Take 1 Univers mg tablet 2-21 [id number] tablet by ity of 00:00: mouth [place] 00 every 6 Medical (six) Branch hours as needed for Pain (scale 7-10). triamcinolo 2017- Yes Apply to Un ra ne 0-11 area(s) 2 ity of acetonide 00:00: (two) [place] 0.1 % cream 00 times Medical daily. Branch triamcinolo 2017-11 Yes Apply to Un ra ne 0-11 area(s) 2 ity of acetonide 00:00: (two) [place] 0.1 % cream 00 times Medical daily. Branch triamcinolo 2017-11 Yes Apply to Un ra ne 0-11 area(s) 2 ity of acetonide 00:00: (two) [place] 0.1 % cream 00 times Medical daily. Branch cephALEXin 2016-11 Yes 500mg Take 1 Univ ers (KEFLEX) 1-14 capsule by ity o f 500 mg 00:00: mouth 2 [place] capsule 00 (two) Medical times Branch daily. cephALEXin 2017 Yes 500mg Take 1 Univ ers (KEFLEX) 1-14 capsule by ity o f 500 mg 00:00: mouth 2 [place] capsule 00 (two) Medical times Branch daily. cephALEXin 2016-11 Yes 500mg Take 1 Univ ers (KEFLEX) 1-14 capsule by ity o f 500 mg 00:00: mouth 2 [place] capsule 00 (two) Medical times Branch daily. warfarin 2017 Yes 10mg QD Take 10 [...] mouth. Health (NEXIUM OR) 11:59: 13 tiZANidine 2017- Yes 4mg Take 4 mg Tellez rris [...] needed extended 13 for Pain. release tablet Vital Signs Vital Name Observation Time Observation Value Comments Source Systolic blood 2022-03-18 13:35:00 132 mm[Hg] Univer sity of pressure [facility] Diastolic blood 2022-03-18 13:35:00 65 mm[Hg] Unive rsity of pressure [facility] Heart rate 2022-03-18 13:35:00 95 /min Universi ty of [facility] Respiratory rate 2022-03-18 13:35:00 16 /min Univ ersity of [facility] Oxygen saturation in 2022-03-18 13:35:00 100 /min University of Arterial blood by [facility] Pulse oximetry Branch Body temperature 2022-03-18 13:10:00 36.11 Jerilyn [facility] ersity of [facility] Branch Body height 2022-03-04 13:44:00 177.8 cm Universi ty of [facility] Body weight 2022-03-04 13:44:00 77.1 kg Universi ty of [facility] BMI 2022-03-04 13:44:00 24.39 kg/m2 Universi ty of [facility] Systolic blood 2022-03-18 13:25:00 111 mm[Hg] Univer sity of pressure [facility] Diastolic blood 2022-03-18 13:25:00 68 mm[Hg] Unive rsity of pressure [facility] Heart rate 2022-03-18 13:25:00 83 /min Universi ty of [facility] Respiratory rate 2022-03-18 13:25:00 10 /min [facility] ersity of [facility] Oxygen saturation in 2022-03-18 13:25:00 100 /min University of Arterial blood by [facility] Pulse oximetry Branch Body temperature 2022-03-18 13:10:00 36.11 Jerilyn [facility] ersity of [facility] Branch Body height 2022-03-04 13:44:00 177.8 cm Universi ty of [place] Medical [place] Body weight 2022-03-04 13:44:00 77.1 kg Universi ty of [facility] BMI 2022-03-04 13:44:00 24.39 kg/m2 Universi ty of [facility] Branch Procedures Procedure Date / Time Performing Clinician Source Performed INTRATHECAL INFUSION 2022-03-18 12:13:00 Crow Todd [facility] ersity of [place] PUMP REVISION Medical Branch COVID-19 (ID NOW RAPID 2022-03-15 15:23:00 Crow Todd Un [facility] TESTING) Medical Branch EXTERNAL PROVIDER 2022-02-26 05:01:00 Doctor Unassigned, No [facility] Medical Branch EXTERNAL PROVIDER 2022-02-26 05:01:00 Doctor Unassigned, No Univ [facility] RECORDS Name Medical Branch Plan of Care Planned Activity Planned Date Details Comments Source Future Scheduled Test 2023-07-11 00:00:00 IMM Influenza [facility] Seasonal (>/= 19 yrs) [code = IMM Influenza Seasonal (>/= 19 yrs)] Future Scheduled Test 2022-08-10 00:00:00 IMM Influenza [facility] Seasonal (>/= 19 yrs) [code = IMM Influenza Seasonal (>/= 19 yrs)] Future Scheduled Test 2022-08-10 00:00:00 IMM Influenza [facility] Seasonal (>/= 19 yrs) [code = IMM Influenza Seasonal (>/= 19 yrs)] Future Scheduled Test 2021-08-10 00:00:00 IMM Influenza [facility] Seasonal Aug to January (>/= 19 yrs) [code = IMM Influenza Seasonal Oct to January (>/= 19 yrs)] Future Scheduled Test 2018 00:00:00 Screening for [facility] malignant neoplasm of colon (procedure) [code = 003035800] Future Scheduled Test 2018 00:00:00 Screening for [facility] malignant neoplasm of colon (procedure) [code = 207082061] Future Scheduled Test 2018 00:00:00 Screening for [facility] malignant neoplasm of colon (procedure) [code = 576569760] Future Scheduled Test 2018 00:00:00 Screening for [facility] malignant neoplasm of colon (procedure) [code = 681838826] Future Scheduled Test 2008 00:00:00 Breast Cancer Scrn [facility] (Yearly) [code = Breast Cancer Scrn (Yearly)] Future Scheduled Test 2008 00:00:00 Breast Cancer Scrn [facility] (Yearly) [code = Breast Cancer Scrn (Yearly)] Future Scheduled Test 2008 00:00:00 Breast Cancer Scrn [facility] (Yearly) [code = Breast Cancer Scrn (Yearly)] Future Scheduled Test 2008 00:00:00 Breast Cancer Scrn [facility] (Yearly) [code = Breast Cancer Scrn (Yearly)] Future Scheduled Test 1998 00:00:00 Screening for [facility] malignant neoplasm of cervix (procedure) [code = 199883785] Future Scheduled Test 1998 00:00:00 Screening for [facility] malignant neoplasm of cervix (procedure) [code = 712492979] Future Scheduled Test 1998 00:00:00 Screening for [facility] malignant neoplasm of cervix (procedure) [code = 430521177] Future Scheduled Test 1998 00:00:00 Screening for [facility] malignant neoplasm of cervix (procedure) [code = 225254271] Future Scheduled Test 1998 00:00:00 Screening for [facility] malignant neoplasm of cervix (procedure) [code = 990013513] Future Scheduled Test 1998 00:00:00 Screening for [facility] malignant neoplasm of cervix (procedure) [code = 100707620] Future Scheduled Test 1998 00:00:00 Screening for [facility] malignant neoplasm of cervix (procedure) [code = 186352211] Future Scheduled Test 1989 00:00:00 Screening for [facility] malignant neoplasm of cervix (procedure) [code = 365925818] Future Scheduled Test 1980 00:00:00 COVID-19 Vaccine (1) [facility] [code = COVID-19 Vaccine (1)] Future Scheduled Test 1969-06-15 00:00:00 COVID-19 Vaccine (#1) [facility] [code = COVID-19 Vaccine (#1)] Future Scheduled Test 1969-06-15 00:00:00 COVID-19 Vaccine (#1) [facility] [code = COVID-19 Vaccine (#1)] Future Scheduled Test 1969-06-15 00:00:00 COVID-19 Vaccine (#1) [facility] [code = COVID-19 Vaccine (#1)] Encounters Start End Encounter Admission Attending Care Care Encounter Source Date/Time Date/Time Type Type Clinicians Facility Department ID 2022-03-08 Outpatient Dameon TODD [facility] ANS [id number] Univers [facility] 2022-03-18 2022-03-18 Outpatient Dameon TODD [facility] ANS [id number] Univers 06:27:00 08:45:00 CROW ity of [facility] 2022-03-18 2022-03-18 [facility] [id number] Univers 06:27:00 08:45:00 Encounter Crow RAYA [id number] ity of [facility] 4.2.7.2.686 [place] [id number] [facility] 071 Branch 2022-03-18 2022-03-18 Surgery [facility] [id number] Univers 07:15:00 08:25:00 Crow RAYA [id number] ity of [place] [id number] [facility] 020 Branch 2022-03-15 2022-03-15 Laboratory Only, Adc Test [facility] [id number]. [id number] Univers 11:00:00 11:15:00 Only Néstor Waite [id number] ity [place] [id number] [facility] 353 Branch 2022-03-15 2022-03-15 Outpatient R [facility] [id number] Univers 11:00:00 11:00:00 NÉSTOR ittreasure [facility] 2022-03-15 2022-03-15 Orders Doctor KRAMER [id number] Univers 00:00:00 00:00:00 Only Unassigned, GUTIERREZ [id number] ity of [place] [facility] 4.2.7.2.686 Bill as [id number] [facility] 009 Branch 2022-03-06 2022-03-06 Orders Doctor NIA [id number] Univers 00:00:00 00:00:00 Only Unassigned, GUTIERREZ [id number] ity of [place] [facility] 4.2.7.2.686 Bill as [id number] [facility] 009 [place] 2021-01-30 2021-01-30 [facility] [id number] 00:00:00 00:00:00 Outreach Christopher PRIMARY [id number] Jose R CARE 4.2.7.2.686 PAVILLION [id number] 388 2021-01-30 2021-01-30 Patient Amos [facility] [id number] [facility] 00:00:00 00:00:00 Outreach Christopher PRIMARY [id number] i ty of [place] R CARE [place]2.[place]2.[place] [id number] Me dical 388 [place] 2019-11-22 2019-11-22 [facility] [id number] Univers 13:55:00 23:59:00 Encounter Rafael [facility] [id number] ity of Surgical 4.2.7.2.686 Bill as Specialti [id number] Fl dical es 809 [facility] 2019-11-22 2019-11-22 [facility] [id number] [facility] 13:53:00 13:54:00 Encounter Rafael Jones [facility] [id number] ity of Surgical 4.2.7.2.686 Bill as Specialti [id number] Fl dical es 809 [facility] 2019-11-01 2019-11-01 Office [facility] [id number] 11:25:11 11:51:37 Visit Rafael Jones [facility] [id number] Surgical 4.2.7.2.686 Specialti [id number] es [address] [place] [address] 2019-11-01 2019-11-01 Office [facility] [id number] [facility] 11:25:11 11:51:37 Visit Rafael Jones [facility] [id number] it y of Surgical 4.2.7.2.686 Bill as Specialti [id number] Fl dical es 198 [facility] 2019-10-30 2019-10-30 Emergency X LANDEN [facility] ERT [id number] Univers 16:49:36 19:53:00 JODY ity of [facility] 2017-11-18 2017-11-18 Outpatient [facility] [id number] [facility] 00:00:00 00:00:00 Health 2017-07-22 2017-07-22 Outpatient [facility] [id number] [facility] 00:00:00 00:00:00 Health 2017-06-24 2017-06-24 Outpatient [facility] [id number] [facility] 12:34:43 12:34:43 Health 2017-06-24 2017-06-24 Outpatient [facility] [id number] [facility] 10:24:55 10:24:55 Health Results This patient has no known results.
[2023-09-22 18:27] LABS: Protime INR 1.1
[2023-09-22 18:29] LABS: Absolute Lymphocytes (CBC) 2.3 K/uL (0.7-4.9); Hematocrit 35.3 % (36.0-45.0); Lymphocytes % 34.1 % (15.3-44.8); MCV 90.1 fL (80-100); MPV 8.6 fL (7.6-11.3); Platelets 158 thou/uL (152-406); RBC Red Blood Cell Count 3.91 M/uL (3.86-4.86)
--- NOTE | 2023-09-22 18:33 | RAD REPORT ---
EXAM DESCRIPTION: RAD - Shoulder Right 2 View - 09/22/2023 6:22 pm CLINICAL HISTORY: Right shoulder pain FINDINGS: No fracture or dislocation is seen. Mild narrowing AC joint
[2023-09-22 18:42] LABS: AST/SGOT 9 U/L (15-37); Albumin 3.3 g/dL (3.4-5.0); Alkaline Phosphatase 92 U/L (45-117); BUN Blood Urea Nitrogen 9 mg/dL (7-18); Bicarbonate 21 mEq/L (21-32); Bilirubin Direct 0.1 mg/dL (0-0.2); Bilirubin Indirect, Calculated 0.2 mg/dL (0.2-0.8); Bilirubin Total 0.3 mg/dL (0.2-1.0); Glomerular Filtration Rate 75 ml/min (=/>90); Glucose Level 110 mg/dL (74-106); Potassium 3.4 mEq/L (3.5-5.1); Protein, Total 7.5 g/dL (6.4-8.2); Sodium Level 143 mEq/L (136-145); Troponin High Sensitivity 3.4 pg/mL (<58.9)
[2023-09-22 18:43] LABS: ALT/SGPT < 10 U/L (13-56)
[2023-09-22 18:53] LABS: NT PRO-BNP 46 pg/mL (<125)
--- NOTE | 2023-09-22 19:40 | RAD REPORT ---
EXAM DESCRIPTION: CT - Chest For Pe Angio - 09/22/2023 7:23 pm CLINICAL HISTORY: Chest pain / cough COMPARISON: 2012 TECHNIQUE: Dynamically enhanced axial 3 mm thick images of the chest were obtained during administra tion of 100 mL Isovue 370 IV contrast. Coronal and oblique reconstruction images were generated and r eviewed. Exam utilizes a protocol for optimal evaluation of pulmonary arterial tree. Maximum intensity projections 3D imaging was utilized All CT scans are performed using dose optimization technique as appropriate and may include automated exposure control or mA/KV adjustment according to patient size. FINDINGS: Thrombus is present within right upper, right middle and right lower lobe pulmonary arter ies. No thrombus within the main pulmonary, right or left main pulmonary for left pulmonary arteries A thoracic aortic aneurysm is not noted. A pleural effusion is not seen. A pericardial effusion is not seen. No pneumonia IMPRESSION: Right pulmonary emboli
--- NOTE | 2023-09-22 19:42 | RAD REPORT ---
EXAM DESCRIPTION: [facility] Single View09/22/2023 6:22 pm CLINICAL HISTORY: Chest pain COMPARISON: February 2023 FINDINGS: The lungs appear clear of acute infiltrate. The heart is normal size IMPRESSION: No acute abnormalities displayed
--- NOTE | 2023-09-22 19:47 | RAD REPORT ---
EXAM DESCRIPTION: CT - Abdomen Pelvis W Contrast - 09/22/2023 7:22 pm CLINICAL HISTORY: Abdominal pain COMPARISON: 2021 TECHNIQUE: Computed axial tomography of the abdomen pelvis was obtained. 100 cc Isovue-300 was admin istered intravenously. Oral contrast was not requested which limits evaluation of bowel and appendix All CT scans are performed using dose optimization technique as appropriate and may include automated exposure control or mA/KV adjustment according to patient size. FINDINGS: The liver, spleen, pancreas, adrenal and kidneys appear unremarkable. There is no evidence of diverticulitis. Normal appendix. Cholecystectomy. Hysterectomy. No adnexal mass. Neurostimulator device in place Small umbilical hernia IMPRESSION: No acute abnormality is displayed.
--- NOTE | 2023-09-22 20:09 | EDPHYS ---
Physician Documentation [facility] Name: Savanna San Age: 52 yrs Sex: Female : 1970 Arrival Date: 09/22/2023 Time: 17:40 Bed 14 Private MD: ED Physician Ken Diane HPI: 09/22 17:54 This 52 yrs old Female presents to ER via Unassigned with complaints of right shoulder rn pain. 17:54 The patient or guardian complains of pain, that is acute. right shoulder. Onset: The rn symptoms/episode began/occurred today. Modifying factors: the symptoms are alleviated by remaining still, The symptoms are aggravated by movement, rotation of arm. Associated signs and symptoms: Pertinent positives: chest pain, Pertinent negatives: abdominal pain. Severity of symptoms: At their worst the symptoms were moderate, in the emergency department the symptoms have improved. The patient has not experienced similar symptoms in the past. Patient reports right shoulder pain that began after waking up from a nap. Denies any trauma. Reports pain when lifting arm and rotating arm. Reports pain starts in the shoulder and radiates towards the right chest. But denies chest pain proper. No shortness of breath. No abdominal pain. Does report increased urinary frequency. No fever. Also reports recent vacation and illness for the last 3 weeks with cough.. Historical: - Allergies: 18:34 Morphine; ko1 - PMHx: 18:34 apryl disease; tremors; Seizures; Nerve Damage +DDD; Nerve Damage +DDD; Irritable ko1 bowel syndrome; DVT; Headaches; CVA- Left sided weakness; Parkinsons; - Immunization history:: Adult Immunizations up to date. - Social history:: Smoking status: Patient denies any tobacco usage or history of. - Family history:: not pertinent. - Hospitalizations: : No recent hospitalization is reported. ROS: 17:54 Constitutional: Negative for fever, chills, and weight loss, Eyes: Negative for injury, rn pain, redness, and discharge, Neck: Negative for injury, pain, and swelling, Cardiovascular: Negative for chest pain, palpitations, and edema, Respiratory: Negative for shortness of breath, cough, wheezing, and pleuritic chest pain, Abdomen/GI: Negative for abdominal pain, nausea, vomiting, diarrhea, and constipation, Back: Positive low back aching : Positive for increased urinary frequency MS/Extremity: Negative for injury and deformity, Skin: Negative for injury, rash, and discoloration, Neuro: Negative for headache, and seizure Exam: 17:54 Constitutional: This is a well developed, well nourished patient who is awake, alert, rn appears in pain, holding right shoulder with opposite arm Head/Face: Normocephalic, atraumatic. Eyes: Pupils equal round and reactive to light, extra-ocular motions intact. Neck: No cervical neck tenderness or swelling. Cardiovascular: Regular rate and rhythm. No pulse deficits. Respiratory: No increased work of breathing, no retractions or nasal flaring. Abdomen/GI: Soft, non-tender Back: No spinal tenderness. No costovertebral tenderness. Full range of motion. Skin: Warm, dry MS/ Extremity: Pulses equal, no cyanosis. Neurovascular intact. Full, normal range of motion. Equal circumference. Painful range of motion right shoulder without any swelling or discoloration. Neuro: Awake and alert, GCS 15, oriented to person, place, time, and situation. Cranial nerves II-XII grossly intact. Motor strength 5/5 in all extremities. Sensory grossly intact. 18:13 ECG was reviewed by the Attending Physician. rn Vital Signs: 17:45 BP 109 / 66; Pulse 95; Resp 14; Temp 98; Pulse Ox 98% on R/A; ko1 18:15 BP 105 / 71; Pulse 92; Resp 16; Pulse Ox 95% on R/A; ko1 18:15 BP 95 / 54; Pulse 94; Resp 16; Pulse Ox 99% ; ko1 19:00 BP 98 / 67; Pulse 102; Resp 20; Pulse Ox 99% on 2 lpm NC; pf1 20:00 BP 100 / 73; Pulse 104; Resp 20; Pulse Ox 98% on 2 lpm NC; pf1 20:08 Weight 77.11 kg; pf1 21:30 BP 103 / 71; Pulse 92; Resp 16; Temp 98; Pulse Ox 100% on 2 lpm NC; Pain 5/10; pf1 21:30 Pain Scale: Adult pf1 MDM: 17:45 Patient medically screened. rn 20:06 Differential diagnosis: Tendinitis, joint problem, radiculopathy, NV, PE. Data rn reviewed: vital signs, nurses notes, lab test result(s), EKG, radiologic studies, CT scan, and as a result, I will admit patient. Consideration of Admission/Observation Patient was admitted/placed on observation. Escalation of care including admission/observation considered. Management of patient was discussed with the following: Hospitalist: Will admit patient and consult pulmonology/cardiology.. Independent interpretation of the following test(s) in the Emergency Department EKG: See my EKG interpretation above X-Ray: My interpretation is Chest x-ray images negative for pneumothorax per my interpretation. Counseling: I had a detailed discussion with the patient and/or guardian regarding the historical points, exam findings, and any diagnostic results supporting the discharge/admit diagnosis, lab results, radiology results, the need for further work-up and treatment in the hospital. Response to treatment: the patient's symptoms have mildly improved after treatment, and as a result, I will admit patient. ED course: Patient with multiple pulmonary emboli on the right lung which could explain her pleuritic chest pain and right shoulder pain. Last DVT was after surgery, no clear etiology for this PE. Patient also with Blaine's and borderline blood pressure, persistent tachycardia, will admit for anticoagulation and further Observation. 09/22 17:46 Order name: Basic Metabolic Panel; Complete Time: 19:00 09/22 17:46 Order name: CBC with Diff; Complete Time: 19:00 09/22 17:46 Order name: LFT's; Complete Time: 19:00 09/22 17:46 Order name: NT PRO-BNP; Complete Time: 19:00 09/22 17:46 Order name: PT-INR; Complete Time: 19:00 09/22 17:46 Order name: Troponin HS; Complete Time: 19:00 09/22 20:41 Order name: Urinalysis w/ reflexes EDND 09/22 20:41 Order name: CBC with Automated Diff EDND 09/22 20:41 Order name: CBC with Automated Diff EDND 09/22 20:41 Order name: Comprehensive Metabolic Panel [facility] 09/22 20:41 Order name: Comprehensive Metabolic Panel [facility] 09/22 20:41 Order name: Creatine Phosphokinase [facility] 09/22 20:41 Order name: Creatine Phosphokinase [facility] 09/22 20:41 Order name: Creatine Phosphokinase [facility] 09/22 20:41 Order name: Lipid Profile [facility] 09/22 20:41 Order name: Lipid Profile [facility] 09/22 20:41 Order name: Magnesium [facility] 09/22 20:41 Order name: Magnesium [facility] 09/22 20:41 Order name: Protime (+INR) [facility] 09/22 20:41 Order name: Protime (+INR) [facility] 09/22 20:41 Order name: PTT, Activated Partial Thromb [facility] 09/22 20:41 Order name: PTT, Activated Partial Thromb [facility] 09/22 17:46 Order name: XRAY Chest (1 view); Complete Time: 19:55 rn 09/22 17:46 Order name: CT Chest For PE Angio; Complete Time: 19:55 rn 09/22 17:47 Order name: XRAY Shoulder RIGHT 2 view; Complete Time: 19:00 rn 09/22 19:19 Order name: CT Abd/Pelvis - IV Contrast Only; Complete Time: 19:55 rn 09/22 20:41 Order name: Echo with Doppler [facility] 09/22 17:46 Order name: EKG; Complete Time: 17:46 rn 09/22 20:41 Order name: CONS Physician Consult [facility] 09/22 17:46 Order name: Cardiac monitoring; Complete Time: 17:47 rn 09/22 17:46 Order name: EKG - Nurse/Tech; Complete Time: 18:13 rn 09/22 17:46 Order name: IV Saline Lock; Complete Time: 18:02 rn 09/22 17:46 Order name: Labs collected and sent; Complete Time: 18:02 rn 09/22 17:46 Order name: O2 Per Protocol; Complete Time: 17:47 rn 09/22 17:46 Order name: O2 Sat Monitoring; Complete Time: 17:47 rn EC:13 Rate is 89 beats/min. Rhythm is regular. QRS [place] is Normal. GA interval is normal. QRS rn interval is normal. QT interval is normal. No Q waves. T waves are Normal. No ST changes noted. Clinical impression: NSR w/ Non-specific ST/T Changes. Interpreted by me. Reviewed by me. Administered Medications: 20:20 Drug: NS 0.9% IV 500 ml IV at bolus once Route: IV; Rate: bolus; Site: right forearm; pf1 21:00 Follow up: Response: No adverse reaction; Marked relief of symptoms; IV Status: pf1 Completed infusion; IV Intake: 500ml 20:21 Drug: Enoxaparin Sub-Q 1 mg/kg Sub-Q once Route: Sub-Q; Site: right lower abdomen; pf1 21:00 Follow up: Response: No adverse reaction pf1 20:21 Drug: Solu-CORTEF IVP 100 mg IVP once Route: IVP; Site: right forearm; pf1 21:00 Follow up: Response: No adverse reaction; Marked relief of symptoms pf1 Disposition Summary: 09/22/23 20:09 Hospitalization Ordered Notes: Hospitalization Status: Observation rn Provider: Memo Saab rn Location: Telemetry/MedSurg (observation) rn Condition: Stable rn Problem: new rn Symptoms: have improved rn Bed/Room Type: Standard rn Room Assignment: 415(09/22/23 20:45) cg Diagnosis - Pulmonary 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 Eyes: Pupils equal round and reactive to light, extra-ocular motions intact. Neck: No cervical neck tenderness or swelling. Cardiovascular: Regular rate and rhythm. No pulse deficits. Respiratory: No increased work of breathing, no retractions or nasal flaring. Abdomen/GI: Soft, non-tender Back: No spinal tenderness. No costovertebral tenderness. Full range of motion. Skin: Warm, dry MS/ Extremity: Pulses equal, no cyanosis. Neurovascular intact. Full, normal range of motion. Equal circumference. Neuro: Awake and alert, GCS 15, oriented to person, place, time, and situation. Cranial nerves II-XII grossly intact. Motor strength 5/5 in all extremities. Sensory grossly intact. rn 20:45 20:09 rn cg
--- NOTE | 2023-09-22 20:09 | ER ---
Nurse's Notes [facility] Name: Savanna San Age: 52 yrs Sex: Female : 1970 Arrival Date: 09/22/2023 Time: 17:40 Bed 14 Private MD: Diagnosis: Pulmonary embolism without acute cor pulmonale Presentation: 09/22 17:45 Chief complaint: EMS states: patient called for right shoulder pain radiating into her ko1 back, kidney pain, pain all on the inside of her body, and left finger pain in 3 fingers. Coronavirus screen: At this time, the client does not indicate any symptoms associated with coronavirus-19. Ebola Screen: No symptoms or risks identified at this time. Initial Sepsis Screen: Does the patient meet any 2 criteria? No. Patient's initial sepsis screen is negative. Does the patient have a suspected source of infection? No. Patient's initial sepsis screen is negative. Risk Assessment: Do you want to hurt yourself or someone else? Patient reports no desire to harm self or others. Onset of symptoms was September 22, 2023. 17:45 Method Of Arrival: EMS: [facility] ko1 17:45 Acuity: MARIJA 3 ko1 Triage Assessment: 18:34 General: Appears in no apparent distress. uncomfortable, Behavior is calm, cooperative, ko1 appropriate for age. Pain: Complains of pain in right shoulder. Historical: - Allergies: 18:34 Morphine; ko1 - PMHx: 18:34 apryl disease; tremors; Seizures; Nerve Damage +DDD; Nerve Damage +DDD; Irritable ko1 bowel syndrome; DVT; Headaches; CVA- Left sided weakness; Parkinsons; - Immunization history:: Adult Immunizations up to date. - Social history:: Smoking status: Patient denies any tobacco usage or history of. - Family history:: not pertinent. - Hospitalizations: : No recent hospitalization is reported. Screenin:15 [facility] ED Fall Risk Assessment (Adult) History of falling in the last 3 months, ko1 including since admission No falls in past 3 months (0 pts) Confusion or Disorientation No (0 pts) Intoxicated or Sedated No (0 pts) Impaired Gait No (0 pts) Mobility Assist Device Used No (0 pt) Altered Elimination No (0 pt) Score/Fall Risk Level 0 - 2 = Low Risk Oriented to surroundings, Maintained a safe environment, Educated pt \T\ family on fall prevention, incl call for assistance when getting out of bed, Assessed \T\ reinforced patient's understanding of fall precautions, Provided non-skid footwear, Hourly rounding (assess needs \T\ fall precautionary measures) done, Used ambulatory aids as needed (educated on \T\ assisted with), Used gait belt as appropriate. Abuse screen: Denies threats or abuse. Denies injuries from another. Nutritional screening: No deficits noted. Tuberculosis screening: No symptoms or risk factors identified. Assessment: 18:15 Neuro: No deficits noted. Cardiovascular: No deficits noted. Respiratory: No deficits ko1 noted. GI: No deficits noted. : Reports pain in lower back. EENT: No deficits noted. Derm: No deficits noted. Musculoskeletal: Reports pain in right shoulder. 19:00 General: Appears in no apparent distress. comfortable, well groomed, well developed, pf1 Behavior is calm, cooperative, appropriate for age, quiet. 19:00 Pain: Complains of pain in right chest pain to right shoulder Pain currently is 5 out pf1 of 10 on a pain scale. Neuro: No deficits noted. Level of Consciousness is awake, alert, obeys commands, Oriented to person, place, time, situation. Cardiovascular: Reports chest pain, Capillary refill < 3 seconds Patient's skin is warm and dry. Respiratory: Airway is patent Respiratory effort is even, unlabored, Respiratory pattern is regular, symmetrical. GI: No deficits noted. No signs and/or symptoms were reported involving the gastrointestinal system. : No deficits noted. No signs and/or symptoms were reported regarding the genitourinary system. EENT: No deficits noted. No signs and/or symptoms were reported regarding the EENT system. Derm: No deficits noted. No signs and/or symptoms reported regarding the dermatologic system. Vital Signs: 17:45 BP 109 / 66; Pulse 95; Resp 14; Temp 98; Pulse Ox 98% on R/A; ko1 18:15 BP 105 / 71; Pulse 92; Resp 16; Pulse Ox 95% on R/A; ko1 18:15 BP 95 / 54; Pulse 94; Resp 16; Pulse Ox 99% ; ko1 19:00 BP 98 / 67; Pulse 102; Resp 20; Pulse Ox 99% on 2 lpm NC; pf1 20:00 BP 100 / 73; Pulse 104; Resp 20; Pulse Ox 98% on 2 lpm NC; pf1 20:08 Weight 77.11 kg; pf1 21:30 BP 103 / 71; Pulse 92; Resp 16; Temp 98; Pulse Ox 100% on 2 lpm NC; Pain 5/10; pf1 21:30 Pain Scale: Adult pf1 ED Course: 17:44 Patient arrived in ED. ko1 17:45 Ken Diane MD is Attending Physician. rn 17:47 Lucie Anders RN is Primary Nurse. ko1 18:00 Inserted saline lock: 22 gauge in right forearm, using aseptic technique. Blood ko1 collected. 18:03 Basic Metabolic Panel Sent. ko1 18:03 CBC with Diff Sent. ko1 18:03 LFT's Sent. ko1 18:03 NT PRO-BNP Sent. ko1 18:03 PT-INR Sent. ko1 18:03 Troponin HS Sent. ko1 18:15 Patient has correct armband on for positive identification. Bed in low position. Call ko1 light in reach. Side rails up X 1. Provided Education on: na. Client placed on continuous cardiac and pulse oximetry monitoring. NIBP monitoring applied. monitoring analyst on. Door closed. Noise minimized. Warm blanket given. 18:24 XRAY Chest (1 view) In Process Unspecified. EDMS 18:24 XRAY Shoulder RIGHT 2 view In Process Unspecified. EDMS 18:34 Triage completed. ko1 18:34 Arm band placed on right wrist. Patient placed in an exam room, on a stretcher, on ko1 pulse oximetry, Patient notified of wait time. 19:24 CT Abd/Pelvis - IV Contrast Only In Process Unspecified. EDMS 19:25 CT Chest For PE Angio In Process Unspecified. EDMS 20:08 Memo Saab MD is Hospitalizing Provider. rn 21:47 No provider procedures requiring assistance completed. Patient admitted, IV remains in pf1 place. Administered Medications: 20:20 Drug: NS 0.9% IV 500 ml IV at bolus once Route: IV; Rate: bolus; Site: right forearm; pf1 21:00 Follow up: Response: No adverse reaction; Marked relief of symptoms; IV Status: pf1 Completed infusion; IV Intake: 500ml 20:21 Drug: Enoxaparin Sub-Q 1 mg/kg Sub-Q once Route: Sub-Q; Site: right lower abdomen; pf1 21:00 Follow up: Response: No adverse reaction pf1 20:21 Drug: Solu-CORTEF IVP 100 mg IVP once Route: IVP; Site: right forearm; pf1 21:00 Follow up: Response: No adverse reaction; Marked relief of symptoms pf1 Medication: 21:48 VIS not applicable for this client. pf1 Intake: 21:00 IV: 500ml; Total: 500ml. pf1 Outcome: 20:09 Decision to Hospitalize by Provider. rn 21:47 Admitted to Med/surg accompanied by tech, via wheelchair, room 415, with chart, Report pf1 called to LUCY Lebron 21:47 Condition: stable 21:47 Instructed on the need for admit, Demonstrated understanding of instructions, :47 Patient left the ED. pf1 Signatures: Dispatcher [employer] EDMS Ken Daine MD MD rn Oliver, Kathy, RN RN ko1 Finley, Pamala, RN RN pf1 Adry Key bc6 Corrections: (The following items were deleted from the chart) 09/23 01:33 11 22:02 Patient left the ED. bc6 pf1
[2023-09-22] MEDS ORDERED: HYDROCORTISONE SUC 100 MG INJ ONE (20:28)
[2023-09-22] MEDS ORDERED: ALPRAZOLAM 0.25 MG TABLET PO PRN (20:32)
[2023-09-22 22:14] VITALS: BMI 24.3
[2023-09-22] MEDS: NA CHLORIDE 0.9% 1,000 ML IV SCH (22:36)
--- NOTE | 2023-09-22 23:53 | P.HP ---
Certification for Inpatient With expected LOS: >2 Midnights Patient will require the following post-hospital care: None Practitioner: I am a practitioner with admitting privileges, knowledge of patient current condition, hospital course, and medical plan of care. Services: Services provided to patient in accordance with Admission requirements found in Title 42 Section 412.3 of the Code of Federal Regulations Patient History Date of Service: 09/22/23 Primary Care Provider: Dr. Dawson Reason for admission: Pulmonary Embolism History of Present Illness: Ms. San is 52 with a PMH of Parkinson's, Hyperlipidemia, GERD, and neuropathy. In 2006 s/p Cholecystectomy she had a DVT in her right arm. She took Coumadin until 6 months ago when she decided to stop taking anticoagulants. Ms. San flew to [place] for one month to visit family. She reports a cough for about three weeks. She flew home this Friday. She awoke from a nap today with significant pain to her right upper chest and shoulder. In the ED she had a CT PE study that was positive for embolism. She received a dose of Lovenox and was admitted to transition to po therapy. Allergies morphine Allergy (Verified 02/12/23 00:01) Nausea/Vomiting Home medications list reviewed: Yes Home Medications: Alprazolam [Xanax] 1 tab PO DAILY PRN 09/22/23 Butalb/Acetaminophen/Caffeine [Fioricet 50-300-40 mg Capsule] 1 tab PO Q6H PRN 09/22/23 Carbidopa/Levodopa [Carbidopa-Levodopa 25-100 Tab] 1 tab PO BID 09/22/23 Duloxetine HCl [Cymbalta] 1 tab PO DAILY 09/22/23 HYDROcodone bitartrate [Hydrocodone Bitartrate ER] 7.5 mg PO BID PRN 09/22/23 Levetiracetam [Keppra] 1 tab PO BID 09/22/23 Lubiprostone [Amitiza] 1 cap PO DAILY 09/22/23 Mesalamine [Delzicol] 1 tab PO BID 09/22/23 Pantoprazole Sodium [Protonix] 1 tab PO DAILY 09/22/23 Pregabalin [Lyrica] 1 tab PO TID 09/22/23 Rosuvastatin Calcium [Crestor] 1 tab PO DAILY 09/22/23 Topiramate [Topamax] 1 tab PO BID 09/22/23 - Past Medical/Surgical History Has patient received pneumonia vaccine in the past: No Diabetic: No -: Epilepsy (last seizure in 2021 per report) -: DVT -: [place]'s Disease -: Parkinson's Disease -: skin cancer -: 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) -: CVA -: spinal fusion -: cholecystectomy -: total hysterectomy -: pain pump -: skin ca removal to nose x 3 Psychosocial/ Personal History: Disabled, lives with fiance - Family History Mother -: Hypertension, Cancer, Other (see notes) Notes: Thyroid problem Father -: Heart disease, Hypertension, Cancer - Social History Smoking Status: Never smoker Alcohol use: No CD- Drugs: No Caffeine use: Yes Place of Residence: Home Review of Systems General: Unremarkable Eyes: Unremarkable ENT: Unremarkable Respiratory: As per HPI Cardiovascular: Unremarkable Gastrointestinal: Unremarkable Genitourinary: Unremarkable Musculoskeletal: Unremarkable Integumentary: Unremarkable Neurological: Unremarkable Lymphatics: Unremarkable Physical Examination - Vital Signs Temperature: 96.9 F Blood Pressure: 138/63 Pulse: 100 Respirations: 18 Pulse Ox (%): 100 - Physical Exam General: Alert, In no apparent distress, Oriented x3 HEENT: Atraumatic, Normocephalic, PERRLA Neck: 2+ carotid pulse no bruit Respiratory: Clear to auscultation bilaterally, Normal air movement, Other (SpO2 100% on RA) Cardiovascular: Normal pulses, Regular rate/rhythm, Other (mild tachycardia at 107 on assessment) Capillary refill: <2 Seconds Gastrointestinal: Normal bowel sounds Musculoskeletal: No clubbing, No swelling, No contractures, No erythema, No tenderness Integumentary: No rashes, No breakdown Neurological: Normal speech, Other (minimal tremor) Lymphatics: No axilla or inguinal lymphadenopathy External genitalia: Deferred Rectal: Deferred - Studies Laboratory Data (last 24 hrs) 09/22/23 09/22/23 09/22/23 18:00 18:00 18:00 WBC 6.80 Hgb 12.3 Hct 35.3 L Plt Count 158 PT 12.1 INR 1.10 Sodium 143 Potassium 3.4 L BUN 9 Creatinine 0.91 Glucose 110 H Total Bilirubin 0.3 AST 9 L ALT < 10 L Alkaline Phosphatase 92 Assessment and Plan - Problems (Diagnosis) (1) Pulmonary embolism Onset Date: ~09/22/23 Current Visit: Yes Status: Acute Plan: Re-start anticoagulants, echocardiogram, serial troponins, consult Dr. Skaggs. Start process for Xarelto approval Qualifiers: Pulmonary embolism type: multiple subsegmental (without acute cor pulmonale) Qualified Code(s): I26.94 - Multiple subsegmental pulmonary emboli without acute cor pulmonale Discharge Plan: Home Plan to discharge in: 48 Hours - Advance Directives Does patient have a Living Will: No Does patient have a Durable POA for Healthcare: No - Code Status/Comfort Care Code Status Assessed: Yes Code Status: Full Code Critical Care: No Time Spent Managing Pts Care (In Minutes): 40
[2023-09-23] MEDS: ALBUTEROL 2.5 MG/3 ML NEB SOL NEB SCH ×4 (02:20→20:50)
[2023-09-23 03:31] LABS: Absolute Lymphocytes (CBC) 1.2 K/uL (0.7-4.9); Hematocrit 31.9 % (36.0-45.0); Lymphocytes % 17.1 % (15.3-44.8); MCV 90.7 fL (80-100); MPV 8.8 fL (7.6-11.3); Platelets 128 thou/uL (152-406); Protime INR 1.07; RBC Red Blood Cell Count 3.52 M/uL (3.86-4.86)
[2023-09-23 04:33] LABS: Albumin 2.8 g/dL (3.4-5.0); Bilirubin Total 0.2 mg/dL (0.2-1.0); Magnesium 2.2 mg/dL (1.6-2.4); Potassium 3.7 mEq/L (3.5-5.1); Protein, Total 6.7 g/dL (6.4-8.2); Troponin High Sensitivity 3.4 pg/mL (<58.9)
[2023-09-23] MEDS: NA CHLORIDE 0.9% 1,000 ML IV SCH ×3 (06:34→16:11)
[2023-09-23] MEDS ORDERED: INFLUENZA VACCINE (for 6+ mo) 0.5 ML DOSE IMVAC ONE (08:00)
[2023-09-23] MEDS: ENOXAPARIN 80 MG/0.8 ML SQ SCH ×2 (08:04→19:35)
[2023-09-23] MEDS ORDERED: POTASSIUM CL SA 10 MEQ TAB PO ONE (09:00)
[2023-09-23 10:57] LABS: Troponin High Sensitivity 3.5 pg/mL (<58.9)
--- NOTE | 2023-09-23 12:28 | ECHO ---
HEIGHT: 5 ft 10 in WEIGHT: 170 lb 0 oz DATE OF STUDY: 09/23/[address]: Lucila Kessler PLASTIC MAKER-BC 2-DIMENSIONAL: YES M.MODE: YES DOPPLER: YES COLOR FLOW: YES TDS: PORTABLE: YES DEFINITY: BUBBLE STUDY: DIAGNOSIS: PULMONARY EMBOLISM CARDIAC HISTORY: CATHERIZATION: SURGERY: PROSTHETIC VALVE: PACEMAKER: MEASUREMENTS (cm) DIASTOLIC (NORMALS) SYSTOLIC (NORMALS) IVSd 0.8 (0.6-1.2) LA Diam 3.4 (1.9-4.0) LVEF 65% LVIDd 4.4 (3.5-5.7) LVIDs 2.8 (2.0-3.5) %FS 36% LVPWd 0.9 (0.6-1.2) Ao Diam 2.6 (2.0-3.7) 2 DIMENSIONAL ASSESSMENT: RIGHT ATRIUM: NORMAL LEFT ATRIUM: NORMAL RIGHT VENTRICLE: NORMAL LEFT VENTRICLE: NORMAL TRICUSPID VALVE: MILD TRICUSPID REGURGITATION MITRAL VALVE: MILD MITRAL REGURGITATION PULMONIC VALVE: MILD PULMONIC INSUFFICIENCY AORTIC VALVE: MILD AORTIC INSUFFICIENCY PERICARDIAL EFFUSION: NONE AORTIC ROOT: NORMAL LEFT VENTRICULAR WALL MOTION: NORMAL DOPPLER/COLOR FLOW: SEE BELOW COMMENTS: 1. NORMAL LEFT VENTRICULAR EJECTION FRACTION 60-65% WITH NORMAL WALL MOTION 2. NORMAL DIASTOLIC FUNCTION 3. MILD MITRAL REGURGITATION, TRICUSPID REGURGITATION, PULMONIC INSUFFICIENCY, AORTIC INSUFFICIENCY TECHNOLOGIST: CORAL CALABRESE
[2023-09-23] MEDS: GUAIFENESIN/DM 5 ML UCUP PO PRN ×2 (14:39→21:01)
--- NOTE | 2023-09-23 16:20 | P.PN ---
Subjective Date of Service: 09/23/23 Primary Care Provider: Dr. Dawson Chief Complaint: Pulmonary Embolism Subjective: No new changes, Improving, Doing well Patient is alert and oriented On oxygen 2 L through nasal cannula Patient denies shortness of breath or chest pain at this time Vital stable Patient History Date of Service: 09/22/23 Primary Care Provider: Dr. Dawson Reason for admission: Pulmonary Embolism History of Present Illness: Ms. San is 52 with a PMH of Parkinson's, Hyperlipidemia, GERD, and neuropathy. In 2006 s/p Cholecystectomy she had a DVT in her right arm. She took Coumadin until 6 months ago when she decided to stop taking anticoagulants. Ms. San flew to [place] for one month to visit family. She reports a cough for about three weeks. She flew home this Friday. She awoke from a nap today with significant pain to her right upper chest and shoulder. In the ED she had a CT PE study that was positive for embolism. She received a dose of Lovenox and was admitted to transition to po therapy. Review of Systems 10-point ROS is otherwise unremarkable Physical Examination - Vital Signs Temperature: 98.0 F Blood Pressure: 112/64 Pulse: 89 Respirations: 16 Pulse Ox (%): 100 - Physical Exam General: Alert, Oriented x3 HEENT: Atraumatic, Normocephalic Neck: Supple, 2+ carotid pulse no bruit Respiratory: Clear to auscultation bilaterally, Normal air movement Cardiovascular: No edema, Normal pulses Capillary refill: <2 Seconds Gastrointestinal: Normal bowel sounds, Soft and benign Musculoskeletal: No clubbing, No swelling Integumentary: No rashes, No breakdown - Studies Laboratory Data (last 24 hrs) 09/22/23 09/22/23 09/22/23 18:00 18:00 18:00 WBC 6.80 Hgb 12.3 Hct 35.3 L Plt Count 158 PT 12.1 INR 1.10 Sodium 143 Potassium 3.4 L BUN 9 Creatinine 0.91 Glucose 110 H Total Bilirubin 0.3 AST 9 L ALT < 10 L Alkaline Phosphatase 92 Assessment And Plan - Current Problems (Diagnosis) (1) Pulmonary embolism Onset Date: ~09/22/23 Current Visit: Yes Status: Acute Plan: Acute, no chest pain, no shortness of breath Breathing normally on oxygen 2 L per nasal cannula Hemodynamically stable On Lovenox To be started on Xarelto for outpatient anticoagulation Olga with the patient importance of medication compliance with anticoagulation Continue pain management as needed Discussed plan of care with the patient's father Camden Chowdary [phone] as requested Qualifiers: Pulmonary embolism type: multiple subsegmental (without acute cor pulmonale) Qualified Code(s): I26.94 - Multiple subsegmental pulmonary emboli without acute cor pulmonale Discharge Plan: Home Plan to discharge in: 24 Hours - Code Status/Comfort Care Code Status Assessed: Yes (Full code) Code Status: Full Code (Full code) Physician Review: Patient Assessed, Agree with Above Assessment and Plan Critical Care: No Time Spent Managing PTS Care (In Minutes): 35 (Minutes)
[2023-09-23] MEDS ORDERED: ONDANSETRON 4 MG/2 ML VIAL IV PRN (21:04)
[2023-09-24] MEDS ORDERED: ALPRAZOLAM 1 MG TABLET PO PRN (00:15)
[2023-09-24] MEDS ORDERED: HYDROCODONE BITARTRATE 10 MG PO PRN (00:15)
[2023-09-24] MEDS ORDERED: ACETAMIN/CAFFEINE/BUTALB TAB PO PRN (00:15)
[2023-09-24] MEDS ORDERED: FAMOTIDINE 20 MG TAB PO ONE (00:17)
[2023-09-24] MEDS: PANTOPRAZOLE 40MG TABLET PO SCH ×2 (00:50→08:43)
[2023-09-24] MEDS: NA CHLORIDE 0.9% 1,000 ML IV SCH ×2 (01:01→08:44)
[2023-09-24] MEDS: ALBUTEROL 2.5 MG/3 ML NEB SOL NEB SCH ×2 (02:50→07:30)
[2023-09-24] MEDS ORDERED: HYDROCODONE/APAP 7.5/325 MG TAB PO PRN (07:12)
--- NOTE | 2023-09-24 08:34 | P.PN ---
Subjective Date of Service: 09/24/23 Primary Care Provider: Dr. Dawson Chief Complaint: Pulmonary Embolism Physical Examination - Vital Signs Temperature: 97.2 F Blood Pressure: 142/73 Pulse: 85 Respirations: 18 Pulse Ox (%): 96 Assessment And Plan - Plan Assessment plan Pulmonary embolism acute Chronic anticoagulation History of DVT in the right upper extremity stop Coumadin 6 months ago, Lovenox 1 mg/kg every 2006 s/p Cholecystectomy she had a DVT in her right arm. She took Coumadin until 6 months ago when she decided to stop taking anticoagulants. Ms. San flew to [place] for one month to visit family. She reports a cough for about three weeks. She flew home this Friday. She awoke from a nap today with significant pain to her right upper chest and shoulder. In the ED she had a CT PE study that was positive for embolism. She received a dose of Lovenox and was admitted to transition to po therapy. Parkinson's chronic Hyperlipidemia chronic GERD chronic neuropathy. Chronic Full code Diet DVT Lovenox Discharge Plan: Home - Code Status/Comfort Care Code Status: Full Code Physician Review: Patient Assessed, Agree with Above Assessment and Plan Critical Care: No Time Spent Managing PTS Care (In Minutes): 35
[2023-09-24] MEDS: ENOXAPARIN 80 MG/0.8 ML SQ SCH (08:42)
[2023-09-24] MEDS ORDERED: PREGABALIN 150 MG CAP PO SCH (09:00)
[2023-09-24] MEDS ORDERED: AMITIZA 24 MCG PO SCH (09:00)
[2023-09-24] MEDS ORDERED: LUBIPROSTONE 24 MCG CAP PO SCH (09:00)
[2023-09-24] MEDS ORDERED: levETIRAcetam 500 MG TAB PO SCH (09:00)
[2023-09-24] MEDS ORDERED: MESALAMINE 400 MG CAPSULE.DR PO SCH (09:00)
[2023-09-24] MEDS ORDERED: TOPIRAMATE 100 MG TAB PO SCH (09:00)
[2023-09-24] MEDS ORDERED: CARBIDOPA/LEVODOPA 25/100 TAB PO SCH (09:00)
[2023-09-24] MEDS ORDERED: ROSUVASTATIN 10 MG TAB PO SCH (09:00)
[2023-09-24] MEDS ORDERED: DULOXETINE 30 MG CAP PO SCH (09:00)
[2023-09-24 09:47] VITALS: O2SAT 99
--- NOTE | 2023-09-24 10:09 | P.DS ---
Admission Date: 09/22/23 Discharge Date: 09/24/23 Primary Care Provider: Dr. Dawson Disposition: ROUTINE DISCHARGE Discharge Condition: FAIR Reason for Admission: Pulmonary Embolism Brief History of Present Illness: Ms. San is 52 with a PMH of Parkinson's, Hyperlipidemia, GERD, and neuropathy. In 2006 s/p Cholecystectomy she had a DVT in her right arm. She took Coumadin until 6 months ago when she decided to stop taking anticoagulants. Ms. San flew to [place] for one month to visit family. She reports a cough for about three weeks. She flew home this Friday. She awoke from a nap today with significant pain to her right upper chest and shoulder. In the ED she had a CT PE study that was positive for embolism. She received a dose of Lovenox and was admitted to transition to po therapy. - Physical Exam General: Alert, In no apparent distress, Oriented x3 HEENT: Atraumatic, Normocephalic, PERRLA Neck: 2+ carotid pulse no bruit Respiratory: Clear to auscultation bilaterally, Normal air movement, Other (SpO2 100% on RA) Cardiovascular: Normal pulses, Regular rate/rhythm, Other (mild tachycardia at 107 on assessment) Capillary refill: <2 Seconds Gastrointestinal: Normal bowel sounds Musculoskeletal: No clubbing, No swelling, No contractures, No erythema, No tenderness Integumentary: No rashes, No breakdown Neurological: Normal speech, Other (minimal tremor) Lymphatics: No axilla or inguinal lymphadenopathy Hospital Course: CT of the chest PE protocol revealed IMPRESSION: Right pulmonary emboli. 09/23 Echocardiogram 1. NORMAL LEFT VENTRICULAR EJECTION FRACTION 60-65% WITH NORMAL WALL MOTION 2. NORMAL DIASTOLIC FUNCTION 3. MILD MITRAL REGURGITATION, TRICUSPID REGURGITATION, PULMONIC INSUFFICIENCY, AORTIC INSUFFICIENCYPulmonary embolism acute, with History of DVT in the right upper extremity. She was treated with full dose Lovenox. She reports history of DVT taking Coumadin, She took Coumadin until 6 months ago when she decided to stop taking anticoagulants. Past medical history of Parkinson, Hyperlipidemia, GERD, neuropathy of which home medications were resumed. -We will dishcarge home on Eliquis, educate on bleeding precautions. instructions on Eliquis DC plan Macrobid BID x 7 days for UTI -Start new prescription Eliquis for pulmonary embolism -Follow up with PCP in 1 to 2 weeks -Please call nursing station [phone] if you have any questions regarding your medications, or hospital stay -Please return to the emergency department if your symptoms worsen Vital Signs/Physical Exam: Temp Pulse Resp BP Pulse Ox 97.2 F 85 18 142/73 H 96 09/24/23 08:37 09/24/23 08:37 09/24/23 08:37 09/24/23 08:37 09/24/23 08:37 Laboratory Data at Discharge: WBC 6.90 thou/uL (4.3-10.9) 09/23/23 01:58 Hgb 11.2 g/dL (12.0-15.0) L D 09/23/23 01:58 Hct 31.9 % (36.0-45.0) L 09/23/23 01:58 Plt Count 128 thou/uL (152-406) L 09/23/23 01:58 PT 11.8 SECONDS (9.5-12.5) 09/23/23 01:58 INR 1.07 09/23/23 01:58 APTT 35.5 SECONDS (24.3-36.9) 09/23/23 01:58 Sodium 140 mEq/L (136-145) 09/23/23 01:58 Potassium 3.7 mEq/L (3.5-5.1) 09/23/23 01:58 BUN 10 mg/dL (7-18) 09/23/23 01:58 Creatinine 0.85 mg/dL (0.55-1.02) 09/23/23 01:58 Glucose 165 mg/dL (74-106) H 09/23/23 01:58 Magnesium 2.2 mg/dL (1.6-2.4) 09/23/23 01:58 Total Bilirubin 0.2 mg/dL (0.2-1.0) 09/23/23 01:58 AST 7 U/L (15-37) L 09/23/23 01:58 ALT 15 U/L (13-56) 09/23/23 01:58 Alkaline Phosphatase 83 U/L (45-117) 09/23/23 01:58 Triglycerides 107 mg/dL (<150) 09/23/23 01:58 Cholesterol 151 mg/dL (<200) 09/23/23 01:58 HDL Cholesterol 54 mg/dL (40-60) 09/23/23 01:58 Cholesterol/HDL Ratio 2.80 09/23/23 01:58 Home Medications: Alprazolam [Xanax] 1 tab PO DAILY PRN 09/22/23 Butalb/Acetaminophen/Caffeine [Fioricet 50-300-40 mg Capsule] 1 tab PO Q6H PRN 09/22/23 Carbidopa/Levodopa [Carbidopa-Levodopa 25-100 Tab] 1 tab PO BID 09/22/23 Duloxetine HCl [Cymbalta] 1 tab PO DAILY 09/22/23 HYDROcodone bitartrate [Hydrocodone Bitartrate ER] 7.5 mg PO BID PRN 09/22/23 Levetiracetam [Keppra] 1 tab PO BID 09/22/23 Lubiprostone [Amitiza] 1 cap PO DAILY 09/22/23 Mesalamine [Delzicol] 1 tab PO BID 09/22/23 Pregabalin [Lyrica] 1 tab PO TID 09/22/23 Rosuvastatin Calcium [Crestor] 1 tab PO DAILY 09/22/23 Topiramate [Topamax] 1 tab PO BID 09/22/23 Apixaban [Eliquis] 5 mg PO BID 7 Days #14 tab 09/24/23 Apixaban [Eliquis] 10 mg PO BID 7 Days #14 tab 09/24/23 Carbidopa/Levodopa 25-100 [Sinemet 25-100*] 1 tab PO BID tab 09/24/23 Mesalamine [Delzicol] 400 mg PO BID 09/24/23 Nitrofuran Macro [Macrobid*] 100 mg PO BID 7 Days #14 cap 09/24/23 Pregabalin [Lyrica] 150 mg PO TID cap 09/24/23 Rosuvastatin [Crestor*] 10 mg PO DAILY tab 09/24/23 Topiramate [Topamax*] 100 mg PO BID tab 09/24/23 New Medications: Apixaban [Eliquis] 10 mg PO BID 7 Days #14 tab Apixaban [Eliquis] 5 mg PO BID 7 Days #14 tab Nitrofuran Macro [Macrobid*] 100 mg PO BID 7 Days #14 cap Physician Discharge Instructions: Hospital course patient was noted to have a pulmonary embolism. /she presented with shortness of breath and chest pain. She was admitted with pulmonary embolus she was treated with full dose Lovenox during her hospital stay. She reports history of DVT taking Coumadin, She took Coumadin until 6 months ago when she decided to stop taking anticoagulants. Past medical history of Parkinson, Hyperlipidemia, GERD, neuropathy of which home medications were resumed. CT of the chest PE protocol revealed IMPRESSION: Right pulmonary emboli. 09/23 Echocardiogram 1. NORMAL LEFT VENTRICULAR EJECTION FRACTION 60-65% WITH NORMAL WALL MOTION 2. NORMAL DIASTOLIC FUNCTION 3. MILD MITRAL REGURGITATION, TRICUSPID REGURGITATION, PULMONIC INSUFFICIENCY, AORTIC INSUFFICIENCYPulmonary embolism acute, Ultrasound upper negative DVT Macrobid BID x 7 days for UTI Start new prescription Eliquis for pulmonary embolism -Patient has bled score is 0. Discharge prescription discussed with from pharmacy. -We will dishcharge home on Eliquis 10 PO twice daily for 7 day (until 10/01) on 10/02 she will start Eliquis 5 mg PO BID indefinitely, educate on bleeding precautions. Patient has bled score is 0. Discharge prescription discussed wi th from pharmacy. - educate on bleeding precautions. -Follow up with PCP in 1 to 2 weeks -Start new prescription Eliquis for pulmonary embolism -Please call nursing station [phone] if you have any questions regarding your medications, or hospital stay -Please return to the emergency department if your symptoms worsen -Follow up with PCP in 1 to 2 weeks -Please call nursing station [phone] if you have any questions regarding your medications, or hospital stay -Please return to the emergency department if your symptoms worsen Diet: Low sodium Activity: Ad acosta
--- NOTE | 2023-09-24 10:25 | RAD REPORT ---
EXAM DESCRIPTION: US - UPPER EXTREMITY VENOUS UNILATE - 09/24/2023 9:59 am CLINICAL HISTORY: Left upper extremity COMPARISON: None. TECHNIQUE: Real-time sonographic evaluation of the left upper extremity deep venous system was perfo rmed. FINDINGS: Normal compressibility, flow augmentation, phasic flow and spontaneous flow is identified in the left upper extremity deep venous system. No intraluminal filling defects seen. IMPRESSION: No DVT in the left upper extremity.
[2023-09-24 12:27] VITALS: BP 140/80; TEMP 97
[2023-09-24 12:55] LABS: Specific Gravity 1.005 (1.005-1.030); Urine Bilirubin NEGATIVE (Negative); Urine Blood Negative (Negative); Urine Clarity Clear (Clear); Urine Color Colorless (Yellow); Urine Glucose NEGATIVE (Negative); Urine Protein NEGATIVE (Negative); Urine Urobilinogen Normal (Normal)
[2023-09-24] MEDS ORDERED: ALBUTEROL 2.5 MG/3 ML NEB SOL ONE (14:57)
--- NOTE | 2023-09-24 17:28 | EKG ---
Test Date: 2023-09-22 Test Time: 18:08:12 Manager Compensation: JAYME MEASUREMENT RESULTS: Intervals: Rate: 89 MA: 186 QRSD: 76 QT: 378 QTc: 459 Webster: P: 73 MA: 186 QRS: 34 T: 34 INTERPRETIVE STATEMENTS: Normal sinus rhythm Nonspecific ST and T wave abnormality Abnormal ECG Compared to ECG 02/11/2023 19:55:55 ST (T wave) deviation now present Electronically Signed On 09-24-23 17:22:53 PROFESSOR OF ENGINEERING by Leo Skaggs
[2023-09-24] MEDS ORDERED: NITROFURAN MACRO 100 MG CAP PO SCH (21:00)
[2023-09-24] MEDS ORDERED: APIXABAN 5 MG TABLET PO SCH ×2 (21:00)
[2023-10-01] MEDS ORDERED: APIXABAN 5 MG TABLET PO SCH (09:00)
== END 2023-09-24 13:30 | disposition home or self-care (01) ==
LOC: ER 17:40 → 4TH 20:33
PROVIDERS: ADMIT Hospitalist; ATTEND Hospitalist
DX: I26.94 Multiple subsegmental thrombotic pulmonary emboli without acute cor pulmonale (principal); G20.A1 Parkinson's disease without dyskinesia, without mention of fluctuations; E78.5 Hyperlipidemia, unspecified; K21.9 Gastro-esophageal reflux disease without esophagitis; G62.9 Polyneuropathy, unspecified; R05.9 Cough, unspecified; Z88.5 Allergy status to narcotic agent; Z86.718 Personal history of other venous thrombosis and embolism; Z23 Encounter for immunization
CPT/HCPCS: 96361; 93005; 93306; 85025 ×2; 80048; 36415; 83735; 82550 ×2; 85610 ×2; 80061; 80076; 85730; 81003; 84484 ×3; 80053; 83880; 71275; 74177; 71045; 73030; 93971; 94640 ×6; 94760 ×3; 96372; 96374; 99285; Q9967; J7613 ×5; J1720; J2405; J7030 ×2; G0378 ×4

== ENCOUNTER → 2023-12-11 | Emergency (ER) | payer OTHER ==
[~2023-12-11] MED LIST: CYCLOBENZAPRINE 10 MG TAB ONE; KETOROLAC 30 MG/ML INJ ONE; LIDOCAINE 4% PATCH ONE
[2023-12-11 23:00] LABS: Hematocrit 37.2 % (36.0-45.0); MPV 8.5 fL (7.6-11.3); Platelets 184 thou/uL (152-406); RBC Red Blood Cell Count 4.14 M/uL (3.86-4.86)
[2023-12-11 23:05] LABS: Specific Gravity 1.027 (1.005-1.030); Urine Bacteria None Seen /HPF (<20); Urine Bilirubin NEGATIVE (Negative); Urine Blood Negative (Negative); Urine Clarity Clear (Clear); Urine Color Yellow (Yellow); Urine Glucose NEGATIVE (Negative); Urine Mucus Slight /HPF (None Seen); Urine Protein TRACE (Negative); Urine RBC <5 /HPF (None Seen); Urine Urobilinogen Normal (Normal); Urine pH 5.5 (5.0-7.0)
[2023-12-11 23:20] LABS: Potassium 3.8 mEq/L (3.5-5.1); Troponin High Sensitivity 3.2 pg/mL (<58.9)
--- NOTE | 2023-12-12 00:18 | ER ---
Nurse's Notes [facility] – [place], [place] Name: Savanna San Age: 52 yrs Sex: Female : 1970 Arrival Date: 12/11/2023 Time: 22:11 Bed 18 Private MD: Diagnosis: Strain of muscle and tendon of back wall of thorax, initial encounter Presentation: 12/11 22:18 Chief complaint: Patient states: right mid back pain X1 week. denies injury. lg3 Coronavirus screen: Client denies travel out of the [place] in the last 14 days. At this time, the client does not indicate any symptoms associated with coronavirus-19. Ebola Screen: No symptoms or risks identified at this time. Initial Sepsis Screen: Does the patient meet any 2 criteria? No. Patient's initial sepsis screen is negative. Does the patient have a suspected source of infection? No. Patient's initial sepsis screen is negative. Risk Assessment: Do you want to hurt yourself or someone else? Patient reports no desire to harm self or others. Onset of symptoms is unknown. 22:18 Method Of Arrival: Ambulatory lg3 22:18 Acuity: MARIJA 3 lg3 Triage Assessment: 22:19 General: Appears in no apparent distress. uncomfortable, Behavior is calm, cooperative. lg3 Pain: Complains of pain in right subscapular area and mid back area. EENT: No deficits noted. No signs and/or symptoms were reported regarding the EENT system. Neuro: No deficits noted. Post Agitation-Sedation Scale (RASS): 0 - Alert and Calm Level of Consciousness is awake, alert, obeys commands, Oriented to person, place, time, situation. Cardiovascular: No deficits noted. Denies chest pain, shortness of breath, Capillary refill < 3 seconds Clubbing of nail beds is absent JVD is absent Patient's skin is warm and dry. Respiratory: No deficits noted. Airway is patent Respiratory effort is even, unlabored, Respiratory pattern is regular, symmetrical. GI: No deficits noted. No signs and/or symptoms were reported involving the gastrointestinal system. : No deficits noted. No signs and/or symptoms were reported regarding the genitourinary system. Derm: No deficits noted. No signs and/or symptoms reported regarding the dermatologic system. Skin is intact, is healthy with good turgor, Skin is dry, Skin is normal, Skin temperature is warm. Musculoskeletal: Circulation, motion, and sensation intact. Range of motion: intact in all extremities, Reports pain in back. 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/A - Hysterectomy, Not lg3 Historical: - Allergies: 22:19 Morphine; lg3 - Home Meds: 22:19 Eliquis 5 mg oral tablet 2 times per day [Active]; Sinemet 25-100 mg Oral tablet 1 tab lg3 3 times per day [Active]; Fioricet 50-300-40 mg Oral capsule 1 cap every 6 hours [Active]; duloxetine 60 mg oral capsule,delayed release (e.c.) 1 cap daily [Active]; pregabalin 200 mg Oral capsule 1 cap 3 times per day [Active]; Crestor 10 mg oral tablet 1 tab daily [Active]; topiramate 100 mg oral tablet 2 times per day [Active]; mesalamine 400 mg oral capsule (with delayed release tablets) 2 tab twice a day [Active]; Keppra 250 mg Oral tablet 2 times per day [Active]; pantoprazole 40 mg oral tablet, delayed release (enteric coated) daily [Active]; Xanax 2 mg Oral tablet [Active]; - 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 Flu vaccine is up to date. - Social history:: Smoking status: Patient denies any tobacco usage or history of. Patient/guardian denies using alcohol, street drugs. Screenin:30 [facility] ED Fall Risk Assessment (Adult) History of falling in the last 3 months, me1 including since admission No falls in past 3 months (0 pts) Confusion or Disorientation No (0 pts) Intoxicated or Sedated No (0 pts) Impaired Gait No (0 pts) Mobility Assist Device Used No (0 pt) Altered Elimination No (0 pt) Score/Fall Risk Level 0 - 2 = Low Risk Maintained a safe environment, Provided non-skid footwear, Hourly rounding (assess needs \T\ fall precautionary measures) done. Abuse screen: Denies threats or abuse. Nutritional screening: No deficits noted. Tuberculosis screening: No symptoms or risk factors identified. Assessment: 22:30 General: Appears uncomfortable, well groomed, well developed, well nourished, Behavior me1 is calm, cooperative, appropriate for age, Reports right mid back pain X1 week. denies injury. Pain: Complains of pain in right lateral posterior chest and back and mid back area and right subscapular area Pain does not radiate. Pain currently is 10 out of 10 on a pain scale. Quality of pain is described as burning, sharp, Pain began 1week ago. Neuro: Level of Consciousness is awake, alert, obeys commands, Oriented to person, place, time, situation, Appropriate for age. Cardiovascular: Capillary refill < 3 seconds Patient's skin is warm and dry. Respiratory: Airway is patent Trachea midline Respiratory effort is even, unlabored, Respiratory pattern is regular, symmetrical. 12/12 00:29 Reassessment: Patient appears in no apparent distress at this time. No changes from [facility] previously documented assessment. Patient and/or family updated on plan of care and expected duration. Pain level reassessed. Patient is alert, oriented x 3, equal unlabored respirations, skin warm/dry/pink. Patient states symptoms have improved. Vital Signs: 12/11 22:18 BP 148 / 70; Pulse 80; Resp 17 S; Temp 97.9(O); Pulse Ox 100% on R/A; Weight 81.65 kg lg3 (R); Height 5 ft. 10 in. (R); Pain 10/10; 22:30 BP 149 / 61; Pulse 80; Resp 18; Pulse Ox 100% on R/A; me1 23:15 BP 113 / 54; Pulse 70; Resp 17; Pulse Ox 99% on R/A; me1 12/12 00:29 BP 117 / 59; Pulse 71; Resp 18 S; Pulse Ox 100% on R/A; lg3 12/11 22:18 Body Mass Index 25.83 (81.65 kg, 177.8 cm) 3 12/11 22:18 Pain Scale: Adult [facility] ED Course: 12/11 22:15 Patient arrived in ED. jj6 22:16 Brown, Nuha, PA-C is PHCP. sb4 22:16 Nazario Nicholson MD is Attending Physician. sb4 22:19 Triage completed. lg3 22:19 Arm band placed on left wrist. lg3 22:30 Patient has correct armband on for positive identification. Bed in low position. Call me1 light in reach. Side rails up X2. Provided Education on: POC. Verbalized understanding. . 22:30 No provider procedures requiring assistance completed. me1 22:36 Awilda Rodgers, RN is Primary Nurse. me1 22:53 Inserted saline lock: 22 gauge in left forearm, using aseptic technique. me1 22:53 Urinalysis w/ reflexes Sent. me1 22:53 Basic Metabolic Panel Sent. me1 22:53 CBC with Diff Sent. me1 22:53 D-Dimer Sent. me1 22:54 Troponin HS Sent. me1 22:58 XRAY Chest (1 view) In Process Unspecified. EDMS 23:50 CT Chest For PE Angio In Process Unspecified. EDMS 02/02 00:30 IV discontinued, intact, bleeding controlled, No redness/swelling at site. Pressure lg3 dressing applied. Administered Medications: 02 22:58 Drug: Cyclobenzaprine PO 10 mg PO once Route: PO; me1 23:09 Follow up: Response: No adverse reaction me1 22:58 Drug: Ketorolac IVP 30 mg IVP once Route: IVP; Site: right forearm; me1 23:09 Follow up: Response: No adverse reaction nh1 02/ 00:22 Drug: Lidoderm Topical Patch 5 % (700 mg/patch) 1 patches Topical once; leave on for 12 lg3 hours; cover most painful area; may cut into smaller pieces Route: Topical; Site: affected area; 00:29 Follow up: Response: No adverse reaction lg3 Medication: 02/ 22:30 VIS not applicable for this client. me1 Outcome: 02 00:17 Discharge ordered by . sb4 00:30 Discharged to home ambulatory, lg3 00:30 Condition: stable 00:30 Discharge instructions given to patient, Instructed on discharge instructions, follow up and referral plans. medication usage, Demonstrated understanding of instructions, follow-up care, medications, Prescriptions given X 1, 00:30 Patient left the ED. lg3 Signatures: Dispatcher [employer] Laura Ruelas RN RN lg3 Ladan Rios jj6 Nuha Avila PA-C PACynthia sb4 Awilda Rodgers RN RN me1 Corrections: (The following items were deleted from the chart) 12/11 23:03 22:18 Chief complaint: Patient states: right mid back pain X1 week. denies injury lg3 me1 23: 22:18 Acuity: MARIJA 4 lg3 lg3
--- NOTE | 2023-12-12 00:19 | EDPHYS ---
Physician Documentation [facility] Name: Savanna San Age: 52 yrs Sex: Female : 1970 Arrival Date: 12/11/2023 Time: 22:11 Bed 18 Private MD: ED Physician Nazario Nicholson HPI: 12/11 22:43 This 52 yrs old Female presents to ER via Ambulatory with complaints of Back Pain. sb4 22:43 The patient presents with pain that is acute, with no known mechanism of injury. sb4 patient reports pain in her right mid/upper back. states it feels like a stabbing pain and sometimes a burning pain. she has taken hydrocone without any relief. she is concerned because she has previously had a PE and states it feels somewhat similar. pain with inspiration. no CP, shortness of breath, fever, chills, palpitations. 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 N/A - Hysterectomy, Not lg3 Historical: - Allergies: 22:19 Morphine; lg3 - Home Meds: 22:19 Eliquis 5 mg oral tablet 2 times per day [Active]; Sinemet 25-100 mg Oral tablet 1 tab lg3 3 times per day [Active]; Fioricet 50-300-40 mg Oral capsule 1 cap every 6 hours [Active]; duloxetine 60 mg oral capsule,delayed release (e.c.) 1 cap daily [Active]; pregabalin 200 mg Oral capsule 1 cap 3 times per day [Active]; Crestor 10 mg oral tablet 1 tab daily [Active]; topiramate 100 mg oral tablet 2 times per day [Active]; mesalamine 400 mg oral capsule (with delayed release tablets) 2 tab twice a day [Active]; Keppra 250 mg Oral tablet 2 times per day [Active]; pantoprazole 40 mg oral tablet, delayed release (enteric coated) daily [Active]; Xanax 2 mg Oral tablet [Active]; - 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 Flu vaccine is up to date. - Social history:: Smoking status: Patient denies any tobacco usage or history of. Patient/guardian denies using alcohol, street drugs. ROS: 22:43 Constitutional: Negative for fever, chills, and weight loss, sb4 22:43 Back: Positive for pain at rest, pain with movement, 22:43 All other systems are negative, Exam: 22:43 Constitutional: This is a well developed, well nourished patient who is awake, alert, sb4 and in no acute distress. Head/Face: Normocephalic, atraumatic. Eyes: Extra-ocular motions intact. Periorbital areas with no swelling, redness, or edema. ENT: Mucous membranes moist. Cardiovascular: Regular rate and rhythm with a normal S1 and S2. Respiratory: Lungs have equal breath sounds bilaterally, clear to auscultation and percussion. No rales, rhonchi or wheezes noted. No increased work of breathing, no retractions or nasal flaring. Abdomen/GI: Soft, non-tender, no distension. Skin: Warm, dry with normal turgor. Normal color with no rashes, no lesions, and no evidence of cellulitis. MS/ Extremity: Pulses equal, no cyanosis. Neurovascular intact. Full, normal range of motion. Neuro: Awake and alert, GCS 15, oriented to person, place, time, and situation. Motor strength 5/5 in all extremities. Sensory grossly intact. 22:43 Chest/axilla: Inspection: normal, Palpation: tenderness, that is moderate, of the right lateral posterior chest, Vital Signs: 22:18 BP 148 / 70; Pulse 80; Resp 17 S; Temp 97.9(O); Pulse Ox 100% on R/A; Weight 81.65 kg lg3 (R); Height 5 ft. 10 in. (R); Pain 10/10; 22:30 BP 149 / 61; Pulse 80; Resp 18; Pulse Ox 100% on R/A; me1 23:15 BP 113 / 54; Pulse 70; Resp 17; Pulse Ox 99% on R/A; me1 02/02 00:29 BP 117 / 59; Pulse 71; Resp 18 S; Pulse Ox 100% on R/A; lg3 02 22:18 Body Mass Index 25.83 (81.65 kg, 177.8 cm) lg3 12/11 22:18 Pain Scale: Adult lg3 MDM: 12/11 22:17 Patient medically screened. sb4 22:43 Differential diagnosis: PE, pyelonephritis, strain, sprain, nephrolithiasis. sb4 12/12 00:17 Data reviewed: vital signs, nurses notes, lab test result(s), radiologic studies, and sb4 as a result, I will discharge patient. Counseling: I had a detailed discussion with the patient and/or guardian regarding the historical points, exam findings, and any diagnostic results supporting the discharge/admit diagnosis, lab results, radiology results, to return to the emergency department if symptoms worsen or persist or if there are any questions or concerns that arise at home. 12/11 22:36 Order name: Basic Metabolic Panel; Complete Time: 23:31 sb4 12/11 22:36 Order name: CBC with Diff; Complete Time: 23:09 sb4 12/11 22:36 Order name: D-Dimer; Complete Time: 23:36 4 12/11 22:36 Order name: Troponin HS; Complete Time: 23:31 sb4 12/11 22:36 Order name: Urinalysis w/ reflexes; Complete Time: 23:06 sb4 12/11 22:36 Order name: XRAY Chest (1 view) 4 12/11 23:12 Order name: CT Chest For PE Angio sb4 12/11 22:36 Order name: Cardiac monitoring; Complete Time: 23:02 sb4 12/11 22:36 Order name: IV Saline Lock; Complete Time: 22:53 4 12/11 22:36 Order name: Labs collected and sent; Complete Time: 22:53 sb4 12/11 22:36 Order name: O2 Per Protocol; Complete Time: 22:37 sb4 12/11 22:36 Order name: O2 Sat Monitoring; Complete Time: 22:37 sb4 Administered Medications: 12/11 22:58 Drug: Cyclobenzaprine PO 10 mg PO once Route: PO; me1 23:09 Follow up: Response: No adverse reaction me1 22:58 Drug: Ketorolac IVP 30 mg IVP once Route: IVP; Site: right forearm; me1 23:09 Follow up: Response: No adverse reaction nm1 12/12 00:22 Drug: Lidoderm Topical Patch 5 % (700 mg/patch) 1 patches Topical once; leave on for 12 lg3 hours; cover most painful area; may cut into smaller pieces Route: Topical; Site: affected area; 00:29 Follow up: Response: No adverse reaction lg3 Disposition: 00:41 Co-signature as Attending Physician, Nazario Nicholson MD I reviewed the patient's care rt provided by the Advanced Practice Provider and agree with the diagnosis and treatment plan. Disposition Summary: 12/12/23 00:17 Discharge Ordered Notes: Location: Home sb4 Problem: an ongoing problem sb4 Symptoms: are unchanged sb4 Condition: Stable sb4 Diagnosis - Strain of muscle and tendon of back wall of thorax, initial encounter sb4 Followup: sb4 - With: Private Physician - When: As needed - Reason: Recheck today's complaints, Re-evaluation by your physician Discharge Instructions: - Discharge Summary Sheet sb4 - Muscle Strain, [id number] sb4 Forms: - Medication Reconciliation Form sb4 - Thank You Letter sb4 - Antibiotic Education sb4 - Prescription Opioid Use sb4 - Patient Portal Instructions sb4 - Leadership Thank You Letter sb4 Prescriptions: - Cyclobenzaprine 10 mg Oral Tablet - take 1 tablet ORAL route every 8 hours As needed; 30 tablet; Refills: 0, sb4 Product Selection Permitted Signatures: Dispatcher [employer] Laura Ruelas, RN RN lg3 Nuha Avila PA-C PACynthia sb4 Nazario Nicholson MD MD rt Awilda Rodgers RN RN me1
[2023-12-12 02:27] VITALS: BP 117/59; TEMP 97.9; O2SAT 100
--- NOTE | 2023-12-12 14:11 | RAD REPORT ---
EXAM DESCRIPTION: Chest Single View 12/11/2023 11:07 PM [employer]ITION[employer] CLINICAL HISTORY: 52 years, Female, rib pain;Chest pain COMPARISON: None FINDINGS: 1 views of the chest was obtained. No prior films are available at this time for compari son. There is normal lung volume. Mediastinum: The cardiomediastinal silhouette appears normal in size and shape. Lungs: No areas of consolidations or masses are identified. Heart: The heart is normal in size. Aorta: The thoracic aorta demonstrate to be within normal limits. Pulmonary vasculature: The pulmonary vasculature is normal in distribution. Pleura: The costophrenic angles demonstrate to be sharp. Osseous structures: The bony structures demonstrate to be within normal limits. Plate fixation lower cervical spine. Other: None. IMPRESSION: No acute cardiopulmonary disease is seen Electronically signed by: Oziel Arce MD 12/11/2023 11:08 PM [employer] Due to temporary technical issues with the PACS/Fluency reporting system, reports are being signed by the in house radiologists without review as a courtesy to insure prompt reporting. The interpreting radiologist is fully responsible for the content of the report.
--- NOTE | 2023-12-12 14:13 | RAD REPORT ---
CLINICAL HISTORY: H/o PE;Chest pain COMPARISON: 09/22/2023. TECHNIQUE: CT CHEST ANGIOGRAPHY WITH IV CONTRAST on 12/11/2023 11:12 PM [employer]. MIPS reconstructions were generated. This exam was performed according to our departmental dose-optimization program, which includes autom ated exposure control, adjustment of the mA and/or kV according to patient size and/or use of iterati ve reconstruction technique. MIP images were generated. FINDINGS: Thoracic aorta is normal in course and caliber without aneurysm or dissection. Pulmonary a rteries are adequately opacified without acute or chronic filling defects. The heart is normal in size. There is no pericardial effusion. Intrathoracic lymph nodes are not enla rged. There is no pleural effusion, pleural thickening or pneumothorax. Central airways are patent. Lungs a re clear with no consolidation, mass or interstitial lung disease. There are no acute abnormalities within the limited images of the upper abdomen. There are no acute osseous findings. No suspicious bony lesions. IMPRESSION: No aortic dissection or aneurysm. No pulmonary embolus. No pneumonia. Electronically signed by: Lavelle Persaud MD 12/12/2023 12:11 AM [employer] Due to temporary technical issues with the PACS/Fluency reporting system, reports are being signed by the in house radiologists without review as a courtesy to insure prompt reporting. The interpreting radiologist is fully responsible for the content of the report.
== END ==
LOC: ER 22:11
DX: S29.012A Strain of muscle and tendon of back wall of thorax, initial encounter (principal); G20.A1 Parkinson's disease without dyskinesia, without mention of fluctuations; Z28.310 Unvaccinated for COVID-19; Z88.5 Allergy status to narcotic agent; Z79.01 Long term (current) use of anticoagulants
CPT/HCPCS: 85025; 81001; 80048; 36415; 85379; 84484; 71275; 71045; Q9967

== ENCOUNTER 2024-03-03 10:55 | Emergency (ER) | payer OTHER ==
[2024-03-03 11:42] LABS: Absolute Eosinophils 0.2 K/uL (0-0.5); Absolute Lymphocytes (CBC) 1.4 K/uL (0.7-4.9); Absolute Monocytes 0.3 K/uL (0.1-1.3); Absolute Neutrophil 3.1 K/uL (1.8-8.0); Basophils % 0.6 % (0-1.3); Eosinophils % 3.7 % (0-4.4); Hematocrit 36.8 % (36.0-45.0); Hemoglobin 12.4 g/dL (12.0-15.0); Lymphocytes % 27.9 % (15.3-44.8); MCH 30.9 pg (27.0-35.0); MCHC 33.7 g/dL (32.0-36.0); MCV 91.8 fL (80-100); MPV 9.3 fL (7.6-11.3); Monocytes % 6.8 % (3.3-12.3); Platelets 165 thou/uL (152-406); RBC Red Blood Cell Count 4.01 M/uL (3.86-4.86); Red Cell Distribution Width 13.5 % (12.1-15.2)
[2024-03-03 11:51] LABS: SARS-CoV-2 Antigen CONTROL BLUE LINE VIS/BG OK; SARS-CoV-2 Antigen Rapid Res Negative (Negative)
--- NOTE | 2024-03-03 11:54 | RAD REPORT ---
EXAM DESCRIPTION: [facility] Single View03/03/2024 11:39 am CLINICAL HISTORY: Cough COMPARISON: December 2023 FINDINGS: The lungs appear clear of acute infiltrate. The heart is normal size IMPRESSION: No acute abnormalities displayed
[2024-03-03 11:58] LABS: AST/SGOT 17 U/L (15-37); Albumin 3.4 g/dL (3.4-5.0); Albumin/Globulin Ratio 0.9 (1.1-1.8); Alkaline Phosphatase 105 U/L (45-117); BUN Blood Urea Nitrogen 12 mg/dL (7-18); Bicarbonate 23 mEq/L (21-32); Bilirubin Direct 0.1 mg/dL (0-0.2); Bilirubin Indirect, Calculated 0.3 mg/dL (0.2-0.8); Bilirubin Total 0.4 mg/dL (0.2-1.0); Globulin 3.7 g/dL (2.3-3.5); Glomerular Filtration Rate 74 ml/min (=/>90); Glucose Level 117 mg/dL (74-106); NT PRO-BNP 80 pg/mL (<125); Protein, Total 7.1 g/dL (6.4-8.2); Sodium Level 138 mEq/L (136-145)
[2024-03-03 12:02] LABS: ALT/SGPT < 10 U/L (13-56); Troponin High Sensitivity < 3.0 pg/mL (<58.9)
--- NOTE | 2024-03-03 12:13 | ER ---
Nurse's Notes [facility] Name: Savanna San Age: 53 yrs Sex: Female : 1970 Arrival Date: 03/03/2024 Time: 10:55 Bed 4 Private MD: Diagnosis: Strep pharyngitis Presentation: 03/03 11:09 Chief complaint: Patient states: sore throat, cough, headache since Friday. Coronavirus iw screen: Client presents with at least one sign or symptom that may indicate coronavirus-19. Ebola Screen: Patient negative for fever greater than or equal to 101.5 degrees Fahrenheit, and additional compatible Ebola Virus Disease symptoms Patient denies exposure to infectious person. Patient denies travel to an Ebola-affected area in the 21 days before illness onset. No symptoms or risks identified at this time. Initial Sepsis Screen: Does the patient meet any 2 criteria? No. Patient's initial sepsis screen is negative. Does the patient have a suspected source of infection? No. Patient's initial sepsis screen is negative. Risk Assessment: Do you want to hurt yourself or someone else? Patient reports no desire to harm self or others. Onset of symptoms was March 01, 2024. 11:09 Method Of Arrival: Ambulatory iw 11:09 Acuity: MARIJA 3 iw Historical: - Allergies: 11:10 Morphine; iw - PMHx: 11:10 DVT; apryl disease; Nerve Damage +DDD; Irritable bowel syndrome; Parkinsons; iw Seizures; CVA- Left sided weakness; Headaches; tremors; - PSHx: 11:10 Cholecystectomy; pain pump; spine; Total abdominal hysterectomy; iw - Immunization history:: Adult Immunizations. - Infectious Disease History:: Denies. - Social history:: Smoking status: Patient denies any tobacco usage or history of. Screenin:05 [facility] ED Fall Risk Assessment (Adult) History of falling in the last 3 months, rs5 including since admission No falls in past 3 months (0 pts) Confusion or Disorientation No (0 pts) Intoxicated or Sedated No (0 pts) Impaired Gait No (0 pts) Mobility Assist Device Used No (0 pt) Altered Elimination No (0 pt) Score/Fall Risk Level 0 - 2 = Low Risk Oriented to surroundings, Maintained a safe environment. Abuse screen: Denies threats or abuse. Nutritional screening: No deficits noted. Tuberculosis screening: No symptoms or risk factors identified. Assessment: 11:04 General: Appears in no apparent distress. uncomfortable, Behavior is calm, cooperative. rs5 Pain: Complains of pain in head and throat Pain currently is 3 out of 10 on a pain scale. Quality of pain is described as aching, Is continuous. Neuro: Level of Consciousness is awake, alert, obeys commands, Oriented to person, place, time, situation. Cardiovascular: Patient's skin is warm and dry. Rhythm is regular. Respiratory: Airway is patent Respiratory effort is even, unlabored, Respiratory pattern is regular, symmetrical, GI: Abdomen is round non-distended, Abd is soft and non tender X 4 quads. : No signs and/or symptoms were reported regarding the genitourinary system. EENT: Throat is reddened. Derm: Skin is intact, Skin is pink, warm \T\ dry. Musculoskeletal: Range of motion: intact in all extremities. 12:02 Reassessment: No changes from previously documented assessment. rs5 12:23 Reassessment: Patient appears in no apparent distress at this time. as6 Vital Signs: 11:09 BP 120 / 100; Pulse 81; Resp 18; Temp 97.8; Pulse Ox 97% on R/A; Weight 81.65 kg; iw Height 5 ft. 10 in. ; 12:18 BP 106 / 55; Pulse 65; Resp 18 S; Pulse Ox 99% on R/A; as6 11:09 Body Mass Index 25.83 (81.65 kg, 177.8 cm) iw ED Course: 11:02 Patient arrived in ED. mr 11:05 Nigel Amezquita MD is Attending Physician. sp3 11:05 Patient has correct armband on for positive identification. Placed in gown. Bed in low rs5 position. Call light in reach. Side rails up X2. 11:05 No provider procedures requiring assistance completed. rs5 11:10 Triage completed. iw 11:11 Arm band placed on. iw 11:25 SARS RAPID Sent. bc6 11:25 Strep Sent. bc6 11:25 Flu Sent. bc6 11:26 Basic Metabolic Panel Sent. bc6 11:26 CBC with Diff Sent. bc6 11:26 LFT's Sent. bc6 11:26 NT PRO-BNP Sent. bc6 11:26 Troponin HS Sent. bc6 11:26 Initial lab(s) drawn, by ks, sent to lab. COVID swab sent to lab. Flu and/or RSV swab bc6 sent to lab. Strep swab sent to lab. Inserted saline lock: 22 gauge in left forearm, using aseptic technique. Blood collected. 11:40 XRAY Chest (1 view) In Process Unspecified. EDMO 12:00 Donnie Davies, RN is Primary Nurse. rs5 12:23 Provided Education on: rx teacing. as6 12:23 IV discontinued, intact, bleeding controlled, No redness/swelling at site. Pressure as6 dressing applied. Administered Medications: No medications were administered Medication: 12:03 VIS not applicable for this client. rs5 Outcome: 12:12 Discharge ordered by . sp3 12:23 Discharged to home ambulatory, as6 12:23 Condition: stable 12:23 Discharge instructions given to patient, Instructed on discharge instructions, follow up and referral plans. medication usage, Demonstrated understanding of instructions, follow-up care, medications, Prescriptions given X 1, 12:24 Patient left the ED. as6 Signatures: Dispatcher [employer] EDMO Quynh Meehan, Reg Reg mr Elad Santizo, RN RN iw Nigel Amezquita MD MD sp3 Juan De Jesus RN RN as6 Donnie Davies, RN RN rs5 Adry Key 6 Corrections: (The following items were deleted from the chart) 11:12 11:09 Acuity: MARIJA 4 iw iw 11:12 11:09 Resp 18bpm; Pulse Ox 97% RA; Temp 97.8F; 81.65 kg; Height 5 ft. 10 in.; BMI: iw 25.8; iw
--- NOTE | 2024-03-03 12:13 | EDPHYS ---
Physician Documentation [facility] Name: Savanna San Age: 53 yrs Sex: Female : 1970 Arrival Date: 03/03/2024 Time: 10:55 Bed 4 Private MD: ED Physician Nigel Amezquita HPI: 03/03 11:15 This 53 yrs old Female presents to ER via Ambulatory with complaints of Sore Throat, sp3 Cough, Headache. 11:15 53-year-old female with a history of Parkinson's, seizures, prior PE currently on sp3 Eliquis, Apryl's disease presents ED with chief complaint of sore throat, cough and congestion. Patient's son is also ill with the same symptoms. She denies any chest pain, back pain, significant shortness of breath, abdominal pain, nausea, vomiting, diarrhea, reported fever, or any other signs or symptoms on ROS at this time.. Historical: - Allergies: 11:10 Morphine; iw - PMHx: 11:10 DVT; apryl disease; Nerve Damage +DDD; Irritable bowel syndrome; Parkinsons; iw Seizures; CVA- Left sided weakness; Headaches; tremors; - PSHx: 11:10 Cholecystectomy; pain pump; spine; Total abdominal hysterectomy; iw - Immunization history:: Adult Immunizations. - Infectious Disease History:: Denies. - Social history:: Smoking status: Patient denies any tobacco usage or history of. ROS: 11:16 Constitutional: Negative for fever, chills, and weight loss, Eyes: Negative for injury, sp3 pain, redness, and discharge, Neck: Negative for injury, pain, and swelling, Cardiovascular: Negative for chest pain, palpitations, and edema, Respiratory: Negative for shortness of breath, cough, wheezing, and pleuritic chest pain, Abdomen/GI: Negative for abdominal pain, nausea, vomiting, diarrhea, and constipation, Back: Negative for injury and pain, MS/Extremity: Negative for injury and deformity, Skin: Negative for injury, rash, and discoloration, Neuro: Negative for headache, weakness, numbness, tingling, and seizure, Psych: Negative for depression, anxiety, suicide ideation, homicidal ideation, and hallucinations, Allergy/Immunology: Negative for hives, rash, and allergies, Endocrine: Negative for neck swelling, polydipsia, polyuria, polyphagia, and marked weight changes, 11:16 All other systems are negative, Exam: 11:16 Constitutional: This is a well developed, well nourished patient who is awake, alert, sp3 and in no acute distress. Head/Face: Normocephalic, atraumatic. Eyes: Pupils equal round and reactive to light, extra-ocular motions intact. Lids and lashes normal. Conjunctiva and sclera are non-icteric and not injected. Cornea within normal limits. Periorbital areas with no swelling, redness, or edema. Neck: Trachea midline, no thyromegaly or masses palpated, and no cervical lymphadenopathy. Supple, full range of motion without nuchal rigidity, or vertebral point tenderness. No Meningismus. Chest/axilla: Normal chest wall appearance and motion. Nontender with no deformity. No lesions are appreciated. Cardiovascular: Regular rate and rhythm with a normal S1 and S2. No gallops, murmurs, or rubs. Normal PMI, no JVD. No pulse deficits. Abdomen/GI: Soft, non-tender, with normal bowel sounds. No distension or tympany. No guarding or rebound. No evidence of tenderness throughout. Back: No spinal tenderness. No costovertebral tenderness. Full range of motion. Skin: Warm, dry with normal turgor. Normal color with no rashes, no lesions, and no evidence of cellulitis. MS/ Extremity: Pulses equal, no cyanosis. Neurovascular intact. Full, normal range of motion. Neuro: Awake and alert, GCS 15, oriented to person, place, time, and situation. Cranial nerves II-XII grossly intact. Motor strength 5/5 in all extremities. Sensory grossly intact. Cerebellar exam normal. Normal gait. Psych: Awake, alert, with orientation to person, place and time. Behavior, mood, and affect are within normal limits. 11:16 ENT: Mild pharyngeal erythema noted. No uvular shift or peritonsillar swelling.. 11:16 Respiratory: Active cough noted. Nonproductive. No respiratory distress or any other respiratory symptoms including tachypnea., 11:39 ECG was reviewed by the Attending Physician. EKG demonstrates normal sinus rhythm at 75 sp3 bpm with normal intervals, normal QRS, normal axis, normal ST/T-segment's without evidence of acute ischemia. Vital Signs: 11:09 BP 120 / 100; Pulse 81; Resp 18; Temp 97.8; Pulse Ox 97% on R/A; Weight 81.65 kg; iw Height 5 ft. 10 in. ; 12:18 BP 106 / 55; Pulse 65; Resp 18 S; Pulse Ox 99% on R/A; as6 11:09 Body Mass Index 25.83 (81.65 kg, 177.8 cm) iw MDM: 11:08 Patient medically screened. sp3 11:17 Data reviewed: vital signs, nurses notes, old medical records, lab test result(s), EKG, sp3 radiologic studies. ED course: 53-year-old female with cough, congestion and URI symptoms. Extensive past medical history noted. Differential diagnosis includes strep pharyngitis, other pharyngitis, bronchitis, pneumonia, other URI, among others. Workup will include chest x-ray, EKG and laboratory values and swabs. Disposition pending workup and patient course with probable discharge if workup is negative.. 12:12 ED course: Strep test is positive and remainder of workup is negative. We will safely sp3 discharge patient home on p.o. Augmentin and PCP follow-up.. 03/03 11:12 Order name: Basic Metabolic Panel; Complete Time: 12:03/03 11:12 Order name: CBC with Diff; Complete Time: 12:03/03 11:12 Order name: LFT's; Complete Time: 12:03/03 11:12 Order name: NT PRO-BNP; Complete Time: 12:11 03/03 11:12 Order name: Troponin HS; Complete Time: 12:11 03/03 11:12 Order name: Flu; Complete Time: 12:15 03/03 11:12 Order name: Strep; Complete Time: 12:11 03/03 11:12 Order name: SARS RAPID; Complete Time: 12:3 03/03 11:12 Order name: XRAY Chest (1 view); Complete Time: 12:03/03 11:12 Order name: Cardiac monitoring; Complete Time: 11:03/03 11:12 Order name: EKG - Nurse/Tech; Complete Time: 11:03/03 11:12 Order name: IV Saline Lock; Complete Time: 11: sp3 03/03 11:12 Order name: Labs collected and sent; Complete Time: sp3 03/03 11:12 Order name: O2 Sat Monitoring; Complete Time: sp3 Administered Medications: No medications were administered Disposition Summary: 03/03/24 12:12 Discharge Ordered Notes: Location: Home sp3 Condition: Stable sp3 Diagnosis - Strep pharyngitis sp3 Followup: sp3 - With: Private Physician - When: Upon discharge from the Emergency Department - Reason: Continuance of care Discharge Instructions: - Discharge Summary Sheet sp3 - Strep Throat, Adult sp3 Forms: - Medication Reconciliation Form sp3 - Antibiotic Education sp3 - Prescription Opioid Use sp3 - Patient Portal Instructions sp3 - Leadership Thank You Letter sp3 Prescriptions: - Augmentin 875-125 mg Oral Tablet - take 1 tablet ORAL route every 12 hours for 10 days; 20 tablet; Refills: 0, sp3 Product Selection Permitted Signatures: Dispatcher [employer] Elda Thomas RN RN iw Patel, Setul, MD MD sp3 Corrections: (The following items were deleted from the chart) 11 11:12 Chest Single View+[email or web address] ordered. FILI PENN
[2024-03-03 12:58] VITALS: BP 106/55; TEMP 97.8; O2SAT 99
== END 2024-03-03 12:24 | disposition home or self-care (01) ==
LOC: ER 10:55
DX: J02.0 Streptococcal pharyngitis (principal); Z11.52 Encounter for screening for COVID-19; G20.A1 Parkinson's disease without dyskinesia, without mention of fluctuations; Z88.5 Allergy status to narcotic agent
CPT/HCPCS: 36415; 71045; 80048; 80076; 83880; 84484; 85025; 87081; 87804; 87811; 93005; 99284

== ENCOUNTER 2024-07-12 13:07 | Emergency (ER) | payer OTHER ==
--- NOTE | 2024-07-12 13:50 | RAD REPORT ---
EXAM DESCRIPTION: CT - Head Brain Wo Cont - 07/12/2024 1:31 pm CLINICAL HISTORY: ams COMPARISON: Head Brain Wo Cont dated 02/11/2023; Head Brain Wo Cont dated 09/18/2020 TECHNIQUE: Noncontrast head CT images were obtained without IV contrast. Multiplanar reformats were generated and reviewed. All CT scans are performed using dose optimization technique as appropriate and may include automated exposure control or mA/KV adjustment according to patient size. FINDINGS: No intracranial hemorrhage, mass, or edema. Midline structures are unremarkable. Normal ventricular caliber for age. Nicolas-white matter differentiation is preserved, without evidence of acute infarct. No abnormal extra- axial fluid collections. Mastoid air cells and visualized portions of the paranasal sinuses are clear. No acute bony findings. IMPRESSION: No evidence of an acute intracranial process.
--- NOTE | 2024-07-12 13:51 | RAD REPORT ---
EXAM DESCRIPTION: RADChest Single View07/12/2024 1:38 pm CLINICAL HISTORY: ams COMPARISON: Chest Single View dated 03/03/2024; Chest Single View dated 12/11/2023; Chest Single View d ated 09/22/2023; Chest Single View dated 02/11/2023 TECHNIQUE: Portable AP view of the chest. FINDINGS: The lungs are clear. No pneumothorax or effusion. The cardiomediastinal contours are unre markable. IMPRESSION: No acute cardiopulmonary process.
[2024-07-12 13:54] LABS: SARS-CoV-2 Antigen CONTROL BLUE LINE VIS/BG OK; SARS-CoV-2 Antigen Rapid Res Negative (Negative)
[2024-07-12 14:18] LABS: Absolute Basophils 0.1 K/uL (0-0.5); Absolute Eosinophils 0.2 K/uL (0-0.5); Absolute Lymphocytes (CBC) 2.5 K/uL (0.7-4.9); Absolute Monocytes 0.6 K/uL (0.1-1.3); Absolute Neutrophil 3.8 K/uL (1.8-8.0); Basophils % 0.7 % (0-1.3); Eosinophils % 2.2 % (0-4.4); Hematocrit 42.6 % (36.0-45.0); Hemoglobin 14.1 g/dL (12.0-15.0); Lymphocytes % 35.4 % (15.3-44.8); MCH 30.6 pg (27.0-35.0); MCHC 33.1 g/dL (32.0-36.0); MCV 92.6 fL (80-100); MPV 9.5 fL (7.6-11.3); Monocytes % 8.5 % (3.3-12.3); Neutrophils % 53.2 % (41.7-73.7); Platelets 196 thou/uL (152-406); Red Cell Distribution Width 13.6 % (12.1-15.2)
[2024-07-12 14:26] LABS: PT Prothrombin Time 16.3 SECONDS (9.4-12.5); PTT, Activated Partial Thromb 37.4 SECONDS (24.3-36.9); Protime INR 1.47
[2024-07-12 14:37] LABS: Anion Gap 8.8 mEq/L (5.0-15.0); Bilirubin Total 0.3 mg/dL (0.2-1.0); Globulin 3.9 g/dL (2.3-3.5); Potassium 3.8 mEq/L (3.5-5.1); Protein, Total 7.9 g/dL (6.4-8.2); Troponin High Sensitivity 3.4 pg/mL (<58.9)
[2024-07-12 14:44] LABS: Specific Gravity 1.005 (1.005-1.030); Sqamous Epithelial <5 /HPF (None Seen); Urine Bacteria <20 /HPF (<20); Urine Bilirubin NEGATIVE (Negative); Urine Blood Negative (Negative); Urine Clarity Turbid (Clear); Urine Color Colorless (Yellow); Urine Culture Reflex Order NOT NEEDED; Urine Glucose NEGATIVE (Negative); Urine Ketones NEGATIVE (Negative); Urine Microscopic Reflex YN ORDER UMIC; Urine Mucus Slight /HPF (None Seen); Urine Nitrite NEGATIVE (Negative); Urine Protein NEGATIVE (Negative); Urine RBC <5 /HPF (None Seen); Urine Urobilinogen Normal (Normal); Urine WBC <5 /HPF (<5)
--- NOTE | 2024-07-12 15:12 | ER ---
Nurse's Notes [facility] Name: Savanna San Age: 53 yrs Sex: Female : 1970 Arrival Date: 07/12/2024 Time: 13:07 Bed 14 Private MD: Diagnosis: Generalized weakness, facial paresthesia Presentation: 07/12 13:16 Chief complaint: EMS states: patient had been eating breakfast and started to "fall tm6 out" per daughter. Daughter calls these "parkinson's attacks", where patient will shake violently and then not speak or be able to move for about 15 minutes. Per daughter BP was also low. Patient complaining of headache, and numbness to left side of face only. Coronavirus screen: Vaccine status: Patient reports being unvaccinated. Ebola Screen: Patient negative for fever greater than or equal to 101.5 degrees Fahrenheit, and additional compatible Ebola Virus Disease symptoms Patient denies exposure to infectious person. Patient denies travel to an Ebola-affected area in the 21 days before illness onset. No symptoms or risks identified at this time. Initial Sepsis Screen: Does the patient meet any 2 criteria? No. Patient's initial sepsis screen is negative. Does the patient have a suspected source of infection? No. Patient's initial sepsis screen is negative. Risk Assessment: Do you want to hurt yourself or someone else? Patient reports no desire to harm self or others. Onset of symptoms was July 12, 2024. 13:16 Method Of Arrival: EMS: [facility] tm6 13:16 Acuity: MARIJA 3 tm6 Triage Assessment: 13:19 General: Appears uncomfortable, Behavior is cooperative, crying. Pain: Complains of tm6 pain in face Pain currently is 5 out of 10 on a pain scale. Quality of pain is described as aching, sharp, throbbing. EENT: No signs and/or symptoms were reported regarding the EENT system. Neuro: Level of Consciousness is awake, alert, obeys commands, Oriented to person, place, time, situation, Reports headache numbness in left cheek. Cardiovascular: Patient's skin is warm and dry. Respiratory: Airway is patent Respiratory effort is even, unlabored, Respiratory pattern is regular, symmetrical. GI: No signs and/or symptoms were reported involving the gastrointestinal system. Abdomen is flat, non-distended. : No signs and/or symptoms were reported regarding the genitourinary system. Derm: No signs and/or symptoms reported regarding the dermatologic system. Musculoskeletal: Reports weakness in entire body numbness in left cheek. 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 - Infectious Disease History:: Denies. - Social history:: Smoking status: Patient denies any tobacco usage or history of. Screenin:21 [facility] ED Fall Risk Assessment (Adult) History of falling in the last 3 months, tm6 including since admission No falls in past 3 months (0 pts) Confusion or Disorientation No (0 pts) Intoxicated or Sedated No (0 pts) Impaired Gait No (0 pts) Mobility Assist Device Used No (0 pt) Altered Elimination No (0 pt) Score/Fall Risk Level 0 - 2 = Low Risk Oriented to surroundings, Maintained a safe environment, Educated pt \\T\\ family on fall prevention, incl call for assistance when getting out of bed. Abuse screen: Denies threats or abuse. Denies injuries from another. Nutritional screening: No deficits noted. Tuberculosis screening: No symptoms or risk factors identified. Assessment: 13:21 Reassessment: see triage assessment. tm6 15:24 Reassessment: Patient and/or family updated on plan of care and expected duration. Pain tm6 level reassessed. Patient is alert, oriented x 3, equal unlabored respirations, skin warm/dry/pink. Vital Signs: 13:16 BP 137 / 68; Pulse 82; Resp 19; Temp 98.5(O); Pulse Ox 100% on R/A; Weight 85.5 kg; tm6 Pain 5/10; 15:23 BP 112 / 78; Pulse 80; Resp 16; Temp 98.5; Pulse Ox 97% on R/A; Pain 0/10; tm6 13:16 Pain Scale: Adult tm6 15:23 Pain Scale: Adult tm6 ED Course: 13:10 Patient arrived in ED. sb4 13:14 Nigel Amezquita MD is Attending Physician. sp3 13:16 Kindra Christine, LUCY is Primary Nurse. tm6 13:19 Triage completed. tm6 13:19 Arm band placed on right wrist. tm6 13:21 Patient has correct armband on for positive identification. Bed in low position. Call tm6 light in reach. Side rails up X2. Provided Education on: use of call du. Client placed on continuous cardiac and pulse oximetry monitoring. NIBP monitoring applied. equipment monitor phototypesetting on. Pulse ox on. NIBP on. Noise minimized. Lights dimmed. Warm blanket given. Pillow given. 13:25 SARS RAPID Sent. tm6 13:25 Flu Sent. tm6 13:32 CT Head Brain wo Cont In Process Unspecified. EDMS 13:32 Maintain EMS IV. Dressing intact. Good blood return noted. Site clean \\T\\ dry. Gauge \\T\\ tm 6 site: 22g LFA. 13:38 Chest Single View XRAY In Process Unspecified. EDMS 13:55 Missed attempt(s): 20 gauge in left forearm. Bleeding controlled, band aid applied, tm6 catheter tip intact. 14:00 Inserted saline lock: 22 gauge in left forearm, using aseptic technique. Blood tm6 collected. Flushed with 10 mL NS. 14:26 Urinalysis w/ reflexes Sent. tm6 15:24 No provider procedures requiring assistance completed. IV discontinued, intact, tm6 bleeding controlled, No redness/swelling at site. Pressure dressing applied. 15:24 IV discontinued, intact, bleeding controlled, No redness/swelling at site. Pressure tm6 dressing applied. Administered Medications: No medications were administered Medication: 13:21 VIS not applicable for this client. tm6 Outcome: 15:11 Discharge ordered by . sp3 15:24 Discharged to home via wheelchair, with family, tm6 15:24 Condition: stable 15:24 Discharge instructions given to patient, family, Instructed on discharge instructions, follow up and referral plans. Demonstrated understanding of instructions, follow-up care, 15:24 Patient left the ED. tm6 Signatures: Dispatcher [employer] EDMS Nigel Amezquita MD MD sp3 Nuha Avila, PA-C PA-C sb4 Kindra Christine, RN RN tm6
--- NOTE | 2024-07-12 15:12 | EDPHYS ---
Physician Documentation [facility] Name: Savanna San Age: 53 yrs Sex: Female : 1970 Arrival Date: 07/12/2024 Time: 13:07 Bed 14 Private MD: ED Physician Nigel Amezquita HPI: 07/12 13:26 This 53 yrs old Female presents to ER via EMS with complaints of General Weakness. 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 Patient has history of similar symptoms in the past with prior electrolyte abnormalities. Also prior history of CVA. Patient denies fever, chest pain, shortness of breath, abdominal pain, nausea, vomiting, diarrhea, rash, known sick contacts, travel history, prolonged immobilization, or any other signs or symptoms on ROS at this time.. 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 - Infectious Disease History:: Denies. - Social history:: Smoking status: Patient denies any tobacco usage or history of. ROS: 13:29 Eyes: Negative for injury, pain, redness, and discharge, Neck: Negative for injury, sp3 pain, and swelling, Cardiovascular: Negative for chest pain, palpitations, and edema, Respiratory: Negative for shortness of breath, cough, wheezing, and pleuritic chest pain, Abdomen/GI: Negative for abdominal pain, nausea, vomiting, diarrhea, and constipation, Back: Negative for injury and pain, MS/Extremity: Negative for injury and deformity, Skin: Negative for injury, rash, and discoloration, Allergy/Immunology: Negative for hives, rash, and allergies, Endocrine: Negative for neck swelling, polydipsia, polyuria, polyphagia, and marked weight changes, 13:29 All other systems are negative, Exam: 13:29 Constitutional: This is a well developed, well nourished patient who is awake, alert, sp3 and in no acute distress. Head/Face: Normocephalic, atraumatic. Eyes: Pupils equal round and reactive to light, extra-ocular motions intact. Lids and lashes normal. Conjunctiva and sclera are non-icteric and not injected. Cornea within normal limits. Periorbital areas with no swelling, redness, or edema. ENT: Nares patent. No nasal discharge, no septal abnormalities noted. External auditory canals are clear. Oropharynx with no redness, swelling, or masses, exudates, or evidence of obstruction, uvula midline. Mucous membranes moist. Neck: Trachea midline, no thyromegaly or masses palpated, and no cervical lymphadenopathy. Supple, full range of motion without nuchal rigidity, or vertebral point tenderness. No Meningismus. Chest/axilla: Normal chest wall appearance and motion. Nontender with no deformity. No lesions are appreciated. Cardiovascular: Regular rate and rhythm with a normal S1 and S2. No gallops, murmurs, or rubs. Normal PMI, no JVD. No pulse deficits. Respiratory: Lungs have equal breath sounds bilaterally, clear to auscultation and percussion. No rales, rhonchi or wheezes noted. No increased work of breathing, no retractions or nasal flaring. Abdomen/GI: Soft, non-tender, with normal bowel sounds. No distension or tympany. No guarding or rebound. No evidence of tenderness throughout. Back: No spinal tenderness. No costovertebral tenderness. Full range of motion. Skin: Warm, dry with normal turgor. Normal color with no rashes, no lesions, and no evidence of cellulitis. MS/ Extremity: Pulses equal, no cyanosis. Neurovascular intact. Full, normal range of motion. Neuro: Awake and alert, GCS 15, oriented to person, place, time, and situation. Cranial nerves II-XII grossly intact. Motor strength 5/5 in all extremities. Sensory grossly intact. Cerebellar exam normal. Normal gait. Psych: Awake, alert, with orientation to person, place and time. Behavior, mood, and affect are within normal limits. 13:29 Neuro: Globally slow to respond and move however no focal deficits., 13:30 ECG was reviewed by the Attending Physician. EKG demonstrates normal sinus rhythm at 84 sp3 bpm with normal intervals, normal QRS, normal axis, normal ST/T-segment's without evidence of acute ischemia. Vital Signs: 13:16 BP 137 / 68; Pulse 82; Resp 19; Temp 98.5(O); Pulse Ox 100% on R/A; Weight 85.5 kg; tm6 Pain 5/10; 15:23 BP 112 / 78; Pulse 80; Resp 16; Temp 98.5; Pulse Ox 97% on R/A; Pain 0/10; tm6 13:16 Pain Scale: Adult tm6 15:23 Pain Scale: Adult tm6 MDM: 13:15 Patient medically screened. sp3 13:30 Data reviewed: vital signs, nurses notes, old medical records, lab test result(s), EKG, sp3 radiologic studies. ED course: 53-year-old female with PMH above now with altered mental status which is resolved and generalized weakness. Broad differential exist including recurrent TIA/CVA spectrum, other intracranial insult, electrolyte abnormality, ACS, infection, others. Workup includes CT scan of the head, EKG, chest x-ray, UA, laboratory values and general supportive care and other medications as indicated. Disposition pending workup and patient course.. 15:10 ED course: Full workup negative and patient continues to have normal neurological exam. sp3 Will safely discharge home at this time. No acute intervention indicated in the emergency department.. 07/12 13:16 Order name: Blood Culture Adult (2) 3 07/12 13:16 Order name: CBC with Diff; Complete Time: 14:39 3 07/12 13:16 Order name: CMP; Complete Time: 14:39 3 07/12 13:16 Order name: Lactate w/ 2H reflex if indic.; Complete Time: 14:46 3 07/12 13:16 Order name: Protime (+inr); Complete Time: 14:39 sp3 07/12 13:16 Order name: Ptt, Activated; Complete Time: 14:39 3 07/12 13:16 Order name: Urinalysis w/ reflexes; Complete Time: 14:46 3 07/12 13:16 Order name: Troponin High Sensitivity; Complete Time: 14:39 sp3 07/12 13:16 Order name: Flu; Complete Time: 14:39 sp3 07/12 13:16 Order name: SARS RAPID; Complete Time: 13:56 sp3 07/12 13:16 Order name: Chest Single View XRAY; Complete Time: 13:56 sp3 07/12 13:16 Order name: CT Head Brain wo Cont; Complete Time: 13:56 sp3 07/12 13:16 Order name: EKG; Complete Time: 13:16 sp3 07/12 13:16 Order name: Cardiac monitoring; Complete Time: 13:22 sp3 07/12 13:16 Order name: EKG - Nurse/Tech; Complete Time: 13:32 sp3 07/12 13:16 Order name: IV Saline Lock - Large Bore; Complete Time: 14:26 sp3 07/12 13:16 Order name: Labs collected and sent; Complete Time: 14:26 sp3 07/12 13:16 Order name: O2 Per Protocol; Complete Time: 13:25 sp3 07/12 13:16 Order name: O2 Sat Monitoring; Complete Time: 13:25 sp3 07/12 13:16 Order name: Vital Signs; Complete Time: 13:25 sp3 Administered Medications: No medications were administered Disposition Summary: 07/12/24 15:11 Discharge Ordered Notes: Location: Home sp3 Condition: Stable sp3 Diagnosis - Generalized weakness, facial paresthesia sp3 Followup: sp3 - With: Private Physician - When: Upon discharge from the Emergency Department - Reason: Continuance of care Discharge Instructions: - Discharge Summary Sheet sp3 - Weakness sp3 Forms: - Medication Reconciliation Form sp3 - Antibiotic Education sp3 - Prescription Opioid Use sp3 - Patient Portal Instructions sp3 - Leadership Thank You Letter sp3 Signatures: Dispatcher [employer] Nigel Arora MD MD sp3 Kindra Christine RN RN tm6
[2024-07-12 15:44] VITALS: TEMP 98.5
[2024-07-12 15:47] VITALS: BP 112/78; O2SAT 97
--- NOTE | 2024-07-13 12:38 | EKG ---
Test Date: 2024-07-12 Test Time: 13:25:26 Surface Hydrologist: AHMET MEASUREMENT RESULTS: Intervals: Rate: 84 AL: 158 QRSD: 80 QT: 398 QTc: 470 [place]: P: 68 AL: 158 QRS: 5 T: 74 INTERPRETIVE STATEMENTS: Normal sinus rhythm Normal ECG Compared to ECG 03/03/2024 11:34:33 No significant changes Electronically Signed On 07-13-24 12:36:58 CDT by Handy Cardona
== END 2024-07-12 15:24 | disposition home or self-care (01) ==
LOC: ER 13:07
DX: R53.1 Weakness (principal); R20.2 Paresthesia of skin; Z86.718 Personal history of other venous thrombosis and embolism; Z79.01 Long term (current) use of anticoagulants; R53.81 Other malaise; G20.A1 Parkinson's disease without dyskinesia, without mention of fluctuations; Z96.89 Presence of other specified functional implants
CPT/HCPCS: 93005; 99284